=== PATIENT | male | born 1970 | race Caucasian/White ===

== ENCOUNTER 2023-08-03 09:07 | Outpatient (OUT) | payer BC, SELFPAY ==
[2023-08-04 07:07] LABS: Testosterone 180 ng/dL (264-916)
== END 2023-08-03 09:08 | disposition home or self-care (01) ==
LOC: LAB 09:13
PROVIDERS: PCP Internal Medicine; Visit Provider Urology
DX: E29.1 Testicular hypofunction (principal)
CPT/HCPCS: 36415; 84403

== ENCOUNTER 2023-08-31 09:05 | Outpatient (OUT) | payer BC, SELFPAY ==
--- OUTSIDE RECORDS SUMMARY | 2023-08-31 09:11 | XMS_ITS | CCD ---
Author Name Unknown Address [address] [place] [address] Organization [facility] Care Team Providers Care Supervisor [employer] Name Role Phone REJI CENTENO Primary Care Physician [phone] Anthony Knox Unavailable MD Anthony Knox Attending Provider Lucy Sparks Unavailable Unavailable Reji Centeno Unavailable DK, DR THOMASON Admitting Unavailable BALL, DR THOMASON Attending Unavailable BALL, DR THOMASON Primary Care Unavailable BALL, DR THOMASON Consulting Unavailable BALL, DR THOMASON Admitting Unavailable BALL, DR THOMASON Attending Unavailable BALL, DR THOMASON Primary Care Unavailable BALL, DR THOMASON Consulting Unavailable BALL, DR THOMASON Admitting Unavailable BALL, DR THOMASON Attending Unavailable BALL, DR THOMASON Primary Care Unavailable BALL, DR THOMASON Consulting Unavailable VISHNU, VALERIANO Arroyo Admitting Unavailable VISHNU, VALERIANO Arroyo Attending Unavailable DK, DR THOMASON Primary Care Unavailable VISHNU, VALERIANO A Admitting Unavailable VISHNU, VALERIANO Arroyo Attending Unavailable BALL, DR THOMASON Primary Care Unavailable BALL, DR THOMASON Admitting Unavailable BALL, DR THOMASON Attending Unavailable BALL, DR THOMASON Primary Care Unavailable BALL, DR THOMASON Consulting Unavailable WEST, DR DOLORES Otero Consulting Unavailable FALVO, DANG Consulting Unavailable Дмитрий Santo Admitting Unavaila Дмитрий Cano Attending Unavaila Дмитрий Cano Referring Unavaila Valeriano Scott A Admitting Unavailable Valeriano Francis A Attending Unavailable Valeriano Francis A Referring Unavailable Martha Lo Attending Unavailable REJI CENTENO Referring Unavailable DK, REJI Referring Unavailable Helio RYAN Attending Unavailable DK, REJI Referring Unavailable Helio RYAN Attending Unavailable Valeriano Francis A Referring Unavailable Дмитрий Santo Admitting Unavaila Дмитрий Cano Attending Unavaila ble Brown Valeriano A Admitting Unavailable Brown Valeriano A Attending Unavailable Vishnu Valeriano A Referring Unavailable BROWN, VALERIANO A Referring Unavailable VALERIANO FRANCIS Attending Unavailable Allergies Allergy Classification Reported Allergen(s) Allergy Type Date of Onset Reaction(s) Facility (1 source) No Known Medication Allergies; Translations: [No Known Medication Allergies] Propensity to adverse reactions (disorder) [facility] Repository (2 sources) patient allergy list reviewed by nurse or physicia Propensity to adverse reactions 5 Comment:Done [facility] Other Medications Current Medications Medication Drug Class(es) Dates Sig (Normalized) Sig (Original) acetaminophen 325 mg / oxyCODONE hydrochloride 5 mg oral tablet (3 sources) Opioid Agonist Start: 06-20-2022 Percocet 5 mg-325 mg oral tablet See Instructions, 50 tab(s), Refill(s) 0, 1-2 tab(s) Oral q4hr, [facility]/pharmacy #[id number], 179, cm, 06/11/22 14:36:00 EST, Height/Length Dosing, 137, kg, 06/11/22 14:36:00 EST, Weight Dosing Start Date: 06/20/22 Status: Ordered aspirin 81 mg delayed release oral tablet (1 source) Platelet Aggregation Inhibitor, Nonsteroidal Anti-inflammatory Drug Start: 06-20-2022 End: 07-20-2022 take 2 tablets by mouth once daily aspirin 81 mg Oral EC Tab 162 mg = 2 tab(s), Oral, Daily, X 30 day(s), # 60 tab(s), Refills(s) 0, Pharmacy: [facility]/pharmacy #[id number], 179, cm, 06/11/22 14:36:00 EST, Height/Length Dosing, 137, kg, 06/11/22 14:36:00 EST, Weight Dosing Start Date: 06/20/22 Stop Date: 07/20/22 Status: Ordered celecoxib 100 mg oral capsule (3 sources) Nonsteroidal Anti-inflammatory Drug Start: 06-20-2022 take 1 capsule by mouth twice daily as needed for pain CeleBREX 100 mg Cap 100 mg = 1 cap(s), Oral, BID, PRN for pain, # 60 cap(s), Refills(s) 0, Pharmacy: [facility]/pharmacy #[id number], 179, cm, 06/11/22 14:36:00 EST, Height/Length Dosing, 137, kg, 06/11/22 14:36:00 EST, Weight Dosing Start Date: 06/20/22 Status: Ordered Centrum Silver oral tablet (6 sources) Start: 06-01-2022 take 1 tablet by mouth once daily Centrum Silver oral tablet 1 tab(s), Oral, Daily, Prophylaxis Start Date: 06/01/22 Status: Ordered cephalexin 500 mg oral capsule (1 source) Cephalosporin Antibacterial Start: 06-20-2022 End: 06-27-2022 take 1 capsule by mouth every eight hours Keflex 500 mg Cap 500 mg = 1 cap(s), Oral, q8hr, X 7 day(s), # 21 cap(s), Refills(s) 0, Pharmacy: [facility]/pharmacy #[id number], 179, cm, 06/11/22 14:36:00 EST, Height/Length Dosing, 137, kg, 06/11/22 14:36:00 EST, Weight Dosing Start Date: 06/20/22 Stop Date: 06/27/22 Status: Ordered 12 hr cetirizine hydrochloride 5 mg / pseudoephedrine hydrochloride 120 mg extended release oral tablet (6 sources) alpha-Adrenergic Agonist, Histamine-1 Receptor Antagonist Start: 06-01-2022 take 1 tablet by mouth twice daily Zyrtec-D oral tablet, extended release 1 tab(s), Oral, BID, Allergy symptoms Start Date: 06/01/22 Status: Ordered Chondroitin Sulfates / Glucosamine (5 sources) Start: 06-01-2022 take 2 tablets by mouth once daily Glucosamine Chondroitin 2 tab, Oral, Daily, Prophylaxis Start Date: 06/01/22 Status: Ordered docusate sodium 100 mg oral capsule (3 sources) Start: 06-20-2022 take 1 capsule by mouth twice daily as needed for constipation Colace 100 mg Cap 100 mg = 1 cap(s), Oral, BID, PRN for constipation, # 20 cap(s), Refills(s) 0, Pharmacy: [facility]/pharmacy #[id number], 179, cm, 06/11/22 14:36:00 EST, Height/Length Dosing, 137, kg, 06/11/22 14:36:00 EST, Weight Dosing Start Date: 06/20/22 Status: Ordered ibuprofen 200 mg oral tablet (2 sources) Nonsteroidal Anti-inflammatory Drug Start: 06-01-2022 take 2 tablets by mouth every four hours as needed for pain ibuprofen 200 mg Tab 400 mg = 2 tab(s), Oral, q4hr, PRN for pain Start Date: 06/01/22 Status: Ordered lisinopril 20 mg oral tablet (20 sources) Angiotensin Converting Enzyme Inhibitor Start: 07-20-2021 take 1 tablet by mouth once daily lisinopril 20 mg Tab 20 mg = 1 tab(s), Oral, Daily, Refills(s) 0, High blood pressure Start Date: 07/20/21 Status: Ordered take 1 tablet by elizabeth th every twenty-four hours Lisinopril 5 MG 1 tablet Orally Once a day Not-Taking take 1 tablet by elizabeth th every twenty-four hours Lisinopril 10 MG 1 tablet Orally Once a day Not-Taking Osteo Bi-Flex Adv Joint Shield (5 sources) Osteo Bi-Flex Ad v Joint Shield Active sildenafil 100 mg oral tablet (5 sources) Phosphodiesterase 5 Inhibitor Start: 09-05-19 take 1 tablet by mouth once daily as needed Sildenafil Citrate 100 MG 1 tablet Orally Once a day as needed for ED for 30 days Aug, Active 60 actuat testosterone 20.25 mg/actuat topical gel (1 source) Androgen Start: 07-29-19 24 AndroGel Pump 20.25 mg/1.25 g (1.62%) transdermal gel = 2 pump, Topical, qAM, apply to clean, dry, intact skin wash hands thoroughly after application, # 75 gram, Refills(s) 3, Pharmacy: [id number], 178, cm, 07/29/23 14:23:00 EST, Height/Length Dosing, 136, kg, 07/29/23 14:23:00 EST, Weight Dosing Start Date: 07/29/23 Status: Ordered {20 (nirmatrelvir 150 MG Oral Tablet) / 10 (ritonavir 100 MG Oral Tablet) } Pack [Paxlovid 5-Day] (1 source) Start: 05-08-20 23 Paxlovid (300/100) 20 x 150 MG & 10 x 100MG as directed Orally bid for 5 days Apr, Active Completed/Discontinued Medications Medication Drug Class(es) Dates Sig (Normalized) Sig (Original) hydroCHLOROthiazide 12.5 mg oral tablet (5 sources) Thiazide Diuretic take 1 tablet by mouth every twenty-four hours hydroCHLOROthiazide 12.5 MG 1 tablet in the morning Orally Once a day Not-Taking Loratadine (6 sources) Claritin Not-Kai ing Claritin Active lovastatin 20 mg oral tablet (5 sources) HMG-CoA Reductase Inhibitor take 1 tablet by mouth once daily Lovastatin 20 MG 1 tablet with the evening meal Orally Once a day Not-Taking tadalafil 20 mg oral tablet (1 source) Phosphodiesterase 5 Inhibitor Start: 07-29-19 take 1 tablet by mouth every hour as needed Cialis 20 mg Tab 20 mg = 1 tab(s), Oral, As Directed, PRN sexual activity, Take one tab 1 hr prior to sexual activity., # 30 tab(s), Refills(s) 3, Pharmacy: [id number], 178, cm, 07/29/23 14:23:00 EST, Height/Length Dosing, 136, kg, 07/29/23 14:23:00 EST, Weight Dosing Start Date: 07/29/23 Status: Ordered Problems Active Problems Problem Classification Problem Date Documented Date Episodic/Chronic Abdominal hernia (6 sources) Umbilical hernia 06-01-2022 Episodic Acute bronchitis (5 sources) Acute bronchitis; Translations: [Acute bronchitis due to other specified organisms] Episodic Deficiency and other anemia (14 sources) Anemia; Translations: [Anemia, unspecified] 07-20-2021 Episodic Disorders of lipid metabolism (4 sources) Hyperlipidemia; Translations: [Hyperlipidemia, unspecified] Onset: 05-12-2017 Chronic Essential hypertension (15 sources) Hypertensive disorder; Translations: [Essential hypertension] 07-20-2021 Chronic Joint disorders and dislocations; trauma-related (11 sources) Derangement of left knee; Translations: [Unspecified internal derangement of left knee] Onset: 12-21-2021 Chronic Joint disorders and dislocations; trauma-related (5 sources) Late effect of sprain AND/OR strain without tendon injury; Translations: [Other tear of medial meniscus, current injury, unspecified knee, sequela] Episodic Osteoarthritis (14 sources) Osteoarthritis of left knee joint; Translations: [Unilateral primary osteoarthritis, left knee] Onset: 01-25-2022 Resolved: 01-25-2022 Chronic Other aftercare (5 sources) Aftercare following joint replacement surgery; Translations: [AFTERCARE FOLLOW JNT REPLACE SURG] Onset: 07-12-2022 Chronic Other connective tissue disease (5 sources) Presence of left artificial knee joint; Translations: [PRESENCE LEFT ARTIFICIAL KNEE JOINT] Onset: 07-13-2022 Chronic Other endocrine disorders (2 sources) Testicular hypofunction; Translations: [Testicular hypofunction] Onset: 03-28-2023 Chronic Other endocrine disorders (2 sources) Male hypogonadism 03-28-2023 Chronic Other male genital disorders (5 sources) Erectile dysfunction co-occurrent and due to arterial insufficiency; Translations: [Erectile dysfunction due to arterial insufficiency] Chronic Other male genital disorders (6 sources) Erectile dysfunction due to arterial insufficiency; Translations: [ERECTILE DYSF D/T ART INSUFFICIENCY] Onset: 11-23-2022 Chronic Other male genital disorders (2 sources) Male erectile dysfunction, unspecified; Translations: [Erectile dysfunction] Onset: 07-29-2023 Chronic Other nutritional; endocrine; and metabolic disorders (7 sources) Body mass index 40+ - severely obese 11-17-2021 Chronic Other nutritional; endocrine; and metabolic disorders (9 sources) Morbid obesity; Translations: [Morbid (severe) obesity due to excess calories] 11-08-2021 Chronic Other nutritional; endocrine; and metabolic disorders (2 sources) Obesity; Translations: [Obesity, unspecified] Onset: 08-30-2014 Chronic Other nutritional; endocrine; and metabolic disorders (2 sources) Obese class II; Translations: [Body mass index 39.0-39.9, adult] Onset: 08-30-2014 Chronic Other screening for suspected conditions (not mental disorders or infectious disease) (17 sources) Electrocardiogram abnormal; Translations: [Abnormal electrocardiogram [ECG] [EKG]] Onset: 09-10-2022 Episodic Residual codes; unclassified (16 sources) Obstructive sleep apnea syndrome; Translations: [Obstructive sleep apnea (adult) (pediatric)] Onset: 03-09-2016 07-20-2021 Chronic Comment on above: uses CPAP Residual codes; unclassified (1 source) Obstructive sleep apnea (adult) (pediatric) Chronic Residual codes; unclassified (1 source) Decreased libido Episodic Sprains and strains (7 sources) Strain of unspecified muscle(s) and tendon(s) at lower leg level, left leg, initial encounter; Translations: [Sprain of left knee] Episodic Unclassified (1 source) Patient encounter status 07-29-2023 Past or Other Problems Problem Classification Problem Date Documented Da te Episodic/Chronic Other non-traumatic joint disorders (1 source) Pain in left knee Onset: 01-25-2022 Resolved: 01-25-2022 Episodic Viral infection (1 source) COVID-19 Results Test Name Value Interpretation Reference Range Facility [facility] 12-26-2022 Lab Reports [id number] Normal [facility] TESTOSTERONE, TOTALon 2022 Testosterone [Mass/Vol] 208 ng/dL Critically low 264-916 [facility] Comment on above: Result Comment: Adul t male reference interval is based on a population of healthy nonobese males (BMI <30) between 19 and 39 years old. German et.al. JCEM 2017,102;8265-0134. PMID: 13251260. Performed By: #### T ESTTOT #### [facility] [address] [place] [address] Dr. Alla Martinez ECHOCARDIO M/2D COMPLETEon 0 09-17-2022 ECHOCARDIO M/2D COMPLETE Patient: ARNEL PARR Exam Date: 09/17/2022 : 1970 Gender:M Ordering : DR REJI CENTENO D.O. Admission #: [id number] Family : Order #: [id number] CLICK HERE TO VIEW EXAM ECHOCARDIOGRAM REPORT PROCEDURE: CARDIO PULMONARY ECHOCARDIO M/2D COMP INDICATIONS: Abnormal EKG and Stress test COMPARISON: None. DESCRIPTION: COMPLETE ECHOCARDIOGRAM Real-time transthoracic echocardiography with 2D, M-mode, spectral and color flow Doppler performed. QUALITY: Technical quality was good. LEFT VENTRICLE: Normal chamber size. Mild concentric left ventricular hypertrophy. Global left ventricular systolic function is normal. LV EF: Visual estimation of left ventricular ejection fraction is 60% DIASTOLIC: Normal diastolic function. ATRIAL SEPTUM: LEFT ATRIUM: Normal chamber size. RIGHT ATRIUM: Normal chamber size. RIGHT VENTRICLE: Normal chamber size. Normal right ventricular systolic function. TRICUSPID VALVE: Normal mobility and thickness. No stenosis with trivial regurgitation. Unable to assess right-sided pressures due to lack of measurable tricuspid regurgitation. MITRAL VALVE: Normal mobility and thickness. No mitral valve prolapse. No evidence of mitral valve stenosis. There is no mitral annular calcification. No mitral regurgitation. AORTIC VALVE: Normal trileaflet appearance. No visible sclerosis. Normal leaflet mobility. No evidence of aortic valve stenosis. No aortic regurgitation. AORTIC ROOT: Normal diameter and appearance. PULMONIC VALVE: Normal thickness and mobility. No stenosis. No regurgitation. PERICARDIUM: No evidence of pericardial effusion. IVC: Collapses with inspirations. Normal size. PLEURA: CONCLUSION: 1. Mild concentric left ventricular hypertrophy with normal systolic function. LVEF is 60%. 2. Normal right ventricular size and systolic function. 3. No significant valvular dysfunction. 4. No pericardial effusion. Adult Echocardiography Procedure Report Left Ventricle LVEDD (3.7 - 5.6 cm): 4.47 cm LVESD (2.2 - 4.0 cm): 3.06 cm LVIVS thickness (0.6 - 1.2 cm): 1.22 cm LVPW thickness (0.5 - 1.0 cm): 1.20 cm e': 0.11 m/s E - e': 7.26 LVOT Max Gradient: 3.00 mm[Hg] Peak Velocity (LVOT): 0.87 m/s Mean Velocity (LVOT): 0.58 m/s LVOT Diameter 2.39 cm Left Ventricular Ejection Fraction: 60 % Left Atrium LA Volume Index (2D A2C): 68.29 ml, 68.29 ml Left Atrium Systolic Dimension: 3.55 cm Mitral Valve MV E to A Ratio: 1.29 Mitral Valve A-Wave Peak Velocity: 0.63 m/s Mitral Valve E-Wave Peak Velocity: 0.81 m/s Right Ventricle RV Internal Diastolic Dimension: 3.96 cm Aorta AO Root Diam: 3.45 cm Ascending Ao Diam: 2.73 cm Aortic Valve AoV Area (Peak Anthony): 3.11 cm2, 3.11 cm2 AoV Area (VTI): 3.30 cm2, 3.30 cm2 Peak Velocity(Antegrade Flow): 1.24 m/s Peak Gradient(Antegrade Flow): 6.19 mm[Hg] Mean Velocity(Antegrade Flow): 0.90 m/s Mean Gradient(Antegrade Flow): 3.64 mm[Hg] Velocity Time Integral: 26.61 cm Tricuspid Valve Peak Velocity (Regurgitant Flow): 1.07 m/s, 0.99 m/s, 1.58 m/s Peak Velocity: 0.50 m/s Pulmonic Valve Mean Gradient: 3.72 mm[Hg] Mean Velocity: 0.93 m/s Peak Velocity: 1.27 m/s Peak Gradient: 6.49 mm[Hg] Right Atrium Right Atrium Systolic Pressure: 99.56 ml, 99.56 ml Dictated by: Louie Camara M.D. on 09/20/2022 at 09:20 Approved by: Louie Camara M.D. on 09/20/2022 at 09:22 Normal [facility] TESTOSTERONE, TOTALon 2022 Testosterone [Mass/Vol] 276 ng/dL Normal 264-[address] [facility] Comment on above: Result Comment: Adul t male reference interval is based on a population of healthy nonobese males (BMI <30) between 19 and 39 years old. German et.al. JCEM 2017,102;5634-4347. PMID: [id number]. Performed By: #### T ESTTOT #### [facility] [address] [place] [address] Dr. Alla Martinez CBC AUTO DIFFon 09-06-2022 BASO # 0.1 103/ul Normal 0.0-0.1 [facility] Comment on above: Performed By: #### C BC #### [facility] [address] [place] [address] Dr. Alla Martinez Basophils/100 WBC (Bld) 1.6 % Normal 0.2-2.0 [facility] Comment on above: Performed By: #### C BC #### [facility] [address] [place] [address] Dr. Alla Martinez EO # 0.5 103/ul Normal 0.0-0.7 [facility] Comment on above: Performed By: #### C BC #### [facility] [address] [place] [address] Dr. Alla Martinez Eosinophils/100 WBC (Bld) 6.4 % Normal 0.9-7.0 [facility] Comment on above: Performed By: #### C BC #### [facility] [address] [place] [address] Dr. Alla Martinez Erythrocyte distribution width (RBC) [Ratio] 12.8 % Normal 11.0-15.0 [facility] Comment on above: Performed By: #### C BC #### [facility] [address] [place] [address] Dr. Alla Martinez Hematocrit (Bld) [Volume fraction] 40.1 % Critically low 42.0-54.0 [facility] Comment on above: Performed By: #### C BC #### [facility] [address] [place] [address] Dr. Alla Martinez Hemoglobin (Bld) [Mass/Vol] 13.0 g/dL Critically low 14.0-18.0 [facility] Comment on above: Performed By: #### C BC #### [facility] [address] [place] [address] Dr. Alla Martinez IG # 0.06 10e3/ul Critically high 0.00-0.03 [facility] Comment on above: Performed By: #### C BC #### [facility] [address] [place] [address] Dr. Alla Martinez IG % 0.8 % Critically high 0.0-0.5 [facility] Comment on above: Performed By: #### C BC #### [facility] [address] [place] [address] Dr. Alla Martinez LYMPH # 2.5 103/ul Normal 1.2-3.8 [facility] Comment on above: Performed By: #### C BC #### [facility] [address] [place] [address] Dr. Alla Martinez Lymphocytes/100 WBC (Bld) 33.2 % Normal 20.5-60.0 [facility] Comment on above: Performed By: #### C BC #### [facility] [address] [place] [address] Dr. Alla Martinez MANUAL DIFF REQ NO Normal [facility] Comment on above: Performed By: #### C BC #### [facility] [address] [place] [address] Dr. Alla Martinez MCH (RBC) [Entitic mass] 28.3 pg Normal 25.9-34.0 [facility] Comment on above: Performed By: #### C BC #### [facility] [address] [place] [address] Dr. Alla Martinez MCHC (RBC) [Mass/Vol] 32.4 g/dL Normal 29.9-35.2 [facility] Comment on above: Performed By: #### C BC #### [facility] [address] [place] [address] Dr. Alla Martinez MCV (RBC) [Entitic vol] 87.4 fL Normal 80.0-94.0 [facility] Comment on above: Performed By: #### C BC #### [facility] [address] [place] [address] Dr. Alla Martinez MONO # 0.6 103/ul Normal 0.3-0.8 [facility] Comment on above: Performed By: #### C BC #### [facility] [address] [place] [address] Dr. Alla Martinez Monocytes/100 WBC (Bld) 8.3 % Normal 1.7-12.0 [facility] Comment on above: Performed By: #### C BC #### [facility] [address] [place] [address] Dr. Alla Martinez NEUT # 3.8 103/ul Normal 1.4-6.[address] [facility] Comment on above: Performed By: #### C BC #### [facility] [address] [place] [address] Dr. Alla Martinez Neutrophils/100 WBC (Bld) 49.7 % Normal 43.0-75.[address] [facility] Comment on above: Performed By: #### C BC #### [facility] [address] [place] [address] Dr. Alla Martinez Platelet mean volume (Bld) [Entitic vol] 10.8 fL Normal 9.5-13.[address] [facility] Comment on above: Performed By: #### C BC #### [facility] [address] [place] [address] Dr. Alla Martinez PLT 228 103/ul Normal 150-450 [facility] Comment on above: Performed By: #### C BC #### [facility] [address], [place] [address] Dr. Alla Martinez RBC 4.59 106/ul Critically low 4.70-6.10 [facility] Comment on above: Performed By: #### C BC #### [facility] [address] [place], [place] [address] Dr. Alla Martinez WBC 7.6 103/ul Normal 4.0-11.0 [facility] Comment on above: Performed By: #### C BC #### [facility] [address], [place] [address] Dr. Alla Martinez Complete Blood Count and Dif uvaldo 09-06-2022 Anisocytosis Ql (Bld) [facility] Other Basophilic stippling LM Ql (Bld) [facility] Other RBC morphology finding Nom (Bld) [facility] Other Complete Blood Count and Diff [facility] Other Comprehensive Metabolic Pane maria 09-06-2022 Albumin [Mass/Vol] 3.039430 g/dL 3.4-5.0 g/dL [facility] Other Calcium [Mass/Vol] 8.7875297 mg/dL 8.5-10 .1 mg/dL [facility] Other CO2 [Moles/Vol] 27.94420439 mmol/L 21.0-3 2.0 mmol/L [facility] Other Creatinine [Mass/Vol] 0.41477806 mg/dL 0. 70-1.30 mg/dL [facility] Other Potassium [Moles/Vol] 4.43361456 mmol/L 3 .5-5.1 mmol/L [facility] Other Protein [Mass/Vol] 7.102022 g/dL 6.4-8.2 g/dL N [facility] Other Urea nitrogen [Mass/Vol] 18.8052524 mg/dL 7.0-18.0 mg/dL [facility] Other Comprehensive Metabolic Panel see note [facility] Other Comprehensive Metabolic Panel 142 mmol/L 136-145 mmol/L [facility] Other Comprehensive Metabolic Panel 115 mg/dL Critically high 74-106 mg/dL [facility] Other Comprehensive Metabolic Panel >60 mL/min/1.73m2 >=60 mL/min/1.73m 2 [facility] Other Comprehensive Metabolic Panel 0.2 mg/dL 0.2-1.0 mg/dL [facility] Other Comprehensive Metabolic Panel 3.8 g/dL [facility] Other Albumin/Globulin [Mass ratio] 0.9 {ratio} Normal [facility] Other Comment on above: Performed By: #### C MP, LIPID #### [facility] [address] [place] [address] [address] Alla Martinez ALP [Catalytic activity/Vol] 93 U/L Normal 46-116 [facility] Other Comment on above: Performed By: #### C MP, LIPID #### [facility] [address] [address] [address] Alla Martinez ALT [Catalytic activity/Vol] 37 U/L Normal 16-63 [facility] Other Comment on above: Performed By: #### C MP, LIPID #### [facility] [address] [place], [place] [address] Dr. Alla Martinez Anion gap [Moles/Vol] 12.1 mmol/L Normal No rt [employer] [facility] Other Comment on above: Performed By: #### C MP, LIPID #### [facility] [address] [address] [address] Alla Martinez AST [Catalytic activity/Vol] 21 U/L Normal 15-37 [facility] Other Comment on above: Performed By: #### C MP, LIPID #### [facility] [facility] [address] [place] [address] Dr. Alla Martinez Chloride [Moles/Vol] 107 mmol/L Normal 98-107 [facility] STAR FESTIVAL Other Comment on above: Performed By: #### C MP, LIPID #### [facility] [address] [address] [address] Alla Martinez Urea nitrogen/Creatinine [Mass ratio] 20.2 mg/mg Normal [facility] STAR FESTIVAL Other Comment on above: Performed By: #### C MP, LIPID #### [facility] [address] [place] [address] Dr. Alla Martinez LIPID PROFILEon 09-06-2022 CHOL-HDL RATIO NORM SEE BELOW Normal [facility] Comment on above: Result Comment: 3.3 - 4.4 LOW RISK 4.4 - 7.1 AVERAGE RISK 7.1 - 11.0 MODERATE RISK >11.0 HIGH RISK Performed By: #### C MP, LIPID #### [facility] [address] [place] [address] Dr. Alla Martinez Cholesterol in LDL [Mass/Vol] 89.2 mg/dL Normal [facility] Comment on above: Performed By: #### C MP, LIPID #### [facility] [address] [place] [address] Dr. Alla Martinez HDL NORMAL > or = 60 mg/dl - LOW CARDIOVASCULAR RISK <40 mg/dl - HIGH CARDIOVASCULAR RISK Normal [facility] Comment on above: Performed By: #### C MP, LIPID #### [facility] [address] [place] [address] Dr. Alla Maritnez LDL CALC NORMAL SEE BELOW Normal [facility] Comment on above: Result Comment: <100 mg/dl OPTIMAL 100 - 129 mg/dl NEAR OR ABOVE OPTIMAL 130 - 159 mg/dl BORDERLINE HIGH 160 - 189 mg/dl HIGH >190 mg/dl VERY HIGH Performed By: #### C MP, LIPID #### [facility] [address] [address] [address] Alla Martinez VLDL CALC 35.8 mg/dL Normal [facility] Comment on above: Performed By: #### C MP, LIPID #### [facility] [address] [address] [address] Alla Martinez Lipid Panelon 09-06-2022 Lipid Panel > or = 60 mg/dl - LOW CARDIOVASCULAR RISK <40 mg/dl - HIGH CARDIOVASCULAR RISK [facility] STAR FESTIVAL Other Lipid Panel SEE BELOW [facility] Other Lipid Panel 89.2 mg/dL [facility] Other Lipid Panel 35.8 mg/dL [facility] STAR FESTIVAL Other Cholesterol [Mass/Vol] 158 mg/dL Normal <=200 [facility] Other Comment on above: Performed By: #### C MP, LIPID #### [facility] [address] [address] [address] Alla Martinez Cholesterol in HDL [Mass/Vol] 33 mg/dL Critically low 40-60 [facility] Other Comment on above: Performed By: #### C MP, LIPID #### [facility] [address] [address] [address] Alla Martinez Cholesterol.total/Cho lesterol in HDL [Mass ratio] 4.8 {ratio} Normal [facility] STAR FESTIVAL Other Comment on above: Performed By: #### C MP, LIPID #### [facility] [address] [address] [address] Alla Martinez Triglyceride [Mass/Vol] 179 mg/dL Critically high <=150 [facility] Other Comment on above: Performed By: #### C MP, LIPID #### [facility] [address] [address] [address] Alla Martinez PROF 14(COMP METB)on 023 Albumin [Mass/Vol] 3.5 g/dL Normal 3.4-5.[address] [facility] Comment on above: Performed By: #### C MP, LIPID #### [facility] [address] [address] [address] Alla Martinez Bilirubin [Mass/Vol] 0.2 mg/dL Normal 0.2-1.0 [facility] Comment on above: Performed By: #### C MP, LIPID #### [facility] [address] [address] [address] Alla Martinez Calcium [Mass/Vol] 8.9 mg/dL Normal 8.5-10.[address] [facility] Comment on above: Performed By: #### C MP, LIPID #### [facility] [address] [place] [address] Dr. Alla Martinez CO2 [Moles/Vol] 27.1 mmol/L Normal 21.0-32.0 [facility] Comment on above: Performed By: #### C MP, LIPID #### [facility] [address] [place] [address] Dr. Alla Martinez Creatinine [Mass/Vol] 0.89 mg/dL Normal 0.70-1.30 [facility] Comment on above: Performed By: #### C MP, LIPID #### [facility] [address] [place] [address] Dr. Alla Martinez EGFR-AF SOUTH AFRICAN >60 Normal >=60 [facility] Comment on above: Performed By: #### C MP, LIPID #### [facility] [address] [place] [address] Dr. Alla Martinez EGFR-NON AF SOUTH AFRICAN >60 Normal >=60 [facility] Comment on above: Performed By: #### C MP, LIPID #### [facility] [address] [place] [address] Dr. Alla Martinez Globulin (S) [Mass/Vol] 3.8 g/dL Normal [facility] Comment on above: Performed By: #### C MP, LIPID #### [facility] [address] [place] [address] Dr. Alla Martinez Glucose [Mass/Vol] 115 mg/dL Critically high 74-106 [facility] Comment on above: Performed By: #### C MP, LIPID #### [facility] [address] [address] [address] Alla Martinez Potassium [Moles/Vol] 4.2 mmol/L Normal 3.5-5.1 [facility] Comment on above: Performed By: #### C MP, LIPID #### [facility] [address] [address] [address] Alla Martinez Protein [Mass/Vol] 7.3 g/dL Normal 6.4-8.[address] [facility] Comment on above: Performed By: #### C MP, LIPID #### [facility] [address] [address] [address] Alla Martinez Sodium [Moles/Vol] 142 mmol/L Normal 136-[address] [facility] Comment on above: Performed By: #### C MP, LIPID #### [facility] [address] [address] [address] Alla Martinez Urea nitrogen [Mass/Vol] 18.0 mg/dL Normal 7.0-18.0 [facility] Comment on above: Performed By: #### C MP, LIPID #### [facility] [address] [address] [address] Alla Martinez TESTOSTERONE, TOTALon 2022 Testosterone [Mass/Vol] 276 ng/dL 264-916 ng/dL [facility] Other IntraOperative Documentson 1 08-23-2021 IntraOperative Documents [id number]#1.00CD:127 Normal [facility] Blood Bank Slipon 06-21-2022 Blood Bank Slip [id number] 0#1.00CD:127 Normal [facility] Coding Summary.on 06-21-2022 Coding Summary. CD:[id number] Gh0bWw+PGhlYWQ+PE1FV EKdV53crFEiiA7JZ8uUJ Q7GVHDLTDNCIW5LOQ0kv WF0PWreV3JdtrZy UhsocCAkXW91EBu4YLU0 zWvbCIeeaE5vdIBuD2w2 TzQmAU44mF55EBalFQCq MaW9XeCcxccuvJSo O9lmQfMlrNGaFwv+PHRh YmxlIHdpZHRoPScxMDAl LqTtcTifYX4bXe4pWFEq LWNvbGxhcHNlOiBj o0naULRdYBlpZF0emCar N7QfiMU0WNQrx9c5Ym09 dHI+PQFtYHG8lEzcUEif f478JyOvm5vnLKC1 mNGcVWmzEPQ3X47mh3Y5 BQLqKPIrYKC2vVL4kA6o vHdiczvaM1QdaEVsAaO9 HWN1bMUkaC0ymLxe azrssW7fOfh+N38BBJ3E HBVSQQ0TYjz7N0MzYxhs dHI+MG23VLYjRB06vHPi kUSgj6monHf8FrMm UQZdFMB1hFuoCJavm8Th HHGpD88frTQas5R2YIRi aQdjlKAlYnQxgTH5jX7t QJqkuxyui0nitoyw Cijnj4zksp56mC01L63r TTuqJJSkHVD3MWVrMRIt wEvunp5krS2rVe4+IDxj c6uxq6pyiTv3BnGw CHEotlMpmBwgREH1r6Cc Pk15M9VqeOpsm2LnUqm4 pd21xHHlj5P7qGU0XKwt FZKksD2tUCjiSzD6 KDXzAyAxwI72hLEjJUgb Wa4czCffbEdaJB5kXFYa qixuTVDckE9uXNCdhMOr vGtxJX3nTWBpydvm w480DoHzIZC6HKAwgFDc Q5HnjY4hGjOhGGBcNUVm Q9NbaTFwSBroF786LSml SwJ4HOFmfqYgA7Lv KFNasFfiTtE8e9B0Up9K u6WjypbqEYB5GLbdYVBx EdL6BwJsJhH4S7DuPkw2 OQPimLcjEA8yP5Jy CXJpcakrbjmzgJT2LDUj ZENwaB68pYJwRUbfCf5t w8U5f357MPAiHPPkxC95 Zm3laGwaTXBeiJCR oO4uxxnmr4snsceoFmGz XQDbAZv4JOq6EJCbvUws MjCnQVT7LdS7CIJ4mRPq bV7grKydexfdhV4q Oyc+M38zdD5rPPN0SVI2 kzwhMAPowkSyUR87TJ32 N7HeZpdseTTnjML+PGRp rmElzOnnYN5zAiVs m1pim4HsPOtvK1OwFFYz ECvhXea9FWWwTIT2vUW9 gY4cMBJvIAkdz0K6bJK8 W9NoxeBuvr7gh1kr LTXaDQhuK28ftZSds1F7 SPCmeUZ2CDOtwJruQsQy aE40Rre+IRDhoIlcs4Rw Xozzm5bph2lloOw5 IjMwJSIgdmFsaWduPSJ0 j7NlPp79U19hEHcuQPHl GIYtAFGcRNBrdZbuls1g sA9lQt8+PGNvbCB3 dIY7iF3lSFGiCgZ4QTta D924RwFznRNlEeywg8eq h0pmiLn5WjAmWVInmtIe rLjqLVW0b8SgIo86 A65vZVenVDAoMKZzKVJo NWZocVjdyw3dbC6yCz1+ CW0fp0jdju36uW27jLC+ VUJzWGM8iAyxOOrs ORTbnD1jXMstIoS1DIGi IhNxfK71bOXiLEibCz2p xWenvJxfRT5zYUEexqbr o609CbGhj8dzPAHy hDVoYAbiOIP9Z41cd8W8 ESUoRFXgMES0wDA3yI8r bGlnbjogbGVmdDsgdmVy eGelLLfaBPdaA820 IHRvcDsnPlBhdGllbnQg ZkJgPOc3A8KfRvt4YTDj zUzaBA2xjKLxIZafVz2i yGdzwIchLN9yRCNf xxewi401QpGxw0ztKWEf hWQzDHikSND2X27lw9U8 LZGeESKaHWB7kAU7mD4n bGlnbjogbGVmdDsg diEabAuvEAqpAJyrO721 IHRvcDsnPkJpcnRoIERh qUF9OS96UQ32oBTrd5F0 aRC3O0FrOXJgajcb hpuoiKO7RPHaXVJdyW82 Hp2pyZjhWr1yCMAvGGP6 LVXlnNVhP8JtpC3mSyXp JEKoWWSzC9FgyDGs IMcnC936KXwwPtB9BNOy suMkH7FgWRSjgGunWxA7 c4L0Qi8DW6R1NT29MX69 iUTes7M7wNT0U1Gi NZHdfttfmxbbfNW8NGYq SESaaS53Hd5dwHwjIu7i OABiPXH5DIRxdHCmR8Fg pD8rCbViBTAwGHZr B5RnvSOaHJkpU539ORha UrO1RSUzddVrL6WaMZWp cMcuRvS1r7P3Vl4HKCb9 ZR06TT23cUXgs9N1 dGU2L3BeDQXbxadeeqfd pQY5VXUkWFMafW96Dd0m iEpaAy8xXMUrINC7ZMBx lRBqI5QsmS9bJxPm FOMhUGRmF9ZccLFhEDpn O665HGahHjN3MJSrbjJe N8MdFEHvjTsmTzX2a3H8 Ne6YCFXnGR98ZPL7 qIJ2MI25LY65M8XnSxpg dGFibGU+PHRhYmxlIHdp ZHRoPScxMDAlJyBzdHls TU0jMk4lHEGuGXDa tIqruLVhXnEvj2kgJWCl PEwjRY3hxLxkU9RtkKT3 YHYhe5e8Qi83F64bV7Wm dXA+WDMwhOW3vKK8 oA7nSoEcZnJ5HHatP722 DiCmtOWnCjlnm6iqh9uc xFu2SyS3HKSpgaHhaBdy XKA3r7PiYv82W76u IHdpZHRoPSIxNSUiIHZh fMvjzd2zzP2tNm4+PGNv wOM2hGH2zI9mYdMgOgH1 UTlxU353MyZnsLQz Vlpyp1qha9yryXz6EbPw TDAcooLfgClrGPB0m3Us Xd82B0SopJala5XdPxk6 kh99lGTlu4V5dIR0 X0HyQPPyxmhajLLqfYyh LH2dXFFohlesTFXwtF1n GKEnS2h2UeIhSfH0QEtl F2HjckW1YQSskGJn DZjqTMN8A80xd6H2RQEh PGPbXJZ0iNM9iV1jiCgb bjogbGVmdDsgdmVydGlj OGnbNBcfB651NJTe tEtoMJUreD5mOQJsuNHm hEmsDY9dNNHfypqaThiG WX7PXKDSFHQOMOMUPPA9 V5SyDtf3GWLrlHhg TO8mgUTbGQaxMc9jhQur sBxcOJ2uZNDghlnnXHHw mW0kZHPdfUKmsBjeSV2z BOSyshdkh452RhQu NZR6PLKbqMBrU1OsyR1q FcTnSGWqCWEwZ8HxyNMe FOatT275MGteDtQ8RBIx bdIpI0MxROQczKkx WoS0v0L7Wr8wMP9sYl2k OUzdMQ61IS21uOTpx2M7 jPZ7G1YdHWPolufoznkz yFD4NXIoMZNbqD74 gKBkFKalPc2tg6I6u871 UWFtEMRycD17Ge2ycUpn KGQwrZALiK4siyftz6bk cjogIzAwMDAwMDt0 NYr7TKZhnWyvKrCgVKQ9 IpP3IIZ0oIPmgI4ioOum rhmrsX3yHst+NDkgWWVh fpF8T2FuIey7DVAe qMmqST4cbPCpYSqnFz4g qGvmpMgcOR3uGKDdatwg SDExcM8jPBNoyLFgqQrh EI7mEAWgxkhwl969 HkQmXOA3LCHpyPToQ2Va vW7dJyWdSNMiVVQmG3Zd zMEwCIwyP764NDrfOnD0 PWLhnxQhI7OpZYYq vNvpAmJ1u6O0Uk9WHLjf QO91QE52tNOwr7I6dUX1 S0UbIUHhmxtkwpdpuQA3 JVPdPQXcxG71iDDr GVkzXu3ec1N4i010XWMp VGOfmR07Ro4yjBlfQNPs oSXBiD1zehesz2ntkqpl MsCjATOqHRz3EMg6 KMAhvZgpJzPvMGQ8PwY8 SBW9oRZfgR3irYsrxofk eF8tOee+DT2izGcwlN7t yG0APF2xHNVwhAOG iCCmAGL3TR14RM02E2Zj PjwvdGFibGU+PHRhYmxl IHdpZHRoPScxMDAlJyBz jZiwGQ7ySm5yFMGi OWXjmSiffJNgQqAvb4ec GRQxPNztIY8yvIojD8Md yWL8CHCli9f9Qb44A64a P6IbeJF+PGNvbCB3 iAZ5uW6rOdNgOaI3TGjn R194EaCqnKCuMkhkx1xl i6cqxIg2UjXxGMVyduUv uIjfROK3m7MjCc68 H81eNLnuEXDnRKWeQNDo OEXmbXugxk5hfC0lMc5+ MKFsvUS7wGF3rK3wPzXi GvN1UGsmX339SlQs cFPaQyvoV28kW8RotFW+ WHThMwq0KSWwdPerZZ4i lGYpVCuyJy2gKUB5SsZs ZlQsOOxyJ0BbQCMb amtozbikcNH5TXWaYMBd eP71Ru6tpKytUc5lMLNz DYP3DBFzrNMoL3BtbF8l TjKbMFWaTDAjZ6Mb qIAnNPbcV257NFnmHiY4 KGLjioJmI0IsAELxaSua CwV0w0D9Sl4LmOqioHNz TQ2uFmZnXPm4J9At Dce6JXQbaCknDV7vvXEw VUgiAn8oyFufcChgDO7s FHVksyppa063TzBhx9aw IDEwcHQgVGltZXM7 D48bx3S8AXEbOKLvRFZ9 fLQ1sY2cfCjpedhkzOCy dDsgdmVydGljYWwtYWxp L064BKRdnMywBfAO Ibd3U2WvPjc2ZSXkjAyy IB7pwNZjFZdkGr4xsQsu uIyrBZ9xJDTboxwdo428 GfWgj2ulXFKeoAWe EFozMCY4M85ob7L6KWDw QBFjEWE4sKU0aA4fkNmv bjogbGVmdDsgdmVydGlj ZKfiPSkfZ068GXMb qJviTm6ROub8G1YgCsm4 EOCkqMwcSI8jcRBmXBad Oj9ejZgdyNwnVV7hSSKl ijuze641TsMmv3eb IXYpzGEyCGtjIMD7W05i o3T5DAIqYSUlBGM0sEO7 aK2xgLvpvyicfTMcsUvw dmVydGljYWwtYWxp S936WZNwrMovBnHgjKNv OjwvdGQ+HB50bm91V2Vg GdvhTmk2FNJtSEE6zAD3 nL0iVCGtPOuks5Q8 bGU9 (more content not included)... [facility] Consent for Anesthesiaon Consent for Anesthesia [id number] #1.00CD:127 [facility] Consent for Anesthesia [id number] #1.00CD:127 [facility] Discharge Instructionson Discharge Instructions [id number] #1.00CD:127 [facility] IntraOperative Documentson 1 08-22-2021 IntraOperative Documents [id number] #1.00CD:127 [facility] IntraOperative Documents [id number] #1.00CD:127 [facility] Main OR Intraoperative Recor don 06-21-2022 Main OR Intraoperative Record IntraOp Document Type FT Summary Primary Physician: Valeriano Francis DO Finalized Date/Time: 06/21/22 13:27:39 Pt. Name: ARNEL PARR/Sex: 1970 Male Med Rec #: [id number] Physician: Valeriano Francis DO Financial #: [id number] Pt. Type: A Room/Bed: [place] [address] Admit/Disch: 06/20/22 07:16:26 - 06/20/22 18:16:16 Institution: Case Times FT Entry 1 Patient Times In Room 06/20/22 10:30:00 Out Room 06/20/22 12:54:00 Procedure Times Start 06/20/22 11:07:00 Stop 06/20/22 12:44:00 Anesthesia Times Start 06/20/22 10:30:00 Stop 06/20/22 12:54:00 Block Timeout w/ 06/20/22 10:06:00 Anesthesia Last Modified By: Paulina MARTIN, Makayla Toro 06/20/22 12:53:50 General Comments: BLOCK DONE BY DR. ROLLINS AT 1006, ASSISTED BY Britany WHELAN RN AND Mary MENDOZA, VERONICA, ATTEMPTED SPINAL ANESTHESIA BUT FAILED; HR = 60, 02 = 98% - Britany WHELAN RN 06/21/22 Chart opened to review and send charges [facility] Case Attendance FT Entry 1 Entry 2 Entry 3 Case Attendee Vincent GANG BORE OPERATOR, Chris Francis DO, Valeriano Adam SAND ANALYST, Gabriella Bardales Role Performed GANG BORE OPERATOR Surgeon - Primary SAND ANALYST/SA Time In 06/20/22 10:30:00 06/20/22 10:30:00 06/20/22 10:30:00 Time Out 06/20/22 12:54:00 06/20/22 12:46:00 06/20/22 12:54:00 Procedure KNEE TOTAL ROBOT KNEE TOTAL ROBOT KNEE TOTAL ROBOT ARTHROPLASTY(Left) ARTHROPLASTY(Left) ARTHROPLASTY(Left) Comments DR. ROLLINS SUPERVISING Last Modified By: Paulina RN, Makayla Whelan RN, Makayla Whelan RN, Makayla Buckley P 06/20/22 Ina P 06/20/22 Ina P 06/20/22 12:53:52 12:53:52 12:53:52 Entry 4 Entry 5 Entry 6 Case Attendee Srikanth MARTIN, Jeanne Whelan RN, Makayla Barreto CST, Jed Toro Role Performed Drawing Box Tender - Primary Drawing Box Tender - Primary Scrub - Primary Time In 06/20/22 10:30:00 06/20/22 10:30:00 06/20/22 10:30:00 Time Out 06/20/22 12:54:00 06/20/22 12:54:00 06/20/22 12:54:00 Procedure KNEE TOTAL ROBOT KNEE TOTAL ROBOT KNEE TOTAL ROBOT ARTHROPLASTY(Left) ARTHROPLASTY(Left) ARTHROPLASTY(Left) Comments PRECEPTOR ORIENTATION Last Modified By: Paulina RN, Makayla Whelan RN, Makayla Whelan RN, Makayla Buckley P 06/20/22 Ina P 06/20/22 Ina P 06/20/22 12:53:52 12:53:52 12:53:52 Entry 7 Case Attendee John Villegas Role Performed Staff - Other Time In 06/20/22 10:30:00 Time Out 06/20/22 12:54:00 Procedure KNEE TOTAL ROBOT ARTHROPLASTY(Left) Comments 2ND SCRUB Last Modified By: Makayla Whelan RN 06/20/22 12:53:52 General Comments: JOSE ANTONIO ZUNIGA - FOR ELBA PRESENT FOR CASE - VDiane WHELAN RNactuarial clerk Protocols FT Pre-Care Text: Implements protective measures prior to operative or invasive procedure, confirms identity before the operative or invasive procedure, verifies operative procedure, surgical site, and laterality Entry 1 Procedure(s) KNEE TOTAL ROBOT Patient Identity Birthday, ID Band ARTHROPLASTY(Left) Verified (select at Check, Patient least 2): Participation Consents / H and P Anesthesia Consent, Operative Site Present Verified HandP, Surgery/Procedure Marking Verified Consent Surgical Site Yes Laterality Verified Yes Verified Procedure Verified Yes Correct Patient Yes Position Verified Availability Equipment, Implant, Prep Dry n/a Verified (If Medication Applicable) PreOp Antibiotic Yes Time Out Valeriano Francis DO, Given Participants Chris Kaur CRNA, Kia MEMBRENO, Srikanth Stearns RN, Paulina Campoverde RN, Makayla Toro, Mary Lou MEMBRENO, Bakari Cameron Kyle Time Out Complete 06/20/22 11:05:00 Outcomes Met? Yes Last Modified By: Makayla Whelan RN 06/20/22 11:13:03 Post-Care Text: The patient is free from signs and symptoms of injury caused by extraneous objects Allergy Information FT Pre-Care Text: Verifies allergies Entry 1 Allergies Reviewed? Yes Allergies Reviewed Self/Patient With Outcomes Met? Yes Last Modified By: Makayla Whelan RN 06/20/22 11:13:09 Post-Care Text: The patient received appropriate medication(s) safely administered during the perioperative period Surgical Procedures FT Entry 1 Procedure Description Procedure KNEE TOTAL ROBOT Modifiers Left ARTHROPLASTY Surgeon Description ROBOTIC ASSISTED LEFT TOTAL KNEE ARTHROPLASTY Primary Procedure Yes Primary Surgeon Valeriano Francis DO Start 06/20/22 11:07:00 Stop 06/20/22 12:44:00 Anesthesia Type General Surgical Service Orthopedics Wound Class 1 - Clean Last Modified By: Gabriella Adam CST 06/21/22 13:25:16 General Case Data FT Pre-Care Text: Classifies surgical wound, implements aseptic technique, initiates traffic control Entry 1 Case Information OR OR 4 FT Case Level Level 6 Wound Class 1 - Clean Specialty Orthopedics ASA Class 3 Preop Diagnosis LEFT KNEE OSTEOARTHRITIS Postop Same As Preop Yes Postop Diagnosis LEFT KNEE OSTEOARTHRITIS Outcomes Met? Yes Last Modified By: Paulina MARTIN, Makayla Buckley Muna 06/20/22 11:13:41 Post-Care Text: The patient is free (more content not included)... Normal [facility] Preoperative Documentson Preoperative Documents [id number] #1.00CD:127 Normal [facility] Preoperative Documents [id number] #1.00CD:127 Normal [facility] ABO/Rhon 06-20-2022 ABO/Rh Negative Invalid Interpretation Code [facility] Comment on above: Performed By: #### 1 [id number] #### [facility] [address] [place] [address] ABO/Rh History Checkon 06-20 ABO/Rh History Check Verified Hx Blood Type Normal [facility] Comment on above: Performed By: #### 1 [id number] ####[facility] [address] [place] [address] ABSCon 06-20-2022 ABSC Gel Interp Negative Normal [facility] Comment on above: Performed By: #### 1 [id number], [id number], [id number], [id number] ####[facility] [address] [place] [address] BLOOD BANKOrdered By: Harjeet Cartagena on 06-20-2022 ABO/Rh Interp Negative Invalid Interpretation Code [facility] [place] Subsection ABSC Gel Interp Negative (06/20/22 7:53 AM) Normal [facility] BB Subsection Blood Bank ID#on 06-20-2022 BBID# [id number] Invalid Interpretation Code [facility] Comment on above: Performed By: #### 1 [id number], [id number], [id number] ####[facility] [address] [place] [address] Coding Summary.on 06-20-2022 Coding Summary. CD:[id number] Gh0bWw+PGhlYWQ+PE1FV FRnA86brJOnhE9CV4qXH M7JZZSXOAMCHN8PBD4lf YR9DVwaP8UtutBm TrdqvASsLY70YQc5XYE2 yYwqQFhliP7ceMIfA6x2 WiEyOA13pG95NMzjEBTl QpR6NcSklingbGCm G1vtWpCxyXHvMut+PHRh YmxlIHdpZHRoPScxMDAl DoKojUqyDZ0xNa4rOJXc LWNvbGxhcHNlOiBj e2hdREQdCNucOM3mwYii D0UavMI6QCNiq0k1Kj24 dHI+AOSfCWY8dYocBDap e501OeXrj6azNFR6 fVAmFMzdFPO9F34vu9B6 WRBiMUBlPDK7wOO5oD3h mNkrllzhQ4AyyPRcLuA8 RGE2kJDbeI0jmDhm dlqygA6cNzx+W13OXB1Z RSUJYQ2OCpp6B0MfVqzt dHI+QL11QLLaFH39aVKn uNMpy6icgLz8AhWv ELGaSTK5wBkePViap2Xl DSQpC16avJLbb1D5QKAb uCiveABvCsLjeOT9kF7f VEwqywubd1yoszgq Ietwb5ylqr55aX38K87t AGtxSYVjVKH1FQTtYREr dCqdom6laP5uLh1+IDxj g4dpk4skiRp1VxKb HUPoviPqwPpaTHL1l0Sg Jg57L5WfdMdkg0ZhGkg5 hs96jKPrr5S6xEN7FNfq GXFrsL0vNUzkMuE3 BRFhBuSymU67hLTeSGrt Ox0rbNmqjOutGA9gWZXz qoavDCGmvI1nJFNrbNEr sNkmRI1zXSXsuwxm v291ZvWlGCC0PUTbqLLm F2GesZ2dLxBePDWmUGDb A3ZyxVRhWYduH196ZKkz SuR2GAOttaFoK0Xn RXGizLbvDiO8m8B7Cj0M t0GwptuoHGH0IBqaJGUw FzD2KsGrDwT9D6AnTqi1 VWYcvVnmYF4hT2Yc UJCaorquynxgcSL1BHKj KMZeqV74oBXjFQgcIy7z a5N4k394VNJkUFSgtT09 Bh7isXhqXSVhgSLD eF1upmbhu8ojthluEiJo PUPxFSi7SXj6VFXjqOkt LfJtUBS9WxG0LOK9cRZw fS0cjHuzbsyjgC7d Oyc+W69tzS9sQMS0HSL8 wkujWEHtvnDqLG51GE49 L9HwGinmaKQvrTM+PGRp jdHqsDfdHG7oKdBz o3har1IiBDvfT2UyBWPd KVbxTon0NARuSGK1hHZ3 wV7wODMcZHwyt4I0sEV4 C2SbahJywy9tw3pw SCZsVCqoS08drJTiw7X7 SBArgKH2QWYaqNxtDgYu iL16Aem+LGWnfWgdh4Aa Xvhdt5yzy9laaWk7 IjMwJSIgdmFsaWduPSJ0 n6HgHx80G43iQVxeANZh FRRvVVHtAMKihXtutz4g aW1fMn9+PGNvbCB3 yZF1uB9zODKpUjA4EWag N145XiFohIUtHgdxb0zv w9cvsAc2AnQjGLUrywPl sIwpOZF1y3CeEp82 X79qTGxqTILvOMBwWKNd XEWamJavfg0edK1vFc4+ MH4hl2omea95fW44rMR+ OFAtNDP7aBdrHOef UGWevE2fXVddRsW3BNAx XqTmrR30cEKtYHksSx9e sAkfoInkZW9cXLCokikr q028KiUni9twDJOg iZRtVDhtVCC4F54yq3O1 XHBrOZXqVPV4yOU7rJ3n bGlnbjogbGVmdDsgdmVy kNvnQOumCVsmV698 IHRvcDsnPlBhdGllbnQg XyCsDEr3J2BaSwz1YWNb hNbkYV6qyVFaZJihVg3c qZavgGjiRE8oMVRt buhui808JvPcz4vlFLCo rVBxXIarTQW8Z46mk2W7 PKYoDGBaAMN2bGU7nA4s bGlnbjogbGVmdDsg oyFtrOfjVWvwQFwrH092 IHRvcDsnPkJpcnRoIERh lJF7LT17QW36rEBhw0O4 xKV4X7WpQDQiseyf qfpwvFU2WUKzNFXcuK75 Wo3lfKupKb7rHDXySAT3 ESTnrYXcZ1KulN6zYiYt JLGbOSEwZ0CkpYZv KSxrR177CTlwMtN8DFDr zlFnN8JrDAAscQnsFvD0 f9L0Ot1XM8Y6DS35ZR50 nFMbh1M9gTV5V0Up ZXFfdryfljyolYO8CNUt KIDncX15Cn7ugHmeLl8g FEPqANU8FULqcLXaJ4Ek zV9xEjXuIBWnECZc I0EfdEIqVWfoW151MZdo SwM6ZKUdooEcQ4KuHDFi hApyBeN3a0O0Vh5SFNe0 LV05JK00oIAbr2U0 uGR3G6MiXSYopdgrrixp yUS4VWLvZKFdeG85Cv2n nZsuSi4mVSFjFIY1ZVJu lIQnL8YzxY2rOuNo ZBJiRTWrX6VgjKZrWUka J689OJdrKrJ5UKVhkfDs D3DaKCGciKsoGyN8z0J4 Fd2KZKDjRA38QLX7 dBG7UT28XV44I5NeMuyb dGFibGU+PHRhYmxlIHdp ZHRoPScxMDAlJyBzdHls PF2bVr3gRUExSINw eOsocFStGvRda6cpVTGn QJfbAI0jyWxeK1UrjMX7 QFKau9q1Uy79F59eK9Ai dXA+VGAzxLO6vZL0 cI0kLzTbJqB1ZCfmG953 FiOvoPAaUchtu3umv6oz qAw5UfD4GRIkqsCpaMsk LSQ9f9EaBt79Y66z IHdpZHRoPSIxNSUiIHZh gGpbga0dzM2bXl4+PGNv oFM7jEW2mV9nFrJvTaP2 HUnmJ777TpObdSMo Ucrfq7nre2cizXv8NyWq URKlkhVbzVxeVVM0x2Cu Mt61F2MfdNsox4IgJzc1 cn92cAEpu8P5hPI6 X9DkCLOtixzuaOSbtCql AZ2dSTIrthstSBYaaW7u WNZxL9c8IvAiMrF5VWnn Y6PfjfC3MBQmcPSn CBprCBE4W43de0X4JUOt KEFvSSU7kLF0qJ5tjAnj bjogbGVmdDsgdmVydGlj TCmwPIqlC641WJAs oGywFXAplY0jQFSwbEZy vEqeGW4rSBQrlhgtEjlI XX9GMVRWKZDHFEJGYLJ6 X6RhFsh4LLSqmBsc OX9ibOOmGHlzMy0apPrd kKngFM3eEHYrtagvXZNm nL6oANJxrKQlwYycZA5o DTYmangdn301NhFt GCN6ZDKwvSWzC4OalD7m QvZyOUGoOIGiR5QzyXMh GYtsV060TLumCkL3RWWk kkKlN3WnPJPnbDxe SkG9s7T4Fe8hFL8eYa7w XHiuIN76VZ30ePGqr7A2 vBP1S4JbVVHzhjecmaui mQD6TKFrUPSzzW64 vRSkJPgvWh4lj5U1y714 MERfOTSdeW60Hd2uqCqm KEGeiMHNpG3etyhyd4kj cjogIzAwMDAwMDt0 JOw9UFCcwYnaNeEtXJQ1 KyQ5DAJ3yAOzvP1uaTju ltrgmO7nUrs+NDkgWWVh ijH1Q7GjVkd4BDGb nBagIR8spGIyJPxoSu5h oVrfwNycAC6kGTBavrfj JBVgwL4uVIVycYIlrHtk JO1zDFSerkotm710 ZmSaVDF8EHYliBAsY1Df vV5tDvTlWRKxMUWhQ9Sh hEIePMnfP960TFzlKlZ6 QJKxujKaX9DhKHKf tMbbKrK8a7K3Mw8DRUwb DI30QW13aKLog6T7vWU1 L1KdTXGfnuysgkiwoOZ9 SKDzGUDtgX86aKRm CSlfTd6er1X0l439OXGx WIXxoB41Qg6ucKjmZWOa eUGFaU6ywdlgc8eezont QyRbAQEyWTy0COj1 RFTefOujIiSxOCJ4AmO0 WFE6cQFeyO2trOdubpjc oX6cQrg+F4N1mSG9iNPm dDwvdGQ+YO22se15 L7YdJsfwBtq0JAFuDCJ8 cTS0aE4tTBYqEFvoh1Y3 aPM0F5SpctUyzn7lx0jg AYZrBJhiW93eeUJd t8L0OJMigGG3EJVnjAjm RaOzjK40Tak+PGNvbGdy d5IqInpdh1bdt6ogbWe2 IjMwJSIgdmFsaWdu MQB7c5TmNa87S28vQVxm ZHRoPSIzMCUiIHZhbGln ph4esK4oFy8+PGNvbCB3 nTL5jK7dNeBqFmB2 YQruO154XuVcoPVlWbva x9mju0vufKf7GuKhUVLd ayCtrWbdOMF6j9XkQn18 Y4YplIauy3XjNrl2 yt15qGDlk9O0rIP1M2Gl FMGyhjuwxKTonYmxFX1y EYFgbolgFYDpjE0dDEQu A7j1JoBnTaX4NRlj C0SiduX2IHWsiKOwSHCb sHCNgD4rbmjim7katyrn FaZjSRMaQFv0DRo4TQDn pZxvQgWoQSX4MrN1 GJO6eRXxhT8ykHbtzxao lC4gJwv+MEv3y5bqrIIj BB8fpOO5HM63NQ63cGHf y2Z3tCW1V9OxQRPk sbkxlfqudPJ7WOZiHDDw uY49Rt6coGxwRn9zPWQm PJQ7RDUhqYQpS0UhtK0j CsXdASEeGRSxJ8Xa yIGbMXwcK525SUmtBaK6 QHIatsAtJ9ZiEPVeoOhy IeD6l6N3Od5LAI30AC96 CP63uQWtb9G6lUS5 U5LsHRWlelzygbotaAH4 JPVuMJRrfL26Lr4zhDic Si9cDPIlMRF8FTWovZEt L7WzzM9cGcZtRREb FOGiT3WdqFJgNYxwG897 CEvkEoA4CTVodhSnL4Bq WBKezLwjNvT0l8N4Cn2Y Nz47CL17QA31cONh m7W7lLH7N1TaPJUhvyku alvjxCS9TRVuTUAlrM03 Gp5rgLrlNz7oMSQsNJS3 GQTthNEoM2HbqP7n OxTjTGSrAELcL6IxjVIa VTllO182RYrhZoF7QIDv kgIdU1DcFWSrsMgqQgL6 z4S2Kx5CHVuvrgy2 C5RmCmpaqKR+JJ30RNJb NP17oZYjoAOsw8qjnXu7 PgGsPXMaTVC3dJtuOYcb c5XdOPAjM01zmGXv c2U6 (more content not included)... Normal [facility] Consent for Treatmenton Consent for Treatment [id number] #[id number] Normal [facility] H&P Updateon 06-20-2022 H&P Update [id number] 7#1.00CD:127 [facility] Inpatient Patient Summaryon 06-20-2022 Inpatient Patient Summary [address] [address] [facility] Clinical Discharge Instructions PERSON INFORMATION Name: ARNEL PARR PHYSICIANS Admitting Physician: Valeriano Francis DO Attending Physician: Valeriano Francis DO PCP: REJI CENTENO DO Diagnosis: Degenerative arthritis of left knee Comment: PATIENT EDUCATION INFORMATION Instructions: Alejandra Francis - Total Knee Arthroplasty (Custom) Medication Leaflets: Follow up: With: Address: When: Valeriano Francis [address] [id number] Business (1) MEDICATION LIST New Medications [facility]/pharmacy #[id number], [address], [place] [id number], [phone] acetaminophen-oxycod one (Percocet 5 mg-325 mg oral tablet) 1-2 tab(s) Oral q4hr. Refills: 0. aspirin (aspirin 81 mg Oral EC Tab) 2 Tablets By Mouth every day for 30 Days. Refills: 0. celecoxib (CeleBREX 100 mg Cap) 1 Capsules By Mouth 2 times a day as needed for pain. Refills: 0. cephalexin (Keflex 500 mg Cap) 1 Capsules By Mouth every 8 hours for 7 Days. Refills: 0. docusate (Colace 100 mg Cap) 1 Capsules By Mouth 2 times a day as needed for constipation. Refills: 0. Medications to Continue with No Changes Other Medications ascorbic acid/chondroitin/glu cosa/anita (Glucosamine Chondroitin) 2 tab By Mouth every day. cetirizine-pseudoeph edrine (Zyrtec-D oral tablet, extended release) 1 Tablets By Mouth 2 times a day. lisinopril (lisinopril 20 mg Tab) 1 Tablets By Mouth every day. multivitamin with minerals (Centrum Silver oral tablet) 1 Tablets By Mouth every day. No Longer Take the Following Medications ibuprofen (ibuprofen 200 mg Tab) 2 Tablets By Mouth every 4 hours as needed for pain. Comment: [facility] Main OR PACU I [facility] Main OR PACU I Record PACU Phase I Document Type FT Summary Primary Physician: Valeriano Francis DO Finalized Date/Time: 06/20/22 13:48:33 Pt. Name: ARNEL PARR./Sex: 1970 Male Med Rec #: [id number] Physician: Valeriano Francis DO Financial #: [id number] Pt. Type: A Room/Bed: [place] [address] Admit/Disch: 06/20/22 07:16:26 - Institution: Case Times PACU I FT Pre-Care Text: Identifies barriers to communication and implements measures to provide psychological support Develops individualized plan of care, and ensures continuity of care Maintains patient's dignity and privacy, and maintains patient confidentiality Identifies and reports philosophical, cultural, and spiritual beliefs and values Identifies individual values and wishes concerning care Implements aseptic technique, and administers prescribed antibiotic therapy and immunizing agents as ordered Evaluates postoperative tissue perfusion Implements thermoregulation measures, and monitors body temperature Evaluates postoperative respiratory status Evaluates postoperative cardiac status Evaluates postoperative neurological status Assesses pain control, collaborated in initiating patient-controlled analgesia and implements alternative methods of pain control Verifies allergies, administers prescribed medications and solutions, evaluates response to medications Entry 1 In PACU I 06/20/22 12:55:00 Discharge from PACU 06/20/22 13:36:00 I Outcomes Met? Yes Last Modified By: YESSY MARTIN, LEEANN Toro 06/20/22 13:48:20 Post-Care Text: The patient demonstrates knowledge of the expected response to the operative or invasive procedure The patient's care is consistent with the individualized perioperative plan of care The patient's right to privacy is maintained The patient's value system, lifestyle, ethnicity, and culture are considered, respected, and incorporated into the perioperative plan of care The patient participates in decisions affecting his or her perioperative plan of care The patient is free from signs and symptoms of infection The patient has wound/tissue perfusion consistent with or improved from baseline levels established preoperatively The patient is at or returning to normothermia at the conclusion of the immediate postoperative period The patient's respiratory function is consistent with or improved from baseline levels established preoperatively The patient's cardiovascular status is consistent with or improved from baseline levels established preoperatively The patient's cardiovascular status is consistent with or improved from baseline levels established preoperatively The patient demonstrates and/or reports adequate pain control throughout the perioperative period The patient received appropriate medication(s), safely administered during the perioperative period Acuity Level PACU I FT Entry 1 Start Time 06/20/22 12:55:00 Stop Time 06/20/22 13:36:00 Acuity Level Acuity Level I Last Modified By: LEEANN KRISHNAMURTHY RN 06/20/22 13:48:29 Finalized By: LEEANN KRISHNAMURTHY RN Document Signatures Signed By: LEEANN KRISHNAMURTHY RN 06/20/22 13:48 [facility] Main OR PACU II Rec[facility] Main OR PACU II Record PACU Phase II Document Type FT Summary Primary Physician: Valeriano Francis DO Finalized Date/Time: 06/20/22 18:04:28 Pt. Name: ARNEL PARR/Sex: 1970 Male Med Rec #: [id number] Physician: Valeriano Francis DO Financial #: [id number] Pt. Type: A Room/Bed: 12/13 Admit/Disch: 06/20/22 07:16:26 - Institution: Case Times PACU II FT Pre-Care Text: Identifies barriers to communication and implements measures to provide psychological support and determines knowledge level Develops individualized plan of care, and ensures continuity of care Maintains patient's dignity and privacy, and maintains patient confidentiality Identifies and reports philosophical, cultural, and spiritual beliefs and values Identifies individual values and wishes concerning care administers prescribed antibiotic therapy and immunizing agents as ordered, Evaluates postoperative tissue perfusion Implements thermoregulation measures, and monitors body temperature Evaluates postoperative respiratory status Evaluates postoperative cardiac status Evaluates postoperative neurological status Assesses pain control, collaborated in initiating patient-controlled analgesia and implements alternative methods of pain control Verifies allergies, administers prescribed medications and solutions, evaluates response to medications Entry 1 In PACU II 06/20/22 13:40:00 Discharge from PACU 06/20/22 17:00:00 II Outcomes Met? Yes Last Modified By: Anu Dunn LPN 06/20/22 18:04:26 Post-Care Text: The patient demonstrates knowledge of the expected response to the operative or invasive procedure The patient's care is consistent with the individualized perioperative plan of care The patient's right to privacy is maintained The patient's value system, lifestyle, ethnicity, and culture are considered, respected, and incorporated into the perioperative plan of care The patient participates in decisions affecting his or her perioperative plan of care. The patient is free from signs and symptoms of infection The patient has wound/tissue perfusion consistent with or improved from baseline levels established preoperatively The patient is at or returning to normothermia at the conclusion of the immediate postoperative period The patient's respiratory function is consistent with or improved from baseline levels established preoperatively The patient's cardiovascular status is consistent with or improved from baseline levels established preoperatively The patient's neurological status is consistent with or improved from baseline levels established preoperatively The patient demonstrates and/or reports adequate pain control throughout the perioperative period The patient received appropriate medication(s), safely administered during the perioperative period Finalized By: Anu Dunn LPN Document Signatures Signed By: Anu Dunn LPN 06/20/22 18:04 [facility] Main OR Preoperative Recordo n 06-20-2022 Main OR Preoperative Record PreOp Document Type FT Summary Primary Physician: Valeriano Francis DO Finalized Date/Time: 06/20/22 12:24:29 Pt. Name: ARNEL PARR/Sex: 1970 Male Med Rec #: [id number] Physician: Valeriano Francis DO Financial #: [id number] Pt. Type: A Room/Bed: [facility] Admit/Disch: 06/20/22 07:16:26 - Institution: Case Times PreOp FT Pre-Care Text: Verifies consent for planned procedure, identifies individual values and wishes concerning care, includes family members in perioperative teaching Entry 1 Patient Times. In Pre Surgery 06/20/22 07:20:00 Out Pre Surgery 06/20/22 10:28:00 Outcomes Met? Yes Last Modified By: Makayla Whelan RN 06/20/22 12:24:27 Post-Care Text: The patient participates in decisions affecting his or her perioperative plan of care Finalized By: Makayla Whelan RN Document Signatures Signed By: Makayla Whelan RN 06/20/22 12:24 [facility] Monitor Recordon 06-20-2022 Monitor Record [id number] 0#1.00CD:127 [facility] Monitor Record [id number] 6#1.00CD:127 [facility] Operative Reporton 2 Operative Report Patient: ARNEL PARR Age: 51 years Sex: Male : 1970 Associated Diagnoses: None Author: Valeriano Francis DO DATE OF SURGERY: 06/20/2022 SURGEON: Valeriano Francis D.O. BUSINESS SALES CONSULTANT: Gabriella Adam CFA PREOPERATIVE DIAGNOSIS: Advanced degenerative osteoarthrosis, left knee POSTOPERATIVE DIAGNOSIS: Advanced degenerative osteoarthrosis, left knee OPERATION: Left total knee arthroplasty utilizing Grover YANDEL robotic arm assistance compounded by obesity with BMI greater than 40 ANESTHESIA: General + regional block CARPET SEWING MACHINE OPERATOR: Maikel Rollins DO and Chris Kaur CRNA IMPLANTS USED: Grover Triathlon Total Knee System 1. size 6 cruciate retaining cementless femur 2. Size 9 mm X3 CS polyethylene 3. Size 6 primary Tritanium cementless tibial baseplate 4. Size 38 mm asymmetric Tritanium cementless patella OPERATIVE INDICATIONS: Arnel is a 51 year old male who has had persistent left knee pain despite numerous conservative measures. His pain interferes with his activities of daily living, ability to sleep at night, and quality of life. He agreed to proceed with the above procedure after a discussion of the risks, benefits, complications, alternatives, and expectations. Please see office notes for further details. The patient's surgery was preplanned utilizing CT scan and [employer] software. This included the planned implant sizes and positions, bone resection, and ligament balancing. Modifications to the plan were made intraoperatively as appropriate. PROCEDURE: The correct operative site was identified and marked in the preoperative holding area. The patient was administered intravenous antibiotics in accordance with SCIP Protocol. He was also given a gram of tranexamic acid intravenously about 15 minutes prior to incision. He was transported to the Regional Anesthetic Block Room and administered a regional anesthetic nerve block by the anesthesiologist. I requested the regional block to assist with intraoperative and postoperative pain control. Spinal anesthetic was attempted but unsuccessful. He was transported to the Operating Room and placed supine on the operating room table. He was administered general anesthetic. A well padded tourniquet was applied to the operative upper thigh. The left upper extremity was secured across the patient's torso. The operative lower extremity was then prepped and draped in the usual sterile fashion. The foot was placed into a padded olmstead and secured in the Grover knee positioner. Surgical time-out was performed with all required personnel present. The limb was exsanguinated with an Esmarch. Tourniquet was inflated to 300 mm Hg. A longitudinal incision over the anterior knee was made. Medial and lateral skin flaps were developed. Dissection was carried down through the subcutaneous layers. Medial parapatellar arthrotomy was performed and normal appearing joint fluid was encountered and suctioned. Irrisept solution was poured into the joint. The intermeniscal ligament was then cut and soft tissue at the medial tibial plateau was peeled off of the bone with Bovie electrocautery. The fat pad was sharply excised. The tibial pins for the tibial array were placed approximately 5 finger breadths distal to the tibial tubercle along the medial tibial shaft. The tibial pins were placed outside of the incision through 2 small stab incisions. The tibial array was placed onto the pins and secured. The patella was everted and the knee was flexed. Tourniquet was deflated at 9 minutes and adequate perfusion was noted to return to the extremity. Areas of active bleeding were cauterized with the Bovie and Aquamantys. The distal femoral pins for the femoral array were placed in the medial femoral condyle. The femoral array was affixed to the pins. The registration device was then placed into the distal femur just distal to the array pins along the medial femoral condyle. The tibial registration device was placed along the medial tibia within the surgical wound distal to the planned tibial resection. The hip center, medial and lateral malleoli were registered. Registration points along the distal femur and proximal tibia were captured. Osteophytes along the distal femur and proximal tibia were removed with a rongeur. Range of motion of the knee was then assessed with the computer. The patient had 10 degree flexion contracture with 7 degrees of varus. Preliminary ligament balancing was performed with the tensioning spoons in both flexion and extension and these values were captured by the computer. Adjustments to the planned resection were made to balance the ligaments. The self-retaining medial and lateral retractors were then placed and secured to the leg olmstead. Bone resection was then performed with computer guidance using the saw attached to the YANDEL robotic arm. Femoral cuts were made including anterior, posterior, and chamfer cuts. The (more content not included)... [facility] Comment on above: Result Comment: Elec tronically Signed By: Valeriano Francis DO\.br\Date and Time Signed: 06/20/22 14:51 EST Operative Report Patient: ARNEL PARR Age: 51 years Sex: Male : 1970 Associated Diagnoses: None Author: Anthony Rollins DO Postoperative Information Preoperative Diagnosis: Postoperative pain control requested by patient and surgeon.. Postoperative Diagnosis: Postoperative pain control requested by patient and surgeon.. Procedure: Ultrasound guided ACB, Patient interviewed/examined . Anesthesia options discussed including nerve block for postoperative analgesia. Nerve block procedure, expectations, education on block duration/sensations/ post-op protection discussed. Risks of nerve damage, heart/lung complications, seizures, bleeding, infection discussed. The discussion included nerve block for postop analgesia vs pain medicines alone. The patients questions were answered and the patient elected to proceed with single shot nerve block placement. Patient was placed on the monitors including EKG, NIBP, pulse oximetry. IV sedation was administered with the patient communicating throughout. The area was cleansed with chlorprep. Anatomy was identified under ultrasound guidance and concomitant use of nerve stimulator, the nerve was located with a 21 GAUGE 100mm Pajunk. After attempted negative aspiration there was frequent aspiration after every 5mL injection. No signs of intravascular or intraneural injection noted. US confirmed real time needle management and nerve identification ensuring no needle insertion into the neural fascia. No increased resistance to injection was noted. The patient tolerated the procedure well and was conversing meaningfully throughout the block and answering questions appropriately. There was intact motor/sensory function immediately after the nerve block. Patient denied pain or paresthesias upon injection. The patient then proceeded to undergo general anesthesia for the proposed operation. . Anesthesia Method: As documented on anesthesia record. Performed by: Anthony Rollins DO. Medications: 0.5% ROPIVICAINE 18mL. Complications: None. Notes: LEFT ACB.. [facility] Comment on above: Result Comment: Elec tronically Signed By: Anthony Rollins DO\.br\Date and Time Signed: 06/20/22 10:56 EST Outpatient Surgery Discharge Instructionon 06-20-2022 Outpatient Surgery Discharge Instruction [address] [place] [id number] Patient Discharge Instructions PERSON INFORMATION Name: HENRIJOON APARICIOMALICK Arroyo Date of : 1970 Current Date: 06/20/2022 10:21:16 PHYSICIANS Admitting Physician: Valeriano Francis DO Discharge Diagnosis: Degenerative arthritis of left knee ARNEL PARR has been given the following list of follow-up instructions, prescriptions, and patient education materials: IF UNABLE TO CONTACT YOUR PHYSICIAN AND YOU FEEL IT IS AN EMERGENCY, GO TO THE NEAREST EMERGENCY ROOM OR CALL 911 I, ARNEL PARR, have received the attached patient education materials/instructio ns and have verbalized understanding: May we do a follow up call? Yes No I was present when discharge instructions were given Patient Signature Date Clinican/Nurse Signature Date Follow up: With: Address: When: [place] [address] Business (1) Pharmacy Information: You may receive a survey from [facility] asking you to rate your care experience. Your feedback is important and will help us understand what we do well and how we can improve the quality of care we provide to you, your loved ones and our community. It?s an honor to serve you. Thank you for choosing [facility] HERE ARE THE MEDICATION CHANGES THAT OCCURRED DURING YOUR HOSPITAL STAY New Medications [id number], [address], [place] [phone], [phone] acetaminophen-oxycod one (Percocet 5 mg-325 mg oral tablet) 1-2 tab(s) Oral q4hr. Refills: 0. aspirin (aspirin 81 mg Oral EC Tab) 2 Tablets By Mouth every day for 30 Days. Refills: 0. celecoxib (CeleBREX 100 mg Cap) 1 Capsules By Mouth 2 times a day as needed for pain. Refills: 0. cephalexin (Keflex 500 mg Cap) 1 Capsules By Mouth every 8 hours for 7 Days. Refills: 0. docusate (Colace 100 mg Cap) 1 Capsules By Mouth 2 times a day as needed for constipation. Refills: 0. Medications to Continue with No Changes Other Medications ascorbic acid/chondroitin/glu cosa/anita (Glucosamine Chondroitin) 2 tab By Mouth every day. cetirizine-pseudoeph edrine (Zyrtec-D oral tablet, extended release) 1 Tablets By Mouth 2 times a day. lisinopril (lisinopril 20 mg Tab) 1 Tablets By Mouth every day. multivitamin with minerals (Centrum Silver oral tablet) 1 Tablets By Mouth every day. No Longer Take the Following Medications ibuprofen (ibuprofen 200 mg Tab) 2 Tablets By Mouth every 4 hours as needed for pain. PATIENT EDUCATION INFORMATION Instructions: [place], [place] [facility] DISCHARGE INSTRUCTIONS: TOTAL KNEE ARTHROPLASTY INCISION CARE: The bandage may be changed by your home health care nurse at 7-10 days postoperatively. A new Aquacel bandage should then be placed. The bandage is waterproof, so you may shower at home. Steri-strips (paper tape strips) may be applied to the incision if any slight wound separation is noted. These should remain in place for five days and then they may come off in the shower. Please notify the office if any increase in redness, tenderness, drainage, fever, or wound separation is noted beyond this point. Compression stockings may be helpful if any significant or uncomfortable swelling in the legs is noted postoperatively. Use and removal instructions should be given by physical therapy. If the swelling is below the knee, knee high compression stockings may suffice. If this does cause swelling into the thigh region, waist high compression stockings may be beneficial as well. These can be obtained from most pharmacies, or can be obtained through Home Health. The mild grade compression stockings are best used initially. When applying or removing the compression stocking, you may need assistance. MEDICATIONS: You may resume your home medications at the time of discharge. Arixtra and Lovenox are mild blood thinners that prevent the development of blood clots in the legs. One of these has been used during your hospitalization. After discharge home you should continue the use of two stomach coated baby Aspirin tablets daily with your largest meal for 30 days after home discharge. Please notify your doctor if you have a stomach sensitivity to Aspirin or history of previous stomach ulcers. Pain medication has been prescribed as well. You may continue to use the pain medication every four hours as needed. Any narcotic pain medication can cause side effects including stomach upset, constipation, or light-headedness. You should not drive or operate machinery, or drink alcohol while using the narcotic pa (more content not included)... [facility] Patient Education - Texton 1 08-21-2021 Patient Education - Text Custom [place], [place] [facility] DISCHARGE INSTRUCTIONS: TOTAL KNEE ARTHROPLASTY INCISION CARE: The bandage may be changed by your home health care nurse at 7-10 days postoperatively. A new Aquacel bandage should then be placed. The bandage is waterproof, so you may shower at home. Steri-strips (paper tape strips) may be applied to the incision if any slight wound separation is noted. These should remain in place for five days and then they may come off in the shower. Please notify the office if any increase in redness, tenderness, drainage, fever, or wound separation is noted beyond this point. Compression stockings may be helpful if any significant or uncomfortable swelling in the legs is noted postoperatively. Use and removal instructions should be given by physical therapy. If the swelling is below the knee, knee high compression stockings may suffice. If this does cause swelling into the thigh region, waist high compression stockings may be beneficial as well. These can be obtained from most pharmacies, or can be obtained through Home Health. The mild grade compression stockings are best used initially. When applying or removing the compression stocking, you may need assistance. MEDICATIONS: You may resume your home medications at the time of discharge. Arixtra and Lovenox are mild blood thinners that prevent the development of blood clots in the legs. One of these has been used during your hospitalization. After discharge home you should continue the use of two stomach coated baby Aspirin tablets daily with your largest meal for 30 days after home discharge. Please notify your doctor if you have a stomach sensitivity to Aspirin or history of previous stomach ulcers. Pain medication has been prescribed as well. You may continue to use the pain medication every four hours as needed. Any narcotic pain medication can cause side effects including stomach upset, constipation, or light-headedness. You should not drive or operate machinery, or drink alcohol while using the narcotic pain medication. You should not use other pain medications with this prescription pain medication unless further directed by your physician. PHYSICAL THERAPY Continue the range of motion and strengthening exercises initiated by Physical Therapy in the hospital. Continue weight bearing, as ordered, to the operated knee for four to six weeks as directed in Physical Therapy, or until your strength is improved and Physical Therapy will then allow you to progress to full weight. This will be with the use of a walker or crutches initially. After four or six weeks you may then progress to the use of one crutch or a cane. A quad-cane is preferred as this is more stable. Physical therapy as begun in the hospital will continue at home, possibly with the assistant at surgery of Home Health Physical Therapy or in the hospital as an outpatient. When you have become independent with the physical therapy program, this will then be discontinued as a supervised program and you will be instructed to continue the physical therapy exercises at home. Your exercises are fontana to successful rehabilitation. You should gain full extension first, hopefully before hospital discharge, and gain 90 degrees flexion by one month post-op. Do the exercises daily, twice if preferred. DRIVING: Please do not drive for 4-6 weeks pending therapy progress. 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 It is therefore advised not to drive until after your first office visit following surgery. FOLLOW-UP OFFICE VISIT: Valeriano Francis DO [facility] [address] [place] [address] Reviewed: [facility] Progress Note-Physicianon Progress Note-Physician Patient: ARNEL PARR Age: 51 years Sex: Male : 1970 Associated Diagnoses: None Author: Anthony Rollins DO Preoperative Information Patient and/or family denies any personal or family hx of difficulty/ problems with anesthesia. NPO guidelines met. Re-eval prior to induction: Inital eval reviewed: No significant interval change. Anesthesia results Review of Systems Constitutional: Negative except as documented in history of present illness. Cardiovascular: cardiovascular risk assessment performed. clearence obtained from [facility]. preserved EF. Respiratory: breathing feels at baseline. Immunologic: denies current respiratory illness. Neurologic: A&O. Health Status Allergies: Allergic Reactions (Selected) No Known Allergies No Known Medication Allergies, Allergies (2) Active Reaction No Known Allergies None Documented No Known Medication Allergies None Documented Current medications: (Selected) Inpatient Medications Ordered Lactated Ringers IV Alley 1000 mL 1,000 mL: 1,000 mL, IV, 150 mL/hr, Routine, Start date 06/20/22 7:30:00 EST, 6.7 hour(s), Total volume (mL): 1,000, 137 kg, 2.61, m2 cefazolin additive + Premix Sodium Chloride 0.9% 100 mL: 3 gram = 100 mL, Soln-IV, IV Piggyback, PREOP, Routine, Start date 06/20/22 7:30:00 EST, 200 mL/hr, Infuse over 30 minute(s) tranexamic acid additive + premix generic diluent 100 mL: 1,000 mg = 100 mL, Soln-IV, IV Piggyback, PREOP, Routine, Start date 06/20/22 7:30:00 EST, 200 mL/hr, Infuse over 30 minute(s) Documented Medications Documented Centrum Silver oral tablet: 1 tab(s), Oral, Daily, Prophylaxis Glucosamine Chondroitin: 2 tab, Oral, Daily, Prophylaxis Zyrtec-D oral tablet, extended release: 1 tab(s), Oral, BID, Allergy symptoms ibuprofen 200 mg Tab: 400 mg = 2 tab(s), Oral, q4hr, PRN for pain lisinopril 20 mg Tab: 20 mg = 1 tab(s), Oral, Daily, Refills(s) 0, High blood pressure, Medications (3) Active Scheduled: (2) ceFAZolin + Premix Sodium Chloride 0.9% Diluent 100 mL 3 gram 100 mL, IV Piggyback, PREOP tranexamic acid + Generic Diluent 100 mL 1,000 mg 100 mL, IV Piggyback, PREOP Continuous: (1) Lactated Ringers 1,000 mL 1,000 mL, IV, 150 mL/hr PRN: (0) Problem list: All Problems Anemia / SNOMED CT 631256457 / Confirmed BMI 40.0-44.9, adult / SNOMED CT 9167717093 / Confirmed HTN (hypertension) / SNOMED CT 4351428019 / Confirmed Morbid obesity / SNOMED CT 854521818 / Confirmed ANAHY (obstructive sleep apnea) / SNOMED CT 871164347 / Confirmed uses CPAP OA (osteoarthritis) / SNOMED CT 7384662576 / Confirmed Umbilical hernia / SNOMED CT 0601752106 / Confirmed, Active Problems (7) Anemia BMI 40.0-44.9, adult HTN (hypertension) Morbid obesity OA (osteoarthritis) ANAHY (obstructive sleep apnea) Umbilical hernia Histories Past Medical History: No active or resolved past medical history items have been selected or recorded. Family History: Primary malignant neoplasm of bladder Father Asthma Mother Hypertension Mother Renal cell carcinoma Father Procedure history: Colonoscopy (461050401) on 11/27/2021 at 51 Years. Excision of lipoma (068895990). Tonsillectomy and adenoidectomy (607982073). Amputation of finger (102991909). Social History Social & Psychosocial Habits Alcohol 11/17/2021 Use: Current Type: Beer Frequency: 1-2 times per week Substance Abuse 11/17/2021 Risk Assessment: Denies Substance Abuse Tobacco 11/17/2021 Tobacco Use: Former smoker, quit more Smokeless tobacco use: Smokeless tobacco user wi Type: Cigarettes, Oral Started at age: 14.0 Years Stopped at age: 40 Years Smoking Cessation Yes . Physical Examination Vital Signs 06/20/2022 7:36 EST Systolic Blood Pressure 141 mmHg HI Diastolic Blood Pressure 79 mmHg Blood Pressure Location Right arm 06/20/2022 7:35 EST Temperature Oral 36.5 DegC Apical Heart Rate 70 bpm Heart Rate Monitored 74 bpm Respiratory Rate 16 br/min Systolic Blood Pressure 137 mmHg Diastolic Blood Pressure 84 mmHg Blood Pressure Location Left arm SpO2 97 % Vital Signs (last 24 hrs) Last Charted Temp Oral 36.5 DegC (JUN 20 07:35) Heart Rate Apical 70 bpm (JUN 20 07:35) SBP H 141mmHg (JUN 20 07:36) DBP 79 mmHg (JUN 20:36) SpO2 97 % (JUN 20:35) Airway: Mallampati classification: II (soft palate, fauces, uvula visible). Respiratory: Adequate air exchange.. Cardiovascular: Regular rhythm. Neurologic: alert, conversant, interactive. Review / Management Results review: Lab results 06/20/2022 7:53 EST ABO/Rh A NEG ABSC Gel Interp Negative 06/01/2022 16:13 EST WBC 9.4 E9/L RBC 4.4 E12/L HGB 13.0 gm/dL LOW Hct 38.0 % MCV 86.0 fL MCH 29.5 pg MCHC 34.3 gm/dL RDW 12.2 % Platelet 258.0 E9/L MPV 9.4 fL Glucose Random 95 mg/dL BUN 18 mg/dL Creatinine 1.0 mg/dL eGFR >60 mL/min/1.73 m2 eGFR AA >60 mL/min/ (more content not included)... [facility] Comment on above: Result Comment: Elec tronically Signed By: Anthony Rollins DO\.br\Date and Time Signed: 06/20/22 19:35 EST Progress Note-Physician Patient: ARNEL PARR Age: 51 years Sex: Male : 1970 Associated Diagnoses: None Author: Anthony Rollins DO Postoperative Information Post Operative Note: Post Anesthesia Care Unit. Physical Examination Vital Signs (last 24 hrs) Last Charted Temp Oral 36.5 DegC (JUN 20 07:35) Heart Rate Apical 70 bpm (JUN 20 07:35) Resp Rate 11 br/min (JUN 20 13:31) SBP 112 mmHg (JUN 20 14:38) DBP 73 mmHg (JUN 20 14:38) SpO2 97 % (JUN 20 13:40) Pain assessment: Pain Assessment 06/20/2022 14:38 EST Pain Symptoms Self Report Yes, able to self report Primary Pain Location Knee Primary Pain Laterality Left Primary Pain Quality Aching Patient Preferred Pain Tool Numeric rating Numeric Pain Scale 3 Numeric Pain Score 3 06/20/2022 13:40 EST Pain Symptoms Self Report Yes, able to self report Primary Pain Location Knee Primary Pain Laterality Left Primary Pain Quality Aching Patient Preferred Pain Tool Numeric rating Numeric Pain Scale 7 Numeric Pain Score 7 06/20/2022 13:31 EST Primary Pain Location Knee Primary Pain Laterality Left Patient Preferred Pain Tool Numeric rating Numeric Pain Scale 7 Numeric Pain Score 7 06/20/2022 13:06 EST Primary Pain Location Knee Primary Pain Laterality Left Patient Preferred Pain Tool Numeric rating Numeric Pain Scale 7 Numeric Pain Score 7 06/20/2022 12:55 EST Primary Pain Location Knee Primary Pain Laterality Left Numeric Pain Scale 7 Numeric Pain Score 7 . General: No acute distress. HENT: dentition at preop baseline.. Respiratory: Respirations are non-labored. Cardiovascular: stable hemodynamics. Neurologic: interactive. Assessment Anesthetic outcome No anesthetic complications noted. Adequate pain relief. adequate hydration. PONV controlled. Plan Transfer/ Discharge: Patient can be discharged from PACU when criteria met. Condition good. Normal [facility] Comment on above: Result Comment: Elec tronically Signed By: Anthony Rollins DO\Date and Time Signed: 06/20/22 14:48 EST XR Knee 1 or 2 Views Lefton 06-20-2022 XR Knee 1 or 2 Views Left Exam Date/Time: 06/20/2022 13:09 EST Reason for Exam: Post-op evaluation;Other (please specify) Report IMPRESSION: POSTSURGICAL CHANGES OF LEFT TOTAL KNEE ARTHROPLASTY. EXAM: XR Knee 1 or 2 Views Left HISTORY: Postoperative evaluation total knee arthroplasty TECHNIQUE: Frontal and lateral views of the knee COMPARISON: CT 06/01/2022 FINDINGS: Postsurgical changes of total knee arthroplasty including soft tissue emphysema. Alignment is anatomic. No periprosthetic abnormality. FINAL REPORT Dictated: 06/20/2022 2:03 pm Adria Dior DO Signed (Electronic Signature): 06/20/2022 2:03 pm Signed by: Adria Dior DO Transcribed by: EUGENIA Technologist: ANITRA Mane [facility] Coding Summary.on 06-19-2022 Coding Summary. [id number] Gh0bWw+PGhlYWQ+PE1FV AVpC84ajNXmuC7GH6uIE U0XGFIYBINWPM0OBA3jg ZT2UGnuU8FhxhEo WtlogHClCR78LQd3RJP1 bLzaKGereS6jqXRiX3a4 JwXvIV34bJ76TNucCFEp FtO6HiVsjafrrHJj V2vbUoOwgTUwWbg+PHRh YmxlIHdpZHRoPScxMDAl RdUvgSskFZ6eJk1qIAZi LWNvbGxhcHNlOiBj t6lvBPEkGFceUK8mkBxn B0NxiWN1IMRag7j9Bk00 dHI+YPYvAGW5sRazNPzh f790ApMqh6snSVT1 yTPbUAoqEDB6N26gh4M3 OGFfNITuMDE2rVU6eA1e fRdddlebH1YeyAPnUdQ2 ICX2pQRtdI0jjJbe uhubjZ6aVko+M03KUF5R VTDAKM1CEjq9P7PcUcmj dHI+JW75RSFtVS11hGPm uLTlx3mdmDf9BcOy WHSqHRW3gRkeVCoyr2Dd BDZiD32hoRJql9Y0UYAh fXptdGKdSrSweNT6oY8a MGehgtkoq5mrnspf Gnofy7sjis91dP84D21e TOskWMZlFXQ6BWXhWKAg tOjqee8cwG8hXh1+IDxj b2nte1lotJq6EeDi LNTngzJbdZphCTV1r7Ji My22J0AyxBckk1SvTkz5 be80lBFxd5V7jMF3VAod RWJxzB1uHJmfQvH7 KYNzJvWyoV99xDIlEBza Og0wnTfdyCevNN2aENGd ypvaTVQhjR1fXDJhbLWa xLgyQY9hZTNfjkdk o308KkNuREE7XHDygWFy H8QzzG9lWpEkLMJrJXAk F2WqfWTnOCtgU114YMdr MzJ7GLTfnlQiR0Xq YOFeiLdcUaP4e4Y3Qv2N u4FicasfIKV5YZnpOHPl QdN5HsSlWfG6U6RlTxh2 SHXydVvmNV6sC3Qi GQQwtfrgxcwruLO6OKFm DSNpuC65gIStQNcuUr7n q6V8m740KCYxPMHjwZ61 Ob4kwVpqOSVafDQJ xN8dczgxk7uhryorGvVq NOYsEVt3OCg3DCKmuNqj ZiRvJOT1HzO3PFY0xLZn qB0szLtsediwrN0z Oyc+F00fsN3yFPH4UXB8 nvhfOIQpoaVpGW10VT52 A0MgTdnyjMZegLM+PGRp ycDklXljLI3pGdNj w9qbo3EsSErdH3VrOZBh SSrcFdd0JVHoPEL5vBJ3 vC5pTHZtXFawh3Z7oJK8 B9OtzuPlxg6mb0ld GWQdJJjbQ77pfVWtd8H7 AAPbyMA4ICFxbCjoYyKk kS04Dcz+XKZkjLewz5Po Wvslt6kml4xuhWz1 IjMwJSIgdmFsaWduPSJ0 d1LhVz67V85jBPjmHOFd KXDjVBLtHAMkiGccke6p jI8iVt7+PGNvbCB3 nQD7wF5sUOGvQtO6RCjz A034FaIsmIUfTzxcg3lj b6mohMm4OjRhTZVofqUi kHriMYO7o1BdGa03 C94fCSkfSIQbTRCbQNBq BBIlmYmjup8tyU6fFr2+ BW0aq7xtar38zO29eTF+ UPSwSZQ5yBahGRqa NFApnD3fAFrkGjR6PNSf GzJhyD06rHSgOFzzCl9f bMzgxDydLC8gJVVbzjyb d126EhPue7dpKCJl zJOnIRzmMHC2J66we1R8 WGSzWMNsURO7uYT7lS5r bGlnbjogbGVmdDsgdmVy mBsrGNkqJNmfY444 IHRvcDsnPlBhdGllbnQg LqLdSDh7Q3SePwf2NWSk uRbvUD5reUAaJWyaIp0a oLeshIzxKP9hRMNe oeahs008AwPvw2sxNNCh pHCbQMiyUIK6O90ik1N1 YAAjISYtGVG9zYZ3bV8w bGlnbjogbGVmdDsg rfVguVvmILbyYFngL665 IHRvcDsnPkJpcnRoIERh uUR5JQ35SK42xDZnn7D3 dOL1F6OwGZUrfywk eanexFV7DYUrCEFzbY05 Hr6qgMxqPz7tIQHfTAV6 SRNlqGKbR4SpxK7wUrAs ANFfFDMkB3JqxSEj ZTdrR408OBreJgQ8QSLt usWrC6JlDWZxvQnsGqD7 q5C4Yq1ZT0T5SY89ZG80 tAXpr0T2nIP2R5Um PYHaeklztvjbdEX2HYTr WQZptY37Vm9omCafFm3i WKYkSOA4PGCgnERpK9Gu jE3lPbHcZEPmVBUg M3QjtWUdSBcqF902PCrq QlA0WAAtvzJjU0QuPPOi lVacMyV3i4I9Uk5OZRg7 CU86SO89uKFlc6P0 cRT4E2JaZILvujghzhza yUR5RJVtKUDoyR94Jt3o hVshWj1iUPRcDFS8GJMd yPByH4OroX3zMaKu IWWyTICnX8BvzEZnQPqy B539IJczApW4SZBljfJb J9NeTEFwpEjzIxJ2y3X8 Tc6QJVWhUR47RCU7 aFN7ZM86GO23Z9VxJtfz dGFibGU+PHRhYmxlIHdp ZHRoPScxMDAlJyBzdHls WG7zAj5jZHJoYCVl tSholIApKzIsv8inPPSw RVgvWI6xeYtoL4KvwQG1 CNUwp0l8Sa54U85jU9Gw dXA+JNPkzFB7mDY1 xK6yPbNnUzQ7ZEqoN570 WmTpjGUqEtnjp2aqo1el oDm8NmR4LSBtvjUbbXgt TVT0i2InIn11J30a IHdpZHRoPSIxNSUiIHZh qMjfrv5ifE1pFc6+PGNv eMW5nLK9rK9bXyDrTbL7 ZSoqN677GzZelSWb Dceuc8jqy4bteRg5SnGo GFXstvTomVftXRR2o2Qo Pt97X8PjvDfcw7JbBoh6 fh45uNTus3H6mVB6 O7XgHSDvfyynkNShaLkl XM8jBMSlqycdBXYhrZ3q KAGpB9g5VuXdUdQ1OWdv Z0XcogO5VLTpwEAk KHekTWL5E33el2C2CDTm TPEoXKP6wCB9kJ5axZuf bjogbGVmdDsgdmVydGlj PFewAYzwY984MLPp hLzfJLGmiK4zFAUwrIVz sLcyHZ3dTGErothaAkeH ON5CHPBWJTNMFBANECA2 A9YcSir9XRZffKxv EM7lkJYhTTbwDr5cbQna uGhzYV4aKKHirkuuYAFx wF1hJRWhbJDjcYedBJ2w MDWodicol653VwEo HFZ4TGCmwSAcH8VfrV1n JtZzWHSrAWElK0KwpDVm XUdbL211QPjfTtW1PNTs jtThQ8WxBGAbxHka SwB7l9Q1Wz4iBL1yUr7i PRtsVB12OA38rQDws6C6 bUL9I5VgRKRwlqtyaiia fNK6DQHgIABlbG98 rULvQTplSq7dr4K6j712 LPGkWKXmeD87Zr4wvAto CABovOOLzD2jcsrif4sr cjogIzAwMDAwMDt0 RIo6JDXguUezNdZzBRS1 UqW5ILR7xFHwmO2nwGpn sqbasK1rRyl+NDkgWWVh tiB2X2NwIwl2LJCm bPbiRO6fcZLzNIcdOn3x pOnljNegMF1qAMWqeeiq WAVilC8cDPGaeXYddJfz DY6jZCJypxsvt349 ScXzMMN0HEQlsZEiB7Xn yG1sWzZwGSKsRQAuT3Xx xUVbGVqwJ527TQkbEoQ7 SGRalnYtD1ZmYPQr fMbsLaU4k2P6Tz5ZMYgu HZ11FO95eWBzx0L0hCN6 L6ZoCKGaesnowfjxhJV2 MPCdJZTvaK10vGNc UQbiYa3bt8Q2h821KSFk SFEvmI41Tm8vuZqmPWZm bTKKeT7ddrder9fjqdym OmWvPZSgKLz2WTw1 ZJWnkAxdWhOeKDV8TlO4 BRO3qWVvyS2tsWwbpvwo qM1eScw+DgZizQFitI1g HF77MP27H5FgZtcf dGFibGU+PHRhYmxlIHdp ZHRoPScxMDAlJyBzdHls QO8hMg6pIFEvACTjiOus zOPqAoSrk3mjHATh TZceDY7hpTwuX6TajRB0 EEOlg5v2Rs96G94gN4Nq dXA+JLAciCD5rZZ1jI8b WwVnXiW7YTrjI589 SsKgtPGeMqidy7baw3fh qTw5BmHdCJBcawDwlPes MLL6y9BgOr98S82wPPux ZHRoPSIyMCUiIHZh vBkqiu7fuV7lWh8+PGNv iWL8eOE5dB6yUsZtBjW2 LOpdC684DzOjhHGxNtwu X45wH0JamFC+PHRy Swc9LDQlqGpqNI3lmBEp UFgaVu1kDZS2UcXrPlEp LXrcW7KbCWFvidxhgqje tYA4HKQkLLRhiK38 Ze8byTcxTw3sWLBaCOQ4 VESqrYInI7ZypZ3qGpYg FXDnDWLaX1BjhWXmSXwe S141LGdrPnE4BABa kcAtJ2ZvUCHnrXoaWaL7 v0A4On4AhLgsaPTuOI2m JvPqUOb8V5CsHeh8JDKt nAuwSX4jjJBnGFzi Mr0adUjsoJjeDS2hBTWc hslqd050ObFqd4sdQTBb oIBjEDlpDFM7G49mk9A7 ILEkVHGfKOB0hUQ2 lG8vyQrprinfvHCubCrw ajLjkPzyHJotCNvaH765 AGNefFpaNoFSEbc3A8Mg Siv6KORxcCsoMB9d cIIoHDfcUu8mnVcxuSrp JD7dEILzilniv301KtFu k3loNTXusQIrBKqvITF5 R39gk0N0WUGpALQm GQX3aPN6vD0cxEgaotkv bGVmdDsgdmVydGljYWwt PQjwM770FKUtoNnpCw4S Lss8M8TrAuv2CTKz eZeaOU6keEWsGMqqOs4u zPvvgXzyYF6iVHTotvlo v987PwBwp2dfENTeqYFb TKxmZFV2G06fz3O5 GDYvLFGhPFR7mDI1pN5q bGlnbjogbGVmdDsgdmVy uBucMBtuSIrnI492EXCq cDsnPlBheWVyOjwv dGQ+MB74rc96R2KiRvfh Gkw3UMTzRCC5eRK4sU7i NRVcEPzlv2T3uGJ5C2Bx rmLkow0cu8viHKFq ZTog (more content not included)... [facility] Consent for Procedure/Surger yon 06-19-2022 Consent for Procedure/Surgery [id number]#1.00CD:127 Normal [facility] Outside Recordson 06-19-2022 Outside Records [id number]#1.00CD:[address] [facility] NM Myocardial Spect Part 2on 06-18-2022 NM Myocardial Spect Part 2 Exam Date/Time: 06/15/2022 16:12 EST 06/14/2022 13:29 EST Reason for Exam: R94.31;Other (please specify) R94.31;Other (please specify) Report INDICATION: Shortness of breath. STUDY: Given the patient's size, he required a two-day study. On 06/14/22, the patient was in jected with 30.6 mCi of Cardiolite for rest SPECT imaging. The patient then underwent Lexiscan infusion per protocol receiving an additional 27.4 mCi of Cardiolite for stress SPECT imaging on 06/15/22. RESTING EKG: Resting EKG shows normal sinus rhythm, left anterior hemiblock, possible old infe rior wall myocardial infarction. Poor R wave progression across the precordium which may repre sent poor lead placement. LEXISCAN EKG: The patient received Lexiscan infusion per protocol. During infusion, the patient's heart rate remained the same. The patient had no dynamic EKG changes to suggest is chemia. No arrhythmias noted. IMAGING: The patient appears to have normal left ventricular size and function with a left kaleb tricular ejection fraction of 64% with normal left ventricular volumes. TID is normal at 1.09. Rest perfusion images demonstrates what appears to be decreased perfusion along the inferior wall versus diaphragmatic artifact. With stress, there are no overt areas of ischemia. CONCLUSIONS: 1. Probably normal adequate Lexiscan/myocardial perfusion imaging. Negative for ischemia by EKG and myocardial perfusion imaging. 2. Normal left ventricular size and function with an ejection fraction of 64%. 3. Normal TID of 1.09. 4. The patient appears to have a subtle fixed inferior defect along with possible old inferior wall myocardial infarction on EKG. Recommend clinical correlation or alternative mode of test ing if coronary occlusive disease is strongly suspected. 5. The patient tolerated the procedure well. FINAL REPORT Signed (Electronic Signature): 06/18/2022 8:19 pm Signed by: Juan Durbin MD Transcribed by: yuni Technologist: ZAHRAA Technical Comments NM Myocardial Spect Rest/Stress 2 Day: Rest Dose (mCi Tc99m Cardiolite): 30.7 NM Myocardial Spect Part 2: Please See Report for NM Myocardial Spect Rest/Stress 2 Day Stress Dose (mCi Tc99M Cardiolite): 27.4 Normal [facility] June 18, 2022 Re: Arnel Parr : 1970 The patient, ARNEL PARR is predicted to represent low risk of perioperative cardiovascular events involving the planned orthopedic non-cardiac surgery. Recent stress MPI negative for ischemia, patient without anginal symptoms. No acute reversible causes to further reduce his cardiac risk. See attached testing and/or office note. Alis YEPEZ [facility] Stress EKG Tracingson 2021 Stress EKG Tracings [id number] #1.00CD:127 [facility] Consent for Treatmenton Consent for Treatment [id number] #1.00CD:127 [facility] Physician Orderon 06-12-2022 Physician Order [id number]# 1.00CD:127 [facility] Reminderson 06-12-2022 Reminders - From: Kyra Colón To: Maria T Alonso RN, [place]; Sent: 06/12/2022 14:35:15 EST Show up: 07/03/2022 14:35:00 EST Subject: 4 week follow up Due Date/Time: 07/10/2022 14:35:00 EST Reminder/Recall 4 week follow up with Alis (2021) [facility] Consent for Treatmenton 05-16 Consent for Treatment [id number] #1.00CD:127 [facility] Heart and Vascular Office/Cl inic Noteon 06-11-2022 Heart and Vascular Office/Clinic Note Chief Complaint Cardiac Risk Assessment for Knee Surgery History of Present Illness Arnel Parr is a 51-year-old male presents today for preoperative evaluation for knee surgery. His surgery is scheduled for 06/20/2022. He is accompanied by an adult female. The patient denies a history of cardiac issues. He does have a family history of cardiac issues in his mother who is scheduled for a pacemaker placement next week. He denies chest pain or dyspnea. He does have a history of hypertension. He notes he did not have hyperlipidemia when he had a lipid profile last year. He does have a history of anemia. He had a colonoscopy which was normal. He does wear compression stockings for lower extremity edema. He does use a CPAP at night. Review of Systems PHQ Score Initial Depression Screen Score: 0 Constitutional: no fever, no sweats, no weakness Skin: no rash, no lesions, no bruising/petechiae ENMT: no sore throat, no congestion, no hoarseness Respiratory: no shortness of breath, no cough, no orthopnea, no wheezing Cardiovascular: no chest pain, no palpitations, no edema Gastrointestinal: no nausea, no vomiting, no diarrhea, no GI bleeding Genitourinary: no anuria/oliguria no hematuria Musculoskeletal: no back pain, no trauma Neurologic: no headache, no dizziness, no numbness, no weakness Psychiatric: no sleeping problems, no irritability, no anxiety/depression. Heme/Lymph: no bleeding tendency, no bruising tendency Allergy/Immunologic: no recurrent infections, no impaired immunity Additional ROS info: Except as noted in the above Review of Systems and in the History of Present Illness all other systems have been reviewed and are negative or noncontributory Physical Exam Vitals & Measurements HR: 79(Peripheral) RR: 18 BP: 149/84 SpO2: 98% HT: 70 in HT: 179 cm WT: 137 kg WT: 301.4 lb BMI: 42.76 General: alert, no acute distress Skin: warm, dry intact Head: atraumatic, normocephalic Neck: Trachea midline, no JVD, no bruit Eye: normal conjunctiva, sclera clear ENMT: oral mucosa moist Cardiovascular: regular rate and rhythm, no murmur, normal peripheral perfusion Respiratory: Lungs CTA, respirations non labored Chest wall: no deformity. Gastrointestinal: soft, non-distended, no tenderness, no guarding. Back: No tenderness, Normal ROM, Normal alignment. Extremities: no edema, no deformity, no trauma Neurological: oriented x 4, LOC appropriate for age, sensation equal & normal bilaterally, speech normal Psychiatric: cooperative, affect appropriate for age, normal judgement, normal psychiatric thoughts. Assessment/Plan Arnel Parr is a 51-year-old male with hypertension and possibly hyperlipidemia. No significant premature coronary artery disease. He does have knee problems and needs knee surgeries. EKG looks like could be inferior CT with prior posterior extension. We will schedule him for Lexiscan stress test. Follow Up: 4 weeks. ATTESTATION: Documentation services were performed after patient or guardian consented to allow [employer] to record this visit. LAZ security services specialist and provider reviewed before signing. LAZ: Katie Ceballos Follow-up No qualifying data available Problem List/Past Medical History Ongoing Anemia BMI 40.0-44.9, adult HTN (hypertension) Morbid obesity ANAHY (obstructive sleep apnea) Historical No qualifying data Procedure/Surgical History Colonoscopy (11/27/2021), Amputation of finger, Excision of lipoma, Tonsillectomy and adenoidectomy. Medications Centrum Silver oral tablet, 1 tab(s), Oral, Daily Glucosamine Chondroitin, 2 tab, Oral, Daily ibuprofen 200 mg Tab, 400 mg= 2 tab(s), Oral, q4hr, PRN lisinopril 20 mg Tab, 20 mg= 1 tab(s), Oral, Daily Zyrtec-D oral tablet, extended release, 1 tab(s), Oral, BID Allergies No Known Allergies No Known Medication Allergies Social History Alcohol Current, Beer, 1-2 times per week, 11/17/2021 Substance Abuse - Denies Substance Abuse, 11/17/2021 Tobacco Former smoker, quit more than 30 days ago Tobacco Use:. Smokeless tobacco user within last 30 days Smokeless Tobacco Use:. Cigarettes, Oral, Started age 14.0 Years. Stopped age 40 Years. Yes, 11/17/2021 Family History Asthma: Mother. Hypertension: Mother. Primary malignant neoplasm of bladder: Father. Renal cell carcinoma: Father. Immunizations Vaccine Date Status SARS-CoV-2 (COVID-19) Ad26 vaccine 12/10/2020 Recorded SARS-CoV-2 (COVID-19) Ad26 vaccine 11/19/2020 Recorded Normal [facility] Comment on above: Result Comment: Elec tronically Signed By: Gal FALCON, Дмитрий Zaman\.br\Date and Time Signed: 06/11/22 19:55 EST\.br\Electronically Co-Signed By: Katie Ceballos\.br\Date and Time Co-Signed: 06/11/22 16:04 EST Pre-Certification Formon Pre-Certification Form [id number] 9#[email or web address] Normal [facility] Coding Summary.on 06-05-2022 Coding Summary. CD:[id number] Gh0bWw+PGhlYWQ+PE1FV DYcJ95nlKAprB2PG5dCQ N4BXHPXMRCJQC1HFE9ia VG9GOtnQ1JfhiKe VjbiiDKtAM76WYe2ITH2 mHumXPmphB6vkCDxY4c5 VmGgGS80fO18SYkvDCDy ShJ6EtFvuzqcvTVw R8diTzLhlPIcEwd+PHRh YmxlIHdpZHRoPScxMDAl ZwMwkTczNN6nUy0rXPHb LWNvbGxhcHNlOiBj b0mtOYNoPHbcUB7cpYle H0KwuFL3RTYdk7c9Ge46 dHI+HYZsZJX9kEjiCAxv f559DhNns2yhXGB6 cXOlJGecMKD6R85db5N7 RNAdVVBsKDU0pEN1fC3r kItwlhkcT3PxdNMbIzX2 VZU8pBWzrB3jsJkm ztvwxM4kYdq+B53JQR4D JFGUOE0GXht8D4GlImrq dHI+TL43XIOmSY42kPZb cJNje5dyuZs2AjLj RGDcVFQ4wOmbKRjlf9Jn OWDjR94iqOAux1U4ITNj rRnvmRBfIyQtrDZ0mN6f CGlolyvki6hihdgr Hqbep4ghzs02uI24O22i VSmiIOVaEBS8APUxNFOk vBkwjg5teB6iFy7+IDxj e8lsq2oskMp9RiMd YXIwrmUyoRikTKD4f7Eg Iq57C4CwyGcde8HoVjz6 ag93zGLwt2E6zTW2ZJdh YEBxbM1mCPfiFvU3 KJBeRpWtvH96cJHxOVwl Fy9jcSibkTytAD1tWPJk cvsrRYSzkT0iVKYekNEo eYcyVA2rPKQgbgzs h214AdXaNKA2OEPegGKp C7BojF6xItEyDGEgOWYe B9GwyJKiYRrlK285RGmw WjV1YZFhliKhD6Dr UMJqxGjeHkS4x3C1Yd9E b3TqnlqxHLH1WCsoNUAg UyTmRsNhKpI6P1AcLxh1 ECEslTypPE5xS0Na FHJvadwwrprfzZY3QBNd ZAMcfJ41mXBwDReqHu7j x3U2a784LMUyOYHhgH53 Mg7wzPoiLKIlnTGB pP9hyzqim3bvrvivNmIp CPTbHUd7MHo3FNLjnEhr XzQjORY9QqB0JJU0vAFc jI2svQblffzglH6h Oyc+N78rqK6gACW5WBF3 fvjnVCRpugFfBX17KV53 L0YaHvuuwZNlnMG+PGRp qnZawBtuSV1vTjEh q7oko0QaZYuzV0HtSULm VLajFhi0VJXlTFD2hJX8 nC2eLSFkWDwxe7H0pBU0 R0FszaPthe4xn8zl HTPyCOpsB24miAFoy8Y3 NHNbhMT9WHNrrTlmMzXm aB94Sit+PQIjkTxro0Rc Hdios6ebt1pfxMg4 IjMwJSIgdmFsaWduPSJ0 e4KoLk37C59oLLqcDIOg MFSePDVuOBNyeSfioi1s mS5wAn4+PGNvbCB3 jRW7aZ8dELVoDlV4KRjy W174MhCqkSIsYmera5zr v0pxjQr7NoHbUMPfdqZz rFbuQOS8i4ScLv27 H16kMXzhBAVuYPNhWCHi HGBokMehds7xgQ8lYq7+ DM0yy4edbc54gW82vIZ+ NIUyUMX7jGxfKInv HEChdL8uWUioClY6FZZm FpLbvN54hHKjRLnuWs5r vGnwgElxOH7bZIFzyckd b894ScKyd8zeZAKb rJZmPVguIOZ6F04pv7P7 OTWqZOLgXDK2jNQ0eN1j bGlnbjogbGVmdDsgdmVy xUnjZBglBNrhI815 IHRvcDsnPlBhdGllbnQg ByReROc2U2IsRjb3JKVz kTrrLT6gdCGaTJlhMt8q gCzmzEeoXD9hGIEd phehg748AjCdj8zjGEFq dJOiCEuxAYY0V19xs3H1 CYBsYAEhPBU5fCV2gD8k bGlnbjogbGVmdDsg xyCloSpnUSdpYSnqY311 IHRvcDsnPkJpcnRoIERh jRZ7RC10RM21jEEvy2E8 vDX7C7SbFZQsnjbm ptfugVN0ULLiZJHauN98 Dx8itJohXq5aKOQfDGZ1 HFStfIGkA7MvfH5hHbFc ZCTvJXZhG6PfpIBv FBonC297YQfcOhM8HGWo zuLeV8HnZUVpcGqqYbU8 u6T6Ri4GR3X0KM30LF88 gQPid2P8gMH4L9Qy JPCnbtdisjarnES3OCNb SJAsuH78Pz3qmWfkQa9i UXUcWMZ4NUJkoZTcG8Sl vS2kPtQuSXGsBMYp Y2GozHTiLTurZ522EHbc UyM3GLApshEmD6KbCQCi mDptLuG2w0R7Rn2CIJy2 EX87GS70kQEpt1V5 nKD1Z5ZtNEAxoubmpmjj cJF4NFNyPDBacD36To0z tFstUq0zDMPfRAL9GEIh oRBcC6GapF3fJsIb OYFdSIVxV4WzmCIqXLrb T079DCrjDnY4NTWgveWt S0DkYSDnuJfkHiV7i8J3 Fa6ZXVPeYA69XMH9 dMY2ZY21WO70K1YqMllw dGFibGU+PHRhYmxlIHdp ZHRoPScxMDAlJyBzdHls CZ3bDt6rJKBcFHDf oDkrnCAiFjPos3vcFRFy HAxrIL7siYzqV5UzwIA7 HSOzt1o5Hf87R83rO6Ll dXA+SEOhrYP6jKO1 sK2kVjJaLxP0WKxaJ292 SeNpyGVtXywqj8bhe4fw sXg2RcM7WHAvsnEdjTqs PRW8p1RcHg97O93t IHdpZHRoPSIxNSUiIHZh zEwaaa2tuD0jIm6+PGNv bXI8gGB3pP8oSdOxNaC6 UKfqG923EiRsvNQp Sodxe8nbz5pebNw5AvIn EUZrtmZtzHrzTUA5e2Oe Hx01Q9YqgZclv7WvYse9 rh82jKRsq4O1pMH4 S2TaDIYbnraysMDhbPan VT5kCRBsccxrUJCkbX2f YDCxM9e6VbOaMvA1YJhh Q3XxzzG7DPIpeZXp UEtcWAA3T69lm4H1OWAh ZZXuGKA1wEY5xJ8waKyc bjogbGVmdDsgdmVydGlj VIkfUZlgT810IBPf lMhdTACjaA6sDQYkjEUv wMdzDE1dWOOzoeoaAotI XF6EQDMNZBUEPGEGRCR4 P0MoKzr3DMIktWno OW1xfRDrSVuaRj0odDah gRfaNK9jNOYvcykzFORu gF2zGQYkeBAoxFtyHJ7o QJPjzibel180WnLn ECK4NLTcjETpJ5GxhB3s FiUcVZToKBSxS6GpbGZd YLgmY777FEhvOtP3QYRb nwDrT1CaBULamWfa EjC9u9R6Es7oQH8cUp2s NFwfVJ83KC33pOCxs9A2 cUQ2F7ObTKYcmktqpkpl hPR4YMWvPEYisF18 eFKjRYxbGq1dx0L6l916 VOXcPLYepZ91Ck0vqYrw UMLekCLMmL5ufanbi4tb cjogIzAwMDAwMDt0 MJr8TMXtoWtoUeJwENG4 QhY5RDH2lSIyjI9gkGvj znhheX5tUpo+NDkgWWVh brP8V7RqAuc0QJAd dZbbFZ5ttMUfAYvxWv1c kRsxtSqqXV1hAUNhzpvk ZFOshH1oDJVkpURfjQlx RZ3vGKKdjdueu003 CiBuBPZ5XXYbkIFbX9Nz lP2oSfKrYVHmUVThU2Fz jUJlLHvpP131YHzsOjK1 TWKmuyRkB3XbPOZw bQovAcK7m1I2Ur0MXXfr ZO55UQ69uTHpv4O3xYK7 C1BeVBNdsvqusioqcII2 AXRjPCPzmE29xHFu ZPwhJq4wt1D0r270RXGp RGVihB95Pn0toBkkYFPt kNLQfH9qoklet0agmewy FgSjIKChMJv9KIu2 FPRgvDmvEhIzYDO4BrG8 MDB6nRQvqU5ftRdljyjw gE3iSvh+X0T1cSL3yBKb dDwvdGQ+RZ22aa78 U3BpRvqxEme0GEDjGMQ0 bCP6wE6gANYgDSjvw7U5 jZO5P2XpmuTgxu1vh9vv GNLpXXxnT85icRQu s2M9SJCnhJP1KWPttOxi YlAdjE25Vdq+PGNvbGdy n0XgKhksz7sye1jqkNb6 IjMwJSIgdmFsaWdu PDV5b9KqSd85D80sYLip ZHRoPSIzMCUiIHZhbGln qk8mpI2jOs2+PGNvbCB3 dBV3cS4zBlJoVfV0 YUxzZ656QyKbvHUlPnza g6hun2kwaZx3OuDfMXFl yzYdwXyjYEH6m9MrWj92 Z2DqdXhez4UaCkm3 jr44tTWsk3Z9aQJ9M0Qt BVSdiesocQAcbZaqYH4i EKGwolgdCUVvnL0sVXAs F4g0TnBbQrL4AUgu G2YcinE3XEYuuSNdKESk jCEIxE4tjsarl8avnpqt ItMtNBOpJSz7SBh6TCQe qJtsQbSiPAG3WrZ6 HWL9zTAmgQ5wzAlzgxta mE6lJun+YJi4a9vrjOXg ON7gwXF0FN82VT12aXYm s0Z7lKK3I9TmEGUk faziaqrvvYI3QCSiKNAp xU25Oc0gzIepEq3iOLJl SVK5SKNguICtR2AzpE2q QxVnXEDwXHStU9Fi vKOuCObcD876GTwwBaL8 GPAyiqAoY3FxYSAtwXsg CjI5o8Q7Id5UEB00SI17 DP91qCUka6G8xJY1 M0MvCLKiquvqevnewST9 VOWkMKGhqT41Or4zwFqm Us6hKAEgPVI5GLWfiGOg F9KwmU3wAmUpBUFa KPLhE9VyxTXsTSufB884 MButVoX5CSZkajBmV6Dy BTIbaOyeIzK0u8I9Tc2Z Qi27XP47YB50sCLs s6D6rWZ9I7WaSERnlclm qthbzCB4AFAmBPBhoZ82 Ha3luIcsVr6fPVDdJMD7 IGSusXUvQ4HtkH7k XaEpUYChYFCbB4BriMHt JJsyV677CUqoNwB8XUKe gvTxU8MfCPSqiAgnNvM9 x5Q7Cw0ZVAlpsdy9 I9WxMsglvTZ+NW16GMXi EM79yKNjqGEpi8nlcBh1 AcSjKYXlRSZ7cMpfALww m4VmGMEuB96mmNTo c2U6 (more content not included)... Antonietta [facility] CT Lower Extremity w/o Contr ast Lefton 06-04-2022 CT Lower Extremity w/o Contrast Left Exam Date/Time: 06/01/2022 16:37 EST Reason for Exam: OSTEOARTHRITIS LEFT KNEE Report IMPRESSION: LEFT KNEE OSTEOARTHRITIS. EXAMINATION: CT Lower Extremity w/o Contrast Left HISTORY: Left knee osteoarthritis TECHNIQUE: Multiple contiguous axial images were obtained of the left lower extremity utilizing Yandel protocol. Multiplanar reformats were obtained. COMPARISON: Radiographs of the knee 03/08/2022 FINDINGS: Degenerative changes including joint space narrowing and marginal osteophyte formation of the left knee. No acute fracture. Small moderate knee joint effusion with 3 cm body along the posterior margin of the medial femoral condyle. Visualized myotendinous structures appear intact. All CT scans at this facility use dose modulation, iterative reconstruction, and/or weight based dosing when appropriate to reduce radiation dose to as low as reasonably achievable. FINAL REPORT Dictated: 06/04/2022 1:34 pm Adria Dior DO Signed (Electronic Signature): 06/04/2022 1:34 pm Signed by: Adria Dior DO Transcribed by: EUGENIA Technologist: SAMANTHA Mane [facility] XR Chest 2 Viewson XR Chest 2 Views Exam Date/Time: 06/01/2022 16:25 EST Reason for Exam: P.A.T. Report IMPRESSION: NO ACTIVE LUNG DISEASE. EXAM: XR Chest 2 Views CLINICAL HISTORY: Shortness of breath P.A.T. COMPARISONS: None FINDINGS: The heart, mediastinum and pulmonary vasculature are within normal limits. Visualized lung sahu are clear. Bones unremarkable. FINAL REPORT Dictated: 06/02/2022 12:48 pm Teofilo Liu MD Signed (Electronic Signature): 06/02/2022 12:48 pm Signed by: Teofilo Liu MD Transcribed by: EUGENIA Technologist: VICENTE Normal [facility] ABO/Rh Retypeon 06-01-2022 ABO/Rh Retype Interp Negative Invalid Interpretation Code [facility] Comment on above: Performed By: #### 1 [id number] ####[facility] [address] [place] [id number] BLOOD BANKOrdered By: Shanice Maxwell on 06-01-2022 ABO/Rh Retype Interp Negative Invalid Interpretation Code [facility] BB Subsection BUNon 06-01-2022 Urea nitrogen [Mass/Vol] 18 mg/dL Normal 5-21 [facility] Comment on above: Performed By: #### 2 964351, 6119308, 42192142, 3123727, 9428081, 2804055 ####[facility] [address] [place] [address] CBC w/Indiceson 06-01-2022 Erythrocyte distribution width (RBC) [Ratio] 12.2 % Normal 10.9-14.2 [facility] Comment on above: Performed By: #### 2 466253, 4705054, 48179087, 0221351, 2399821, 6646254 ####[facility] [address] [place] [address] Hematocrit (Bld) [Volume fraction] 38.0 % Normal 37.7-49.0 [facility] Comment on above: Performed By: #### 2 550097, 2173784, 42572238, 9627408, 7694067, 7000333 ####[facility] [address] [place] [address] Hemoglobin (Bld) [Mass/Vol] 13.0 g/dL Low 13.5-17.5 [facility] Comment on above: Performed By: #### 2 881668, 9420380, 14134001, 1365021, 5702686, 3142706 ####[address] [address] MCH (RBC) [Entitic mass] 29.5 pg Normal 27.0-34.0 [facility] Comment on above: Performed By: #### 2 729879, 2874230, 89620571, 9322699, 4934528, 1376045 ####[address] [address] MCHC (RBC) [Mass/Vol] 34.3 g/dL Normal 31.4-36.0 [facility] Comment on above: Performed By: #### 2 568718, 8858505, 55241537, 7336855, 1506199, 0864568 ####[address] [address] MCV (RBC) [Entitic vol] 86.0 fL Normal 80.0-100.0 [facility] Comment on above: Performed By: #### 2 986947, 6376665, 83595644, 3547744, 1614922, 4989405 ####[address] [address] Platelet mean volume (Bld) [Entitic vol] 9.4 fL Normal 6.4-10.8 [facility] Comment on above: Performed By: #### 2 649167, 6161605, 84497769, 7436303, 7623782, 6749249 ####[address] [address] Platelets (Bld) [#/Vol] 258.0 E9/L Normal 150.0-500.0 [facility] Comment on above: Performed By: #### 2 887400, 7614140, 24362276, 2292070, 8512195, 3465908 ####[facility] [address] [place] [address] RBC (Bld) [#/Vol] 4.4 E12/L Normal 4.3-5.9 [facility] Comment on above: Performed By: #### 2 866112, 2826104, 36655594, 2784033, 9439025, 1552882 ####[facility] [address] [place] [address] WBC corrected for nucl RBC Auto (Bld) [#/Vol] 9.4 E9/L Normal 4.0-11.0 [facility] Comment on above: Performed By: #### 2 533994, 0214931, 62652765, 8670493, 0285376, 7782515 ####[facility] [address] [place] [address] CHEMISTRYOrdered By: SYSTEM SYSTEM on 06-01-2022 Anion gap [Moles/Vol] 15 mmol/L Normal 6 - 16 mEq/L [facility] Chloride [Moles/Vol] 101 mmol/L Normal 101 - 1 11 mmol/L [facility] CO2 [Moles/Vol] 27 mmol/L Normal 21 - 31 mmol/L [facility] Creatinine [Mass/Vol] 1.0 mg/dL Normal 0.5 - 1.3 mg/dL [facility] GFR/1.73 sq M.predicted among blacks MDRD (S/P/Bld) [Vol rate/Area] mL/min/1.73 m2 Normal >=59mL/min/1 .73 m2 [facility] Chem S GFR/1.73 sq M.predicted among non-blacks MDRD (S/P/Bld) [Vol rate/Area] mL/min/1.73 m2 Normal >=59mL/min/1 .73 m2 [facility] Chem S Glucose [Mass/Vol] 95 mg/dL Normal 55 - 199 mg/dL [facility] Potassium [Moles/Vol] 4.0 mmol/L Normal 3.5 - 5.3 mmol/L [facility] Remisol Sodium [Moles/Vol] 139 mmol/L Normal 135 - 145 mmol/L [facility] Remisol Urea nitrogen [Mass/Vol] 18 mg/dL Normal 5 - 21 mg/dL [facility] Remisol Consent for Treatmenton 05-15 Consent for Treatment [id number] #1.00CD:127 Normal [facility] Creatinineon 06-01-2022 Creatinine [Mass/Vol] 1.0 mg/dL Normal 0.5-1.3 [facility] Comment on above: Performed By: #### 2 677653, 8975223, 66937845, 4289280, 8236682, 8415075 ####[facility] [address] [place] [address] Glucoseon 06-01-2022 Glucose [Mass/Vol] 95 mg/dL Normal 55-199 [facility] Comment on above: Performed By: #### 2 683961, 2628742, 73871511, 0975915, 4245403, 5112249 ####[facility] [address] [place] [address] HEMATOLOGYOrdered By: Shanice Maxwell on 06-01-2022 Erythrocyte distribution width (RBC) [Ratio] 12.2 % Normal 10.9 - 14.2 % [facility] HemeAutoSS Hematocrit (Bld) [Volume fraction] 38.0 % Normal 37.7 - 49.0 % [facility] Hemoglobin (Bld) [Mass/Vol] 13.0 g/dL Low 13.5 - 17.5 gm/dL [facility] MCH (RBC) [Entitic mass] 29.5 pg Normal 27.0 - 34.0 pg [facility] MCHC (RBC) [Mass/Vol] 34.3 g/dL Normal 31.4 - 36.0 gm/dL [facility] MCV (RBC) [Entitic vol] 86.0 fL Normal 80.0 - 100.0 fL [facility] Platelet mean volume (Bld) [Entitic vol] 9.4 fL Normal 6.4 - 10.8 fL [facility] Platelets (Bld) [#/Vol] 258.0 E9/L Normal 150.0 - 500.0 E9/L [facility] RBC (Bld) [#/Vol] 4.4 E12/L Normal 4.3 - 5.9 E12/L [facility] WBC corrected for nucl RBC Auto (Bld) [#/Vol] 9.4 E9/L Normal 4.0 - 11.0 E9/L [facility] HemeAutoSS Lyteson 06-01-2022 Anion gap [Moles/Vol] 15 mmol/L Normal 6-16 [facility] Comment on above: Performed By: #### 2 319521, 0942302, 57220804, 7183395, 1412572, 3517060 ####[facility] [address] [place] [address] Chloride [Moles/Vol] 101 mmol/L Normal 101-111 [facility] Comment on above: Performed By: #### 2 915667, 5571958, 38697562, 5912130, 0880282, 2381862 ####[facility] [address] [place] [address] CO2 [Moles/Vol] 27 mmol/L Normal 21-31 [facility] Comment on above: Performed By: #### 2 186829, 7613382, 17835026, 4099634, 0555542, 1756409 ####[facility] [address] [place] [address] Potassium [Moles/Vol] 4.0 mmol/L Normal 3.5-5.3 [facility] Comment on above: Performed By: #### 2 557470, 4597415, 50522774, 2212925, 9476667, 3452910 ####[facility] [address] [place] [address] Sodium [Moles/Vol] 139 mmol/L Normal 135-145 [facility] Comment on above: Performed By: #### 2 019035, 4643813, 53231114, 1914254, 1388655, 6572272 ####[facility] [address] [place] [address] UA With Cult Reflexon 2021 Epithelial cells.squamous LM.HPF (Urine sed) [#/Area] 0-2 Normal 0-2 [facility] Comment on above: Performed By: #### 1 3987951 #### [facility] [address] [place] [address] Melstone.plasma/Lithiu m.RBC (Bld) [Mass ratio] 0-3 Normal 0-3 [facility] Comment on above: Performed By: #### 1 [id number] #### [facility] [address] [place] [address] WBC LM.HPF (Urine sed) [#/Area] 0-5 Normal 0-5 [facility] Comment on above: Performed By: #### 1 [id number] #### [facility] [address] [place] [address] Bilirubin Ql (U) Negative Normal Negative [facility] Comment on above: Performed By: #### 1 9638756 #### [facility] [address] [place] [address] Clarity (U) CLEAR Normal Clear [facility] Comment on above: Performed By: #### 1 6362653 #### [facility] [address] [place] [address] Color (U) YELLOW Normal Yellow [facility] Comment on above: Performed By: #### 1 9283425 #### [facility] [address] [place] [address] Glucose Test strip (U) [Mass/Vol] Negative Normal Negative [facility] Comment on above: Performed By: #### 1 0394667 #### [facility] [address] [place] [address] Hemoglobin Ql (U) Negative Normal Negative [facility] Comment on above: Performed By: #### 1 1514427 #### [facility] [address] [place] [address] Ketones (U) [Mass/Vol] Negative Normal Negative [facility] Comment on above: Performed By: #### 1 4372820 #### [facility] [address] [place] [address] Nitrite Ql (U) Negative Normal Negative [facility] Comment on above: Performed By: #### 1 0933766 #### [facility] [address] [place] [address] pH (U) 6.0 [pH] Invalid Interpretation Code 5.0-9.0 [facility] Comment on above: Performed By: #### 1 [id number] #### [facility] [address] [place] [address] Protein (U) [Mass/Vol] Negative Normal Negative [facility] Comment on above: Performed By: #### 1 8545243 #### [facility] [address] [place] [address] Specific gravity (U) [Rel density] >=1.030 Invalid Interpretation Code 1.005-1.030 [facility] Comment on above: Performed By: #### 1 3650190 #### [facility] [address] [place] [address] Type of Urine collection method Clean Catch Normal [facility] Comment on above: Performed By: #### 1 2460187 #### [facility] [address] [place] [address] Urobilinogen Qn (U) 0.2 {Anushka'U}/dL Normal 0.0-1.0 [facility] Comment on above: Performed By: #### 1 2493301 #### [facility] [address] [place] [address] WBC Auto Ql (U) Negative Normal Negative [facility] Comment on above: Performed By: #### 1 6558900 #### [facility] [address] [place] [address] URINALYSISOrdered By: Queenie Wylie on 06-01-2022 Bilirubin Ql (U) Negative (06/01/22 4:13 PM) Normal Negative [facility] UA Auto SS Clarity (U) Clear (06/01/22 4:13 PM) Normal Clear [facility] UA Auto SS Color (U) Yellow (06/01/22 4:13 PM) Normal Yellow [facility] UA Auto SS Epithelial cells.squamous LM.HPF (Urine sed) [#/Area] 0-2 /HPF Normal 0-2/HPF [facility] UA Aut o SS Glucose Test strip (U) [Mass/Vol] Negative (06/01/22 4:13 PM) Normal Negative [facility] UA Auto SS Hemoglobin Ql (U) Negative (06/01/22 4:13 PM) Normal Negative [facility] UA Auto SS Ketones (U) [Mass/Vol] Negative (06/01/22 4:13 PM) Normal Negative [facility] UA Auto SS [place].plasma/Lithiu m.RBC (Bld) [Mass ratio] 0-3 /HPF Normal 0-3/HPF [facility] UA Auto SS Nitrite Ql (U) Negative (06/01/22 4:13 PM) Normal Negative [facility] UA Auto SS pH (U) 6.0 *NA* (06/01/22 4:13 PM) Invalid Interpretation Code 5.0 - 9.0 [facility] UA Auto SS Protein (U) [Mass/Vol] Negative (06/01/22 4:13 PM) Normal Negative [facility] UA Auto SS Specific gravity (U) [Rel density] >=1.030 *NA* (06/01/22 4:13 PM) Invalid Interpretation Code 1.005 - 1.030 [facility] UA Auto SS UA Spec Desc Clean Catch (06/01/22 4:13 PM) Normal [facility] UA Auto SS Urobilinogen Qn (U) 0.5780526 {Anushka'U}/dL Normal 0.0 - 1.0 EU/dL [facility] UA Auto SS WBC Auto Ql (U) Negative (06/01/22 4:13 PM) Normal Negative [facility] UA Auto SS WBC LM.HPF (Urine sed) [#/Area] 0-5 /HPF Normal 0-5/HPF [facility] UA Auto SS eGFRon 06-01-2022 GFR/1.73 sq M.predicted among blacks MDRD (S/P/Bld) [Vol rate/Area] mL/min/{1.73_m2} Normal >=59 [facility] Comment on above: Order Comment: Order added by Discern Expert. Result Comment: eGFR is race adjusted. AA=. Performed By: #### 2 352480, 1999030, 68417593, 2540632, 6502346, 6094077 ####[facility] [address] [place] [address] GFR/1.73 sq M.predicted among non-blacks MDRD (S/P/Bld) [Vol rate/Area] mL/min/{1.73_m2} Normal >=59 [facility] Comment on above: Order Comment: Order added by Discern Expert. Result Comment: Hog Pusher johana kidney disease could be indicated at eGFR's of less than 60 mL/min/1.73m2. Kidney failure is indicated at less than 15 mL/min/1.73m2. Performed By: #### 2 109911, 2516676, 01535896, 7106265, 2907877, 2884317 ####[facility] [address] [place] [address] Physician Orderon 05-30-2022 Physician Order [id number] #1.00CD:127 Normal [facility] Physician Orderon 05-28-2022 Physician Order [id number] 1#1.00CD:127 Normal [facility] XR knee LT 2Von 01-25-2022 XR knee LT 2V [facility] [place] [address] XRay Report Signed Patient: Arenl Parr MR#: [id number] : 1970 Acct:[id number] Age/Sex: 51 / M ADM Date: 01/25/22 Loc: [facility] Room: Type: [facility] Attending Dr: Anthony Knox MD Copies to: Anthony Knox MD Ordering Provider: Anthony Knox MD Date of Service: 01/25/22 XR/XR knee LT 2V: PAIN LEFT KNEE - 2 views CLINICAL HISTORY: Anterior left knee pain for weeks COMPARISON: None FINDINGS: Moderate degenerative changes with patellofemoral and medial weightbearing joint space narrowing. No acute bony process. XR/XR knee LT 2V IMPRESSION: MODERATE DEGENERATIVE CHANGES WITHOUT ACUTE BONY PROCESS. Impression dictated by: Wiliam Pérez Jr., Johnson01/25/2022 11:54 AM Dictation Location: [place] [address] Transcribed By: [facility] 01/25/22 1154 Dictated By: Wiliam Pérez Jr, DO 01/25/22 1153 Signed By: 01/25/22 1154 [facility] MRI KNEE LT WO CONon 022 MRI KNEE LT WO CON EXAMINATION: MRI KNEE LT WO CON HISTORY: Derangement of left knee COMPARISON: No relevant comparison available. TECHNIQUE: A complete multi-planar MRI was performed. FINDINGS: MEDIAL COMPARTMENT MEDIAL MENISCUS: Thinned extruded macerated medial meniscus with nzeb-wi-funb articulation CARTILAGE: Severe chondromalacia with subchondral edema BONES: Severe osteoarthritis with marginal osteophyte formation MCL AND MEDIAL CAPSULE: Normal medial collateral ligament and medial capsule. LATERAL COMPARTMENT LATERAL MENISCUS: Truncated body best seen on coronal image 19 suggesting a chronic tear no definite acute tear CARTILAGE: Moderate chondromalacia BONES: Moderate to severe osteoarthropathy with marginal osteophyte formation LCL/POSTEROLAT COMPLEX: Normal lateral collateral ligament, fascicles, lateral capsule and ligaments. ANTERIOR COMPARTMENT PATELLA: Moderate osteoarthritis. CARTILAGE: No visible defect. TENDONS: Normal. EFFUSION: Moderate joint effusion ACL: Diffuse thickening and increased signal likely representing chronic tear PCL: Normal appearing ligament. MENISCOFEMORAL: Normal meniscofemoral ligaments. OTHER: Negative. IMPRESSION: Severe tricompartmental osteoarthritis with hdsh-ir-twpn articulation of the medial compartment and a thinned extruded macerated medial meniscus Chronic anterior cruciate ligament tear Electronically authenticated by: DOLORES FITZGERALD Date: 2021-12-21 10:28 Normal [facility] XR FOREIGN BODY EYEon 2021 XR FOREIGN BODY EYE EXAM: XR FOREIGN BODY EYE HISTORY: Foreign body in eye COMPARISON: None. TECHNIQUE: 2 views of the orbits were obtained. FINDINGS: Imaging obtained for MRI clearance. No radiopaque foreign bodies in the orbits or face. Paranasal sinuses are well-aerated. Orbits are intact. IMPRESSION: No radiopaque foreign bodies in the orbits or face. Electronically authenticated by: DANG TAYLOR Date: 2021-12-21 08:43 Normal [facility] Vital Signs Date Time Vital Sign Value Performing Clinician Amber wells 07-29-2023 14:16-0500 Blood Pressure Location Helio RYAN [facility] 07-29-2023 14:16-0500 Diastolic blood pressure 89 mm[Hg] Helio RYAN [facility] 07-29-2023 14:16-0500 Heart rate 80 /min Helio RY[facility] 07-29-2023 14:16-0500 Respiratory rate 16 /min Helio RYAN [facility] 07-29-2023 14:16-0500 Systolic blood pressure 132 mm[Hg] Helio RYAN [facility] 12-14-2022 14:00-0400 Body height 175.26 cm Reji Ball Other [facility] Other 12-14-2022 14:00-0400 Body mass index (BMI) [Ratio] 41.82 kg/m2 Reji Ball Other [facility] Other 12-14-2022 14:00-0400 Body weight 128.46 kg Reji Ball Other [facility] Other 12-14-2022 14:00-0400 Diastolic blood pressure 69 mm[Hg] Reji Ball Other [facility] Other 12-14-2022 14:00-0400 Respiratory rate 12 /min Reji Ball Other [facility] Other 12-14-2022 14:00-0400 Systolic blood pressure 112 mm[Hg] Reji Ball Other [employer] Other 09-05-2022 13:30-0500 Body height 175.26 cm Reji Ball Other [employer] Other 09-05-2022 13:30-0500 Body mass index (BMI) [Ratio] 45.18 kg/m2 Reji Ball Other [employer] Other 09-05-2022 13:30-0500 Body weight 138.8 kg Reji Ball Other [facility] Other 09-05-2022 13:30-0500 Diastolic blood pressure 72 mm[Hg] Reji Ball Other [facility] Other 09-05-2022 13:30-0500 SaO2% (BldA) [Mass fraction] 96 % Reji Ball Other [employer] Other 09-05-2022 13:30-0500 Systolic blood pressure 140 mm[Hg] [facility] [employer] [place] Other [employer] Other 06-20-2022 16:50-0500 Blood Pressure Location Valeriano [facility] 06-20-2022 16:50-0500 Body temperature 96.8 [degF] Valeriano [facility] 06-20-2022 16:50-0500 Diastolic blood pressure 62 mm[Hg] Valeriano [facility] 06-20-2022 16:50-0500 Heart rate 90 /min Valeriano [facility] 06-20-2022 16:50-0500 Respiratory rate 16 /min Valeriano [facility] 06-20-2022 16:50-0500 SaO2% (BldA) [Mass fraction] 97 % Valeriano Francis [facility] 06-20-2022 16:50-0500 Systolic blood pressure 145 mm[Hg] Valeriano Francis [facility] 06-20-2022 16:00-0500 Body temperature 97.16 [degF] Valeriano Francis [facility] 06-20-2022 16:00-0500 Diastolic blood pressure 80 mm[Hg] Valeriano Francis [facility] 06-20-2022 16:00-0500 Heart rate 82 /min Valeriano Francis [facility] 06-20-2022 16:00-0500 Systolic blood pressure 120 mm[Hg] Valeriano Francis [facility] 06-20-2022 14:38-0500 Blood Pressure Location Valeriano Francis [facility] 06-20-2022 14:38-0500 Body temperature 96.8 [degF] Valeriano Francis [facility] 06-20-2022 14:38-0500 Diastolic blood pressure 73 mm[Hg] Valeriano Francis [facility] 06-20-2022 14:38-0500 Heart rate 80 /min Valeriano Francis [facility] 06-20-2022 14:38-0500 Respiratory rate 14 /min Valeriano Francis [facility] 06-20-2022 14:38-0500 Systolic blood pressure 112 mm[Hg] Valeriano Francis [facility] 06-20-2022 13:40-0500 SaO2% (BldA) [Mass fraction] 97 % Valeriano Francis [facility] 06-20-2022 13:31-0500 Respiratory rate 11 /min Valeriano Francis [facility] 06-20-2022 13:20-0500 Respiratory rate 14 /min Valeriano Francis [facility] 06-20-2022 13:15-0500 Respiratory rate 15 /min Valeriano Francis [facility] 06-20-2022 07:35-0500 Body temperature 97.7 [degF] Valeriano Francis [facility] 06-20-2022 07:35-0500 Heart rate 70 /min Valeriano Francis [facility] 06-11-2022 14:42-0500 Diastolic blood pressure 84 mm[Hg] Дмитрий Gal [facility] 06-11-2022 14:42-0500 Mean blood pressure 106 mm[Hg] Дмитрий Anthonyofferson [facility] 06-11-2022 14:42-0500 Systolic blood pressure 149 mm[Hg] Дмитрий Christofferson [facility] 06-11-2022 14:33-0500 Blood Pressure Location Дмитрий Christofferson [facility] 06-11-2022 14:33-0500 Diastolic blood pressure 87 mm[Hg] Дмитрий Christofferson [facility] 06-11-2022 14:33-0500 Heart rate 79 /min Дмитрий Christofferson [facility] 06-11-2022 14:33-0500 Respiratory rate 18 /min Дмитрий Christofferson [facility] 06-11-2022 14:33-0500 SaO2% (BldA) [Mass fraction] 98 % Дмитрий [facility] [facility] 14:33-0500 Systolic blood pressure 146 mm[Hg] Дмитрий S[facility] 06-01-2022 15:54-0500 Blood Pressure Location Valeriano Francis [facility] 06-01-2022 15:54-0500 Diastolic blood pressure 93 mm[Hg] [facility] 06-01-2022 15:54-0500 Heart rate 67 /min Val[facility] 06-01-2022 15:54-0500 Mean blood pressure 115 mm[Hg] Valeriano [facility] 06-01-2022 15:54-0500 Systolic blood pressure 157 mm[Hg] Valeriano Francis [facility] 06-01-2022 15:53-0500 Blood Pressure Location Valeriano Francis [facility] 06-01-2022 15:53-0500 Body temperature 98.24 [degF] Valeriano Francis [facility] 06-01-2022 15:53-0500 Diastolic blood pressure 92 mm[Hg] Valeriano Francis [facility] 06-01-2022 15:53-0500 Heart rate 71 /min Valeriano Francis [facility] 06-01-2022 15:53-0500 Mean blood pressure 112 mm[Hg] Valeriano Francis [facility] 06-01-2022 15:53-0500 Respiratory rate 16 /min Valeriano Francis [facility] 06-01-2022 15:53-0500 SaO2% (BldA) [Mass fraction] 99 % Val[facility]iano Francis [facility] 06-01-2022 15:53-0500 Systolic blood pressure 153 mm[Hg] Valeriano Vishnu [facility] 11-17-2021 14:26-0400 Blood Pressure Location Jasbir SAWANT [facility] [place] 11-17-2021 14:26-0400 Diastolic blood pressure 86 mm[Hg] Jasbir NILL [facility] [place] 11-17-2021 14:26-0400 Heart rate 72 /min Jasbir NILL [facility] [place] 11-17-2021 14:26-0400 Respiratory rate 16 /min Jasbir NILL [facility] [place] 11-17-2021 14:26-0400 Systolic blood pressure 124 mm[Hg] Jasbir NILL [facility] [place] Encounters Encounter Date Encounter Type Care Provider Facility Start: 07-29-2023 ambulatory REJI DK Facility: [facility] Start: 07-29-2023 End: 07-29-2023 Patient encounter procedure Helio R MARTINA [facility] Start: 06-20-2023 End: 06-20-2023 ambulatory VALERIANO FRANCIS Not Available Start: 05-08-2023 End: 05-08-2023 ambulatory Reji Centeno Other [facility] Other Start: 05-08-2023 Telephone encounter Reji AKINS [facility] Start: 04-16-2023 End: 04-16-2023 ambulatory Reji Centeno Other [facility] Other Start: 04-16-2023 Telephone encounter Reji [facility] Start: 04-01-2023 End: 04-02-2023 ambulatory REJI CENTENO Facility:[facility] [place] Start: 04-01-2023 End: 04-01-2023 Patient encounter procedure Helio Ambriz RYAN [facility] Start: 03-29-2023 ambulatory Martha Lo Facility:[facility] Start: 12-26-2022 ambulatory Дмитрий Chiu ility:[facility] [place] Start: 12-14-2022 End: 12-14-2022 ambulatory Reji Centeno Other [facility] Other Start: 12-14-2022 Office outpatient visit 15 minutes Reji Centeno [facility] Start: 11-23-2022 End: 11-24-[address] REJI CENTENO Facility:[facility] Start: 09-17-2022 End: 09-18-[address] REJI CENTENO Facility:[facility] Start: 09-10-2022 Encounter for genera l adult medical examination without abnormal findings DR REJI CENTENO [facility] Start: 09-06-2022 Telephone encounter Reji Centeno [facility] Start: 09-06-2022 End: 09-07-[address] REJI CENTENO [facility] Other Start: 09-06-2022 End: 09-07-2022 Encounter for general adult medical examination without abnormal findings DR REJI CENTENO Facility:[facility] Start: 09-05-2022 End: 09-05-2022 ambulatory Reji Centeno Other [facility] Other Start: 09-05-2022 Encounter for genera l adult medical examination without abnormal findings Reji Centeno [facility] Start: 09-05-2022 Periodic preventive med est patient 40-64yrs Reji Centeno [facility] Start: 07-15-2022 End: 08-11-2022 ambulatory VALERIANO FRANCIS Facility:[facility] Start: 07-12-2022 End: 07-14-2022 ambulatory VALERIANO FRANCIS Facility:[facility] Start: 06-20-2022 End: 06-20-2022 ambulatory Valeriano Francis [facility] Start: 06-20-2022 End: 06-20-2022 Admission to same day surgery center [facility] Start: 06-14-2022 End: 09-14-2022 ambulatory Дмитрий Santo [facility] Start: 06-14-2022 End: 09-13-2022 Recurring Дмитрий Santo [facility] Start: 06-11-2022 End: 06-12-2022 ambulatory Valeriano Francis [facility] Start: 06-11-2022 End: 06-11-2022 Patient encounter procedure Дмитрий Santo [facility] Start: 06-01-2022 End: 06-02-2022 ambulatory Valeriano Francis Facility:[facility] Start: 06-01-2022 End: 06-01-2022 Patient encounter procedure Valerianosatish Francis [facility] Start: 01-25-2022 End: 01-25-2022 ambulatory Anthony Knox Other [facility] Other Start: 01-25-2022 Office outpatient ne w 30 minutes Anthony Knox [facility] Start: 01-25-2022 End: 01-25-2022 Patient encounter procedure MD Anthony Knox Work Phone: [facility] Start: 12-21-2021 End: 12-22-[address] REJI CENTENO Facility: Start: 11-17-2021 End: 11-17-2021 Patient encounter procedure Jasbir SAWANT [facility] [place] Start: 07-10-2021 Adult health examination Reji Centeno Other [facility] Other Procedures Date Procedure Procedure Detail Performing Clinician Start: 09-06-[address] JESSICA VEGA DK Comment on above: Performed By: #### P [facility] #### [facility] [address] [place] [address] Dr. Alla Martinez Start: 06-20-2022 Arthroplasty of knee Mike Francis Comment on above: Left Total Knee Arth roplsty, Robotic Assisted Start: 01-25-2022 X-ray of left knee MD Esperanza Knox Work Phone: Start: 11-27-2021 Colonoscopy Valeriano brandt Start: 08-30-2014 General examination of patient Reji Centeno Other Amputation of finger , except thumb Jasbir NILL Excision of lipoma Jasbir Brandt ILL Tonsillectomy and adenoidectomy Jasbir LAYOL Immunizations Immunization Date Immunization Notes Care Provider Fa cility 12-10-2020 COVID-19 Vaccine Pfi zer - Documentation Purposes Only Reji Centeno Other [facility] Other 12-10-2020 SARS-CoV-2 (COVID-19 ) Ad26 vaccine, recombinant Jasbir NILL [facility] [place] 11-19-2020 SARS-CoV-2 (COVID-19 ) Ad26 vaccine, recombinant Jasbir NILL [facility] [place] Payers Date Payer Category Payer Unknown [id number] 2. [id number] 1972 Unknown [id number] 2.16. [id number] 1972 Unknown [id number] 2.16.84 [id number] 1972 Unknown [id number] 2.16.84 0.1.560835.3.579.2.593 1972 Unknown [id number] 2.16.84 0.1.723859.3.579.2.593 1972 Unknown [id number] 2.16.84 0.1.470457.3.579.2.593 1972 Unknown [id number] 2.16.84 0.1.762790.3.579.2.593 1972 Unknown [id number] 2.16.84 0.1.027436.3.579.2.593 1972 Unknown [id number] 2.16.8 40.1.345249.3.579.2.727 1972 Unknown [id number] 2.16.8 40.1.975137.3.579.2.727 1972 Unknown [id number] 2.16.8 40.1.195940.3.579.2.727 1972 Unknown [id number] 2.16.8 40.1.279318.3.579.2.727 1972 Unknown [id number] 2.16.8 40.1.143821.3.579.2.727 1972 Unknown [id number] 2.16.8 40.1.345175.3.579.2.727 1972 Unknown [id number] 2.16.8 40.1.619027.3.579.2.727 1972 Unknown [id number] 2.16.840 .1.997838.3.579.2.1259 1972 Unknown [id number] 2.16.840 .1.608099.3.579.2.1259 1959 Blue Cross Blue Shield [id number] Self-pay Self Pay [id number] Social History Date Type Detail Facility Start: 11-17-2021 Tobacco smoking status Ex-smoker (fi nding) [facility] [place] Tobacco smoking status Smokeless tobacco user within last 30 days [facility] [place] Sex Assigned At Male [facility] [place] Start: 1970 Sex Assigned At Male F [facility] Medical Equipment Procedure Code Equipment Code Equipment Origin al Text Equipment Identifier Dates KNEE TOTAL ROBOT ARTHROPLASTY Brown DO, Valeriano A 06/20/22 Unknown Knee L FDA Start: 06-20-2022 KNEE TOTAL ROBOT ARTHROPLASTY Brown DO, Valeriano A 06/20/22 Unknown Knee L FDA Start: 06-20-2022 KNEE TOTAL ROBOT ARTHROPLASTY Brown DO, Valeriano A 06/20/22 Unknown Knee L FDA Start: 06-20-2022 KNEE TOTAL ROBOT ARTHROPLASTY Brown DO, Valeriano A 06/20/22 Unknown Knee L FDA Start: 06-20-2022 KNEE TOTAL ROBOT ARTHROPLASTY Brown DO, Valeriano A 06/20/22 Unknown Knee L FDA Start: 06-20-2022 KNEE TOTAL ROBOT ARTHROPLASTY Brown DO, Valeriano A 06/20/22 Unknown Knee L FDA Start: 06-20-2022 KNEE TOTAL ROBOT ARTHROPLASTY Brown DO, Valeriano A 06/20/22 Unknown Knee L FDA Start: 06-20-2022 KNEE TOTAL ROBOT ARTHROPLASTY Brown DO, Valeriano A 06/20/22 Unknown Knee L FDA Start: 06-20-2022 KNEE TOTAL ROBOT ARTHROPLASTY Brown DO, Valeriano A 06/20/22 Unknown Knee L FDA Start: 06-20-2022 KNEE TOTAL ROBOT ARTHROPLASTY Brown DO, Valeriano A 06/20/22 Unknown Knee L FDA Start: 06-20-2022 KNEE TOTAL ROBOT ARTHROPLASTY Brown DO, Valeriano A 06/20/22 Unknown Knee L FDA Start: 06-20-2022 KNEE TOTAL ROBOT ARTHROPLASTY Brown DO, Valeriano A 06/20/22 Unknown Knee L FDA Start: 06-20-2022 KNEE TOTAL ROBOT ARTHROPLASTY Brown DO, Valeriano A 06/20/22 Unknown Knee L FDA Start: 06-20-2022 KNEE TOTAL ROBOT ARTHROPLASTY Brown DO, Valeriano A 06/20/22 Unknown Knee L FDA Start: 06-20-2022 KNEE TOTAL ROBOT ARTHROPLASTY Valeriano Francis DO 06/20/22 Unknown Knee L FDA Start: 06-20-2022 KNEE TOTAL ROBOT ARTHROPLASTY Valeriano Francis DO 06/20/22 Unknown Knee L FDA Start: 06-20-2022 Functional Status Date Assessment Result Facility 07-29-2023 Functional Status N/A [facility] 06-11-2022 Functional Status N/A [facility] 06-01-2022 Functional Status No [facility] Clinical Notes 01-25-2022 to 07-29-2023 Note Date & Type Note Facility 07-29-2023 Hospital Discharg e instructions Patient Education 07/29/2023 15:16:10 Hypogonadism, Male Hypogonadism, Male Male hypogonadism is a condition of having a level of testosterone that is lower than normal. Testosterone is a chemical, or hormone, that is made mainly in the testicles. In boys, testosterone is responsible for the development of male characteristics during puberty. These include: Making the penis bigger. Growing and building the muscles. Growing facial hair. Deepening the voice. In adult men, testosterone is responsible for maintaining: An interest in sex and the ability to have sex. Muscle mass. Sperm production. Red blood cell production. Bone strength. Testosterone also gives men energy and a sense of well-being. Testosterone normally decreases as men age and the testicles make less testosterone. Testosterone levels can vary from man to man. Not all men will have signs and symptoms of low testosterone. Weight, alcohol use, medicines, and certain medical conditions can affect a man's testosterone level. What are the causes? This condition is caused by: A natural decrease in testosterone that occurs as a man grows older. This is the main cause of this condition. Use of medicines, such as antidepressants, steroids, and opioids. Diseases and conditions that affect the testicles or the making of testosterone. These include: ?Injury or damage to the testicles from trauma, cancer, cancer treatment, or infection. ?Diabetes. ?Sleep apnea. ?Genetic conditions that men are born with. ?Disease of the pituitary gland. This gland is in the brain. It produces hormones. ?Obesity. ?Metabolic syndrome. This is a group of diseases that affect blood pressure, blood sugar, cholesterol, and belly fat. ?HIV or AIDS. ?Alcohol abuse. ?Kidney failure. ?Other long-term or chronic diseases. What are the signs or symptoms? Common symptoms of this condition include: Loss of interest in sex (low sex drive). Inability to have or maintain an erection (erectile dysfunction). Feeling tired (fatigue). Mood changes, like irritability or depression. Loss of muscle and body hair. Infertility. Large breasts. Weight gain (obesity). How is this diagnosed? Your health care provider can diagnose hypogonadism based on: Your signs and symptoms. A physical exam to check your testosterone levels. This includes blood tests. Testosterone levels can change throughout the day. Levels are highest in the morning. You may need to have repeat blood tests before getting a diagnosis of hypogonadism. Depending on your medical history and test results, your health care provider may also do other tests to find the cause of low testosterone. How is this treated? This condition is treated with testosterone replacement therapy. Testosterone can be given by: Injection or through pellets inserted under the skin. Gels or patches placed on the skin or in the mouth. Testosterone therapy is not for everyone. It has risks and side effects. Your health care provider will consider your medical history, your risk for prostate cancer, your age, and your symptoms before putting you on testosterone replacement therapy. Follow these instructions at home: Take conb-vkf-gorglvs and prescription medicines only as told by your health care provider. Eat foods that are high in fiber, such as beans, whole grains, and fresh fruits and vegetables. Limit foods that are high in fat and processed sugars, such as fried or sweet foods. If you drink alcohol: ?Limit how much you have to 0 2 drinks a day. ?Know how much alcohol is in your drink. In the [place] one drink equals one 12 oz bottle of beer (355 mL), one 5 oz glass of wine (148 mL), or one 1 oz glass of hard liquor (44 mL). Return to your normal activities as told by your health care provider. Ask your health care provider what activities are safe for you. Keep all follow-up visits. This is important. Contact a health care provider if: You have any of the signs or symptoms of low testosterone. You have any side effects from testosterone therapy. Summary Male hypogonadism is a condition of having a level of testosterone that is lower than normal. The natural drop in testosterone production that occurs with age is the most common cause of this condition. Low testosterone can also be caused by many diseases and conditions that affect the testicles and the making of testosterone. This condition is treated with testosterone replacement therapy. There are risks and side effects of testosterone therapy. Your health care provider will consider your age, medical history, symptoms, and risks for prostate cancer before putting you on testosterone therapy. This information is not intended to replace advice given to you by your health care provider. Make sure you discuss any questions you have with your health care provider. Document Revised: 03/02/2021 Document Reviewed: 03/02/2021 [employer] Patient Education 2022 [employer]. Follow Up Care 04/16/2023 11:59:27 With:Helio RYAN MD, URL Address: [facility] [address] , [place] [address]- [phone] When: Unknown Comments:3 mos w/ T level [facility] 05-08-2023 Evaluation note Encounter Date Diagnosis Assessment Notes Apr, COVID (ICD-10 - U07.1) [facility] Other 06-26-2023 Hospital Discharge instructions Follow Up Care 01/07/2023 10:27:30 With:Helio RYAN MD, URL Address: [facility] [address] [place] [address]- [phone] When: Unknown [facility] 06-02-2023 Evaluation note* Encounter Date Diagnosis Assessment Notes Treatment Notes Treatment Clinical Notes Dec, Low testosterone in male (ICD-10 - R79.89) Discussed testosterone replacement therapy. Discussed pros and cons to hormone replacement therapy. Given his age, have recommended referral to Urology for further discussion Dec, Decreased libido (ICD-10 - R68.82) May be hormone related, refer to Urology Compliant w/ antihypertensive meds and treatment of ANAHY Dec, Erectile dysfunction due to arterial insufficiency (ICD-10 - N52.01) Discussed medical treatment but suggest awaiting treatment of low testosterone, which may result improved function [facility] Other 02-23-2023 Evaluation note* Encounter Date Diagnosis Assessment Notes Treatment Notes Treatment Clinical Notes Aug, Abnormal EKG (ICD-10 - R94.31) Aug, Abnormal nuclear stress test (ICD-10 - R94.39) [facility] Other 02-22-2023 Evaluation note* Encounter Date Diagnosis Assessment Notes Treatment Notes Treatment Clinical Notes Aug, Wellness examination (ICD-10 - Z00.00) Healthy diet and exercise. Reviewed age-appropriate preventive testing recommended. Aug, Primary hypertension (ICD-10 - I10) Aug, Obstructive sleep apnea (ICD-10 - G47.33) This patient is aware of the benefits associated with ANAHY: With continued use, the patient reduces the risk for CT, CVA, HTN, cardiac dysrhythmias and sudden cardiac deaths.The patient is also aware of the association between ANAHY and morning headaches, daytime somnolence, fatigue and obesity, which also has been improved with continued use.The patient is compliant with treatment, wearing the equipment every night for greater than 4 hours.The patient is instructed to continue use of the CPAP for ANAHY treatment. Aug, Erectile dysfunction due to arterial insufficiency (ICD-10 - N52.01) Aug, Screening PSA (prostate specific antigen) (ICD-10 - Z12.5) Yearly PSA and [facility] [place] [employer] Other 12-07-2022 Hospital Discharge instructions Patient Education 06/20/2022 14:01:04 Knee Cryocuff Patient Instructions - FT (CUSTOM) 06/20/2022 14:00:47 Post Op Patient Instructions - FT (CUSTOM) 06/20/2022 10:21:15 Alejandra Francis - Total Knee Arthroplasty (Custom) [place], [place] [facility] DISCHARGE INSTRUCTIONS: TOTAL KNEE ARTHROPLASTY INCISION CARE: The bandage may be changed by your home health care nurse at 7-10 days postoperatively. A new Aquacel bandage should then be placed. The bandage is waterproof, so you may shower at home. Steri-strips (paper tape strips) may be applied to the incision if any slight wound separation is noted. These should remain in place for five days and then they may come off in the shower. Please notify the office if any increase in redness, tenderness, drainage, fever, or wound separation is noted beyond this point. Compression stockings may be helpful if any significant or uncomfortable swelling in the legs is noted postoperatively. Use and removal instructions should be given by physical therapy. If the swelling is below the knee, knee high compression stockings may suffice. If this does cause swelling into the thigh region, waist high compression stockings may be beneficial as well. These can be obtained from most pharmacies, or can be obtained through Home Health. The mild grade compression stockings are best used initially. When applying or removing the compression stocking, you may need assistance. MEDICATIONS: You may resume your home medications at the time of discharge. Arixtra and Lovenox are mild blood thinners that prevent the development of blood clots in the legs. One of these has been used during your hospitalization. After discharge home you should continue the use of two stomach coated baby Aspirin tablets daily with your largest meal for 30 days after home discharge. Please notify your doctor if you have a stomach sensitivity to Aspirin or history of previous stomach ulcers. Pain medication has been prescribed as well. You may continue to use the pain medication every fourhours as needed. Any narcotic pain medication can cause side effects including stomach upset, constipation, or light-headedness. You should not drive or operate machinery, or drink alcohol while using the narcotic pain medication. You should not use other pain medications with this prescription pain medication unless further directed by your physician. PHYSICAL THERAPY Continue the range of motion and strengthening exercises initiated by Physical Therapy in the hospital. Continue weight bearing, as ordered, to the operated knee for four to six weeks as directed in Physical Therapy, or until your strength is improved and Physical Therapy will then allow you to progress to full weight. This will be with the use of a walker or crutches initially. After four or six weeks you may then progress to the use of one crutch or a cane. A quad-cane is preferred as this is more stable. Physical therapy as begun in the hospital will continue at home, possibly with the assistant at surgery of Home Health Physical Therapy or in the hospital as an outpatient. When you have become independent withthe physical therapy program, this will then be discontinued as a supervised program and you will be instructed to continue the physical therapy exercises at home. Your exercises are fontana to successful rehabilitation. You should gain full extension first, hopefully before hospital discharge, and gain 90 degrees flexion by one month post-op. Do the exercises daily, twice if preferred. DRIVING: Please do not drive for 4-6 weeks pending therapy progress. 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 It is therefore advised not to drive until after yourfirst office visit following surgery. FOLLOW-UP OFFICE VISIT: Valeriano Francis, [facility] [address] [place], [place] [id number] Reviewed: Follow Up Care 05/25/2022 08:46:50 With:Valeriano Francis Address: [address] [place] [address] Business (1) When: Unknown [facility]12-07-2022 Evaluation + Plan noteExtracted from: Title:ASHELY POSTOP Author:Anthony Rollins DO Date: 06/20/22 Plan Transfer/ Discharge: Patient can be discharged from PACU when criteria met. Condition good. Extracted from: Title:ASHELY PREOP Author:Anthony Rollins DO Date:08/21/21 Plan [place] [employer] Anesthesiologists (ASA) physical status classification: Class III. Anesthetic Preoperative Plan Anesthesia: Regional (Spinal, ACB). Anesthetic plan, risks, benefits, and alternatives discussed with the patient and/or family. Patient verbalized understanding. Anesthesia risks, benefits, alternatives discussed with patient and/or family/guardians. Risks discussed including but not limited to risks of nerve damage, injury, bleeding requiring transfusion, postop pulmonary complications, nausea, vomiting, sore throat, dental/oral injury, increase/decrease in HR or blood pressure, hoarseness, muscle or joint pain, heart complications discussed. Pt aware and desires to proceed. [facility]12-06-2022 Note [id number]:127[facility] 01-25-2022 Evaluation note* Encounter Date Diagnosis Assessment Notes Treatment Notes Treatment Clinical Notes 14 Hardik, 2022 Acute pain of left knee (ICD-10 - M25.562) 14 Jan, 2022 Primary osteoarthritis of left knee (ICD-10 - M17.12) Extensive discussion about current condition and treatment options available. The patient is suffering from advance degenerative arthritis involving the knee. We discussed the conservative treatment options which can be beneficial in relieving pain, including gentle non-impact motion exercise and non-steroidal anti-inflammatory medication. We discussed the use of occasional cortisone injections that can provide pain relief as well as hyaluronan lubricant injection. Discussed with patient that due to the severity of arthritis, a knee arthroscopy would not be beneficial. May need to consider total knee arthroplasty in future [facility] Other Evaluation + Plan note Future Appointments Appointment Date:11/27/2021 09:30:00 AM Scheduled Provider: Location:[facility] Appointment Type:Surgery FT [facility] [place] Evaluation + Plan note Future Appointments Appointment Date:06/20/2022 08:30:00 AM Scheduled Provider: Location:[facility] App[facility]ments Appointment Date:06/20/2022 08:30:00 AM Scheduled Provider: Location:[facility] Appointment Type:Surgery FT Future Scheduled Tests Radiology* NM Myocardial Spect Rest/Stress 2 Day [facility]ments Appointment Date:10/28/2023 02:45:00 PM Scheduled Provider:Helio RYAN MD Location:[facility] Appointment Type:URO Office Visit Diagnostic Tests Pending * Testosterone Level Total 07/29/23 [facility] evaluation noteNo assessment information available [facility] Work Phone: Evaluation noteNo InformationNort Wit studio Other History general Narrative - Reported* Type Description Date Medical History high blood pressure [facility] Other History general Narrative - Reported* Type Description Date Medical History high blood pressure Medical History Other tear of medial meniscus, current injury, unspecified knee, sequela Medical History Primary osteoarthritis of left k nee Medical History Derangement of left knee Medical History Obstructive sleep apnea Medical History Knee strain, left, initial encou nter Medical History Anemia Medical History Acute bronchitis due to other sp ecified organisms Surgical History TOTAL KNEE ARTHROPLASTY 022 Surgical History COLONOSCOPY 11/28/2021 [facility] Other History general Narrative - Reported* Type Description Date Medical History high blood pressure Medical History Other tear of medial meniscus, current injury, unspecified knee, sequela Medical History Primary osteoarthritis of left k nee Medical History Derangement of left knee Medical History Obstructive sleep apnea Medical History Knee strain, left, initial encou nter Medical History Anemia Medical History Acute bronchitis due to other sp ecified organisms Surgical History TOTAL KNEE ARTHROPLASTY 022 Surgical History COLONOSCOPY 11/28/2021 Hospitalization History SEE SURGICAL HX [facility] Other Hospital course Narrative No data available for this section General Surgery [facility] Discharge instructions No data available for this section General Surgery [place] [facility] note No data available for this section [facility] Reason Referral for low ludy tosterone Diagnosis 1 Low testosterone in male (R79.89) [facility] Referring Provider First Name Reji Referring Provider Last Name Dk Referring Provider Specialty Internal Me dicine Referred Organization [facility] Referred Provider Helio Ryan Referred Address [address] [place] [id number] Referred Provider Specialty Urology Referral Priority Routine General Notes Arnel presented w/ complaints of fatigue, decreased libido and ED. His initial testosterone level was low normal but his repeat level, after waiting 3 months, was low. He is being referred to be counseled on hormone replacement therapy and if appropriate, to initiate treatment Clinical Notes Include labs from Genna cantrell [facility] Other Summary Purpose Family History No Family History Records FoundNo Family History Records FoundNo Family History Records FoundNo Family History Records FoundNo Family History Records Found No data available for this section Advance Directives No Advanced Directives Records FoundNo Advanced Directives Records FoundNo Advanced Directives Records FoundNo Advanced Directives Records FoundNo Advanced Directives Records Found Additional Source Comments REASON FOR VISIT (unrecogniz ed section and content) Left Knee PainWellnessNo Inf ormationreview lab resultsReferralNo Information Care Teams (unrecognized sec tion and content) Personnel Name: REJI CENTENO DO Address: Address: [address] [facility] [place] [address] Name: Lucy Sparks Team Status: Inactive Member Role Status Dates Anthony Knox MD Attending Provider Active Goals (unrecognized section and content) Goals may be documented in a n alternate section (unrecognized sect ion and content) No Status Records FoundNo Status Records FoundNo Status Records FoundNo Status Records FoundNo Status Records Found INFORMATION SOURCE (unrecogn ized section and content) DATE CREATED AUTHOR 02/04/2022 [facility] DATE CREATED AUTHOR AUTHOR'S ORGANIZ ATION 07/12/2022 [facility] DATE CREATED AUTHOR AUTHOR'S ORGANIZ ATION 11/26/2022 [facility] DATE CREATED AUTHOR AUTHOR'S ORGANIZ ATION 04/20/2023 [facility] DATE CREATED AUTHOR AUTHOR'S ORGANIZ ATION 06/23/2023 [facility] EPIC FOR RECORDS PERTAINING TO PATIENTS WHO ARE OR HAVE BEEN ENROLLED IN A CHEMICAL DEPENDENCY/SUBSTANCEABUSE PROGRAM, SOME INFORMATION MAY BE OMITTED. This clinical summary was aggregated from multiple sources. Caution should be exercised in using it in the provision of clinical care. This summary normalizes information from multiple sources, and as a consequence, information in this document may materially change the coding, format and clinical context of patient data. In addition, data may be omitted in some cases. CLINICAL DECISIONS SHOULD BE BASED ON THE PRIMARY CLINICAL RECORDS. [employer] [facility]. provides no warranty or guarantee of the accuracy or completeness of information in this document.
[2023-09-01 10:08] LABS: Testosterone 191 ng/dL (264-916)
== END 2023-08-31 09:06 | disposition home or self-care (01) ==
LOC: LAB 09:08
PROVIDERS: PCP Internal Medicine; Visit Provider Urology
DX: E29.1 Testicular hypofunction (principal)
CPT/HCPCS: 36415; 84403

== ENCOUNTER 2024-02-08 10:16 | Outpatient (OUT) | payer BC, SELFPAY ==
--- OUTSIDE RECORDS SUMMARY | 2024-02-08 10:22 | XMS_ITS | CCD ---
Author Organization [facility] Care Team Providers Care Plasterer Stucco Name Role Phone REJI CENTENO Primary Care Physician Anthony Knox MD Anthony Knox Attending Provider [phone] Lucy Sparks Unavailable Reji Wong Unavailable JACOBO, DR THOMASON Admitting Unavailable BALL, DR THOMASON Attending Unavailable BALL, DR THOMASON Primary Care Unavailable JACOBO, DR THOMASON Consulting Unavailable BALL, DR THOMASON Admitting Unavailable BALL, DR THOMASON Attending Unavailable BALL, DR THOMASON Primary Care Unavailable BALL, DR THOMASON Consulting Unavailable BALL, DR THOMASON Admitting Unavailable BALL, DR THOMASON Attending Unavailable BALL, DR THOMASON Primary Care Unavailable BALL, DR THOMASON Consulting Unavailable TITO, VALERIANO Arroyo Admitting Unavailable TITO, VALERIANO Arroyo Attending Unavailable BALL, DR THOMASON Primary Care Unavailable TITO, VALERIANO Arroyo Admitting Unavailable BROWN, VALERIANO Arroyo Attending Unavailable BALL, DR THOMASON Primary Care Unavailable BALL, DR THOMASON Admitting Unavailable BALL, DR THOMASON Attending Unavailable BALL, DR THOMASON Primary Care Unavailable BALL, DR THOMASON Consulting Unavailable WEST, DR DOLORES Otero Consulting Unavailable FALVO, DANG Consulting Unavailable BROWN, VALERIANO Arroyo Referring Unavailable BROWN, VALERIANO Arroyo Attending Unavailable Martha Lo Attending Unavailable JACOBO, REJI Referring Unavailable AFUA RAMIREZ Attending Unavailab le REJI CENTENO Referring Unavailable Helio RYAN Attending Unavailable JACOBO, REJI Referring Unavailable Helio RYAN Attending Unavailable Allergies Allergy Classification Reported Allergen(s) Allergy Type Date of Onset Reaction(s) Facility (2 sources) patient allergy list reviewed by nurse or physicia Propensity to adverse reactions 5 Comment:Done [employer] Other (1 source) No Known Medication Allergies; Translations: [No Known Medication Allergies] Propensity to adverse reactions (disorder) [facility] Repository Medications Current Medications Medication Drug Class(es) Dates Sig (Normalized) Sig (Original) acetaminophen 325 mg / oxyCODONE hydrochloride 5 mg oral tablet (3 sources) Opioid Agonist Start: 06-20-2022 Percocet 5 mg-325 mg oral tablet See Instructions, 50 tab(s), Refill(s) 0, 1-2 tab(s) Oral q4hr, [facility]/pharmacy #[id number], 179, cm, 06/11/22 14:36:00 EST, Height/Length [...] day(s), # 60 tab(s), Refills(s) 0, Pharmacy: [facility]/pharmacy #[id number], 179, cm, 06/11/22 14:36:00 EST, Height/Length [...] pain, # 60 cap(s), Refills(s) 0, [id number] 179, cm, 06/11/22 14:36:00 EST, Height/Length [...] day(s), # 21 cap(s), Refills(s) 0, Pharmacy: [facility]/pharmacy #[id number], 179, cm, 06/11/22 14:36:00 EST, Height/Length [...] constipation, # 20 cap(s), Refills(s) 0, Pharmacy: [facility]/pharmacy #[id number], 179, cm, 06/11/22 14:36:00 EST, Height/Length [...] topical gel (1 source) Androgen Start: 07-29-19 AndroGel Pump 20.25 mg/1.25 g (1.62%) transdermal gel = 2 pump, Topical, qAM, apply to clean, dry, intact skin wash hands thoroughly after application, # 75 gram, Refills(s) 3, Pharmacy: [id number], 178, cm, 07/29/23 14:23:00 EST, Height/Length Dosing, 136, kg, 07/29/23 14:23:00 EST, Weight Dosing Start Date: 07/29/23 Status: Ordered {20 (nirmatrelvir 150 MG Oral Tablet) / 10 (ritonavir 100 MG Oral Tablet) } Pack [Paxlovid 5-Day] (1 source) Start: 05-08-20 Paxlovid (300/100) 20 x 150 MG & [...] Test Name Value Interpretation Reference Range Facility Pre-Certification Formon Pre-Certification Form [id number] #1.00TIFF [facility] Pre-Certification Form [id number] #1.00TIFF Normal [facility] Lab Reportson 09-02-2023 Lab Reports [id number] #1.00TIFF Normal [facility] Reportson 08-05-2023 Lab Reports [id number] #1.00TIFF Normal [facility] Pre-Certification Formon Pre-Certification Form [id number]# 1.00TIFF Normal [facility] Physician Referralon 024 Physician Referral [id number] #1.00TIFF Normal [facility] Patient Educationon 07-29-19 Patient Education Urology Hypogonadism, Male Male hypogonadism is a condition of having a level of testosterone that is lower than normal. Testosterone is a chemical, or hormone, that is made mainly in the testicles. In boys, testosterone is responsible for the development of male characteristics during puberty. These include: ? Making the penis bigger. ? Growing and building the muscles. ? Growing facial hair. ? Deepening the voice. In adult men, testosterone is responsible for maintaining: ? An interest in sex and the ability to have sex. ? Muscle mass. ? Sperm production. ? Red blood cell production. ? Bone strength. Testosterone also gives men energy [...] the causes? This condition is caused by: ? A natural decrease in testosterone that occurs as a man grows older. This is the main cause of this condition. ? Use of medicines, such as antidepressants, steroids, and opioids. ? Diseases and conditions that affect the testicles or the making of testosterone. These include: ? Injury or damage to the testicles from trauma, cancer, cancer treatment, or infection. ? Diabetes. ? Sleep apnea. ? Genetic conditions that men are born with. ? Disease of the pituitary gland. This gland is in the brain. It produces hormones. ? Obesity. ? Metabolic syndrome. This is a group of diseases that affect blood pressure, blood sugar, cholesterol, and belly fat. ? HIV or AIDS. ? Alcohol abuse. ? Kidney failure. ? Other long-term or chronic diseases. What are the signs or symptoms? Common symptoms of this condition include: ? Loss of interest in sex (low sex drive). ? Inability to have or maintain an erection (erectile dysfunction). ? Feeling tired (fatigue). ? Mood changes, like irritability or depression. ? Loss of muscle and body hair. ? Infertility. ? Large breasts. ? Weight gain (obesity). How is this diagnosed? Your health care provider can diagnose hypogonadism based on: ? Your signs and symptoms. ? A physical exam to check your testosterone [...] replacement therapy. Testosterone can be given by: ? Injection or through pellets inserted under the skin. ? Gels or patches placed on the skin or in the mouth. Testosterone therapy is not for everyone. It has risks and side effects. Your health care provider will consider your medical history, your risk for prostate cancer, your age, and your symptoms before putting you on testosterone replacement therapy. Follow these instructions at home: ? Take ivhl-pmr-jhsqion and prescription medicines only as told by your health care provider. ? Eat foods that are high in fiber, such as beans, whole grains, and fresh fruits and vegetables. Limit foods that are high in fat and processed sugars, such as fried or sweet foods. ? If you drink alcohol: ? Limit how much you have to 0?2 drinks a day. ? Know how much alcohol is in your drink. In the [place] one drink equals one 12 oz bottle of beer (355 mL), one 5 oz glass of wine (148 mL), or one 1? oz glass of hard liquor (44 mL). ? Return to your normal activities as told by your health care provider. Ask your health care provider what activities are safe for you. ? Keep all follow-up visits. This is important. Contact a health care provider if: ? You have any of the signs or symptoms of low testosterone. ? You have any side effects from testosterone therapy. Summary ? Male hypogonadism is a condition of having a level of testosterone that is lower than normal. ? The natural drop in testosterone production that occurs with age is the most common cause of this condition. ? Low testosterone can also be caused by many diseases and conditions that affect the testicles and the making of testosterone. ? This condition is treated with testosterone replacement therapy. ? There are risks and side effects of [...] health care provider. Document Revised: 03/02/2021 Document (more content not included)... Normal [facility] TESTOSTERONE, TOTALon 2022 Testosterone [Mass/Vol] 208 ng/dL Critically low 264-916 [facility] Comment on above: Result Comment: Adul t male reference interval is based on a population of healthy nonobese males (BMI <30) between 19 and 39 years old. German, et.al. JCEM 2017,102;4807-5168. PMID: 72628413. Performed By: #### T ESTTOT #### [facility] [address] [address] [address] Alla Martinez ECHOCARDIO M/2D COMPLETEon 0 09-17-2022 ECHOCARDIO M/2D COMPLETE Patient: ARNEL PARR Exam Date: 09/17/2022 : 1970 Gender:M Ordering : DR REJI CENTENO D.O. Admission #: [id number] Family : Order #: [id number] CLICK HERE TO VIEW EXAM ECHOCARDIOGRAM REPORT [...] Camara M.D. on 09/20/2022 at 09:22 Normal [facility] TESTOSTERONE, TOTALon 2022 Testosterone [Mass/Vol] 276 ng/dL Normal 264-916 [facility] Comment on above: Result Comment: Adul t male reference interval is based on a population of healthy nonobese males (BMI <30) between 19 and 39 years old. German et.al. JCEM 2017,102;1824-5788. PMID: 85227686. Performed By: #### T ESTTOT #### [facility] [address] [place] [address] Dr. Alla Martinez CBC AUTO DIFFon 09-06-2022 BASO # 0.1 103/ul Normal 0.0-0.1 [facility] Comment on above: Performed By: #### C BC #### [facility] [address] [place] [address] Dr. Alla Martinez Basophils/100 WBC (Bld) 1.6 % Normal 0.2-2.0 [facility] Comment on above: Performed By: #### C BC #### [facility] [address] [place] [address] Dr. Alla Martinez EO # 0.5 103/ul Normal 0.0-0.7 [facility] Comment on above: Performed By: #### C BC #### [facility] [address] [place] [address] Dr. Alla Martinez Eosinophils/100 WBC (Bld) 6.4 % Normal 0.9-7.0 [facility] Comment on above: Performed By: #### C BC #### [facility] [address] [place] [address] Dr. Alla Martinez Erythrocyte distribution width (RBC) [Ratio] 12.8 % Normal 11.0-15.0 [facility] Comment on above: Performed By: #### C BC #### [facility] [address] [place] [address] Dr. Alla Martinez Hematocrit (Bld) [Volume fraction] 40.1 % Critically low 42.0-54.0 [facility] Comment on above: Performed By: #### C BC #### [facility] [address] [place] [address] Dr. Alla Martinez Hemoglobin (Bld) [Mass/Vol] 13.0 g/dL Critically low 14.0-18.0 [facility] Comment on above: Performed By: #### C BC #### [facility] [address] [place] [address] Dr. Alla Martinez IG # 0.06 10e3/ul Critically high 0.00-0.03 [facility] Comment on above: Performed By: #### C BC #### [facility] [address] [place] [address] Dr. Alla Martinez IG % 0.8 % Critically high 0.0-0.5 [facility] Comment on above: Performed By: #### C BC #### [facility] [address] [place] [address] Dr. Alla Martinez LYMPH # 2.5 103/ul Normal 1.2-3.8 [facility] Comment on above: Performed By: #### C BC #### [facility] [address] [place] [address] Dr. Alla Martinez Lymphocytes/100 WBC (Bld) 33.2 % Normal 20.5-60.0 [facility] Comment on above: Performed By: #### C BC #### [facility] [address] [place] [address] Dr. Alla Martinez MANUAL DIFF REQ NO Normal [facility] Comment on above: Performed By: #### C BC #### [facility] [address] [place] [address] Dr. Alla Martinez MCH (RBC) [Entitic mass] 28.3 pg Normal 25.9-34.0 [facility] Comment on above: Performed By: #### C BC #### [facility] [address] [place] [address] Dr. Alla Martinez MCHC (RBC) [Mass/Vol] 32.4 g/dL Normal 29.9-35.2 [facility] Comment on above: Performed By: #### C BC #### [facility] [address] [place] [address] Dr. Alla Martinez MCV (RBC) [Entitic vol] 87.4 fL Normal 80.0-94.0 [facility] Comment on above: Performed By: #### C BC #### [facility] [address] [place] [address] Dr. Alla Martinez MONO # 0.6 103/ul Normal 0.3-0.8 [facility] Comment on above: Performed By: #### C BC #### [facility] [address] [place] [address] Dr. Alla Martinez Monocytes/100 WBC (Bld) 8.3 % Normal 1.7-12.0 [facility] Comment on above: Performed By: #### C BC #### [facility] [address] [place] [address] Dr. Alla Martinez NEUT # 3.8 103/ul Normal 1.4-6.5 [facility] Comment on above: Performed By: #### C BC #### [facility] [address] [place] [address] Dr. Alla Martinez Neutrophils/100 WBC (Bld) 49.7 % Normal 43.0-75.0 [facility] Comment on above: Performed By: #### C BC #### [facility] [address] [address] [address] Alla Martinez Platelet mean volume (Bld) [Entitic vol] 10.8 fL Normal 9.5-13.5 [facility] Comment on above: Performed By: #### C BC #### [facility] [address] [address] [address] Alla Martinez PLT 228 103/ul Normal 150-450 [facility] Comment on above: Performed By: #### C BC #### [facility] [address] [address] [address] Alla Martinez RBC 4.59 106/ul Critically low 4.70-6.10 [facility] Comment on above: Performed By: #### C BC #### [facility] [address] [address] [address] Alla Martinez WBC 7.6 103/ul Normal 4.0-11.0 [facility] Comment on above: Performed By: #### C BC #### [facility] [address] [address] [address] Alla Martinez Complete Blood Count and Dif uvaldo 09-06-2022 Anisocytosis Ql (Bld) [facility] [employer] Other Basophilic stippling LM Ql (Bld) [facility] [employer] Other RBC morphology finding Nom (Bld) [facility] [employer] Other Complete Blood Count and Diff [facility] [employer] Other Comprehensive Metabolic Pane maria 09-06-2022 Albumin [Mass/Vol] 3.120829 g/dL 3.4-5.0 g/dL N [facility] [employer] Other Calcium [Mass/Vol] 8.3906803 mg/dL 8.5-10 .1 mg/dL [employer] Other CO2 [Moles/Vol] 27.20742454 mmol/L 21.0-3 2.0 mmol/L [facility] [employer] Other Creatinine [Mass/Vol] 0.27852342 mg/dL 0. 70-1.30 mg/dL [employer] Other Potassium [Moles/Vol] 4.07622631 mmol/L 3 .5-5.1 mmol/L [employer] Other Protein [Mass/Vol] 7.069285 g/dL 6.4-8.2 g/dL N [facility] [employer] Other Urea nitrogen [Mass/Vol] 18.2441607 mg/dL 7.0-18.0 mg/dL [employer] Other Comprehensive Metabolic Panel see note [employer] Other Comprehensive Metabolic Panel 142 mmol/L 136-145 mmol/L [employer] Other Comprehensive Metabolic Panel 115 mg/dL Critically high 74-106 mg/dL [employer] Other Comprehensive Metabolic Panel >60 mL/min/1.73m2 >=60 mL/min/1.73m 2 [employer] Other Comprehensive Metabolic Panel 0.2 mg/dL 0.2-1.0 mg/dL [employer] Other Comprehensive Metabolic Panel 3.8 g/dL [employer] Other Albumin/Globulin [Mass ratio] 0.9 {ratio} Normal [employer] Other Comment on above: Performed By: #### C MP, LIPID #### [facility] [address] [place], [place] [address] Dr. Alla Martinez ALP [Catalytic activity/Vol] 93 U/L Normal 46-116 [employer] Other Comment on above: Performed By: #### C MP, LIPID #### [facility] [address] [place], [place] [address] Dr. Alla Martinez ALT [Catalytic activity/Vol] 37 U/L Normal 16-63 [employer] Other Comment on above: Performed By: #### C MP, LIPID #### [facility] [address] [address] [address] Alla Martinez Anion gap [Moles/Vol] 12.1 mmol/L Normal [facility] [employer] Other Comment on above: Performed By: #### C MP, LIPID #### [facility] [address] [address] [address] Alla Martinez AST [Catalytic activity/Vol] 21 U/L Normal 15-37 [facility] [employer] Other Comment on above: Performed By: #### C MP, LIPID #### [facility] [address] [address] [address] Alla Martinez Chloride [Moles/Vol] 107 mmol/L Normal 98-107 [facility] [employer] Other Comment on above: Performed By: #### C MP, LIPID #### [facility] [address] [place] [address] Dr. Alla Martinez Urea nitrogen/Creatinine [Mass ratio] 20.2 mg/mg Normal [facility] [employer] Other Comment on above: Performed By: #### C MP, LIPID #### [facility] [address] [place] [address] Dr. Alla Martinez LIPID PROFILEon 09-06-2022 CHOL-HDL RATIO NORM SEE BELOW Normal [facility] Comment on above: Result Comment: 3.3 - 4.4 LOW RISK 4.4 - 7.1 AVERAGE RISK 7.1 - 11.0 MODERATE RISK >11.0 HIGH RISK Performed By: #### C MP, LIPID #### [facility] [address] [place] [address] Dr. Alla Martinez Cholesterol in LDL [Mass/Vol] 89.2 mg/dL Normal [facility] Comment on above: Performed By: #### C MP, LIPID #### [facility] [address] [place] [address] Dr. Alla Martinez HDL NORMAL > or = 60 mg/dl - LOW CARDIOVASCULAR RISK <40 mg/dl - HIGH CARDIOVASCULAR RISK Normal [facility] Comment on above: Performed By: #### C MP, LIPID #### [facility] [address] [address] [address] Alla Martinez LDL CALC NORMAL SEE BELOW Normal [facility] Comment on above: Result Comment: <100 mg/dl OPTIMAL 100 - 129 mg/dl NEAR OR ABOVE OPTIMAL 130 - 159 mg/dl BORDERLINE HIGH 160 - 189 mg/dl HIGH >190 mg/dl VERY HIGH Performed By: #### C MP, LIPID #### [facility] [address] [address] [address] Alla Martinez VLDL CALC 35.8 mg/dL Normal [facility] Comment on above: Performed By: #### C MP, LIPID #### [facility] [address] [address] [address] Alla Martinez Lipid Panelon 09-06-2022 Lipid Panel > or = 60 mg/dl - LOW CARDIOVASCULAR RISK <40 mg/dl - HIGH CARDIOVASCULAR RISK [employer] Other Lipid Panel SEE BELOW [employer] Other Lipid Panel 89.2 mg/dL [employer] Other Lipid Panel 35.8 mg/dL [employer] Other Cholesterol [Mass/Vol] 158 mg/dL Normal <=200 [employer] Other Comment on above: Performed By: #### C MP, LIPID #### [facility] [address] [address] [address] Alla Martinez Cholesterol in HDL [Mass/Vol] 33 mg/dL Critically low 40-60 [employer] Other Comment on above: Performed By: #### C MP, LIPID #### [facility] [address] [place] [address] Dr. lAla Martinez Cholesterol.total/Cho lesterol in HDL [Mass ratio] 4.8 {ratio} Normal [facility] Other Comment on above: Performed By: #### C MP, LIPID #### [facility] [address] [address] [address] Alla Martinez Triglyceride [Mass/Vol] 179 mg/dL Critically high <=150 [employer] Other Comment on above: Performed By: #### C MP, LIPID #### [facility] [address] [address] [address] Alla Martinez PROF 14(COMP METB)on 023 Albumin [Mass/Vol] 3.5 g/dL Normal 3.4-5.0 [facility] Comment on above: Performed By: #### C MP, LIPID #### [facility] [address] [place] [address] Dr. Alla Martinez Bilirubin [Mass/Vol] 0.2 mg/dL Normal 0.2-1.0 [facility] Comment on above: Performed By: #### C MP, LIPID #### [facility] [address] [place] [address] Dr. Alla Martinez Calcium [Mass/Vol] 8.9 mg/dL Normal 8.5-10.1 [facility] Comment on above: Performed By: #### C MP, LIPID #### [facility] [address] [address] [address] Alla Martinez CO2 [Moles/Vol] 27.1 mmol/L Normal 21.0-32.0 [facility] Comment on above: Performed By: #### C MP, LIPID #### [facility] [address] [address] [address] Alla Martinez Creatinine [Mass/Vol] 0.89 mg/dL Normal 0.70-1.30 [facility] Comment on above: Performed By: #### C MP, LIPID #### [facility] [address] [address] [address] Alla Martinez EGFR-AF JAMAICAN >60 Normal >=60 [facility] Comment on above: Performed By: #### C MP, LIPID #### [facility] [address] [address] [address] Alla Martinez EGFR-NON AF J[place]ICAN >60 Normal >=60 [facility] Comment on above: Performed By: #### C MP, LIPID #### [facility] [address] [address] [address] Alla Martinez Globulin (S) [Mass/Vol] 3.8 g/dL Normal [facility] Comment on above: Performed By: #### C MP, LIPID #### [facility] [address] [address] [address] Alla Martinez Glucose [Mass/Vol] 115 mg/dL Critically high 74-106 [facility] Comment on above: Performed By: #### C MP, LIPID #### [facility] [address] [address] [address] Alla Martinez Potassium [Moles/Vol] 4.2 mmol/L Normal 3.5-5.1 [facility] Comment on above: Performed By: #### C MP, LIPID #### [facility] [address] [place] [address] Dr. Alla Martinez Protein [Mass/Vol] 7.3 g/dL Normal 6.4-8.2 [facility] Comment on above: Performed By: #### C MP, LIPID #### [facility] [address] [address] [address] Alla Martinez Sodium [Moles/Vol] 142 mmol/L Normal 136-145 [facility] Comment on above: Performed By: #### C MP, LIPID #### [facility] [address] [address] [address] Alla Martinez Urea nitrogen [Mass/Vol] 18.0 mg/dL Normal 7.0-18.0 [facility] Comment on above: Performed By: #### C MP, LIPID #### [facility] [address] [place] [address] Dr. Alla Martinez TESTOSTERONE, TOTALon 2022 Testosterone [Mass/Vol] 276 ng/dL 264-916 ng/dL [employer] Other BLOOD BANKOrdered By: Harjeet Cartagena on 06-20-2022 ABO/Rh Interp Negative Invalid Interpretation Code [facility] [place] Subsection ABSC Gel Interp Negative (06/20/22 7:53 AM) Normal [facility] [place] Subsection BLOOD BANKOrdered By: Shanice Maxwell on 06-01-2022 ABO/Rh Retype Interp Negative Invalid Interpretation Code [facility] [place] Subsection CHEMISTRYOrdered By: SYSTEM SYSTEM on 06-01-2022 Anion gap [Moles/Vol] 15 mmol/L Normal 6 - 16 mEq/L [facility] Remisol Chloride [Moles/Vol] 101 mmol/L Normal 101 - 1 11 mmol/L [facility] [place] Remisol CO2 [Moles/Vol] 27 mmol/L Normal 21 - 31 mmol/L FT Remisol Creatinine [Mass/Vol] 1.0 mg/dL Normal 0.5 - 1.3 mg/dL [facility] [place] Remisol GFR/1.73 sq M.predicted among blacks MDRD (S/P/Bld) [Vol rate/Area] mL/min/1.73 m2 Normal >=59mL/min/1 .73 m2 [facility] [place] Chem S GFR/1.73 sq M.predicted among non-blacks MDRD (S/P/Bld) [Vol rate/Area] mL/min/1.73 m2 Normal >=59mL/min/1 .73 m2 [facility] [place] Chem S Glucose [Mass/Vol] 95 mg/dL Normal 55 - 199 mg/dL [facility] [place] Remisol Potassium [Moles/Vol] 4.0 mmol/L Normal 3.5 - 5.3 mmol/L FT [facility] Sodium [Moles/Vol] 139 mmol/L Normal 135 - 145 mmol/L FT [facility] Urea nitrogen [Mass/Vol] 18 mg/dL Normal 5 - 21 mg/dL [facility] [place] [facility] [place] HEMATOLOGYOrdered By: Shanice Maxwell on 06-01-2022 Erythrocyte distribution width (RBC) [Ratio] 12.2 % Normal 10.9 - 14.2 % [facility] [place] [facility] [place] [facility] Hematocrit (Bld) [Volume fraction] 38.0 % Normal 37.7 - 49.0 % [facility] [place] [facility] [place] [facility] Hemoglobin (Bld) [Mass/Vol] 13.0 g/dL Low 13.5 - 17.5 gm/dL [facility] [place] [facility] [place] [facility] MCH (RBC) [Entitic mass] 29.5 pg Normal 27.0 - 34.0 pg FT HemeAutoSS MCHC (RBC) [Mass/Vol] 34.3 g/dL Normal 31.4 - 36.0 gm/dL [facility] HemeAutoSS MCV (RBC) [Entitic vol] 86.0 fL Normal 80.0 - 100.0 fL [facility] HemeAutoSS Platelet mean volume (Bld) [Entitic vol] 9.4 fL Normal 6.4 - 10.8 fL [facility] HemeAutoSS Platelets (Bld) [#/Vol] 258.0 E9/L Normal 150.0 - 500.0 E9/L [facility] HemeAutoSS RBC (Bld) [#/Vol] 4.4 E12/L Normal 4.3 - 5.9 E12/L [facility] HemeAutoSS WBC corrected for nucl RBC Auto (Bld) [#/Vol] 9.4 E9/L Normal 4.0 - 11.0 E9/L [facility] HemeAutoSS URINALYSISOrdered By: Queenie Wylie on 06-01-2022 Bilirubin Ql (U) Negative (06/01/22 4:13 PM) Normal Negative [facility] UA Auto SS Clarity (U) Clear (06/01/22 [...] PM) Normal Negative [facility] UA Auto SS Pelzer.plasma/Lithiu m.RBC (Bld) [Mass ratio] 0-3 /HPF Normal [...] PM) Invalid Interpretation Code 1.005 - 1.030 [facility] [place] [facility] [place] UA Auto SS UA Spec Desc Clean Catch (06/01/22 4:13 PM) Normal [facility] [place] [facility] [place] UA Auto SS Urobilinogen Qn (U) [id number] {Anushka'U}/dL Normal 0.0 - 1.0 EU/dL [facility] [place] [facility] [place] UA Auto SS WBC Auto Ql (U) Negative (06/01/22 4:13 PM) Normal Negative [facility] [place] [facility] [place] UA Auto SS WBC LM.HPF (Urine sed) [#/Area] 0-5 /HPF Normal 0-5/HPF [facility] [place] [facility] [place] UA Auto SS XR knee LT 2Von 01-25-2022 XR knee LT 2V [facility] [place] [address] [place] [address] XRay Report Signed Patient: Arnel Parr MR#: [id number] : 1970 Acct:[id number] Age/Sex: 51 / M ADM Date: 01/25/22 Loc[place] [facility] [place] Room: Type: [facility] Attending Dr: Anthony Knox MD Copies [...] PROCESS. Impression dictated by: Wiliam Pérez Jr., D.O.01/25/2022 11:54 AM Dictation Location: [place] [address] Transcribed By: [facility] 01/25/22 1154 Dictated By: Wiliam Pérez Jr, DO 01/25/22 1153 Signed By: 01/25/22 1154 [facility] MRI KNEE LT WO CONon 022 MRI KNEE LT WO CON EXAMINATION: MRI KNEE LT WO CON HISTORY: Derangement of left knee COMPARISON: No relevant comparison available. TECHNIQUE: A complete multi-planar MRI was performed. FINDINGS: MEDIAL COMPARTMENT MEDIAL MENISCUS: Thinned extruded macerated medial meniscus with [id number] articulation CARTILAGE: Severe chondromalacia with subchondral edema [...] OTHER: Negative. IMPRESSION: Severe tricompartmental osteoarthritis with [id number] articulation of the medial compartment and a thinned extruded macerated medial meniscus Chronic anterior cruciate ligament tear Electronically authenticated by: DOLORES FITZGERALD Date: 2021-12-21 10:28 Normal [facility] XR FOREIGN BODY EYEon 2021 XR FOREIGN [...] by: DANG TAYLOR Date: 2021-12-21 08:43 Normal [facility] Vital Signs Date Time Vital Sign Value Performing Clinician Amber wells 07-29-2023 14:16-0500 Blood Pressure Location Helio RYAN [facility] 07-29-2023 14:16-0500 Diastolic blood pressure 89 mm[Hg] Helio RYAN [facility] 07-29-2023 14:16-0500 Heart rate 80 /min Helio RYAN [facility] 07-29-2023 14:16-0500 Respiratory rate 16 /min Helio RYAN [facility] 07-29-2023 14:16-0500 Systolic blood pressure 132 mm[Hg] Helio RYAN [facility] 12-14-2022 14:00-0400 Body height 175.26 cm Reji Ball Other [facility] [employer] Other 12-14-2022 14:00-0400 Body mass index (BMI) [Ratio] 41.82 kg/m2 Reji Ball Other [employer] Other 12-14-2022 14:00-0400 Body weight 128.46 kg Reji Ball Other [employer] Other 12-14-2022 14:00-0400 Diastolic blood pressure 69 mm[Hg] Reji Ball Other [employer] Other 12-14-2022 14:00-0400 Respiratory rate 12 /min Reji Ball Other [employer] Other 12-14-2022 14:00-0400 Systolic blood pressure 112 mm[Hg] Reji Ball Other [employer] Other 09-05-2022 13:30-0500 Body height 175.26 cm Reji Ball Other [employer] Other 09-05-2022 13:30-0500 Body mass index (BMI) [Ratio] 45.18 kg/m2 Reji Ball Other [employer] Other 09-05-2022 13:30-0500 Body weight 138.8 kg Reji Ball Other [employer] Other 09-05-2022 13:30-0500 Diastolic blood pressure 72 mm[Hg] Reji Centeno Other [facility] [employer] Other 09-05-2022 13:30-0500 SaO2% (BldA) [Mass fraction] 96 % Reji Ball Other [facility] [employer] Other 09-05-2022 13:30-0500 Systolic blood pressure 140 mm[Hg] Reji Ball Other [facility] [employer] Other 06-20-2022 16:50-0500 Blood Pressure Location Valeriano [facility] 06-20-2022 16:50-0500 Body temperature 96.8 [degF] Valeriano [facility] 06-20-2022 16:50-0500 Diastolic blood pressure 62 mm[Hg] Valeriano [facility] 06-20-2022 16:50-0500 Heart rate 90 /min Valeriano [facility] 06-20-2022 16:50-0500 Respiratory rate 16 /min Valeriano [facility] 06-20-2022 16:50-0500 SaO2% (BldA) [Mass fraction] 97 % Valeriano [facility] 06-20-2022 16:50-0500 Systolic blood pressure 145 mm[Hg] Valeriano [facility] 06-20-2022 16:00-0500 Body temperature 97.16 [degF] Valeriano [facility] 06-20-2022 16:00-0500 Diastolic blood pressure 80 mm[Hg] Valeriano [facility] 06-20-2022 16:00-0500 Heart rate 82 /min Valeriano [facility] 06-20-2022 16:00-0500 Systolic blood pressure 120 mm[Hg] Valeriano [facility] 06-20-2022 14:38-0500 Blood Pressure Location Valeriano [facility] 06-20-2022 14:38-0500 Body temperature 96.8 [degF] Valeriano [facility] 06-20-2022 14:38-0500 Diastolic blood pressure 73 mm[Hg] Valeriano [facility] 06-20-2022 14:38-0500 Heart rate 80 /min Valeriano [facility] 06-20-2022 14:38-0500 Respiratory rate 14 /min Valeriano [facility] 06-20-2022 14:38-0500 Systolic blood pressure 112 mm[Hg] Valeriano [facility] 06-20-2022 13:40-0500 SaO2% (BldA) [Mass fraction] 97 % Valeriano [facility] 06-20-2022 13:31-0500 Respiratory rate 11 /min Valeriano [facility] 06-20-2022 13:20-0500 Respiratory rate 14 /min Valeriano [facility] 06-20-2022 13:15-0500 Respiratory rate 15 /min Valeriano [facility] 06-20-2022 07:35-0500 Body temperature 97.7 [degF] Valeriano [facility] 06-20-2022 07:35-0500 Heart rate 70 /min Valeriano [facility] 06-11-2022 14:42-0500 Diastolic blood pressure 84 mm[Hg] [facility]митрий [facility] 06-11-2022 14:42-0500 Mean blood pressure 106 mm[Hg] Дмитрий [facility] 06-11-2022 14:42-0500 Systolic blood pressure 149 mm[Hg] Дмитрий [facility] 06-11-2022 14:33-0500 Blood Pressure Location Дмитрий [facility] 06-11-2022 14:33-0500 Diastolic blood pressure 87 mm[Hg] Дмитрий [facility] 06-11-2022 14:33-0500 Heart rate 79 /min Дмитрий [facility] 06-11-2022 14:33-0500 Respiratory rate 18 /min Дмитрий [facility] 06-11-2022 14:33-0500 SaO2% (BldA) [Mass fraction] 98 % Дмитрий [facility] 06-11-2022 14:33-0500 Systolic blood pressure 146 mm[Hg] Д[facility]итрий [facility] 06-01-2022 15:54-0500 Blood Pressure Location Valeriano [facility] 06-01-2022 15:54-0500 Diastolic blood pressure 93 mm[Hg] Valeriano [facility] 06-01-2022 15:54-0500 Heart rate 67 /min Valeriano [facility] 06-01-2022 15:54-0500 Mean blood pressure 115 mm[Hg] Valeriano [facility] 06-01-2022 15:54-0500 Systolic blood pressure 157 mm[Hg] Valeriano [facility] 06-01-2022 15:53-0500 Blood Pressure Location Valeriano [facility] 06-01-2022 15:53-0500 Body temperature 98.24 [degF] Valeriano [facility] 06-01-2022 15:53-0500 Diastolic blood pressure 92 mm[Hg] Valeriano [facility] 06-01-2022 15:53-0500 Heart rate 71 /min Valeriano [facility] 06-01-2022 15:53-0500 Mean blood pressure 112 mm[Hg] Valeriano [facility] 06-01-2022 15:53-0500 Respiratory rate 16 /min Valeriano [facility] 06-01-2022 15:53-0500 SaO2% (BldA) [Mass fraction] 99 % Valeriano [facility] 06-01-2022 15:53-0500 Systolic blood pressure 153 mm[Hg] Valeriano [facility] 11-17-2021 14:26-0400 Blood Pressure Location Jasbir SAWANT [facility] [place] 11-17-2021 14:26-0400 Diastolic blood pressure 86 mm[Hg] Jasbir NILL [facility] [place] 11-17-2021 14:26-0400 Heart rate 72 /min Jasbir NILL [facility] [place] 11-17-2021 14:26-0400 Respiratory rate 16 /min Jasbir SAWANT [facility] [place] 11-17-2021 14:26-0400 Systolic blood pressure 124 mm[Hg] Jasbir SAWANT [facility] [employer] Encounters Encounter Date Encounter Type Care Provider Facility Start: 02-13-2024 ambulatory LISA-C LEROY Hilton acility:[facility] Start: 07-29-2023 End: 07-29-2023 ambulatory REJI CENTENO Facility:[facility] Start: 07-29-2023 End: 07-29-2023 Patient encounter procedure Helio RYAN [facility] [employer] Start: 06-20-2023 End: 06-20-2023 ambulatory VALERIANO FRANCIS Not Available Start: 05-08-2023 End: 05-08-2023 ambulatory Reji Centeno Other [employer] Other Start: 05-08-2023 Telephone encounter Reji Centeno [facility] Start: 04-16-2023 End: 04-16-2023 ambulatory Reji Centeno Other [employer] Other Start: 04-16-2023 Telephone encounter Reji Centeno [facility] Start: 04-01-2023 End: 04-01-2023 ambulatory REJI CENTENO Facility:[facility] Start: 04-01-2023 End: 04-01-2023 Patient encounter procedure Helio RYAN [facility] [employer] Start: 03-29-2023 ambulatory Martha Lo Facility:[facility] Start: 12-14-2022 End: 12-14-2022 ambulatory Reji Centeno Other [employer] Other Start: 12-14-2022 Office outpatient visit 15 minutes Reji Centeno [facility] Start: 11-23-2022 End: 11-24-[address] REJI CENTENO Facility:[facility] Start: 09-17-2022 End: 09-18-[address] REJI CENTENO Facility:[facility] Start: 09-10-2022 Encounter for genera l adult medical examination without abnormal findings DR REJI CENTENO [facility] Start: 09-06-2022 Telephone encounter Reji Centeno [facility] Start: 09-06-2022 End: 09-07-[address] REJI CENTENO [employer] Other Start: 09-06-2022 End: 09-07-2022 Encounter for general adult medical examination without abnormal findings DR REJI CENTENO Facility:[facility] Start: 09-05-2022 End: 09-05-2022 ambulatory Reji Centeno Other [employer] Other Start: 09-05-2022 Encounter for genera l adult medical examination without abnormal findings Reji Centeno [facility] Start: 09-05-2022 Periodic preventive med est patient 40-64yrs Reji Centeno [facility] Start: 07-15-2022 End: 08-11-2022 ambulatory VALERIANO FRANCIS Facility:[facility] Start: 07-12-2022 End: 07-14-2022 ambulatory VALERIANO FRANCIS Facility:[facility] Start: 06-20-2022 End: 06-20-2022 Admission to same day surgery center [facility]eriano [facility] Start: 06-14-2022 End: 09-13-2022 Recurring Дмитрий [facility] Start: 06-11-2022 End: 06-11-2022 Patient encounter procedure Дмитрий [facility] Start: 06-01-2022 ambulatory Facility:1 [id number] Start: 06-01-2022 End: 06-01-2022 Patient encounter procedure Valeriano [facility] Start: 01-25-2022 End: 01-25-2022 ambulatory Anthony Knox Other [employer] Other Start: 01-25-2022 Office outpatient ne w 30 minutes Anthony Knox [facility] Start: 01-25-2022 End: 01-25-2022 Patient encounter procedure MD Anthony Knox Work Phone: [facility] Start: 12-21-2021 End: 12-22-[address] REJI CENTENO Facility:[facility] Start: 11-17-2021 End: 11-17-2021 Patient encounter procedure Jasbir SAWANT [facility] [place] Start: 07-10-2021 Adult health examination Reji Centeno Other [employer] Other Procedures Date Procedure Procedure Detail Performing Clinician Start: 09-06-[address] LOPEZ IN [place] Comment on above: Performed By: #### P [facility] #### [facility] [address] [place] [address] Dr. Alla Martinez Start: 06-20-2022 Arthroplasty of knee Mike satish Francis Comment on above: Left Total Knee Arth roplsty, Robotic Assisted Start: 01-25-2022 X-ray of left knee MD Esperanza Knox Work Phone: Start: 11-27-2021 Colonoscopy Valeriano brandt Start: 08-30-2014 General examination of patient Reji Centeno Other Amputation of finger , except thumb Jasbir SAWANT Excision of lipoma Jasbir MARISCAL Tonsillectomy and adenoidectomy Jasbir NILL Immunizations Immunization Date Immunization Notes Care Provider Fa cility 12-10-2020 COVID-19 Vaccine Pfi zer - Documentation Purposes Only Reji Centeno Other [employer] Other 12-10-2020 SARS-CoV-2 (COVID-19 ) Ad26 vaccine, recombinant Jasbir NILL [facility] [place] 11-19-2020 SARS-CoV-2 (COVID-19 ) Ad26 vaccine, recombinant Jasbir NILL [facility] [place] Payers Date Payer Category Payer Unknown [id number]. [id number] 1970 Unknown [id number] 2.16. [id number] 1970 Unknown [id number] 2.16.84 [id number] 1970 Unknown [id number] 2.16.84 [id number] 1970 Unknown [id number] 2.16.84 [id number] 1970 Unknown [id number] 2.16.84 [id number] 1970 Unknown [id number] 2.16.84 [id number] 1970 Unknown [id number] 2.16.84 [id number] 1970 Unknown [id number] 2.16.840 .[id number] 1970 Unknown [id number] 2.16.840 .[id number] 1970 Unknown [id number] 2.16.8 [id number] 1970 Unknown [id number] 2.16.8 [id number] 1970 Unknown [id number] 2.16.8 [id number] 1957 [facility] [id number] Self-pay Self Pay [id number] Social History Date Type Detail Facility Start: 11-17-2021 Tobacco smoking status Ex-smoker (fi nding) [facility] [place] Tobacco smoking status Smokeless tobacco user within last 30 days [facility] [place] Sex Assigned At Male [facility] [place] Start: 1970 Sex Assigned At Male F [facility] Medical Equipment Procedure Code Equipment Code Equipment Origin al Text Equipment Identifier Dates KNEE TOTAL ROBOT ARTHROPLASTY Tito DO, Valeriano A 06/20/22 Unknown Knee L FDA Start: 06-20-2022 KNEE TOTAL ROBOT ARTHROPLASTY Tito DO, Valeriano A 06/20/22 Unknown Knee L FDA Start: 06-20-2022 KNEE TOTAL ROBOT ARTHROPLASTY Tito DO, Valeriano A 06/20/22 Unknown Knee L FDA Start: 06-20-2022 KNEE TOTAL ROBOT ARTHROPLASTY Tito DO, Valeriano A 06/20/22 Unknown Knee L FDA Start: 06-20-2022 KNEE TOTAL ROBOT ARTHROPLASTY Brown DO, Valeriano A 06/20/22 Unknown Knee L FDA Start: 06-20-2022 KNEE TOTAL ROBOT ARTHROPLASTY Tito DO, Valeriano A 06/20/22 Unknown Knee L FDA Start: 06-20-2022 KNEE TOTAL ROBOT ARTHROPLASTY Tito DO, Valeriano A 06/20/22 Unknown Knee L FDA Start: 06-20-2022 KNEE TOTAL ROBOT ARTHROPLASTY Tito DO, Valeriano A 06/20/22 Unknown Knee L FDA Start: 06-20-2022 KNEE TOTAL ROBOT ARTHROPLASTY Tito DO, Valeriano A 06/20/22 Unknown Knee L [...] 07-29-2023 Functional Status N/A [facility] 06-11-2022 Functional Status N/A [facility] 06-01-2022 Functional Status No [facility] Clinical Notes 01-25-2022 to 07-29-2023 Note Date [...] therapy. Follow these instructions at home: Take [id number] and prescription medicines only as told by [...] provider. Document Revised: 03/02/2021 Document Reviewed: 03/02/2021 Notice [employer] Patient Education 2022 [employer]. Follow Up Care 04/16/2023 11:59:27 With:MARTINA FALCON, Helio Ambriz, URL Address: [facility] [address] [place] [address] [phone] When: Unknown Comments:3 mos w/ T level [facility] 07-29-2023 Note Chief Complaint referral for low testosterone HPI Staff Referral for low testosterone level by Dr. Centeno. Most current testosterone level done 11/23/22 was 208 and most current PSA done 09/06/22 was 0.42. Difficulty achieving and keeping an erection for 3-4 years now. Pt also notes lower energy levels. Pt was taking Sildenafil through his PCP and had success with it but his script ran out. Dysuria: no Incomplete bladder emptying: no Hematuria: no Frequency: going more frequent due to water intake Urgency: no Nocturia: 0-1 Stream: good steady Leaking: no Post void dripping: no Wearing pads/ Depends: no Urge incontinence: no Stress incontinence: no Incontinence without Sensory Awareness: no Abdominal pain: no Flank pain: no Sexual complaints: difficulty achieving and keeping an erection to satisfaction for 3-4 years now History of Present Illness Tests reviewed: reviewed referral records, T levels, PSA I have reviewed the previous health record information and history for this patient from external providers. I have reviewed and verified the staff HPI to be accurate for this encounter. Review of Systems PHQ Score Initial Depression Screen Score: 0 SCORE ROS - Provider Constitutional: denies weight loss, denies hot flashes. Eyes: denies eye problems. Gastrointestinal: denies nausea, denies vomiting. Cardiovascular: denies chest pain or angina. Integumentary: no dryness Musculoskeletal: denies musculoskeletal symptoms. ENMT: denies otolaryngeal symptoms. Respiratory: no shortness of breath. Heme/Lymph: denies easy bleeding tendency, denies easy bruising tendency. Psychiatric: no confusion, no anxiety. Genitourinary: See HPI. Physical Exam Vitals & Measurements HR: 80(Peripheral) RR: 16 BP: 132/89 HT: 70 in HT: 178 cm WT: 136 kg WT: 299.2 lb BMI: 42.92 General Appearance: alert, no distress, well nourished, well developed male. Head: normocephalic . Eyes: normal orbit and globe. ENMT: normal examination of external ears. Chest: Lungs CTA, respirations non labored. Cardiovascular: regular rate and rhythm. Abdomen: soft, non distended, no tenderness, no mass or organomegaly, no hernia. Genitourinary: normal scrotum, normal testes, normal urethra, normal epididymis, normal vas deferens/spermatic cord. Flank Pain: none. Bladder: nonpalpable. Penis: normal shaft, normal glans. Lymph Nodes: unremarkable palpation of the cervical area. Skin: warm, dry, no bruising. Psychiatric: cooperative, affect appropriate for age, normal judgement, euthymic mood. Assessment/Plan Arnel is a 53 yo male new pt referred by Dr. Centeno for low testosterone. 1. Hypogonadism male (E29.1: Testicular hypofunction) Testosterone Levels (ref range 264 - 916): 09/06/22 - 276 11/24/22 - 208 No hx of TRT. Has decreased libido and low energy levels. The finding of low serum testosterone is discussed with the patient today. We discussed that testosterone replacement has become a bit controversial due to a study which claimed that patients receiving this therapy may be at increased risk for heart disease, stroke, and blood clots. This is in opposition to many studies previously that showed a protective effect against the same problems. The options for treatment including monthly IM injection therapy as well as topical androgen replacement were discussed. Also discussed oral medication option. The need for monitoring of the testosterone level, liver function tests, lipid profile, and blood counts was discussed. He understands that replacing testosterone in the system is not a guarantee that erections and sexual function will improve and we will be monitoring his response to therapy in regard to increased energy and sense of well being. All his questions were answered. He wishes to proceed with topical androgen replacement therapy. -Begin Androgel 2 pumps daily. -T level in 3 mos 2. ED (erectile dysfunction) (N52.9: Male erectile dysfunction, unspecified) Took Sildenafil per PCP. [place] this worked well but ran out of rx. Does not wake up with erections but feels he has more success in the mornings vs evenings. Able to achieve 75-80% erection but unable to maintain erection, ongoing for 3-4yrs. Educated pt on pathophysiology of ED. Discussed options for ED, including oral medications, erection pumps, MUSE intraurethral pellet, intracorporal injection therapy, and surgical options. Advised pt for oral medications to be effective, he needs to be aroused and interested. Pt acknowledges understanding and would like to proceed with medication. -Begin Cialis 20mg prn (try 10mg first). Discussed the medication side effects, and the patient will monitor closely for these, as well as for symptom improvement. If severe side effects occur, the medication should be stopped and the office notified. 3. Screening PSA (prostate specific antigen) (Z12.5: Encounter for screening for malignant neoplasm of prostate) PSA 09/06/22 (more content not included)... [facility] Comment on above: Result Comment: Elec tronically Signed By: Helio RYAN MD.br\Date and Time Signed: 07/29/23 15:24 EST\.br\Electronically Co-Signed By: Elana Arredondo.br\Date and Time Co-Signed: 07/29/23 15:17 EST 05-08-2023 Evaluation note Encounter Date Diagnosis Assessment Notes Apr, COVID (ICD-10 - U07.1) [employer] Other 06-26-2023 Hospital Discharge instructions Follow Up Care 01/07/2023 10:27:30 With:MARTINA FALCON, Helio Ambriz, URL Address: [facility] [address] , [place] [address]- [phone] When: Unknown [facility] [place] 06-02-2023 Evaluation note* Encounter Date Diagnosis Assessment [...] low testosterone, which may result improved function [employer] Other 02-23-2023 Evaluation note* Encounter Date Diagnosis Assessment Notes Treatment Notes Treatment Clinical Notes Aug, Abnormal EKG (ICD-10 - R94.31) Aug, Abnormal nuclear stress test (ICD-10 - R94.39) [employer] Other 02-22-2023 Evaluation note* Encounter Date Diagnosis Assessment Notes Treatment Notes Treatment Clinical Notes Aug, Wellness examination (ICD-10 - Z00.00) Healthy diet and exercise. Reviewed age-appropriate preventive testing recommended. Aug, Primary hypertension (ICD-10 - I10) Aug, Obstructive sleep apnea (ICD-10 - G47.33) This patient is aware of the benefits associated with ANAHY: With continued use, the patient reduces the risk for MD, CVA, HTN, cardiac dysrhythmias and sudden cardiac [...] (ICD-10 - Z12.5) Yearly PSA and GUERDA [facility] Other 12-07-2022 Hospital Discharge instructions Patient Education 06/20/2022 14:01:04 Knee Cryocuff Patient Instructions - FT (CUSTOM) 06/20/2022 14:00:47 Post Op Patient Instructions - FT (CUSTOM) 06/20/2022 10:21:15 Alejandra Francis - Total Knee Arthroplasty (Custom) [place], [place] [facility] DISCHARGE INSTRUCTIONS: TOTAL KNEE [...] will continue at home, possibly with the child center assistant of Home Health Physical Therapy or in [...] Driving too soon, 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 It is therefore advised not to drive until after yourfirst office visit following surgery. FOLLOW-UP OFFICE VISIT: Valeriano Francis, DO [facility] [address] [place] [id number] Reviewed: Follow Up Care 05/25/2022 08:46:50 With:Valeriano Francis Address: [address] [place] [phone] Business (1) When: Unknown [facility]12-07-2022 Evaluation + Plan noteExtracted from: Title:ASHELY POSTOP Author:Anthony Marin DO Date: 06/20/22 Plan Transfer/ Discharge: Patient can be discharged from PACU when criteria met. Condition good. Extracted from: Title:ASHELY PREOP Author:Anthony Marin DO Date:08/21/21 Plan [employer] [employer] (ASA) physical status classification: [...] discussed. Pt aware and desires to proceed. [facility]07-14-2022 Evaluation note* Encounter Date Diagnosis Assessment Notes Treatment Notes Treatment Clinical Notes Jan, Acute pain of left knee (ICD-10 - M25.562) Jan, Primary osteoarthritis of left knee (ICD-10 - [...] to consider total knee arthroplasty in future [facility] Other Evaluation + Plan note Future Appointments Appointment Date:11/27/2021 09:30:00 AM Scheduled Provider: Location:[facility] Appointment Type:Surgery FT General Surgery [employer] Evaluation + Plan note Future Appointments Appointment Date:06/20/2022 08:30:00 AM Scheduled Provider: Location:[facility] Future Appointments Appointment Date:06/20/2022 08:30:00 AM Scheduled Provider: Location:[facility] Appointment Type:Surgery FT Future Scheduled Tests Radiology* NM Myocardial Spect Rest/Stress 2 Day [facility] App[facility]ments Appointment Date:10/28/2023 02:45:00 PM Scheduled Provider:Helio RYAN MD Location:[facility] Appointment Type:URO Office Visit Diagnostic Tests Pending * Testosterone Level Total 07/29/23 [facility] evaluation noteNo assessment information available [facility] Work Phone: evaluation noteNo InformationNort Kingspan [employer] Other [employer] general Narrative - Reported* Type Description Date Medical History high blood pressure [employer] Other [employer] general Narrative - Reported* Type Description Date [...] KNEE ARTHROPLASTY 022 Surgical History COLONOSCOPY 11/28/2021 [employer] Other [employer] general Narrative - Reported* Type Description Date [...] COLONOSCOPY 11/28/2021 Hospitalization History SEE SURGICAL HX [facility] Other Hospital course Narrative No data available for this section General [facility] Discharge instructions No data available for this section [facility] note No data available for this section [facility] Reason Referral for low ludy tosterone Diagnosis 1 Low testosterone in male (R79.89) Referral Organization [facility] Referring Provider First Name Reji Referring Provider Last Name Jacobo Referring Provider Specialty Internal Me dicine Referred Organization [facility] Referred Provider Helio Ryan Referred Address [address], [place],[address] Referred Provider Specialty Urology Referral Priority Routine General Notes Arnel presented w/ complaints of fatigue, decreased libido and ED. His initial testosterone level was low normal but his repeat level, after waiting 3 months, was low. He is being referred to be counseled on hormone replacement therapy and if appropriate, to initiate treatment Clinical Notes Include labs from [facility] Other Summary Purpose Family History No Family History Records FoundNo Family History Records FoundNo Family History Records FoundNo Family History Records Found No data available for this section No Family History Records Found Advance Directives No Advanced Directives Records FoundNo Advanced Directives Records FoundNo Advanced Directives Records FoundNo Advanced Directives Records FoundNo Advanced Directives Records Found Additional Source Comments REASON FOR VISIT (unrecogniz ed section and content) Left Knee PainWellnessNo Inf ormationreview lab resultsReferralNo Information Care Teams (unrecognized sec tion and content) Team Status: Inactive Member Role Status Dates Anthony Knox MD Attending Provider Active Goals (unrecognized section and content) Goals may be documented in a n alternate section (unrecognized sect ion and content) No Status Records FoundNo Status Records FoundNo Status Records FoundNo Status Records FoundNo Status Records Found INFORMATION SOURCE (unrecogn ized section and content) DATE CREATED AUTHOR 02/04/2022 [facility] DATE CREATED AUTHOR AUTHOR'S ORGANIZ ATION 07/12/2022 [facility] DATE CREATED AUTHOR AUTHOR'S ORGANIZ ATION 11/26/2022 [facility] DATE CREATED AUTHOR AUTHOR'S ORGANIZ ATION 06/23/2023 [facility] EPIC DATE CREATED AUTHOR AUTHOR'S ORGANIZ ATION 02/02/2024 [facility] FOR RECORDS PERTAINING TO PATIENTS WHO ARE [...] BE BASED ON THE PRIMARY CLINICAL RECORDS. [facility]. provides no warranty or guarantee of the accuracy or completeness of information in this document.
[2024-02-09 07:13] LABS: Testosterone 142 ng/dL (264-916)
== END 2024-02-08 10:17 | disposition home or self-care (01) ==
LOC: LAB 10:17
PROVIDERS: PCP Internal Medicine; Visit Provider Urology
DX: E29.1 Testicular hypofunction (principal)
CPT/HCPCS: 36415; 84403

== ENCOUNTER 2024-05-16 10:34 | Outpatient (OUT) | payer BC, SELFPAY ==
--- OUTSIDE RECORDS SUMMARY | 2024-05-16 10:37 | XMS_ITS | CCD ---
Author Organization [facility] CliniSyut Care Team Providers Care Seat Pack Inspector Name Role Phone REJI CENTENO Primary Care Physician Anthony Knox MD Anthony Knox Attending Provider Lucy Sparks Unavailable Reji Wong Unavailable JACOBO, [...] Care Unavailable TITO, VALERIANO Arroyo Admitting Unavailable TITO, VALERIANO Arroyo Attending Unavailable BALL, DR THOMASON Primary Care Unavailable BALL, DR THOMASON Admitting Unavailable BALL, DR THOMASON Attending Unavailable BALL, DR THOMASON Primary Care Unavailable BALL, DR THOMASON Consulting Unavailable WEST, DR DOLORES Otero Consulting Unavailable FALVO, DANG Consulting Unavailable TITO, VALERIANO Arroyo Referring Unavailable TITO, VALERIANO Arroyo Attending Unavailable Helio RYAN Attending Unavailable Orzech, Paula Lopez Attending Unavailable LEROY RAMIREZ Attending Unavailable Helio RYAN Attending Unavailable JACOBO, REJI Referring Unavailable Allergies Allergy Classification Reported Allergen(s) Allergy Type Date of Onset Reaction(s) Facility (2 sources) patient allergy list reviewed by nurse or physicia Propensity to adverse reactions Comment:Done Freever Other (1 source) No Known Medication Allergies; Translations: [No Known Medication Allergies] Propensity to adverse reactions (disorder) [facility] Repository Medications Current Medications Medication Drug Class(es) Dates Sig (Normalized) Sig (Original) acetaminophen 325 mg / oxyCODONE hydrochloride 5 mg oral tablet (3 sources) Opioid Agonist Start: 06-20-2022 Percocet 5 mg-325 mg oral tablet See Instructions, 50 tab(s), Refill(s) 0, 1-2 tab(s) Oral q4hr, [facility]/pharmacy #[id number], 179, cm, 06/11/22 14:36:00 EST, Height/Length [...] 60 tab(s), Refills(s) 0, Pharmacy: [facility]/pharmacy #[id number], 179, cm, 06/11/22 14:36:00 EST, Height/Length [...] pain, # 60 cap(s), Refills(s) 0, [id number], 179, cm, 06/11/22 14:36:00 EST, Height/Length Dosing, 137, kg, 06/11/22 14:36:00 EST, Weight Dosing Start Date: 06/20/22 Status: Ordered Centrum Silver oral tablet (8 sources) Start: 06-01-2022 take 1 tablet by [...] 21 cap(s), Refills(s) 0, Pharmacy: [facility]/pharmacy #[id number], 179, cm, 06/11/22 14:36:00 EST, Height/Length Dosing, 137, kg, 06/11/22 14:36:00 EST, Weight Dosing Start Date: 06/20/22 Stop Date: 06/27/22 Status: Ordered 12 hr cetirizine hydrochloride 5 mg / pseudoephedrine hydrochloride 120 mg extended release oral tablet (8 sources) alpha-Adrenergic Agonist, Histamine-1 Receptor Antagonist Start: [...] 20 cap(s), Refills(s) 0, Pharmacy: [facility]/pharmacy #[id number], 179, cm, 06/11/22 14:36:00 EST, Height/Length [...] Status: Ordered take 1 tablet by elizabeth every twenty-four hours Lisinopril 5 MG 1 [...] 60 actuat testosterone 20.25 mg/actuat topical gel (3 sources) Androgen Start: 01-28-20 AndroGel Pump 20.25 mg/1.25 g (1.62%) transdermal gel = 2 pump, Topical, qAM, apply to clean, dry, intact skin wash hands thoroughly after application, # 75 gram, Refills(s) 3, Pharmacy: [id number], 178, cm, 07/29/23 14:23:00 EST, Height/Length Dosing, 136, kg, 07/29/23 14:23:00 EST, Weight Dosing Start Date: 01/28/24 Status: Ordered Start: 07-29-2023 AndroGel Pump 20.25 mg/1.25 g (1.62%) transdermal gel = 2 pump, Topical, qAM, apply to clean, dry, intact skin wash hands thoroughly after application, # 75 gram, Refills(s) 3, Pharmacy: [id number], 178, cm, 07/29/23 14:23:00 EST, Height/Length Dosing, 136, kg, 07/29/23 14:23:00 EST, Weight Dosing Start Date: 07/29/23 Status: Ordered {20 (nirmatrelvir 150 MG Ora l Tablet) / 10 (ritonavir 100 MG Oral Tablet) } Pack [Paxlovid 5-Day] (1 source) Start: 05-08-2023 Paxlovid (300/ 100) 20 x 150 MG & 10 x [...] day Not-Taking tadalafil 20 mg oral tablet (3 sources) Phosphodiesterase 5 Inhibitor Start: 07-29-19 take 1 [...] Problem Date Documented Date Episodic/Chronic Abdominal hernia (8 sources) Umbilical hernia 06-01-2022 Episodic Acute bronchitis (5 sources) Acute bronchitis; Translations: [Acute bronchitis due to other specified organisms] Episodic Deficiency and other anemia (16 sources) Anemia; Translations: [Anemia, unspecified] 07-20-2021 Episodic Disorders of lipid metabolism (4 sources) Hyperlipidemia; Translations: [Hyperlipidemia, unspecified] Onset: 05-12-2017 Chronic Essential hypertension (17 sources) Hypertensive disorder; Translations: [Essential hypertension] 07-20-2021 Chronic Joint disorders and dislocations; trauma-related (11 sources) Derangement of left knee; Translations: [Unspecified internal derangement of left knee] Onset: 12-21-2021 Chronic Joint disorders and dislocations; trauma-related (5 sources) Late effect of sprain AND/OR strain without tendon injury; Translations: [Other tear of medial meniscus, current injury, unspecified knee, sequela] Episodic Osteoarthritis (16 sources) Osteoarthritis of left knee joint; Translations: [Unilateral primary osteoarthritis, left knee] Onset: 01-25-2022 Resolved: 01-25-2022 Chronic Other aftercare (5 sources) Aftercare following joint replacement surgery; Translations: [AFTERCARE FOLLOW JNT REPLACE SURG] Onset: 07-12-2022 Chronic Other connective tissue disease (5 sources) Presence of left artificial knee joint; Translations: [PRESENCE LEFT ARTIFICIAL KNEE JOINT] Onset: 07-13-2022 Chronic Other endocrine disorders (3 sources) Testicular hypofunction; Translations: [Testicular hypofunction] Onset: 03-28-2023 Chronic Other endocrine disorders (4 sources) Male hypogonadism 03-28-2023 Chronic Other male genital disorders (5 sources) Erectile dysfunction co-occurrent and due to arterial insufficiency; Translations: [Erectile dysfunction due to arterial insufficiency] Chronic Other male genital disorders (6 sources) Erectile dysfunction due to arterial insufficiency; Translations: [ERECTILE DYSF D/T ART INSUFFICIENCY] Onset: 11-23-2022 Chronic Other male genital disorders (5 sources) Male erectile dysfunction, unspecified; Translations: [Erectile dysfunction] Onset: 07-29-2023 Chronic Other nutritional; endocrine; and metabolic disorders (9 sources) Body mass index 40+ - severely obese 11-17-2021 Chronic Other nutritional; endocrine; and metabolic disorders (11 sources) Morbid obesity; Translations: [Morbid (severe) obesity due to excess calories] 11-08-2021 Chronic Other nutritional; endocrine; and metabolic disorders (2 sources) Obesity; Translations: [Obesity, unspecified] Onset: 08-30-2014 Chronic Other nutritional; endocrine; and metabolic disorders (2 sources) Obese class II; Translations: [Body mass index 39.0-39.9, adult] Onset: 08-30-2014 Chronic Other screening for suspected conditions (not mental disorders or infectious disease) (18 sources) Electrocardiogram abnormal; Translations: [Abnormal electrocardiogram [ECG] [EKG]] Onset: 09-10-2022 Episodic Residual codes; unclassified (18 sources) Obstructive sleep apnea syndrome; Translations: [Obstructive [...] Translations: [Sprain of left knee] Episodic Unclassified (3 sources) Patient encounter status 01-15-2024 Past or Other Problems Problem Classification Problem Date Documented Da te Episodic/Chronic Other non-traumatic joint disorders (1 source) Pain in left knee Onset: 01-25-2022 Resolved: 01-25-2022 Episodic Viral infection (1 source) COVID-19 Results Test Name Value Interpretation Reference Range Facility Ambulatory Visit Summaryon 0 02-17-2024 Ambulatory Visit Summary Ambulatory Visit Summary ARNEL PARR :1970 Visit Date:02/17/2024 Ambulatory Visit Instructions Your Diagnosis Hypogonadism male ED (erectile dysfunction) Screening PSA (prostate specific antigen) Your Care Team Attending Physician - JASSON Lockhart APRN, Paula Lopez Primary Care Physician - REJI CENTENO DO This Is Your Medications List Contact prescribing physician if questions or concerns cetirizine-pseudoeph edrine (Zyrtec-D oral tablet, extended release) lisinopril (lisinopril 20 mg Tab) multivitamin with minerals (Centrum Silver oral tablet) tadalafil (Cialis 20 mg Tab) testosterone (AndroGel Pump 20.25 mg/1.25 g (1.62%) transdermal gel) Procedures Performed Arthroplasty of knee (06/20/2022), Colonoscopy (11/27/2021), Amputation of finger, Excision of lipoma, Tonsillectomy and adenoidectomy. Discharge Vitals Temperature (Temporal Artery) 36 ?C Heart Rate (Peripheral) 66 Respiratory Rate 18 Blood Pressure 128/68 Height 178 cm Height 70 in Weight 136 kg Weight 299.2 lb BMI 42.92 What to do next Scheduled Follow-Up Appointments Saturday 3:15 PM EST With: Helio RYAN MD Where: [facility] [address] [place] [address]- You Need to Schedule the Following Appointments Follow Up with JASSON Lockhart APRN, Aurora X, JAYJAY, RAISSAL When: Comments: pt to f/up with Dr. Ryan Where: Follow Up with Helio RYAN MD, JUAN ANTONIO When: Comments: 3mos w/testosterone level Where: [address] [place] [address] [place] [address]- Medications What How Much When Instructions Unchanged cetirizine-pseudoeph edrine (Zyrtec-D oral tablet, extended release) 1 Tablets By Mouth 2 times a day Contact prescribing physician if questions or concerns Unchanged lisinopril (lisinopril 20 mg Tab) 1 Tablets By Mouth Every day Contact prescribing physician if questions or concerns Unchanged multivitamin with minerals (Centrum Silver oral tablet) 1 Tablets By Mouth Every day Contact prescribing physician if questions or concerns Unchanged tadalafil (Cialis 20 mg Tab) 1 Tablets By Mouth As Directed as needed for sexual activity Take one tab 1 hr prior to sexual activity. Contact prescribing physician if questions or concerns Unchanged testosterone (AndroGel Pump 20.25 mg/ 1.25 g (1.62%) transdermal gel) 2 Pump Topical Once a day (in the morning) apply to clean, dry, intact skin wash hands thoroughly after application Contact prescribing physician if questions or concerns Allergies No Known Medication Allergies Problems Ongoing - Any problem that you are currently receiving treatment for. Anemia BMI 40.0-44.9, adult ED (erectile dysfunction) HTN (hypertension) Hypogonadism male Morbid obesity OA (osteoarthritis) ANAHY (obstructive sleep apnea) Screening PSA (prostate specific antigen) Patient Survey You may receive a survey via text or e-mail asking about your office visit. Please share your experience with us by completing your survey. We appreciate your feedback and thank you for choosing us for your care. Education Materials Erectile Dysfunction Erectile dysfunction (ED) is the inability to get or keep an erection in order to have sexual intercourse. ED is considered a symptom of an underlying disorder and is not considered a disease. ED may include: ? Inability to get an erection. ? Lack of enough hardness of the erection to allow penetration. ? Loss of erection before sex is finished. What are the causes? This condition may be caused by: ? Physical causes, such as: ? Artery problems. This may include heart disease, high blood pressure, atherosclerosis, and diabetes. ? Hormonal problems, such as low testosterone. ? Obesity. ? Nerve problems. This may include back or pelvic injuries, multiple sclerosis, Parkinson's disease, spinal cord injury, and stroke. ? Certain medicines, such as: ? Pain relievers. ? Antidepressants. ? Blood pressure medicines and water pills (diuretics). ? Cancer medicines. ? Antihistamines. ? Muscle relaxants. ? Lifestyle factors, such as: ? Use of drugs such as marijuana, cocaine, or opioids. ? Excessive use of alcohol. ? Smoking. ? Lack of physical activity or exercise. ? Psychological causes, such as: ? Anxiety or stress. ? Sadness or depression. ? Exhaustion. ? Fear about sexual performance. ? Guilt. What are the signs or symptoms? Symptoms of this condition include: ? Inability to get an erection. ? Lack of enough hardness of the erection to allow penetration. ? Loss of the erection before sex is finished. ? Sometimes having normal erections, but with frequent unsatisfactory episodes. ? Low sexual satisfaction in either partner due to erection problems. ? A curved penis occurring with erection. The (more content not included)... Normal [facility] Urology Office/Clinic Noteon 02-17-2024 Urology Office/Clinic Note Urology Office/Clinic Note Chief Complaint 6 month follow up w/ Testosterone levels HPI Staff Pt here today for 6 month follow up w/ Testosterone levels. Current T-level 142 done 02/08/24. Previous DX: ED, hypogonadism male, screening PSA. Pt unable to give urine sample today. Dysuria: denies pain and burning Incomplete bladder emptying: denies Hematuria: denies visible blood Frequency: denies Urgency: denies Nocturia: denies Stream: denies hesitancy Leaking: denies Post void dripping: denies Wearing pads/ Depends: denies Urge incontinence: denies Stress incontinence: denies Incontinence without Sensory Awareness: denies Abdominal pain: denies Flank pain: denies Sexual complaints: ED History of Present Illness Tests reviewed: reviewed UA, Testosterone I have reviewed the previous health record information and history for this patient from Dr. Ryan. I have reviewed and verified the staff [...] See HPI. Physical Exam Vitals & Measurements T: 36 ?C(Temporal Artery) HR: 66(Peripheral) RR: 18 BP: 128/68 HT: 70 in HT: 178 cm WT: 136 kg WT: 299.2 lb BMI: 42.92 General Appearance: alert, no distress, well nourished, well developed male. Assessment/Plan IPSS 1. Pt unable to provide urine sample today. 1. Hypogonadism male (E29.1: Testicular hypofunction) Testosterone Levels (ref range 264 - 916): 09/06/22 - 276 11/23/22 - 208 08/03/23 - 180 08/31/23 - 191 02/08/24 - 142 No hx of TRT. Pt was started on Androgel 2 pumps daily. States he thinks his libido and energy has improved slightly but could be better. Discussed increasing pumps of androgel but made pt aware of the SEs. Pt agrees with this. Reiterated to ensure he applies to clean, dry skin. Fully absorb prior to getting dressed. -Increase Andrgel from 2 to 3 pumps total daily. (2 on one should, 1 on the other) 2. ED (erectile dysfunction) (N52.9: Male erectile dysfunction, unspecified) Took Sildenafil per PCP. [place] this worked well but ran out of rx. Does not wake up with erections but feels he has more success in the mornings vs evenings. Able to achieve 75-80% erection but unable to maintain erection, ongoing for ~3-4yrs. [1] RHONDA 18. Pt was started on Cialis 20mg PRN at last visit, pt did not try 10mg first and went straight for the full dose. Pt states getting an erection is not the problem, it is keeping the erection. Recommended pt to try a penile ring. Pt voices understanding. -Cont Cialis 20mg PRN -Try penile ring 3. Screening PSA (prostate specific antigen) (Z12.5: Encounter for screening for malignant neoplasm of prostate) PSA 09/06/22 - 0.42 No other PSAs on record or Clinisync. No known fam hx of prostate ca. Follow-up With When Contact Information Orzech COMMUNITY INTEGRATION SPECIALIST, CORE PASTER-C, Paula X, FAM, URL Additional Instructions: pt to f/up with Dr. Shelby RYAN MD, Helio Ambriz, URL [address] [place] [address]- Additional Instructions: 3mos w/testosterone level Patient Education Erectile Dysfunction Hypogonadism, Male Hood Ladd, personally scribed for JASSON Delgado on 02/17/2024 13:37:51. . Documentation recorded by the agusto Cunningham accurately reflects the services(s) I performed and decisions made by me. Authenticated by Paula Lockhart APRN, FNP-C on 02/17/2024 13:45:57. Problem List/Past Medical History Ongoing Anemia BMI 40.0-44.9, adult ED (erectile dysfunction) HTN (hypertension) Hypogonadism male Morbid obesity OA (osteoarthritis) ANAHY (obstructive sleep apnea) Screening PSA (prostate specific antigen) Historical No qualifying data Procedure/Surgical History Arthroplasty of knee (06/20/2022), Colonoscopy (11/27/2021), Amputation of finger, Excision of lipoma, Tonsillectomy and adenoidectomy. Medications AndroGel Pump 20.25 mg/1.25 g (1.62%) transdermal gel, 2 pump, Topical, qAM, 3 refills Centrum Silver oral tablet, 1 tab(s), Oral, Daily Cialis 20 mg Tab, 20 mg= 1 tab(s), Oral, As Directed, PRN, 3 refills lisinopril 20 mg Tab, 20 mg= 1 tab(s), Oral, Daily Zyrtec-D oral tablet, extended release, 1 tab(s), Oral, BID Allergies No Known Medication Allergies Social History Alcohol Current, Beer, 1-2 times per week, 11/17/2021 Substance Abuse - Denies Substance Abuse, 11/17/2021 Tobacco Former smoker (more content not included)... Normal [facility] Comment on above: Result Comment: Elec tronically Signed By: JASSON Lockhart APRN, Paula Lopez\.br\Date and Time Signed: 02/17/24 13:46 EDT\.br\Electronically Co-Signed By: Hood Cunningham\.br\Date and Time Co-Signed: 02/17/24 13:38 EDT\.br\Electronically Co-Signed By: Hood Cunningham\Date and Time Co-Signed: 02/17/24 13:38 EDT Pre-Certification Formon Pre-Certification Form [id number] #1.00TIFF Normal [facility] Pre-Certification Form [id number] #1.00TIFF Normal [facility] Lab Reportson 09-02-2023 Lab Reports [id number] #1.00TIFF Normal [facility] Reportson 08-05-2023 Lab Reports [id number] #1.00TIFF [facility] Pre-Certification Formon Pre-Certification Form [id number]# 1.00TIFF [facility] Physician Referralon 024 Physician Referral [id number] #1.00TIFF [facility] Patient Educationon 07-29-19 Patient Education Urology [...] Follow these instructions at home: ? Take [id number]-[id number] and prescription medicines only as told by [...] 03/02/2021 Document (more content not included)... Normal [facility] TESTOSTERONE, TOTALon 2022 Testosterone [Mass/Vol] 208 ng/dL Critically low 264-916 [facility] Comment on above: Result Comment: Adul t male reference interval is based on a population of healthy nonobese males (BMI <30) between 19 and 39 years old. German et.al. JCEM 2017,102;9695-4275. PMID: [id number]. Performed By: #### T ESTTOT #### [facility] [address] [address] [address] Alla Martinez ECHOCARDIO M/2D COMPLETEon 0 09-17-2022 ECHOCARDIO M/2D COMPLETE Patient: ARNEL PARR Exam Date: 09/17/2022 : 1970 Gender:M Ordering : DR REJI CENTENO D.O. Admission #: [id number] Family : Order #: [id number] CLICK HERE TO VIEW EXAM ECHOCARDIOGRAM REPORT [...] M.D. on 09/20/2022 at 09:22 Normal [facility] TESTOSTERONE, TOTALon 2022 Testosterone [Mass/Vol] 276 ng/dL Normal 264-916 [facility] Comment on above: Result Comment: Adul t male reference interval is based on a population of healthy nonobese males (BMI <30) between 19 and 39 years old. German et.al. JCEM 2017,102;7242-4691. PMID: [id number]. Performed By: #### T ESTTOT #### [facility] [address] [place] [address] Dr. Alla Martinez CBC AUTO DIFFon 09-06-2022 BASO # 0.1 103/ul Normal 0.0-0.1 [facility] Comment on above: Performed By: #### C BC #### [facility] [address] [place] [address] Dr. Alla Martinez Basophils/100 WBC (Bld) 1.6 % Normal 0.2-2.0 [facility] Comment on above: Performed By: #### C BC #### [facility] [address] [place] [address] Dr. Alla Martinez EO # 0.5 103/ul Normal 0.0-0.7 [facility] Comment on above: Performed By: #### C BC #### [facility] [address] [place] [address] Dr. Alla Martinez Eosinophils/100 WBC (Bld) 6.4 % Normal 0.9-7.0 [facility] Comment on above: Performed By: #### C BC #### [facility] [address] [place] [address] Dr. Alla Martinez Erythrocyte distribution width (RBC) [Ratio] 12.8 % Normal 11.0-15.0 [facility] Comment on above: Performed By: #### C BC #### [facility] [address] [place] [address] Dr. Alla Martinez Hematocrit (Bld) [Volume fraction] 40.1 % Critically low 42.0-54.0 [facility] Comment on above: Performed By: #### C BC #### [facility] [address] [place] [address] Dr. Alla Martinez Hemoglobin (Bld) [Mass/Vol] 13.0 g/dL Critically low 14.0-18.0 [facility] Comment on above: Performed By: #### C BC #### [facility] [address] [place] [address] Dr. Alla Martinez IG # 0.06 10e3/ul Critically high 0.00-0.03 [facility] Comment on above: Performed By: #### C BC #### [facility] [address] [place] [address] Dr. Alla Martinez IG % 0.8 % Critically high 0.0-0.5 [facility] Comment on above: Performed By: #### C BC #### [facility] [address] [place] [address] Dr. Alla Martinez LYMPH # 2.5 103/ul Normal 1.2-3.8 [facility] Comment on above: Performed By: #### C BC #### [facility] [address] [place] [address] Dr. Alla Martinez Lymphocytes/100 WBC (Bld) 33.2 % Normal 20.5-60.0 [facility] Comment on above: Performed By: #### C BC #### [facility] [address] [place] [address] Dr. Alla Martinez MANUAL DIFF REQ NO Normal [facility] Comment on above: Performed By: #### C BC #### [facility] [address] [place] [address] Dr. Alla Martinez MCH (RBC) [Entitic mass] 28.3 pg Normal 25.9-34.0 [facility] Comment on above: Performed By: #### C BC #### [facility] [address] [place] [address] Dr. Alla Martinez MCHC (RBC) [Mass/Vol] 32.4 g/dL Normal 29.9-35.2 [facility] Comment on above: Performed By: #### C BC #### [facility] [address] [place] [address] Dr. Alla Martinez MCV (RBC) [Entitic vol] 87.4 fL Normal 80.0-94.0 [facility] Comment on above: Performed By: #### C BC #### [facility] [address] [place] [address] Dr. Alla Martinez MONO # 0.6 103/ul Normal 0.3-0.8 [facility] Comment on above: Performed By: #### C BC #### [facility] [address] [place] [address] Dr. Alla Martinez Monocytes/100 WBC (Bld) 8.3 % Normal 1.7-12.0 [facility] Comment on above: Performed By: #### C BC #### [facility] [address] [place] [address] Dr. Alla Martinez NEUT # 3.8 103/ul Normal 1.4-6.5 [facility] Comment on above: Performed By: #### C BC #### [facility] [address] [address] [address] Alla Martinez Neutrophils/100 WBC (Bld) 49.7 % Normal 43.0-75.0 [facility] Comment on above: Performed By: #### C BC #### [facility] [address] [address] [address] Alla Martinez Platelet mean volume (Bld) [Entitic vol] 10.8 fL Normal 9.5-13.5 [facility] Comment on above: Performed By: #### C BC #### [facility] [address] [place] [address] Dr. Alla Martinez PLT 228 103/ul Normal 150-450 [facility] Comment on above: Performed By: #### C BC #### [facility] [address] [address] [address] Alla Martinez RBC 4.59 106/ul Critically low 4.70-6.10 [facility] Comment on above: Performed By: #### C BC #### [facility] [address] [address] [address] Alla Martinez WBC 7.6 103/ul Normal 4.0-11.0 [facility] Comment on above: Performed By: #### C BC #### [facility] [address] [place] [address] Dr. Alla Martinez Complete Blood Count and Dif uvaldo 09-06-2022 Anisocytosis Ql (Bld) [facility] YR.MRKT Other Basophilic stippling LM Ql (Bld) [facility] YR.MRKT Other RBC morphology finding Nom (Bld) [employer] Other Complete Blood Count and Diff [facility] YR.MRKT Other Comprehensive Metabolic Pane maria 09-06-2022 Albumin [Mass/Vol] 3.676606 g/dL 3.4-5.0 g/dL [facility] YR.MRKT Other Calcium [Mass/Vol] 8.2977553 mg/dL 8.5-10 .1 mg/dL [facility] Other CO2 [Moles/Vol] 27.65618418 mmol/L 21.0-3 2.0 mmol/L [facility] Other Creatinine [Mass/Vol] 0.96425749 mg/dL 0. 70-1.30 mg/dL [facility] Other Potassium [Moles/Vol] 4.28691914 mmol/L 3 .5-5.1 mmol/L [facility] Other Protein [Mass/Vol] 7.794062 g/dL 6.4-8.2 g/dL [facility] [employer] Other Urea nitrogen [Mass/Vol] 18.5242009 mg/dL 7.0-18.0 mg/dL [facility] Other Comprehensive Metabolic Panel see note [facility] Other Comprehensive Metabolic Panel 142 mmol/L 136-145 mmol/L [facility] Other Comprehensive Metabolic Panel 115 mg/dL Critically high 74-106 mg/dL [facility] Other Comprehensive Metabolic Panel >60 mL/min/1.73m2 >=60 mL/min/1.73m 2 [facility] Other Comprehensive Metabolic Panel 0.2 mg/dL 0.2-1.0 mg/dL [facility] Other Comprehensive Metabolic Panel 3.8 g/dL [facility] Other Albumin/Globulin [Mass ratio] 0.9 {ratio} Normal [facility] Other Comment on above: Performed By: #### C MP, LIPID #### [facility] [address] [place] [address] Dr. Alla Martinez ALP [Catalytic activity/Vol] 93 U/L Normal 46-116 [facility] Other Comment on above: Performed By: #### C MP, LIPID #### [facility] [address] [place] [address] Dr. Alla Martinez ALT [Catalytic activity/Vol] 37 U/L Normal 16-63 [facility] Other Comment on above: Performed By: #### C MP, LIPID #### [facility] [address] [place] [address] Dr. Alla Martinez Anion gap [Moles/Vol] 12.1 mmol/L Normal [facility] Other Comment on above: Performed By: #### C MP, LIPID #### [facility] [address] [place] [address] Dr. Alla Martinez AST [Catalytic activity/Vol] 21 U/L Normal 15-37 [facility] Other Comment on above: Performed By: #### C MP, LIPID #### [facility] [address] [place] [address] Dr. Alla Martinez Chloride [Moles/Vol] 107 mmol/L Normal 98-[facility] Other Comment on above: Performed By: #### C MP, LIPID #### [facility] [address] [place] [address] Dr. Alla Martinez Urea nitrogen/Creatinine [Mass ratio] 20.2 mg/mg Normal [facility] Other Comment on above: Performed By: #### C MP, LIPID #### [facility] [address] [place] [address] Dr. Alla Martinez LIPID PROFILEon 09-06-2022 CHOL-HDL RATIO NORM SEE BELOW Normal [facility] Comment on above: Result Comment: 3.3 - 4.4 LOW RISK 4.4 - 7.1 AVERAGE RISK 7.1 - 11.0 MODERATE RISK >11.0 HIGH RISK Performed By: #### C MP, LIPID #### [facility] [address] [place] [address] Dr. Alla Martinez Cholesterol in LDL [Mass/Vol] 89.2 mg/dL Normal [facility] Comment on above: Performed By: #### C MP, LIPID #### [facility] [address] [address] [address] Alla Martinez HDL NORMAL > or = 60 mg/dl - LOW CARDIOVASCULAR RISK <40 mg/dl - HIGH CARDIOVASCULAR RISK Normal [facility] Comment on above: Performed By: #### C MP, LIPID #### [facility] [address] [address] [address] Alla Martinez LDL CALC NORMAL SEE BELOW Normal [facility] Comment on above: Result Comment: <100 mg/dl OPTIMAL 100 - 129 mg/dl NEAR OR ABOVE OPTIMAL 130 - 159 mg/dl BORDERLINE HIGH 160 - 189 mg/dl HIGH >190 mg/dl VERY HIGH Performed By: #### C MP, LIPID #### [facility] [address] [address] [address] Alla Martinez VLDL CALC 35.8 mg/dL Normal [facility] Comment on above: Performed By: #### C MP, LIPID #### [facility] [address] [place] [address] Dr. Alla Martinez Lipid Panelon 09-06-2022 Lipid Panel > or = 60 mg/dl - LOW CARDIOVASCULAR RISK <40 mg/dl - HIGH CARDIOVASCULAR RISK [facility] Other Lipid Panel SEE BELOW [facility] Other Lipid Panel 89.2 mg/dL [facility] Other Lipid Panel 35.8 mg/dL [facility] Other Cholesterol [Mass/Vol] 158 mg/dL Normal <=200 [facility] Other Comment on above: Performed By: #### C MP, LIPID #### [facility] [address] [address] [address] Alla Martinez Cholesterol in HDL [Mass/Vol] 33 mg/dL Critically low 40-60 [facility] Other Comment on above: Performed By: #### C MP, LIPID #### [facility] [address] [address] [address] Alla Martinez Cholesterol.total/Cho lesterol in HDL [Mass ratio] 4.8 {ratio} Normal [employer] [facility] YR.MRKT Other Comment on above: Performed By: #### C MP, LIPID #### [facility] [address] [address] [address] Alla Martinez Triglyceride [Mass/Vol] 179 mg/dL Critically high <=150 [facility] Other Comment on above: Performed By: #### C MP, LIPID #### [facility] [address] [address] [address] Alla Martinez PROF 14(COMP METB)on 023 Albumin [Mass/Vol] 3.5 g/dL Normal 3.4-5.0 [facility] Comment on above: Performed By: #### C MP, LIPID #### [facility] [address] [place] [address] Dr. Alla Martinez Bilirubin [Mass/Vol] 0.2 mg/dL Normal 0.2-1.0 [facility] Comment on above: Performed By: #### C MP, LIPID #### [facility] [address] [address] [address] Alla Martinez Calcium [Mass/Vol] 8.9 mg/dL Normal 8.5-10.1 [facility] Comment on above: Performed By: #### C MP, LIPID #### [facility] [address] [address] [address] Alla Martinez CO2 [Moles/Vol] 27.1 mmol/L Normal 21.0-32.0 [facility] Comment on above: Performed By: #### C MP, LIPID #### [facility] [address] [address] [address] Alla Martinez Creatinine [Mass/Vol] 0.89 mg/dL Normal 0.70-1.30 [facility] Comment on above: Performed By: #### C MP, LIPID #### [facility] [address] [place] [address] Dr. Alla Martinez EGFR-AF COOK ISLANDER >60 Normal >=60 [facility] Comment on above: Performed By: #### C MP, LIPID #### [facility] [address] [address] [address] Alla Martinez EGFR-NON AF [place] ISLANDER >60 Normal >=60 [facility] Comment on above: Performed By: #### C MP, LIPID #### [facility] [address] [address] [address] Alla Martinez Globulin (S) [Mass/Vol] 3.8 g/dL Normal [facility] Comment on above: Performed By: #### C MP, LIPID #### [facility] [address] [address] [address] Alla Martinez Glucose [Mass/Vol] 115 mg/dL Critically high 74-106 [facility] Comment on above: Performed By: #### C MP, LIPID #### [facility] [address] [address] [address] Alla Martinez Potassium [Moles/Vol] 4.2 mmol/L Normal 3.5-5.1 [facility] Comment on above: Performed By: #### C MP, LIPID #### [facility] [address] [address] [address] Alla Martinez Protein [Mass/Vol] 7.3 g/dL Normal 6.4-8.2 [facility] Comment on above: Performed By: #### C MP, LIPID #### [facility] [address] [address] [address] Alla Martinez Sodium [Moles/Vol] 142 mmol/L Normal 136-145 [facility] Comment on above: Performed By: #### C MP, LIPID #### [facility] [address] [address] [address] Alla Martinez Urea nitrogen [Mass/Vol] 18.0 mg/dL Normal 7.0-18.0 [facility] Comment on above: Performed By: #### C MP, LIPID #### [facility] [address] [address] [address] Alla Martinez TESTOSTERONE, TOTALon 2022 Testosterone [Mass/Vol] 276 ng/dL 264-916 ng/dL [facility] Other BLOOD BANKOrdered By: Harjeet Cartagena on 06-20-2022 ABO/Rh Interp Negative Invalid Interpretation Code [facility] BB Subsection ABSC Gel Interp Negative (06/20/22 7:53 AM) Normal [facility] BB Subsection BLOOD BANKOrdered By: Shanice Maxwell on 06-01-2022 ABO/Rh Retype Interp Negative Invalid Interpretation Code [facility] BB Subsection CHEMISTRYOrdered By: SYSTEM SYSTEM on [...] rate/Area] mL/min/1.73 m2 Normal >=59mL/min/1 .73 m2 [facility] Chem S GFR/1.73 sq M.predicted among non-blacks MDRD (S/P/Bld) [Vol rate/Area] mL/min/1.73 m2 Normal >=59mL/min/1 .73 m2 [facility] Chem S Glucose [Mass/Vol] 95 mg/dL Normal 55 - 199 mg/dL [facility] Potassium [Moles/Vol] 4.0 mmol/L Normal 3.5 - 5.3 mmol/L [facility] Sodium [Moles/Vol] 139 mmol/L Normal 135 - 145 mmol/L [facility] Urea nitrogen [Mass/Vol] 18 mg/dL Normal 5 - 21 mg/dL [facility] HEMATOLOGYOrdered By: Shanice Maxwell on 06-01-2022 Erythrocyte distribution width (RBC) [Ratio] 12.2 % Normal 10.9 - 14.2 % [facility] Hematocrit (Bld) [Volume fraction] 38.0 % Normal 37.7 - 49.0 % [facility] Hemoglobin (Bld) [Mass/Vol] 13.0 g/dL Low 13.5 - 17.5 gm/dL [facility] HemeAutoSS MCH (RBC) [Entitic mass] 29.5 pg Normal 27.0 - 34.0 pg [facility] HemeAutoSS MCHC (RBC) [Mass/Vol] 34.3 g/dL Normal [...] PM) Normal Negative [facility] UA Auto SS Stallings.plasma/Lithiu m.RBC (Bld) [Mass ratio] 0-3 /HPF Normal 0-3/HPF [facility] UA Auto SS Nitrite Ql (U) Negative (06/01/22 4:13 PM) Normal Negative [facility] UA Auto SS pH (U) 6.0 *NA* (06/01/22 4:13 PM) Invalid Interpretation Code 5.0 - 9.0 [facility] Auto SS Protein (U) [Mass/Vol] Negative (06/01/22 4:13 PM) Normal Negative [facility] Auto SS Specific gravity (U) [Rel density] >=1.030 *NA* (06/01/22 4:13 PM) Invalid Interpretation Code 1.005 - 1.030 [facility] UA Auto SS UA Spec Desc Clean Catch (06/01/22 4:13 PM) Normal [facility] UA Auto SS Urobilinogen Qn (U) 0.0010769 {Anushka'U}/dL Normal 0.0 - 1.0 EU/dL [facility] Auto SS WBC Auto Ql (U) Negative (06/01/22 4:13 PM) Normal Negative [facility] UA Auto SS WBC LM.HPF (Urine sed) [#/Area] 0-5 /HPF Normal 0-5/HPF [facility] UA Auto SS XR knee LT 2Von 01-25-2022 XR knee LT 2V [facility] [place] [address] XRay Report Signed Patient: Arnel Parr MR#: [id number] : 1970 Acct:[id number] Age/Sex: 51 / M ADM Date: 01/25/22 Loc: [facility] Room: Type: [facility] Attending Dr: Anthony Knox MD Copies [...] Pérez Jr., D.O.01/25/2022 11:54 AM Dictation Location: [place] [address] Transcribed By: [facility] 01/25/22 1154 Dictated By: Wiliam Pérez Jr, DO 01/25/22 1153 Signed By: 01/25/22 1154 Normal [facility] MRI KNEE LT WO CONon 022 MRI KNEE LT WO CON EXAMINATION: MRI KNEE LT WO CON HISTORY: Derangement of left knee COMPARISON: No relevant comparison available. TECHNIQUE: A complete multi-planar MRI was performed. FINDINGS: MEDIAL COMPARTMENT MEDIAL MENISCUS: Thinned extruded macerated medial meniscus with [id number] articulation CARTILAGE: Severe chondromalacia with subchondral edema [...] OTHER: Negative. IMPRESSION: Severe tricompartmental osteoarthritis with [id number] articulation of the medial compartment and a thinned extruded macerated medial meniscus Chronic anterior cruciate ligament tear Electronically authenticated by: DOLORES FITZGERALD Date: 2021-12-21 10:[address] [facility] XR FOREIGN BODY EYEon 2021 XR [...] by: DANG TAYLOR Date: 2021-12-21 08:[address] [facility] Vital Signs Date Time Vital Sign Value Performing Clinician Amber wells 02-17-2024 12:59-0400 Blood Pressure Location Paula Lockhart [facility] 02-17-2024 12:59-0400 Body temperature 96.8 [degF] Paula Gallegosch [facility] 02-17-2024 12:59-0400 Diastolic blood pressure 68 mm[Hg] Paula Orzech [facility] 02-17-2024 12:59-0400 Heart rate 66 /min Paula Orzech [facility] 02-17-2024 12:59-0400 Respiratory rate 18 /min Paula Orzech [facility] 02-17-2024 12:59-0400 Systolic blood pressure 128 mm[Hg] Paula Orzech [facility] 07-29-2023 14:16-0500 Blood Pressure Location Helio RYAN [facility] 07-29-2023 14:16-0500 Diastolic blood pressure 89 mm[Hg] Helio RYAN [facility] 07-29-2023 14:16-0500 Heart rate 80 /min Helio RYAN [facility] 07-29-2023 14:16-0500 Respiratory rate 16 /min Helio RYAN [facility] 07-29-2023 14:16-0500 Systolic blood pressure 132 mm[Hg] Helio RYAN [facility] 12-14-2022 14:00-0400 Body height 175.26 cm Reji Ball Other [facility] Other 12-14-2022 14:00-0400 Body mass index (BMI) [Ratio] 41.82 kg/m2 Reji Ball Other [facility] Other 12-14-2022 14:00-0400 Body weight 128.46 kg Reji Ball Other [facility] Other 12-14-2022 14:00-0400 Diastolic blood pressure 69 mm[Hg] Reji Ball Other [facility] Other 12-14-2022 14:00-0400 Respiratory rate 12 /min Reji Ball Other [facility] Other 12-14-2022 14:00-0400 Systolic blood pressure 112 mm[Hg] Reji Ball Other [facility] Other 09-05-2022 13:30-0500 Body height 175.26 cm Reji Ball Other [facility] Other 09-05-2022 13:30-0500 Body mass index (BMI) [Ratio] 45.18 kg/m2 Reji Ball Other [facility] Other 09-05-2022 13:30-0500 Body weight 138.8 kg Reji Ball Other [facility] Other 09-05-2022 13:30-0500 Diastolic blood pressure 72 mm[Hg] Erji Ball Other [facility] Other 09-05-2022 13:30-0500 SaO2% (BldA) [Mass fraction] 96 % Reji Ball Other [facility] Other 09-05-2022 13:30-0500 Systolic blood pressure 140 mm[Hg] Reji Ball Other [facility] Other 06-20-2022 16:50-0500 Blood Pressure Location Valeriano Francis [facility] 06-20-2022 16:50-0500 Body temperature 96.8 [degF] Valeriano Francis [facility] 06-20-2022 16:50-0500 Diastolic blood pressure 62 mm[Hg] Valeriano Francis [facility] 06-20-2022 16:50-0500 Heart rate 90 /min Valeriano Francis [facility] 06-20-2022 16:50-0500 Respiratory rate 16 /min Valeriano Francis [facility] 06-20-2022 16:50-0500 SaO2% (BldA) [Mass fraction] 97 % Valeriano Francis [facility] 06-20-2022 16:50-0500 Systolic blood pressure 145 mm[Hg] Valeriano Francis [facility] 06-20-2022 16:00-0500 Body temperature 97.16 [degF] Valeriano Francis [facility] 06-20-2022 16:00-0500 Diastolic blood pressure 80 mm[Hg] Valeriano Francis [facility] 06-20-2022 16:00-0500 Heart rate 82 /min Valeriano Francis [facility] 06-20-2022 16:00-0500 Systolic blood pressure 120 mm[Hg] Valeriano Francis [facility] 06-20-2022 14:38-0500 Blood Pressure Location Valeriano Francis [facility] 06-20-2022 14:38-0500 Body temperature 96.8 [degF] Valeriano Francis [facility] 06-20-2022 14:38-0500 Diastolic blood pressure 73 mm[Hg] Valeriano Francis [facility] 06-20-2022 14:38-0500 Heart rate 80 /min Valeriano Francis [facility] 06-20-2022 14:38-0500 Respiratory rate 14 /min Valeriano Francis [facility] 06-20-2022 14:38-0500 Systolic blood pressure 112 mm[Hg] Valeriano Francis [facility] 06-20-2022 13:40-0500 SaO2% (BldA) [Mass fraction] 97 % Valeriano Francis [facility] 06-20-2022 13:31-0500 Respiratory rate 11 /min Valeriano Francis [facility] 06-20-2022 13:20-0500 Respiratory rate 14 /min Valeriano Francis [facility] 06-20-2022 13:15-0500 Respiratory rate 15 /min Valeriano Francis [facility] 06-20-2022 07:35-0500 Body temperature 97.7 [degF] Valeriano Francis [facility] 06-20-2022 07:35-0500 Heart rate 70 /min Valeriano Francis [facility] 06-11-2022 14:42-0500 Diastolic blood pressure 84 mm[Hg] Дмитрий Santo [facility] 06-11-2022 14:42-0500 Mean blood pressure 106 mm[Hg] Дмитрий Santo [facility] 06-11-2022 14:42-0500 Systolic blood pressure 149 mm[Hg] Дмитрий Santo [facility] 06-11-2022 14:33-0500 Blood Pressure Location Дмитрий Santo [facility] 06-11-2022 14:33-0500 Diastolic blood pressure 87 mm[Hg] Дмитрий Santo [facility] 06-11-2022 14:33-0500 Heart rate 79 /min Дмитрий Santo [facility] 06-11-2022 14:33-0500 Respiratory rate 18 /min Дмитрий Santo [facility] 06-11-2022 14:33-0500 SaO2% (BldA) [Mass fraction] 98 % Дмитрий Santo [facility] 06-11-2022 14:33-0500 Systolic blood pressure 146 mm[Hg] Дмитрий Santo [facility] 06-01-2022 15:54-0500 Blood Pressure Location Valeriano Francis [facility] 06-01-2022 15:54-0500 Diastolic blood pressure 93 mm[Hg] Valeriano Francis [facility] 06-01-2022 15:54-0500 Heart rate 67 /min Valeriano Francis [facility] 06-01-2022 15:54-0500 Mean blood pressure 115 mm[Hg] Valeriano Francis [facility] 06-01-2022 15:54-0500 Systolic blood pressure 157 mm[Hg] Valeriano Francis [facility] 06-01-2022 15:53-0500 Blood Pressure Location Valeriano Francis [facility] 06-01-2022 15:53-0500 Body temperature 98.24 [degF] Valeriano Francis [facility] 06-01-2022 15:53-0500 Diastolic blood pressure 92 mm[Hg] Valeriano Francis [facility] 06-01-2022 15:53-0500 Heart rate 71 /min Valeriano Francis [facility] 06-01-2022 15:53-0500 Mean blood pressure 112 mm[Hg] Valeriano Francis [facility] 06-01-2022 15:53-0500 Respiratory rate 16 /min Valeriano Francis [facility] 06-01-2022 15:53-0500 SaO2% (BldA) [Mass fraction] 99 % Valeriano [employer] [facility] 06-01-2022 15:53-0500 Systolic blood pressure 153 mm[Hg] Valeriano Francis [facility] 11-17-2021 14:26-0400 Blood Pressure Location Jasbir NILL [facility] 11-17-2021 14:26-0400 Diastolic blood pressure 86 mm[Hg] Jasbir NILL [facility] [place] 11-17-2021 14:26-0400 Heart rate 72 /min Jasbir NILL [facility] 11-17-2021 14:26-0400 Respiratory rate 16 /min Jasbir NILL [facility] 11-17-2021 14:26-0400 Systolic blood pressure 124 mm[Hg] Jasbir NILL [facility] Encounters Encounter Date Encounter Type Care Provider Facility Start: 05-20-2024 ambulatory Helio Felipe ty:[facility] Start: 02-17-2024 End: 02-17-2024 ambulatory Paula X [place]ch [place] [place] Start: 02-17-2024 End: 02-17-2024 Patient encounter procedure Paula X Richy [facility] Start: 02-13-2024 End: 02-13-2024 ambulatory LEROY RAMIREZ [facility] Start: 02-13-2024 End: 02-13-2024 Patient encounter procedure LEROY RAMIREZ [facility] Start: 07-29-2023 End: 07-29-2023 ambulatory Helio RYAN Facility:[facility] Start: 07-29-2023 End: 07-29-2023 Patient encounter procedure Helio RYAN [facility] Start: 06-20-2023 End: 06-20-2023 ambulatory VALERIANO FRANCIS Not Available Start: 05-08-2023 End: 05-08-2023 ambulatory Reji Centeno Other [facility] Other Start: 05-08-2023 Telephone encounter Reji AKINS G [facility] Start: 04-16-2023 End: 04-16-2023 ambulatory Reji Centeno Other [facility] Other Start: 04-16-2023 Telephone encounter Reji AKINS G [facility] Start: 04-01-2023 End: 04-01-2023 Patient encounter procedure Helio RYAN [facility] Start: 12-14-2022 End: 12-14-2022 ambulatory Reji Centeno Other [facility] Other Start: 12-14-2022 Office outpatient visit 15 minutes Reji Centeno [facility] Start: 11-23-2022 End: 11-24-[address] REJI CENTENO Facility:[facility] Start: 09-17-2022 End: 09-18-[address] REJI CENTENO Facility:[facility] Start: 09-10-2022 Encounter for genera l adult medical examination without abnormal findings DR REJI CENTENO [facility] Start: 09-06-2022 Telephone encounter Reji Centeno [facility] Start: 09-06-2022 End: 09-07-[address] [facility]JI CENTENO [facility] [employer] Other Start: 09-06-2022 End: 09-07-2022 Encounter for general adult medical examination without abnormal findings DR REJI CENTENO Facility:[facility] Start: 09-05-2022 End: 09-05-2022 ambulatory Reji Centeno Other [email or web address] Other Start: 09-05-2022 Encounter for genera l adult medical examination without abnormal findings Reji Centeno [facility] Start: 09-05-2022 Periodic preventive med est patient 40-64yrs Reji Centeno [facility] Start: 07-15-2022 End: 08-11-2022 ambulatory VALERIANO FRANCIS Facility:[facility] Start: 07-12-2022 End: 07-14-2022 ambulatory VALERIANO FRANCIS Facility:[facility] Start: 06-20-2022 End: 06-20-2022 Admission to same day surgery center Valeriano Francis [facility] Start: 06-14-2022 End: 09-13-2022 Recurring Дмитрий Santo [facility] Start: 06-11-2022 End: 06-11-2022 Patient encounter procedure Дмитрий Santo [facility] Start: 06-01-2022 ambulatory Facility:1 [id number] Start: 06-01-2022 End: 06-01-2022 Patient encounter procedure Valeriano Francis [facility] Start: 01-25-2022 End: 01-25-2022 ambulatory Anthony Knox Other [facility] Other Start: 01-25-2022 Office outpatient ne w 30 minutes Anthony Knox [facility] Start: 01-25-2022 End: 01-25-2022 Patient encounter procedure MD Anthony Knox Work Phone: [facility] Start: 12-21-2021 End: 12-22-[address] REJI CENTENO Facility:[facility] Start: 11-17-2021 End: 11-17-2021 Patient encounter procedure Jasbir SAWANT [facility] [place] Start: 07-10-2021 Adult health examination Reji Centeno Other [email or web address] Other Procedures Date Procedure Procedure Detail Performing Clinician Start: 09-06-[address] LOPEZ IN [place] Comment on above: Performed By: #### [facility] #### [facility] [address] [place] [address] Dr. Alla Martinez Start: 06-20-2022 Arthroplasty of knee Mike Francis Comment on above: Left Total Knee Arth roplsty, Robotic Assisted Start: 01-25-2022 X-ray of left knee MD Esperanza Knox Work Phone: Start: 11-27-2021 Colonoscopy Valeriano brandt Start: 08-30-2014 General examination of patient Reji Centeno Other Amputation of finger , except thumb Jasbir SAWANT Excision of lipoma Jasbir MARISCAL Tonsillectomy and adenoidectomy Jasbir SAWANT Immunizations Immunization Date Immunization Notes Care Provider Elbert morataya 12-10-2020 COVID-19 Vaccine Pfi zer - Documentation Purposes Only Reji Centeno Other [facility] Other 12-10-2020 SARS-CoV-2 (COVID-19 ) Ad26 vaccine, recombinant Jasbir NILL [facility] [place] 11-19-2020 SARS-CoV-2 (COVID-19 ) Ad26 vaccine, recombinant Jasbir NILL [facility] [place] Payers Date Payer Category Payer Unknown [id number] 2. [id number] 1970 Unknown [id number] 2.16. [id number] 1970 Unknown [id number] 2.16.84 [id number] 1972 Unknown [id number] 2.16.84 [id number] 1972 Unknown [id number] 2.16.84 [id number] 1972 Unknown [id number] 2.16.84 [id number] 1972 Unknown [id number] 2.16.84 [id number] 1972 Unknown [id number] 2.16.84 [id number] 1972 Unknown [id number] 2.16.840 .[id number] 1972 Unknown [id number] 2.16.840 .[id number] 1972 Unknown [id number] 2.16.8 [id number] 1972 Unknown [id number] 2.16.8 [id number] 1972 Unknown [id number] 2.16.8 40.1.328580.3.579.2.727 1972 Unknown [id number] 2.16.8 [id number] 1957 [facility] [id number] Self-pay Self Pay [id number] Social History Date Type Detail Facility Start: 11-17-2021 End: 02-17-2024 Tobacco smoking status Ex-smoker (finding) [facility] Tobacco smoking status Smokeless tobacco user within last 30 days [facility] Sex Assigned At Male Genera l Surgery [place] Start: 1970 Sex Assigned At Male F [facility] Medical Equipment Procedure Code Equipment Code [...] Start: 06-20-2022 KNEE TOTAL ROBOT ARTHROPLASTY Tito PALACIOS, Valeriano A 06/20/22 Unknown Knee L FDA [...] 06-20-2022 Functional Status Date Assessment Result Facility 02-17-2024 Functional Status N/A [facility] 07-29-2023 Functional Status N/A [facility] 06-11-2022 Functional Status N/A [facility] 06-01-2022 Functional Status No [facility] Clinical Notes 01-25-2022 to 02-17-2024 Note Date & Type Note Facility 02-17-2024 Hospital Discharg e instructions Patient Education 02/17/2024 13:19:10 Erectile Dysfunction Erectile Dysfunction Erectile dysfunction (ED) is the inability to get or keep an erection in order to have sexual intercourse. ED is considered a symptom of an underlying disorder and is not considered a disease. ED may include: Inability to get an erection. Lack of enough hardness of the erection to allow penetration. Loss of erection before sex is finished. What are the causes? This condition may be caused by: Physical causes, such as: ?Artery problems. This may include heart disease, high blood pressure, atherosclerosis, and diabetes. ?Hormonal problems, such as low testosterone. ?Obesity. ?Nerve problems. This may include back or pelvic injuries, multiple sclerosis, Parkinson's disease, spinal cord injury, and stroke. Certain medicines, such as: ?Pain relievers. ?Antidepressants. ?Blood pressure medicines and water pills (diuretics). ?Cancer medicines. ?Antihistamines. ?Muscle relaxants. Lifestyle factors, such as: ?Use of drugs such as marijuana, cocaine, or opioids. ?Excessive use of alcohol. ?Smoking. ?Lack of physical activity or exercise. Psychological causes, such as: ?Anxiety or stress. ?Sadness or depression. ?Exhaustion. ?Fear about sexual performance. ?Guilt. What are the signs or symptoms? Symptoms of this condition include: Inability to get an erection. Lack of enough hardness of the erection to allow penetration. Loss of the erection before sex is finished. Sometimes having normal erections, but with frequent unsatisfactory episodes. Low sexual satisfaction in either partner due to erection problems. A curved penis occurring with erection. The curve may cause pain, or the penis may be too curved to allow for intercourse. Never having nighttime or morning erections. How is this diagnosed? This condition is often diagnosed by: Performing a physical exam to find other diseases or specific problems with the penis. Asking you detailed questions about the problem. Doing tests, such as: ?Blood tests to check for diabetes mellitus or high cholesterol, or to measure hormone levels. ?Other tests to check for underlying health conditions. ?An ultrasound exam to check for scarring. ?A test to check blood flow to the penis. Doing a sleep study at home to measure nighttime erections. How is this treated? This condition may be treated by: Medicines, such as: ?Medicine taken by mouth to help you achieve an erection (oral medicine). ?Hormone replacement therapy to replace low testosterone levels. ?Medicine that is injected into the penis. Your health care provider may instruct you how to give yourself these injections at home. ?Medicine that is delivered with a short applicator tube. The tube is inserted into the opening at the tip of the penis, which is the opening of the urethra. A tiny pellet of medicine is put in the urethra. The pellet dissolves and enhances erectile function. This is also called MUSE (medicated urethral system for erections) therapy. Vacuum pump. This is a pump with a ring on it. The pump and ring are placed on the penis and used to create pressure that helps the penis become erect. Penile implant surgery. In this procedure, you may receive: ?An inflatable implant. This consists of cylinders, a pump, and a reservoir. The cylinders can be inflated with a fluid that helps to create an erection, and they can be deflated after intercourse. ?A semi-rigid implant. This consists of two silicone rubber rods. The rods provide some rigidity. They are also flexible, so the penis can both curve downward in its normal position and become straight for sexual intercourse. Blood vessel surgery to improve blood flow to the penis. During this procedure, a blood vessel from a different part of the body is placed into the penis to allow blood to flow around (bypass) damaged or blocked blood vessels. Lifestyle changes, such as exercising more, losing weight, and quitting smoking. Follow these instructions at home: Medicines Take valv-lms-jfmulvg and prescription medicines only as told by your health care provider. Do not increase the dosage without first discussing it with your health care provider. If you are using self-injections, do injections as directed by your health care provider. Make sure you avoid any veins that are on the surface of the penis. After giving an injection, apply pressure to the injection site for 5 minutes. Talk to your health care provider about how to prevent headaches while taking ED medicines. These medicines may cause a sudden headache due to the increase in blood flow in your body. General instructions Exercise regularly, as directed by your health care provider. Work with your health care provider to lose weight, if needed. Do not use any products that contain nicotine or tobacco. These products include cigarettes, chewing tobacco, and vaping devices, such as e-cigarettes. If you need help quitting, ask your health care provider. Before using a vacuum pump, read the instructions that come with the pump and discuss any questions with your health care provider. Keep all follow-up visits. This is important. Contact a health care provider if: You feel nauseous. You are vomiting. You get sudden headaches while taking ED medicines. You have any concerns about your sexual health. Get help right away if: You are taking oral or injectable medicines and you have an erection that lasts longer than 4 hours. If your health care provider is unavailable, go to the nearest emergency room for evaluation. An erection that lasts much longer than 4 hours can result in permanent damage to your penis. You have severe pain in your groin or abdomen. You develop redness or severe swelling of your penis. You have redness spreading at your groin or lower abdomen. You are unable to urinate. You experience chest pain or a rapid heartbeat (palpitations) after taking oral medicines. These symptoms may represent a serious problem that is an emergency. Do not wait to see if the symptoms will go away. Get medical help right away. Call your local emergency services (911 in the [place] Do not drive yourself to the hospital. Summary Erectile dysfunction (ED) is the inability to get or keep an erection during sexual intercourse. This condition is diagnosed based on a physical exam, your symptoms, and tests to determine the cause. Treatment varies depending on the cause and may include medicines, hormone therapy, surgery, or a vacuum pump. You may need follow-up visits to make sure that you are using your medicines or devices correctly. Get help right away if you are taking or injecting medicines and you have an erection that lasts longer than 4 hours. This information is not intended to replace advice given to you by your health care provider. Make sure you discuss any questions you have with your health care provider. Document Revised: 09/27/2021 Document Reviewed: 09/27/2021 [employer] Patient Education 2022 [employer] 02/17/2024 13:19:08 Hypogonadism, Male Hypogonadism, Male Male hypogonadism is [...] therapy. Follow these instructions at home: Take poso-dvz-ovlwnwo and prescription medicines only as told by [...] provider. Document Revised: 03/02/2021 Document Reviewed: 03/02/2021 [employer] Patient Education 2022 [employer]. Follow Up Care 02/12/2024 15:29:23 With:JASSON Lockhart APRN, Paula Lopez, JAYJAY, URL Address: When: Unknown Comments:pt to f/up with Dr. Ryan With:SHELBY FALCON, Helio Ambriz, URL Address: [address] [place] [address] [place] [address]- When: Unknown Comments:3mos w/testosterone level [facility] Segun 02-17-2024 Note Patient Education Urology Erectile Dysfunction Erectile dysfunction (ED) is the inability to get or keep an erection in order to have sexual intercourse. ED is considered a symptom of an underlying disorder and is not considered a disease. ED may include: ? Inability to get an erection. ? Lack of enough hardness of the erection to allow penetration. ? Loss of erection before sex is finished. What are the causes? This condition may be caused by: ? Physical causes, such as: ? Artery problems. This may include heart disease, high blood pressure, atherosclerosis, and diabetes. ? Hormonal problems, such as low testosterone. ? Obesity. ? Nerve problems. This may include back or pelvic injuries, multiple sclerosis, Parkinson's disease, spinal cord injury, and stroke. ? Certain medicines, such as: ? Pain relievers. ? Antidepressants. ? Blood pressure medicines and water pills (diuretics). ? Cancer medicines. ? Antihistamines. ? Muscle relaxants. ? Lifestyle factors, such as: ? Use of drugs such as marijuana, cocaine, or opioids. ? Excessive use of alcohol. ? Smoking. ? Lack of physical activity or exercise. ? Psychological causes, such as: ? Anxiety or stress. ? Sadness or depression. ? Exhaustion. ? Fear about sexual performance. ? Guilt. What are the signs or symptoms? Symptoms of this condition include: ? Inability to get an erection. ? Lack of enough hardness of the erection to allow penetration. ? Loss of the erection before sex is finished. ? Sometimes having normal erections, but with frequent unsatisfactory episodes. ? Low sexual satisfaction in either partner due to erection problems. ? A curved penis occurring with erection. The curve may cause pain, or the penis may be too curved to allow for intercourse. ? Never having nighttime or morning erections. How is this diagnosed? This condition is often diagnosed by: ? Performing a physical exam to find other diseases or specific problems with the penis. ? Asking you detailed questions about the problem. ? Doing tests, such as: ? Blood tests to check for diabetes mellitus or high cholesterol, or to measure hormone levels. ? Other tests to check for underlying health conditions. ? An ultrasound exam to check for scarring. ? A test to check blood flow to the penis. ? Doing a sleep study at home to measure nighttime erections. How is this treated? This condition may be treated by: ? Medicines, such as: ? Medicine taken by mouth to help you achieve an erection (oral medicine). ? Hormone replacement therapy to replace low testosterone levels. ? Medicine that is injected into the penis. Your health care provider may instruct you how to give yourself these injections at home. ? Medicine that is delivered with a short applicator tube. The tube is inserted into the opening at the tip of the penis, which is the opening of the urethra. A tiny pellet of medicine is put in the urethra. The pellet dissolves and enhances erectile function. This is also called MUSE (medicated urethral system for erections) therapy. ? Vacuum pump. This is a pump with a ring on it. The pump and ring are placed on the penis and used to create pressure that helps the penis become erect. ? Penile implant surgery. In this procedure, you may receive: ? An inflatable implant. This consists of cylinders, a pump, and a reservoir. The cylinders can be inflated with a fluid that helps to create an erection, and they can be deflated after intercourse. ? A semi-rigid implant. This consists of two silicone rubber rods. The rods provide some rigidity. They are also flexible, so the penis can both curve downward in its normal position and become straight for sexual intercourse. ? Blood vessel surgery to improve blood flow to the penis. During this procedure, a blood vessel from a different part of the body is placed into the penis to allow blood to flow around (bypass) damaged or blocked blood vessels. ? Lifestyle changes, such as exercising more, losing weight, and quitting smoking. Follow these instructions at home: Medicines ? Take adhb-cbn-krtftwj and prescription medicines only as told by your health care provider. Do not increase the dosage without first discussing it with your health care provider. ? If you are using self-injections, do injections as directed by your health care provider. Make sure you avoid any veins that are on the surface of the penis. After giving an injection, apply pressure to the injection site for 5 minutes. ? Talk to your health care provider about how to prevent headaches while taking ED medicines. These medicines may cause a sudden headache due to the increase in blood flow in your body. General instructions ? Exercise regularly, as directed by your health care provider. Work with your health care provider to lose weight, if needed. ? Do not use any products that contain nicotine or tobacco. These (more content not included)... [facility] 07-29-2023 [facility] Discharg e instructions Follow Up Care 07/29/2023 15:19:19 With:SHELBY FALCON, Helio Ambriz, URL Address: [facility] [address] [place] [address]- [phone] When: Unknown [facility] 07-29-2023 Hospital Discharg e instructions Patient Education [...] therapy. Follow these instructions at home: Take kcjq-qdc-vfvxkuj and prescription medicines only as told by [...] provider. Document Revised: 03/02/2021 Document Reviewed: 03/02/2021 [employer] Patient Education 2022 [employer]. Follow Up Care 04/16/2023 11:59:27 With:SHELBY FALCON, Helio Ambriz, URL Address: [facility] [address], [place] [address]- [phone] When: Unknown Comments:3 mos w/ T level [facility] Soheila 07-29-2023 Note Chief Complaint referral for low [...] erectile dysfunction, unspecified) Took Sildenafil per PCP. [place] this worked well but ran out of [...] prostate) PSA 09/06/22 (more content not included)... [facility] Comment on above: Result Comment: Elec tronically Signed By: Helio RYAN MD\.br\Date and Time Signed: 07/29/23 15:24 EST\.br\Electronically Co-Signed By: Elana Arredondo\.br\Date and Time Co-Signed: 07/29/23 15:17 EST 05-08-2023 Evaluation note Encounter Date Diagnosis Assessment Notes Apr, COVID (ICD-10 - U07.1) [facility] Other 06-26-2023 Hospital Discharge instructions Follow Up Care 01/07/2023 10:27:30 With:Helio RYAN MD, URL Address: [facility] [address] , [place] [address]- [phone] When: Unknown [facility] So[place]ila 06-02-2023 Evaluation note* Encounter Date [...] low testosterone, which may result improved function [facility] Other 02-23-2023 Evaluation note* Encounter Date Diagnosis Assessment Notes Treatment Notes Treatment Clinical Notes Aug, Abnormal EKG (ICD-10 - R94.31) Aug, Abnormal nuclear stress test (ICD-10 - R94.39) [facility] Other 02-22-2023 Evaluation note* Encounter Date Diagnosis [...] (ICD-10 - Z12.5) Yearly PSA and GUERDA [facility] Other 12-07-2022 Hospital Discharge instructions Patient Education 06/20/2022 14:01:04 Knee Cryocuff Patient Instructions - FT (CUSTOM) 06/20/2022 14:00:47 Post Op Patient Instructions - FT (CUSTOM) 06/20/2022 10:21:15 Alejandra Francis - Total Knee Arthroplasty (Custom) [facility] DISCHARGE INSTRUCTIONS: TOTAL KNEE ARTHROPLASTY INCISION [...] continue at home, possibly with the assistant professor of dietetics of Home Health [facility] or in [...] Driving too soon, 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 It is therefore advised not to drive until after yourfirst office visit following surgery. FOLLOW-UP OFFICE VISIT: Valeriano Francis, DO [facility] [address] [place] [address] Reviewed: Follow Up Care 05/25/2022 08:46:50 With:Valeriano Francis Address: [address] [place] [address] Business (1) When: Unknown [facility]12-07-2022 Evaluation + Plan noteExtracted from: Title:ASHELY POSTOP Author:Anthony Marin DO Date: 06/20/22 Plan Transfer/ Discharge: Patient can be discharged from PACU when criteria met. Condition good. Extracted from: Title:ASHELY PREOP Author:Anthony Marin DO Date:08/21/21 Plan [place] [employer] (ASA) physical status classification: [...] discussed. Pt aware and desires to proceed. [facility]07-14-2022 Evaluation note* Encounter Date Diagnosis Assessment Notes [...] to consider total knee arthroplasty in future [facility] [email or web address] Other Evaluation + Plan note Future Appointments Appointment Date:11/27/2021 09:30:00 AM Scheduled Provider: Location:[facility] Appointment Type:Surgery FT General Surgery [facility] Evaluation + Plan note Future Appointments Appointment Date:06/20/2022 08:30:00 AM Scheduled Provider: Location:[facility] App[facility]ments Appointment Date:06/20/2022 08:30:00 AM Scheduled Provider: Location:[facility] Appointment Type:Surgery FT Future Scheduled Tests Radiology* NM Myocardial Spect Rest/Stress 2 Day [facility] App[facility]ments Appointment Date:10/28/2023 02:45:00 PM Scheduled Provider:Helio RYAN MD Location:[facility] Appointment Type:URO Office Visit Diagnostic Tests Pending * Testosterone Level Total 07/29/23 [facility] evaluation + Plan note Future Appointments Appointment Date:02/17/2024 01:00:00 PM Scheduled Provider:JASSON Lockhart APRN, [place] X Location:[facility] Appointment Type:URO Office Visit [facility] evaluation + Plan note Future Appointments Appointment Date:05/20/2024 03:15:00 PM Scheduled Provider:Helio RYAN MD Location:[facility] Appointment Type:URO Office Visit Diagnostic Tests Pending * Testosterone Level Total 02/17/24 [facility] Evaluation noteNo assessment information available [facility] 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[employer] Other [facility] general Narrative - Reported* Type Description Date Medical History high blood pressure [facility] Other [facility] general Narrative - Reported* Type Description Date [...] KNEE ARTHROPLASTY 022 Surgical History COLONOSCOPY 11/28/2021 [facility] Other [facility] general Narrative - Reported* Type Description Date [...] COLONOSCOPY 11/28/2021 Hospitalization History SEE SURGICAL HX [facility] Other Hospital course Narrative No data available for this section [facility] Discharge instructions No data available for this section [facility] Surgery [facility] [place] note No data available for this section [facility] Reason Referral for low ludy tosterone Diagnosis 1 Low testosterone in male (R79.89) Referral Organization [facility] Referring Provider First Name Reji Referring Provider Last Name Jacobo Referring Provider Specialty Internal Me dicine Referred Organization [facility] Referred Provider Helio Ryan Referred Address [address], [place],[address] Referred Provider Specialty Urology Referral Priority Routine General Notes Arnel presented w/ complaints of fatigue, decreased libido and ED. His initial testosterone level was low normal but his repeat level, after waiting 3 months, was low. He is being referred to be counseled on hormone replacement therapy and if appropriate, to initiate treatment Clinical Notes Include labs from [employer] Other Summary Purpose Family History No Family History Records FoundNo Family History Records FoundNo Family History Records FoundNo Family History Records Found No data available for this section No data available for this section No data available for this section No [...] section and content) DATE CREATED AUTHOR 02/04/2022 [facility] DATE CREATED AUTHOR AUTHOR'S ORGANIZ ATION 07/12/2022 [facility] [place] DATE CREATED AUTHOR AUTHOR'S ORGANIZ ATION 11/26/2022 [facility] DATE CREATED AUTHOR AUTHOR'S ORGANIZ ATION 06/23/2023 [facility] EPIC DATE CREATED AUTHOR AUTHOR'S ORGANIZ ATION 05/12/2024 [facility] FOR RECORDS PERTAINING TO PATIENTS WHO ARE [...] BE BASED ON THE PRIMARY CLINICAL RECORDS. [facility]. provides no warranty or guarantee of the accuracy or completeness of information in this document.
[2024-05-17 10:08] LABS: Testosterone 104 ng/dL (264-916)
== END 2024-05-16 10:35 | disposition home or self-care (01) ==
LOC: LAB 10:35
PROVIDERS: PCP Internal Medicine; Visit Provider Nurse Practitioner Family
DX: E29.1 Testicular hypofunction (principal); N52.9 Male erectile dysfunction, unspecified
CPT/HCPCS: 36415; 84403

== ENCOUNTER 2024-05-30 08:09 | Outpatient (OUT) | payer BC, SELFPAY ==
--- OUTSIDE RECORDS SUMMARY | 2024-05-30 08:15 | XMS_ITS | CCD ---
Author Organization [facility]ini[facility] Care Team Providers Care Bull Fiddle Player Name Role Phone REJI CENTENO Primary Care Physician Anthony Knox MD Anthony Knox Attending Provider [phone] Lucy Sparks Unavailable Unavailable Jacobo, Reji Unavailable JACOBO, DR THOMASON Admitting Unavailable BALL, [...] Consulting Unavailable TITO, VALERIANO Arroyo Admitting Unavailable BROWN, [...] Referring Unavailable BROWN, VALERIANO Arroyo Attending Unavailable JAMES, LEROY Bardales Attending Unavailable RYAN, Helio Ambriz Attending Unavailable RYAN, Helio Ambriz Attending Unavailable BALL, REJI Referring Unavailable Orzech, Paula Lopez Attending Unavailable RYAN, Hleio Ambriz Attending Unavailable RYAN, Helio Ambriz Attending Unavailable Allergies Allergy Classification Reported Allergen(s) Allergy Type Date of Onset Reaction(s) Facility (2 sources) patient allergy list reviewed by nurse or physicia Propensity to adverse reactions 5 Comment:Done [place] Other (1 source) No Known Medication Allergies; Translations: [No Known Medication Allergies] Propensity to adverse reactions (disorder) [facility] Repository Medications Current Medications Medication Drug Class(es) Dates Sig (Normalized) Sig (Original) acetaminophen 325 mg / oxyCODONE hydrochloride 5 mg oral tablet (3 sources) Opioid Agonist Start: 06-20-2022 Percocet 5 mg-325 mg oral tablet See Instructions, 50 tab(s), Refill(s) 0, 1-2 tab(s) Oral q4hr, [facility]/pharmacy #[id number], 179, cm, 06/11/22 14:36:00 EST, [...] day(s), # 60 tab(s), Refills(s) 0, Pharmacy: [facility]/pharmacy #[id number], 179, cm, 06/11/22 14:36:00 EST, [...] pain, # 60 cap(s), Refills(s) 0, Pharmacy: [facility]/pharmacy #[id number], 179, cm, 06/11/22 14:36:00 EST, Height/Length Dosing, 137, kg, 06/11/22 14:36:00 EST, Weight Dosing Start Date: 06/20/22 Status: Ordered Centrum Silver oral tablet (10 sources) Start: 06-01-2022 take 1 tablet by [...] day(s), # 21 cap(s), Refills(s) 0, Pharmacy: [facility]/pharmacy #[id number], 179, cm, 06/11/22 14:36:00 EST, Height/Length Dosing, 137, kg, 06/11/22 14:36:00 EST, Weight Dosing Start Date: 06/20/22 Stop Date: 06/27/22 Status: Ordered 12 hr cetirizine hydrochloride 5 mg / pseudoephedrine hydrochloride 120 mg extended release oral tablet (10 sources) alpha-Adrenergic Agonist, Histamine-1 Receptor Antagonist Start: [...] constipation, # 20 cap(s), Refills(s) 0, Pharmacy: [facility]/pharmacy #[id number], 179, cm, 06/11/22 14:36:00 EST, [...] # 75 gram, Refills(s) 3, Pharmacy: [facility], 178, cm, 07/29/23 14:23:00 EST, Height/Length Dosing, 136, kg, 07/29/23 14:23:00 EST, Weight Dosing Start Date: 01/28/24 Status: Ordered Start: 07-29-2023 AndroGel Pump 20.25 mg/1.25 g (1.62%) transdermal gel = 2 pump, Topical, qAM, apply to clean, dry, intact skin wash hands thoroughly after application, # 75 gram, Refills(s) 3, Pharmacy: [facility], 178, cm, 07/29/23 14:23:00 EST, Height/Length Dosing, 136, kg, 07/29/23 14:23:00 EST, Weight Dosing Start Date: 07/29/23 Status: Ordered testosterone cypionate 200 mg/mL IM Alley (2 sources) Start: 05-20-2024 testosterone c ypionate 200 mg/mL IM Alley 400 mg, IntraMuscular, q4wk, # 10 mL, Refills(s) 3, Pharmacy: [facility], 178, cm, 05/20/24 15:25:00 EST, Height/Length Dosing, 147.2, kg, 05/20/24 15:25:00 EST, Weight Dosing Start Date: 05/20/24 Status: Ordered {20 (nirmatrelvir 150 MG Ora [...] day Not-Taking tadalafil 20 mg oral tablet (5 sources) Phosphodiesterase 5 Inhibitor Start: 07-29-19 take [...] Problem Date Documented Date Episodic/Chronic Abdominal hernia (10 sources) Umbilical hernia 06-01-2022 Episodic Acute bronchitis (5 sources) Acute bronchitis; Translations: [Acute bronchitis due to other specified organisms] Episodic Deficiency and other anemia (18 sources) Anemia; Translations: [Anemia, unspecified] 07-20-2021 Episodic Disorders of lipid metabolism (4 sources) Hyperlipidemia; Translations: [Hyperlipidemia, unspecified] Onset: 05-12-2017 Chronic Essential hypertension (19 sources) Hypertensive disorder; Translations: [Essential hypertension] 07-20-2021 Chronic Joint disorders and dislocations; trauma-related (11 sources) Derangement of left knee; Translations: [Unspecified internal derangement of left knee] Onset: 12-21-2021 Chronic Joint disorders and dislocations; trauma-related (5 sources) Late effect of sprain AND/OR strain without tendon injury; Translations: [Other tear of medial meniscus, current injury, unspecified knee, sequela] Episodic Osteoarthritis (18 sources) Osteoarthritis of left knee joint; Translations: [Unilateral primary osteoarthritis, left knee] Onset: 01-25-2022 Resolved: 01-25-2022 Chronic Other aftercare (5 sources) Aftercare following joint replacement surgery; Translations: [AFTERCARE FOLLOW JNT REPLACE SURG] Onset: 07-12-2022 Chronic Other connective tissue disease (5 sources) Presence of left artificial knee joint; Translations: [PRESENCE LEFT ARTIFICIAL KNEE JOINT] Onset: 07-13-2022 Chronic Other endocrine disorders (5 sources) Testicular hypofunction; Translations: [Testicular hypofunction] Onset: 03-28-2023 Chronic Other endocrine disorders (6 sources) Male hypogonadism 03-28-2023 Chronic Other male genital disorders (5 sources) Erectile dysfunction co-occurrent and due to arterial insufficiency; Translations: [Erectile dysfunction due to arterial insufficiency] Chronic Other male genital disorders (6 sources) Erectile dysfunction due to arterial insufficiency; Translations: [ERECTILE DYSF D/T ART INSUFFICIENCY] Onset: 11-23-2022 Chronic Other male genital disorders (8 sources) Male erectile dysfunction, unspecified; Translations: [Erectile dysfunction] Onset: 07-29-2023 Chronic Other nutritional; endocrine; and metabolic disorders (11 sources) Body mass index 40+ - severely obese 11-17-2021 Chronic Other nutritional; endocrine; and metabolic disorders (13 sources) Morbid obesity; Translations: [Morbid (severe) obesity due to excess calories] 11-08-2021 Chronic Other nutritional; endocrine; and metabolic disorders (2 sources) Obesity; Translations: [Obesity, unspecified] Onset: 08-30-2014 Chronic Other nutritional; endocrine; and metabolic disorders (2 sources) Obese class II; Translations: [Body mass index 39.0-39.9, adult] Onset: 08-30-2014 Chronic Other screening for suspected conditions (not mental disorders or infectious disease) (19 sources) Electrocardiogram abnormal; Translations: [Abnormal electrocardiogram [ECG] [EKG]] Onset: 09-10-2022 Episodic Residual codes; unclassified (20 sources) Obstructive sleep apnea syndrome; Translations: [Obstructive [...] Translations: [Sprain of left knee] Episodic Unclassified (5 sources) Patient encounter status 07-29-2023 Past or Other Problems Problem Classification Problem Date Documented Da te Episodic/Chronic Other non-traumatic joint disorders (1 source) Pain in left knee Onset: 01-25-2022 Resolved: 01-25-2022 Episodic Viral infection (1 source) COVID-19 Results Test Name Value Interpretation Reference Range Facility Urology Office/Clinic Noteon 05-20-2024 Urology Office/Clinic Note Urology Office/Clinic Note Chief Complaint 3 mth f/u w/ testosterone levels HPI Staff 3 month follow up w/T level Previous DX: ED, hypogonadism male, screening PSA Previous T level 142 done 02/08/24 *Androgel 3 pumps daily, Cialis 20mg PRN pt denies any urinary issues today and unable to urinate at this time T level 05/16/24 - 104 History of Present Illness Tests reviewed: UA, T level I have reviewed the previous health record information and history for this patient from JASSON Delgado APRN. I have reviewed and verified the staff [...] HPI. Physical Exam Vitals & Measurements HR: 84(Peripheral) BP: 165/98 HT: 70 in HT: 178 cm WT: 147.2 kg WT: 323.84 lb BMI: 46.46 General Appearance: alert, no distress, well nourished, well developed male. Assessment/Plan Last seen by AO. 1. Hypogonadism male (E29.1: Testicular hypofunction) Testosterone Levels (ref range 264 - 916): 09/06/22 - 276 11/23/22 - 208 08/03/23 - 180 08/31/23 - 191 02/08/24 - 142 05/16/24 - 104 *same lab as prior Increased Androgel to 3 pumps qd at prior OV. Thinks increase dose has helped a little bit but sxs still not where he would like to be. It is possible that his skin isn't allowing for proper absorption of the medication, I do not think he would benefit increasing to 4 pumps daily. Offered to switch to IM injections. Pt is amenable. Will start with high dose due to his poor response to transdermal TRT. Follow up 5 mos with T level or sooner if needed. Pt understands and agrees with plan. -D/c androgel and start Testosterone IM 400 mg q4wks. SEs discussed. Sent to TMS. -Pt understands T level has to be drawn exactly alf in between injections before 10 am. 2. ED (erectile dysfunction) (N52.9: Male erectile dysfunction, unspecified) Prior OV: Took Sildenafil per PCP. [place] this worked well but ran out of rx. [1] Able to achieve 75-80% erection but unable to maintain erection, ongoing for ~3-4yrs. [2] Recommended trying penile ring. Cialis 20 mg PRN. 3. Screening PSA (prostate specific antigen) (Z12.5: Encounter for screening for malignant neoplasm of prostate) PSA: 09/06/22 - 0.42. No known fam hx of prostate ca. [1] Pt unable to provide urine sample today. Follow-up With When Contact Information SHELBY FALCON, Helio Ambriz, URL [facility] [address], [place] [address]- Additional Instructions: 4 mos with T level Patient Education Hypogonadism, Male I, Miranda Colorado, personally scribed for Dr. Ryan on 05/20/2024 16:09:19. . Documentation recorded by the scribe, Miranda Colorado, accurately reflects the services(s) I performed and decisions made by me. Authenticated by Dr. Ryan on 05/20/2024 16:13:24. Problem List/Past Medical History Ongoing Anemia BMI [...] No Known Medication Allergies Social History Alcohol Current. Beer. 1-2 times per week., 05/20/2024 Substance Abuse - Denies Substance Abuse, 11/17/2021 Never., 05/20/2024 Tobacco Former smoker, quit more than 30 days ago Tobacco Use:., 05/20/2024 Family History Asthma: Mother. Hypertension: Mother. Primary malignant neoplasm of bladder: Father. Renal cell carcinoma: Father. Immunizations Vaccine Date Status SARS-CoV-2 (COVID-19) Ad26 vaccine 12/10/2020 Recorded SARS-CoV-2 (COVID-19) Ad26 vaccine 11/19/2020 Recorded Normal [facility] Comment on above: Result Comment: Elec tronically Signed By: Helio RYAN MD\.br\Date and Time Signed: 05/20/24 16:13 EST\.br\Electronically Co-Signed By: Miranda Colorado.br\Date and Time Co-Signed: 05/20/24 16:09 EST Ambulatory Visit Summaryon 0 02-17-2024 Ambulatory Visit [...] Helio RYAN MD Where: [facility] of [address] [place] [address]- You Need to Schedule the Following Appointments Follow Up with JASSON Lockhart APRN, [place], JAYJAY, RAISSAL When: Comments: pt to f/up with Dr. Ryan Where: Follow Up with Helio RYAN MD, URL When: Comments: 3mos w/testosterone level Where: [address] [place] [address] [place] [address]- Medications What How Much When Instructions Unchanged [...] erection. The (more content not included)... Normal [facility] Urology Office/Clinic Noteon 02-17-2024 Urology Office/Clinic Note [...] erectile dysfunction, unspecified) Took Sildenafil per PCP. [place] this worked well but ran out of [...] prostate ca. Follow-up With When Contact Information JASSON Lockhart APRN, Paula Lopez, FAM, URL Additional Instructions: pt to f/up with Dr. Shelby RYAN MD, Helio Ambriz, URL [address] [place] [address]- Additional Instructions: 3mos w/testosterone level Patient Education Erectile Dysfunction Hypogonadism, Male I, Hood Cunningham, personally scribed for JASSON Delgado on 02/17/2024 13:37:51. . Documentation recorded by the scribe Hood Cunningham accurately reflects the services(s) I performed [...] Tobacco Former smoker (more content not included)... [facility] Comment on above: Result Comment: Elec tronically Signed By: JASSON Lockhart APRN, Paula Lopez\.br\Date and Time Signed: 02/17/24 13:46 EDT\.br\Electronically Co-Signed By: Hood Cunningham\.br\Date and Time Co-Signed: 02/17/24 13:38 EDT\.br\Electronically Co-Signed By: Hood Cunningham\.br\Date and Time Co-Signed: 02/17/24 13:38 EDT Pre-Certification Formon Pre-Certification Form [id number] #1.00TIFF [facility] Pre-Certification Form [id number] #1.00TIFF Normal [facility] Lab Reportson 09-02-2023 Lab Reports [id number] #1.00TIFF Normal [facility] Lab Reportson 08-05-2023 Lab Reports [id number] #1.00TIFF Normal [facility] Pre-Certification Formon Pre-Certification Form [id number]# 1.00TIFF Normal [facility] Physician Referralon 024 Physician Referral [id number] #1.00TIFF Normal [facility] Patient Educationon 07-29-19 Patient Education Urology Hypogonadism, [...] Follow these instructions at home: ? Take [id number] and prescription medicines only as told by [...] 03/02/2021 Document (more content not included)... Normal [facility] TESTOSTERONE, TOTALon 2022 Testosterone [Mass/Vol] 208 ng/dL Critically low 264-916 [facility] Comment on above: Result Comment: Adul t male reference interval is based on a population of healthy nonobese males (BMI <30) between 19 and 39 years old. German, et.al. JCEM 2017,102;0580-0065. PMID: [id number]. Performed By: #### T ESTTOT #### [facility] [address] [address] [address] Alla Martinez ECHOCARDIO M/2D COMPLETEon 0 09-17-2022 ECHOCARDIO M/2D COMPLETE Patient: ARNEL PARR Exam Date: 09/17/2022 : 1970 Gender:M Ordering : DR REJI CENTENO D.O. Admission #: [id number] Family : Order #: [id number] CLICK HERE TO VIEW EXAM ECHOCARDIOGRAM REPORT [...] Camara M.D. on 09/20/2022 at 09:22 Normal [facility] TESTOSTERONE, TOTALon 2022 Testosterone [Mass/Vol] 276 ng/dL Normal 264-916 [facility] Comment on above: Result Comment: Adul t male reference interval is based on a population of healthy nonobese males (BMI <30) between 19 and 39 years old. German et.al. JCEM 2017,102;1013-4680. PMID: [id number]. Performed By: #### T ESTTOT #### [facility] [address] [place] [address] Dr. Alla Martinez CBC AUTO DIFFon 09-06-2022 BASO # 0.1 103/ul Normal 0.0-0.1 [facility] Comment on above: Performed By: #### C BC #### [facility] [address] [place] [address] Dr. Alla Martinez Basophils/100 WBC (Bld) 1.6 % Normal 0.2-2.0 [facility] Comment on above: Performed By: #### C BC #### [facility] [address] [place] [address] Dr. Alla Martinez EO # 0.5 103/ul Normal 0.0-0.7 [facility] Comment on above: Performed By: #### C BC #### [facility] [address] [place] [address] Dr. Alla Martinez Eosinophils/100 WBC (Bld) 6.4 % Normal 0.9-7.0 [facility] Comment on above: Performed By: #### C BC #### [facility] [address] [place] [address] Dr. Alla Martinez Erythrocyte distribution width (RBC) [Ratio] 12.8 % Normal 11.0-15.0 [facility] Comment on above: Performed By: #### C BC #### [facility] [address] [place] [address] Dr. Alla Martinez Hematocrit (Bld) [Volume fraction] 40.1 % Critically low 42.0-54.0 [facility] Comment on above: Performed By: #### C BC #### [facility] [address] [place] [address] Dr. Alla Martinez Hemoglobin (Bld) [Mass/Vol] 13.0 g/dL Critically low 14.0-18.0 [facility] Comment on above: Performed By: #### C BC #### [facility] [address] [place] [address] Dr. Alla Martinez IG # 0.06 10e3/ul Critically high 0.00-0.03 [facility] Comment on above: Performed By: #### C BC #### [facility] [address] [place] [address] Dr. Alla Martinez IG % 0.8 % Critically high 0.0-0.5 [facility] Comment on above: Performed By: #### C BC #### [facility] [address] [place] [address] Dr. Alla Martinez LYMPH # 2.5 103/ul Normal 1.2-3.8 [facility] Comment on above: Performed By: #### C BC #### [facility] [address] [place] [address] Dr. Alla Martinez Lymphocytes/100 WBC (Bld) 33.2 % Normal 20.5-60.0 [facility] Comment on above: Performed By: #### C BC #### [facility] [address] [place] [address] Dr. Alla Martinez MANUAL DIFF REQ NO Normal [facility] Comment on above: Performed By: #### C BC #### [facility] [address] [place] [address] Dr. Alla Martinez MCH (RBC) [Entitic mass] 28.3 pg Normal 25.9-34.0 [facility] Comment on above: Performed By: #### C BC #### [facility] [address] [place] [address] Dr. Alla Martinez MCHC (RBC) [Mass/Vol] 32.4 g/dL Normal 29.9-35.2 [facility] Comment on above: Performed By: #### C BC #### [facility] [address] [place] [address] Dr. Alla Martinez MCV (RBC) [Entitic vol] 87.4 fL Normal 80.0-94.0 [facility] Comment on above: Performed By: #### C BC #### [facility] [address] [place] [address] Dr. Alla Martinez MONO # 0.6 103/ul Normal 0.3-0.8 [facility] Comment on above: Performed By: #### C BC #### [facility] [address] [place] [address] Dr. Alla Martinez Monocytes/100 WBC (Bld) 8.3 % Normal 1.7-12.0 [facility] Comment on above: Performed By: #### C BC #### [facility] [address] [place] [address] Dr. Alla Martinez NEUT # 3.8 103/ul Normal 1.4-6.5 [facility] Comment on above: Performed By: #### C BC #### [facility] [address] [place] [address] Dr. Alla Martienz Neutrophils/100 WBC (Bld) 49.7 % Normal 43.0-75.0 [facility] Comment on above: Performed By: #### C BC #### [facility] [address], [place] [address] Dr. Alla Martinez Platelet mean volume (Bld) [Entitic vol] 10.8 fL Normal 9.5-13.5 [facility] Comment on above: Performed By: #### C BC #### [facility] [address] [address] [address] Alla Martinez PLT 228 103/ul Normal 150-450 [facility] Comment on above: Performed By: #### C BC #### [facility] [address] [address] [address] Alla Martinez RBC 4.59 106/ul Critically low 4.70-6.10 [facility] Comment on above: Performed By: #### C BC #### [facility] [address] [address] [address] Alla Martinez WBC 7.6 103/ul Normal 4.0-11.0 [facility] Comment on above: Performed By: #### C BC #### [facility] [address], [place] [address] Dr. Alla Martinez Complete Blood Count and Dif uvaldo 09-06-2022 Anisocytosis Ql (Bld) [facility] [employer] Other Basophilic stippling LM Ql (Bld) [facility] Other RBC morphology finding Nom (Bld) [facility] [employer] Other Complete Blood Count and Diff [facility] [employer] Other Comprehensive Metabolic Pane maria 09-06-2022 Albumin [Mass/Vol] 3.794187 g/dL 3.4-5.0 g/dL [facility] [employer] Other Calcium [Mass/Vol] 8.1311473 mg/dL 8.5-10 .1 mg/dL [place] [employer] Other CO2 [Moles/Vol] 27.75516309 mmol/L 21.0-3 2.0 mmol/L [place] [employer] Other Creatinine [Mass/Vol] 0.48332884 mg/dL 0. 70-1.30 mg/dL [facility] Other Potassium [Moles/Vol] 4.84425518 mmol/L 3 .5-5.1 mmol/L [facility] Other Protein [Mass/Vol] 7.014156 g/dL 6.4-8.2 g/dL N [facility] [employer] Other Urea nitrogen [Mass/Vol] 18.5989116 mg/dL 7.0-18.0 mg/dL [facility] Other Comprehensive Metabolic Panel see note [facility] Other Comprehensive Metabolic Panel 142 mmol/L 136-145 mmol/L [facility] Other Comprehensive Metabolic Panel 115 mg/dL Critically high 74-106 mg/dL [facility] Other Comprehensive Metabolic Panel >60 mL/min/1.73m2 >=60 mL/min/1.73m 2 [facility] Other Comprehensive Metabolic Panel 0.2 mg/dL 0.2-1.0 mg/dL [facility] Other Comprehensive Metabolic Panel 3.8 g/dL [facility] Other Albumin/Globulin [Mass ratio] 0.9 {ratio} Normal [facility] Other Comment on above: Performed By: #### C MP, LIPID #### [facility] [address] [address] [address] Alla Martinez ALP [Catalytic activity/Vol] 93 U/L Normal 46-116 [facility] Other Comment on above: Performed By: #### C MP, LIPID #### [facility] [address], [place] [address] Dr. Alla Martinez ALT [Catalytic activity/Vol] 37 U/L Normal 16-63 [facility] Other Comment on above: Performed By: #### C MP, LIPID #### [facility] [address] [address] [address] Alla Martinez Anion gap [Moles/Vol] 12.1 mmol/L [facility] Other Comment on above: Performed By: #### C MP, LIPID #### [facility] [address] [address] [address] Alla Martinez AST [Catalytic activity/Vol] 21 U/L Normal 15-37 [facility] [employer] Other Comment on above: Performed By: #### C MP, LIPID #### [facility] [address] [address] [address] Alla Martinez Chloride [Moles/Vol] 107 mmol/L Normal 98-107 [facility] [employer] Other Comment on above: Performed By: #### C MP, LIPID #### [facility] [address] [place] [address] Dr. Alla Martinez Urea nitrogen/Creatinine [Mass ratio] 20.2 mg/mg Normal [facility] [employer] Other Comment on above: Performed By: #### C MP, LIPID #### [facility] [address] [place] [address] Dr. Alla Martinez LIPID PROFILEon 09-06-2022 CHOL-HDL RATIO NORM SEE BELOW Normal [facility] Comment on above: Result Comment: 3.3 - 4.4 LOW RISK 4.4 - 7.1 AVERAGE RISK 7.1 - 11.0 MODERATE RISK >11.0 HIGH RISK Performed By: #### C MP, LIPID #### [facility] [address] [place] [address] Dr. Alla Martinez Cholesterol in LDL [Mass/Vol] 89.2 mg/dL Normal [facility] Comment on above: Performed By: #### C MP, LIPID #### [facility] [address] [place] [address] Dr. Alla Martinez HDL NORMAL > or = 60 mg/dl - LOW CARDIOVASCULAR RISK <40 mg/dl - HIGH CARDIOVASCULAR RISK Normal [facility] Comment on above: Performed By: #### C MP, LIPID #### [facility] [address] [address] [address] Alla Martinez LDL CALC NORMAL SEE BELOW Normal [facility] Comment on above: Result Comment: <100 mg/dl OPTIMAL 100 - 129 mg/dl NEAR OR ABOVE OPTIMAL 130 - 159 mg/dl BORDERLINE HIGH 160 - 189 mg/dl HIGH >190 mg/dl VERY HIGH Performed By: #### C MP, LIPID #### [facility] [address] [address] [address] Alla Martinez VLDL CALC 35.8 mg/dL Normal [facility] Comment on above: Performed By: #### C MP, LIPID #### [facility] [address] [address] [address] Alla Martinez Lipid Panelon 09-06-2022 Lipid Panel > or = 60 mg/dl - LOW CARDIOVASCULAR RISK <40 mg/dl - HIGH CARDIOVASCULAR RISK [facility] Other Lipid Panel SEE BELOW [facility] Other Lipid Panel 89.2 mg/dL [facility] Other Lipid Panel 35.8 mg/dL [facility] Other Cholesterol [Mass/Vol] 158 mg/dL Normal <=200 [facility] Other Comment on above: Performed By: #### C MP, LIPID #### [facility] [address] [address] [address] Alla Martinez Cholesterol in HDL [Mass/Vol] 33 mg/dL Critically low 40-60 [facility] Other Comment on above: Performed By: #### C MP, LIPID #### [facility] [address] [place] [address] Dr. Alla Martinez Cholesterol.total/Cho lesterol in HDL [Mass ratio] 4.8 {ratio} Normal [facility] Other Comment on above: Performed By: #### C MP, LIPID #### [facility] [address] [place] [address] Dr. Alla Martinez Triglyceride [Mass/Vol] 179 mg/dL Critically high <=150 [facility] Other Comment on above: Performed By: #### C MP, LIPID #### [facility] [address] [address] [address] Alla Martinez PROF 14(COMP METB)on 023 Albumin [Mass/Vol] 3.5 g/dL Normal 3.4-5.0 [facility] Comment on above: Performed By: #### C MP, LIPID #### [facility] [address] [address] [address] Alla Martinez Bilirubin [Mass/Vol] 0.2 mg/dL Normal 0.2-1.0 [facility] Comment on above: Performed By: #### C MP, LIPID #### [facility] [address] [place] [address] Dr. Alla Martinez Calcium [Mass/Vol] 8.9 mg/dL Normal 8.5-10.1 [facility] Comment on above: Performed By: #### C MP, LIPID #### [facility] [address] [address] [address] Alla Martinez CO2 [Moles/Vol] 27.1 mmol/L Normal 21.0-32.0 [facility] Comment on above: Performed By: #### C MP, LIPID #### [facility] [address] [address] [address] Alla Martinez Creatinine [Mass/Vol] 0.89 mg/dL Normal 0.70-1.30 [facility] Comment on above: Performed By: #### C MP, LIPID #### [facility] [address] [address] [address] Alla Martinez EGFR-AF NIUEAN >60 Normal >=60 [facility] Comment on above: Performed By: #### C MP, LIPID #### [facility] [address] [address] [address] Alla Martinez EGFR-NON AF NIUEAN >60 Normal >=60 [facility] Comment on above: Performed By: #### C MP, LIPID #### [facility] [address] [address] [address] Alla Martinez Globulin (S) [Mass/Vol] 3.8 g/dL Normal [facility] Comment on above: Performed By: #### C MP, LIPID #### [facility] [address] [address] [address] Alla Martinez Glucose [Mass/Vol] 115 mg/dL Critically high 74-106 [facility] Comment on above: Performed By: #### C MP, LIPID #### [facility] [address] [address] [address] Alla Martinez Potassium [Moles/Vol] 4.2 mmol/L Normal 3.5-5.1 [facility] Comment on above: Performed By: #### C MP, LIPID #### [facility] [address] [place] [address] Dr. Alla Martinez Protein [Mass/Vol] 7.3 g/dL Normal 6.4-8.2 [facility] Comment on above: Performed By: #### C MP, LIPID #### [facility] [address] [address] [address] Alla Martinez Sodium [Moles/Vol] 142 mmol/L Normal 136-145 [facility] Comment on above: Performed By: #### C MP, LIPID #### [facility] [address] [place] [address] Dr. Alla Martinez Urea nitrogen [Mass/Vol] 18.0 mg/dL Normal 7.0-18.0 [facility] Comment on above: Performed By: #### C MP, LIPID #### [facility] [address] [place] [address] Dr. Alla Martinez TESTOSTERONE, TOTALon 2022 Testosterone [Mass/Vol] 276 ng/dL 264-916 ng/dL [facility] Other BLOOD BANKOrdered By: Harjeet Cartagena on 06-20-2022 ABO/Rh Interp Negative Invalid Interpretation Code [facility] BB Subsection ABSC Gel Interp Negative (06/20/22 7:53 AM) Normal [facility] BB Subsection BLOOD BANKOrdered By: Shanice Maxwell on 06-01-2022 ABO/Rh Retype Interp Negative Invalid Interpretation Code [facility] BB Subsection CHEMISTRYOrdered By: SYSTEM SYSTEM on 06-01-2022 Anion gap [Moles/Vol] 15 mmol/L Normal 6 - 16 mEq/L [facility] Remisol Chloride [Moles/Vol] 101 mmol/L Normal 101 - 1 11 mmol/L [facility] Remisol CO2 [Moles/Vol] 27 mmol/L Normal 21 - 31 mmol/L FT Remisol Creatinine [Mass/Vol] 1.0 mg/dL Normal 0.5 - 1.3 mg/dL [facility] [place] [facility] Remisol GFR/1.73 sq M.predicted among blacks MDRD (S/P/Bld) [Vol rate/Area] mL/min/1.73 m2 Normal >=59mL/min/1 .73 m2 [facility] Chem S GFR/1.73 sq M.predicted among non-blacks MDRD (S/P/Bld) [Vol rate/Area] mL/min/1.73 m2 Normal >=59mL/min/1 .73 m2 [facility] Chem S Glucose [Mass/Vol] 95 mg/dL Normal 55 - 199 mg/dL [facility] Remisol Potassium [Moles/Vol] 4.0 mmol/L Normal 3.5 - 5.3 mmol/L [facility] Sodium [Moles/Vol] 139 mmol/L Normal 135 - 145 mmol/L [facility] Urea nitrogen [Mass/Vol] 18 mg/dL Normal 5 - 21 mg/dL [facility] [place] Remisol HEMATOLOGYOrdered By: Shanice Maxwell on 06-01-2022 Erythrocyte distribution width (RBC) [Ratio] 12.2 % Normal 10.9 - 14.2 % [facility] HemeAutoSS Hematocrit (Bld) [Volume fraction] 38.0 % Normal 37.7 - 49.0 % [facility] HemeAutoSS Hemoglobin (Bld) [Mass/Vol] 13.0 g/dL Low 13.5 - 17.5 gm/dL [facility] HemeAutoSS MCH (RBC) [Entitic [...] PM) Normal Negative [facility] UA Auto SS [place].plasma/Lithiu m.RBC (Bld) [Mass ratio] 0-3 /HPF Normal [...] PM) Invalid Interpretation Code 1.005 - 1.030 [facility] UA Auto SS UA Spec Desc Clean Catch (06/01/22 4:13 PM) Normal [facility] UA Auto SS Urobilinogen Qn (U) [id number] {Anushka'U}/dL Normal 0.0 - 1.0 EU/dL [facility] UA Auto SS WBC Auto Ql (U) Negative (06/01/22 4:13 PM) Normal Negative [facility] UA Auto SS WBC LM.HPF (Urine sed) [#/Area] 0-5 /HPF Normal 0-5/HPF [facility] UA Auto SS XR knee LT 2Von 01-25-2022 XR knee LT 2V [facility] [place] [address] XRay Report Signed Patient: Arnel Parr MR#: [id number] : 1970 Acct:[id number] Age/Sex: 51 / M ADM Date: 01/25/22 Loc: [facility] Room: Type: [facility] Attending Dr: Anthony Knox MD Copies to: [...] Pérez Jr., D.O.01/25/2022 11:54 AM Dictation Location: [address] [address] Transcribed By: [facility] 01/25/22 1154 Dictated By: Wiliam Pérez Jr, DO 01/25/22 1153 Signed By: 01/25/22 1154 [facility] MRI KNEE LT WO CONon 022 MRI KNEE LT WO CON EXAMINATION: MRI KNEE LT WO CON HISTORY: Derangement of left knee COMPARISON: No relevant comparison available. TECHNIQUE: A complete multi-planar MRI was performed. FINDINGS: MEDIAL COMPARTMENT MEDIAL MENISCUS: Thinned extruded macerated medial meniscus with obuo-bi-lotu articulation CARTILAGE: Severe chondromalacia with subchondral edema [...] OTHER: Negative. IMPRESSION: Severe tricompartmental osteoarthritis with [id number] articulation of the medial compartment and a thinned extruded macerated medial meniscus Chronic anterior cruciate ligament tear Electronically authenticated by: DOLORES FITZGERALD Date: 2021-12-21 10:28 Normal [facility] XR FOREIGN BODY EYEon 2021 XR FOREIGN [...] by: DANG TAYLOR Date: 2021-12-21 08:43 Normal [facility] Vital Signs Date Time Vital Sign Value Performing Clinician Ambre wells 05-20-2024 15:19-0500 Diastolic blood pressure 98 mm[Hg] Helio RYAN [facility] 05-20-2024 15:19-0500 Heart rate 84 /min Helio RYAN [facility] 05-20-2024 15:19-0500 Systolic blood pressure 165 mm[Hg] Helio RYAN [facility] 02-17-2024 12:59-0400 Blood Pressure Location Paula Orzech [facility] 02-17-2024 12:59-0400 Body temperature 96.8 [degF] Paula Orzech [facility] 02-17-2024 12:59-0400 Diastolic blood pressure 68 mm[Hg] Paula Orzech [facility] 02-17-2024 12:59-0400 Heart rate 66 /min Paula Orzech [facility] 02-17-2024 12:59-0400 Respiratory rate 18 /min Paula Orzech [facility] 02-17-2024 12:59-0400 Systolic blood pressure 128 mm[Hg] Paula Orzech [facility] 07-29-2023 14:16-0500 Blood Pressure Location Helio RYAN [facility] 07-29-2023 14:16-0500 Diastolic blood pressure 89 mm[Hg] Helio RYAN [facility] 07-29-2023 14:16-0500 Heart rate 80 /min Helio RYAN [facility] 07-29-2023 14:16-0500 Respiratory rate 16 /min Helio RYAN [facility] 07-29-2023 14:16-0500 Systolic blood pressure 132 mm[Hg] Helio RYAN [facility] 12-14-2022 14:00-0400 Body height 175.26 cm Reji Ball Other [facility] Other 12-14-2022 14:00-0400 Body mass index (BMI) [Ratio] 41.82 kg/m2 Reji Ball Other [facility] Other 12-14-2022 14:00-0400 Body weight 128.46 kg Reji Ball Other [facility] Other 12-14-2022 14:00-0400 Diastolic blood pressure 69 mm[Hg] Reji Ball Other [facility] Other 12-14-2022 14:00-0400 Respiratory rate 12 /min Reji Ball Other [facility] Other 12-14-2022 14:00-0400 Systolic blood pressure 112 mm[Hg] Reji Ball Other [facility] Other 09-05-2022 13:30-0500 Body height 175.26 cm Reji Ball Other [facility] Other 09-05-2022 13:30-0500 Body mass index (BMI) [Ratio] 45.18 kg/m2 Reji Ball Other [facility] Other 09-05-2022 13:30-0500 Body weight 138.8 kg Reji Ball Other [facility] Other 09-05-2022 13:30-0500 Diastolic blood pressure 72 mm[Hg] Reji Ball Other [facility] Other 09-05-2022 13:30-0500 SaO2% (BldA) [Mass fraction] 96 % Reji Ball Other [facility] [employer] Other 09-05-2022 13:30-0500 Systolic blood pressure 140 mm[Hg] Reji Centeno Other [facility] Other 06-20-2022 16:50-0500 Blood Pressure Location Valeriano [employer] [facility] 06-20-2022 16:50-0500 Body temperature 96.8 [degF] Valeriano [employer] [facility] 06-20-2022 16:50-0500 Diastolic blood pressure 62 mm[Hg] Valeriano [employer] [facility] 06-20-2022 16:50-0500 Heart rate 90 /min Valeriano [employer] [facility] 06-20-2022 16:50-0500 Respiratory rate 16 /min Valeriano [employer] [facility] 06-20-2022 16:50-0500 SaO2% (BldA) [Mass fraction] 97 % Valeriano [employer] [facility] 06-20-2022 16:50-0500 Systolic blood pressure 145 mm[Hg] Valeriano [employer] [facility] 06-20-2022 16:00-0500 Body temperature 97.16 [degF] Valeriano [employer] [facility] 06-20-2022 16:00-0500 Diastolic blood pressure 80 mm[Hg] Valeriano [employer] [facility] 06-20-2022 16:00-0500 Heart rate 82 /min Valeriano [employer] [facility] 06-20-2022 16:00-0500 Systolic blood pressure 120 mm[Hg] Valeriano [employer] [facility] 06-20-2022 14:38-0500 Blood Pressure Location Valeriano Francis [facility] 06-20-2022 14:38-0500 Body temperature 96.8 [degF] Valeriano Francis [facility] 06-20-2022 14:38-0500 Diastolic blood pressure 73 mm[Hg] Valeriano Francis [facility] 06-20-2022 14:38-0500 Heart rate 80 /min Valeriano Francis [facility] 06-20-2022 14:38-0500 Respiratory rate 14 /min Valeriano Francis [facility] 06-20-2022 14:38-0500 Systolic blood pressure 112 mm[Hg] Valeriano Francis [facility] 06-20-2022 13:40-0500 SaO2% (BldA) [Mass fraction] 97 % Valeriano Francis [facility] 06-20-2022 13:31-0500 Respiratory rate 11 /min Valeriano Francis [facility] 06-20-2022 13:20-0500 Respiratory rate 14 /min Valeriano Francis [facility] 06-20-2022 13:15-0500 Respiratory rate 15 /min Valeriano Francis [facility] 06-20-2022 07:35-0500 Body temperature 97.7 [degF] Valeriano Francis [facility] 06-20-2022 07:35-0500 Heart rate 70 /min Valeriano Francis [facility] 06-11-2022 14:42-0500 Diastolic blood pressure 84 mm[Hg] Дмитрий Santo [facility] 06-11-2022 14:42-0500 Mean blood pressure 106 mm[Hg] Дмитрий Santo [facility] 06-11-2022 14:42-0500 Systolic blood pressure 149 mm[Hg] Дмитрий Anthonyofferson [facility] 06-11-2022 14:33-0500 Blood Pressure Location Дмитрий Santo [facility] 06-11-2022 14:33-0500 Diastolic blood pressure 87 mm[Hg] Дмитрий Anthonyofferson [facility] 06-11-2022 14:33-0500 Heart rate 79 /min Дмитрий Anthonyofferson [facility] 06-11-2022 14:33-0500 Respiratory rate 18 /min Дмитрий Santo [facility] 06-11-2022 14:33-0500 SaO2% (BldA) [Mass fraction] 98 % Дмитрий Santo [facility] 06-11-2022 14:33-0500 Systolic blood pressure 146 mm[Hg] Дмитрий Santo [facility] 06-01-2022 15:54-0500 Blood Pressure Location Valeriano rFancis [facility] 06-01-2022 15:54-0500 Diastolic blood pressure 93 mm[Hg] Valeriano Francis [facility] 06-01-2022 15:54-0500 Heart rate 67 /min Valeriano Francis [facility] 06-01-2022 15:54-0500 Mean blood pressure 115 mm[Hg] Valeriano Brown [facility] 06-01-2022 15:54-0500 Systolic blood pressure 157 mm[Hg] Valeriano Brown [facility] 06-01-2022 15:53-0500 Blood Pressure Location Valeriano Francis [facility] 06-01-2022 15:53-0500 Body temperature 98.24 [degF] Valeriano Francis [facility] 06-01-2022 15:53-0500 Diastolic blood pressure 92 mm[Hg] Valeriano Francis [facility] 06-01-2022 15:53-0500 Heart rate 71 /min Valeriano Francis [facility] 06-01-2022 15:53-0500 Mean blood pressure 112 mm[Hg] Valeriano Francis [facility] 06-01-2022 15:53-0500 Respiratory rate 16 /min Valeriano Francis [facility] 06-01-2022 15:53-0500 SaO2% (BldA) [Mass fraction] 99 % Valeriano Francis [facility] 06-01-2022 15:53-0500 Systolic blood pressure 153 mm[Hg] Valeriano Francis [facility] 11-17-2021 14:26-0400 Blood Pressure Location Jasbir SAWANT [facility] 11-17-2021 14:26-0400 Diastolic blood pressure 86 mm[Hg] Jasbir VASQUESL [facility] [place] 11-17-2021 14:26-0400 Heart rate 72 /min Jasbir NILL [facility] 11-17-2021 14:26-0400 Respiratory rate 16 /min Jasbir NILL [facility] 11-17-2021 14:26-0400 Systolic blood pressure 124 mm[Hg] Jasbir NILL [facility] [place] Encounters Encounter Date Encounter Type Care Provider Facility Start: 06-19-2024 ambulatory Helio R SHELBY Voi [facility]: [facility] Start: 05-22-2024 End: 05-22-2024 ambulatory Heliotiffany RYAN Facility: [place] Start: 05-22-2024 End: 05-22-2024 Patient encounter procedure Helio RYAN [facility] [place] Start: 05-20-2024 End: 05-20-2024 ambulatory Heliotiffany RYAN Facility:[facility] Start: 05-20-2024 End: 05-20-2024 Patient encounter procedure Helio RYAN [facility] [employer] Start: 02-17-2024 End: 02-17-2024 ambulatory Paula X Orzech Facility:[facility] Start: 02-17-2024 End: 02-17-2024 Patient encounter procedure Paula X Orzech [facility] [employer] Start: 02-13-2024 End: 02-13-2024 ambulatory LEROY RAMIREZ Facility: [place] Start: 02-13-2024 End: 02-13-2024 Patient encounter procedure LEROY RAMIREZ [facility] [place] [employer] Start: 07-29-2023 End: 07-29-2023 ambulatory Heliotiffany RYAN Facility:[facility] Start: 07-29-2023 End: 07-29-2023 Patient encounter procedure Helio RYAN [facility] [place] Start: 06-20-2023 End: 06-20-2023 ambulatory VALERIANO FRANCIS Not Available Start: 05-08-2023 End: 05-08-2023 ambulatory Reji Centeno Other [facility] Other Start: 05-08-2023 Telephone encounter Reji AKINS [facility] Start: 04-16-2023 End: 04-16-2023 ambulatory Reji Centeno Other [facility] Other Start: 04-16-2023 Telephone encounter Reji AKINS [facility] Start: 04-01-2023 End: 04-01-2023 Patient encounter procedure Helio RYAN [facility] Start: 12-14-2022 End: 12-14-2022 ambulatory Reji Centeno Other [facility] Other Start: 12-14-2022 Office outpatient visit 15 minutes Reji Centeno [facility] Start: 11-23-2022 End: 11-24-[address] REJI CENTENO Facility:[facility] Start: 09-17-2022 End: 09-18-[address] REJI CENTENO Facility:[facility] Start: 09-10-2022 Encounter for genera l adult medical examination without abnormal findings DR REJI CENTENO [facility] Start: 09-06-2022 Telephone encounter Reji Centeno [facility] Start: 09-06-2022 End: 09-07-[address] REJI CENTENO [employer] Other Start: 09-06-2022 End: 09-07-2022 Encounter for general adult medical examination without abnormal findings DR REJI CENTENO Facility:[facility] Start: 09-05-2022 End: 09-05-2022 ambulatory Reji Centeno Other [facility] Other Start: 09-05-2022 Encounter for genera l adult medical examination without abnormal findings Reji Centeno [facility] Start: 09-05-2022 Periodic preventive med est patient 40-64yrs Reji Centeno [facility] Start: 07-15-2022 End: 08-11-2022 ambulatory VALERIANO FRANCIS Facility:[facility] Start: 07-12-2022 End: 07-14-2022 ambulatory VALERIANOSATISH FRANCIS Facility:[facility] Start: 06-20-2022 End: 06-20-2022 Admission to same day surgery center Valerianosatish Francis [facility] Start: 06-14-2022 End: 09-13-2022 Recurring Дмитрий Santo [facility] Start: 06-11-2022 End: 06-11-2022 Patient encounter procedure Дмитрий Santo [facility] Start: 06-01-2022 ambulatory Facility:1 [id number] Start: 06-01-2022 End: 06-01-2022 Patient encounter procedure Valeriano A Tito [facility] Start: 01-25-2022 End: 01-25-2022 ambulatory Anthony Knox Other [facility] Other Start: 01-25-2022 Office outpatient ne w 30 minutes Anthony Knox [facility] Start: 01-25-2022 End: 01-25-2022 Patient encounter procedure MD Anthony Knox Work Phone: [facility] Start: 12-21-2021 End: 12-22-[address] REJI CENTENO Facility:[facility] Start: 11-17-2021 End: 11-17-2021 Patient encounter procedure Jasbir SAWANT [facility] Start: 07-10-2021 Adult health examination Reji Centeno Other [facility] Other Procedures Date Procedure Procedure Detail Performing Clinician Start: 09-06-[address] JESSICA VEGA JACOBO Comment on above: Performed By: #### P [facility] #### [facility] [address] [place] [address] Dr. Alla Martinez Start: 06-20-2022 Arthroplasty of knee Ja satish Francis Comment on above: Left Total Knee Arth roplsty, Robotic Assisted Start: 01-25-2022 X-ray of left knee MD Esperanza Knox Work Phone: Start: 11-27-2021 Colonoscopy Valeriano Rickie brandt Start: 08-30-2014 General examination of patient Reji Centeno Other Amputation of finger , except thumb Jasbir NILL Excision of lipoma Jasbir Brandt ILL Tonsillectomy and adenoidectomy Jasbir NILL Immunizations Immunization Date Immunization Notes Care Provider Fa cility 12-10-2020 COVID-19 Vaccine Pfi zer - Documentation Purposes Only Reji Centeno Other [facility] Other 12-10-2020 SARS-CoV-2 (COVID-19 ) Ad26 vaccine, recombinant Jasbir NILL [facility] 11-19-2020 SARS-CoV-2 (COVID-19 ) Ad26 vaccine, recombinant Jasbir NILL [facility] Payers Date Payer Category Payer Unknown [id number]. [id number] 1970 Unknown [id number] 2.16. [id number] 1970 Unknown [id number] 2.16.84 [id number] 1970 Unknown [id number] 2.16.84 [id number] 1972 Unknown [id number] 2.16.84 [id number] 1972 Unknown [id number] 2.16.84 [id number] 1972 Unknown [id number] 2.16.84 0.1.921022.3.579.2.593 1972 Unknown [id number] 2.16.84 0.1.135199.3.579.2.593 1972 Unknown [id number] 2.16.840 .1.653053.3.579.2.1259 1972 Unknown [id number] 2.16.840 .1.358375.3.579.2.1259 1972 Unknown [id number] 2.16.8 40.1.220337.3.579.2.727 1972 Unknown [id number] 2.16.8 40.1.085440.3.579.2.727 1972 Unknown [id number] 2.16.8 40.1.647080.3.579.2.727 1972 Unknown [id number] 2.16.8 40.1.270112.3.579.2.727 1972 Unknown [id number] 2.16.8 40.1.650311.3.579.2.727 1972 Unknown [id number] 2.16.8 40.1.478080.3.579.2.727 1957 [facility] [id number] Self-pay Self Pay [id number] Social History Date Type Detail Facility Start: 11-17-2021 End: 05-20-2024 Tobacco smoking status Ex-smoker (finding) [facility] Tobacco smoking status Smokeless tobacco user within last 30 days [facility] Sex Assigned At Male Genera [facility] [place] Start: 1970 Sex Assigned At Male [facility] Medical Equipment Procedure Code Equipment Code [...] 06-20-2022 Functional Status Date Assessment Result Facility 05-20-2024 Functional Status N/A [facility] 02-17-2024 Functional Status N/A [facility] 07-29-2023 Functional Status N/A [facility] [place] 06-11-2022 Functional Status N/A [facility] 06-01-2022 Functional Status No [facility] Clinical Notes 01-25-2022 to 05-20-2024 Note Date & Type Note Facility 05-20-2024 Hospital Discharg e instructions Patient Education 05/20/2024 16:04:56 Hypogonadism, Male Hypogonadism, Male Male hypogonadism is [...] therapy. Follow these instructions at home: Take [id number] and prescription medicines only as told by [...] provider. Document Revised: 03/02/2021 Document Reviewed: 03/02/2021 [email or web address] Patient Education 2023 [employer]. Follow Up Care 02/17/2024 13:37:01 With:SHELBY FALCON, Helio Ambriz, URL Address: [facility] [address] , [place] [address]- When: Unknown [facility] [place] 05-20-2024 Note Patient Education Urology Hypogonadism, Male Male hypogonadism is a condition of having a level of testosterone that is lower than normal. Testosterone is a chemical, or hormone, that is made mainly in the testicles. In boys, testosterone is responsible for the development of male characteristics during puberty. These include: ??? Making the penis bigger. ??? Growing and building the muscles. ??? Growing facial hair. ??? Deepening the voice. In adult men, testosterone is responsible for maintaining: ??? An interest in sex and the ability to have sex. ??? Muscle mass. ??? Sperm production. ??? Red blood cell production. ??? Bone strength. Testosterone also gives men energy [...] the causes? This condition is caused by: ??? A natural decrease in testosterone that occurs as a man grows older. This is the main cause of this condition. ??? Use of medicines, such as antidepressants, steroids, and opioids. ??? Diseases and conditions that affect the testicles [...] symptoms? Common symptoms of this condition include: ??? Loss of interest in sex (low sex drive). ??? Inability to have or maintain an erection (erectile dysfunction). ??? Feeling tired (fatigue). ??? Mood changes, like irritability or depression. ??? Loss of muscle and body hair. ??? Infertility. ??? Large breasts. ??? Weight gain (obesity). How is this diagnosed? Your health care provider can diagnose hypogonadism based on: ??? Your signs and symptoms. ??? A physical exam to check your testosterone [...] replacement therapy. Testosterone can be given by: ??? Injection or through pellets inserted under the skin. ??? Gels or patches placed on the skin or in the mouth. Testosterone therapy is not for everyone. It has risks and side effects. Your health care provider will consider your medical history, your risk for prostate cancer, your age, and your symptoms before putting you on testosterone replacement therapy. Follow these instructions at home: ??? Take qdnq-ziw-xptfvuu and prescription medicines only as told by your health care provider. ??? Eat foods that are high in fiber, such as beans, whole grains, and fresh fruits and vegetables. Limit foods that are high in fat and processed sugars, such as fried or sweet foods. ??? If you drink alcohol: ? Limit how much you have to 0?2 drinks a day. ? Know how much alcohol is in your drink. In the [place] one drink equals one 12 oz bottle of beer (355 mL), one 5 oz glass of wine (148 mL), or one 1? oz glass of hard liquor (44 mL). ??? Return to your normal activities as told by your health care provider. Ask your health care provider what activities are safe for you. ??? Keep all follow-up visits. This is important. Contact a health care provider if: ??? You have any of the signs or symptoms of low testosterone. ??? You have any side effects from testosterone therapy. Summary ??? Male hypogonadism is a condition of having a level of testosterone that is lower than normal. ??? The natural drop in testosterone production that occurs with age is the most common cause of this condition. ??? Low testosterone can also be caused by many diseases and conditions that affect the testicles and the making of testosterone. ??? This condition is treated with testosterone replacement therapy. ??? There are risks and side effects of testosterone therapy. Your health care provider will consider your age, medical history, symptoms, and risks for prostate cancer before putting you on testosterone therapy. This information is not intended to replace advice given to you by your health care provider. Make sure you discuss any (more content not included)... [facility] 02-17-2024 Hospital Discharg e instructions Patient Education [...] Follow these instructions at home: Medicines Take oxih-zpo-cdgefft and prescription medicines only as told by [...] provider. Document Revised: 09/27/2021 Document Reviewed: 09/27/2021 [email or web address] Patient Education 2022 [employer]. 02/17/2024 13:19:08 Hypogonadism, Male Hypogonadism, Male Male [...] therapy. Follow these instructions at home: Take fgpx-slm-axichdn and prescription medicines only as told by [...] provider. Document Revised: 03/02/2021 Document Reviewed: 03/02/2021 [email or web address] Patient Education 2022 [employer]. Follow Up Care 02/12/2024 15:29:23 With:JASSON Lockhart APRN, Paula Lopez, JAYJAY, URL Address: When: Unknown Comments:pt to f/up with Dr. Ryan With:SHELBY FALCON, Helio Ambriz, URL Address: [address] [place] [address]- When: Unknown Comments:3mos w/testosterone level [facility] 02-17-2024 Note Patient Education Urology Erectile Dysfunction [...] these instructions at home: Medicines ? Take phbf-myv-gynkkpp and prescription medicines only as told by [...] or tobacco. These (more content not included)... [facility] 07-29-2023 [facility] Discharg e instructions Follow Up Care 07/29/2023 15:19:19 With:SHELBY FALCON, Helio Ambriz, URL Address: [facility] [address] , [place] [address]- [phone] When: Unknown [facility] 07-29-2023 [facility] Discharg e instructions Patient Education 07/29/2023 [...] therapy. Follow these instructions at home: Take nirl-wmn-pksfupg and prescription medicines only as told by [...] provider. Document Revised: 03/02/2021 Document Reviewed: 03/02/2021 [email or web address] Patient Education 2022 [employer]. Follow Up Care 04/16/2023 11:59:27 With:SHELBY FALCON, Helio Ambriz, URL Address: [facility] [address] [place] [address]- [phone] When: Unknown Comments:3 mos w/ T level [facility] [place] 07-29-2023 Note Chief Complaint referral for [...] erectile dysfunction, unspecified) Took Sildenafil per PCP. [place] this worked well but ran out of [...] prostate) PSA 09/06/22 (more content not included)... [facility] Comment on above: Result Comment: Elec tronically Signed By: Helio RYAN MD\.br\Date and Time Signed: 07/29/23 15:24 EST\.br\Electronically Co-Signed By: Elana Arredondo.eli\Date and Time Co-Signed: 07/29/23 15:17 EST 05-08-2023 Evaluation note Encounter Date Diagnosis Assessment Notes Apr, COVID (ICD-10 - U07.1) [facility] 06-26-2023 Hospital Discharge instructions Follow Up Care 01/07/2023 10:27:30 With:SHELBY FALCON, Helio Ambriz, URL Address: [facility] [address], [place] [address]- [phone] When: Unknown [facility] 06-02-2023 Evaluation note* Encounter Date Diagnosis Assessment [...] low testosterone, which may result improved function [facility] 02-23-2023 Evaluation note* Encounter Date Diagnosis Assessment Notes Treatment Notes Treatment Clinical Notes Aug, Abnormal EKG (ICD-10 - R94.31) Aug, Abnormal nuclear stress test (ICD-10 - R94.39) [facility] 02-22-2023 Evaluation note* Encounter Date Diagnosis Assessment Notes Treatment Notes Treatment Clinical Notes Aug, Wellness examination (ICD-10 - Z00.00) Healthy diet and exercise. Reviewed age-appropriate preventive testing recommended. Aug, Primary hypertension (ICD-10 - I10) Aug, Obstructive sleep apnea (ICD-10 - G47.33) This patient is aware of the benefits associated with ANAHY: With continued use, the patient reduces the risk for MS, CVA, HTN, cardiac dysrhythmias and sudden cardiac [...] (ICD-10 - Z12.5) Yearly PSA and GUERDA [facility] 12-07-2022 Hospital Discharge instructions Patient Education 06/20/2022 14:01:04 Knee Cryocuff Patient Instructions - FT (CUSTOM) 06/20/2022 14:00:47 Post Op Patient Instructions - FT (CUSTOM) 06/20/2022 10:21:15 Alejandra Francis - Total Knee Arthroplasty (Custom) [place], [place] [facility] DISCHARGE INSTRUCTIONS: TOTAL KNEE [...] will continue at home, possibly with the web assistant of Home Health Physical Therapy or [...] Driving too soon, 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 It is therefore advised not to drive until after yourfirst office visit following surgery. FOLLOW-UP OFFICE VISIT: Valeriano Francis, DO [facility] [address] [place] [id number] Reviewed: Follow Up Care 05/25/2022 08:46:50 With:Valeriano Francis Address: [address] [place] [phone]- Business (1) When: Unknown [facility]12-07-2022 Evaluation + Plan noteExtracted from: Title:ASHELY POSTOP Author:Anthony Marin DO Date: 06/20/22 Plan Transfer/ Discharge: Patient can be discharged from PACU when criteria met. Condition good. Extracted from: Title:ASHELY PREOP Author:Anthony Marin DO Date:08/21/21 Plan [place] [employer] (ASA) physical status classification: [...] discussed. Pt aware and desires to proceed. [facility]07-14-2022 Evaluation note* Encounter Date Diagnosis Assessment [...] to consider total knee arthroplasty in future [facility] Evaluation + Plan note Future Appointments Appointment Date:11/27/2021 09:30:00 AM Scheduled Provider: Location:[facility] Appointment Type:Surgery FT General Surgery [employer] Evaluation + Plan note Future Appointments Appointment Date:06/20/2022 08:30:00 AM Scheduled Provider: Location:[facility] Future Appointments Appointment Date:06/20/2022 08:30:00 AM Scheduled Provider: Location:[facility] Appointment Type:Surgery FT Future Scheduled Tests Radiology* NM Myocardial Spect Rest/Stress 2 Day [facility]12[facility] Future Appointments Appointment Date:10/28/2023 02:45:00 PM Scheduled Provider:Helio RYAN MD Location:[facility] Appointment Type:URO Office Visit Diagnostic Tests Pending * Testosterone Level Total 07/29/23 [facility] evaluation + Plan note Future Appointments Appointment Date:02/17/2024 01:00:00 PM Scheduled Provider:JASSON Lockhart APRN, [place] Location:[facility] Appointment Type:URO Office Visit [facility] evalvazswo + Plan note Future Appointments Appointment Date:05/20/2024 03:15:00 PM Scheduled Provider:Helio RYAN MD Location:[facility] Appointment Type:URO Office Visit Diagnostic Tests Pending * Testosterone Level Total 02/17/24 [facility] evaluation + Plan note Future Appointments Appointment Date:05/22/2024 08:30:00 AM Scheduled Provider: Location:[facility] Appointment Type:URO Nurse Visit Diagnostic Tests Pending * Testosterone Level Total 05/20/24 [facility] Evaluation + Plan note Future Appointments Appointment Date:06/19/2024 08:00:00 AM Scheduled Provider: Location:[facility] Appointment Type:URO Nurse Visit [facility] evaluation noteNo assessment information available [facility] Work Phone: evaluation noteNo InformationNomissouri [facility] App47 Other History general Narrative - Reported* Type Description Date Medical History high blood pressure [facility] general Narrative - Reported* Type Description Date [...] KNEE ARTHROPLASTY 022 Surgical History COLONOSCOPY 11/28/2021 [facility] His[facility] general Narrative - Reported* Type Description Date [...] COLONOSCOPY 11/28/2021 Hospitalization History SEE SURGICAL HX [facility] Other Hospital course Narrative No data available for this section General Surgery [facility] Discharge instructions No data available for this section [facility] Surgery [facility] note No data available for this section [facility] Reason Referral for low ludy tosterone Diagnosis 1 Low testosterone in male (R79.89) Referral Organization [facility] wendy Referring Provider First Name Reji Referring Provider Last Name Jacobo Referring Provider Specialty Internal Me dicine Referred Organization [facility] Referred Provider Helio Ryan Referred Address [address] [place], [place],[address] Referred Provider Specialty Urology Referral Priority Routine General Notes Arnel presented w/ complaints of fatigue, decreased libido and ED. His initial testosterone level was low normal but his repeat level, after waiting 3 months, was low. He is being referred to be counseled on hormone replacement therapy and if appropriate, to initiate treatment Clinical Notes Include labs from [facility] Other Summary Purpose Family History No Family [...] section and content) DATE CREATED AUTHOR 02/04/[address] [facility] DATE CREATED AUTHOR AUTHOR'S ORGANIZ ATION 07/12/2022 [facility] DATE CREATED AUTHOR AUTHOR'S ORGANIZ ATION 11/26/2022 [facility] DATE CREATED AUTHOR AUTHOR'S ORGANIZ ATION 06/23/2023 [facility] DATE CREATED AUTHOR AUTHOR'S ORGANIZ ATION 05/24/2024 [facility] FOR RECORDS PERTAINING TO PATIENTS WHO ARE [...] BE BASED ON THE PRIMARY CLINICAL RECORDS. [employer] [facility]. provides no warranty or guarantee of the accuracy or completeness of information in this document.
[2024-05-30 08:26] LABS: Basophils Absolute Auto 0.1 10^3/uL (0.0-0.1); Basophils Percent Auto 1.1 % (0.2-2.0); Eosinophils Absolute Auto 0.2 10^3/uL (0.0-0.7); Eosinophils Percent Auto 2.3 % (0.9-7.0); Hematocrit 41.9 % (42.0-54.0); Hemoglobin 13.7 g/dL (14.0-18.0); Immature Granulocytes Abs Auto 0.07 10^3/uL (0.00-0.03); Immature Granulocytes Pct Auto 0.7 % (0.0-0.5); Lymphocytes Absolute Auto 2.6 10^3/uL (1.2-3.8); Mean Corpuscular HGB Conc 32.7 g/dL (29.9-35.2); Mean Corpuscular Hemoglobin 29.5 pg (25.9-34.0); Mean Corpuscular Volume 90.3 fL (80.0-94.0); Mean Platelet Volume 11.1 fL (9.5-13.5); Monocytes Absolute Auto 0.7 10^3/uL (0.3-0.8); Monocytes Percent Auto 7.4 % (1.7-12.0); Neutrophils Absolute Auto 5.7 10^3/uL (1.4-6.5); Neutrophils Percent Auto 60.5 % (43.0-75.0); Platelet Count 245 10^3/uL (150-450); Red Blood Count 4.64 10^6/uL (4.70-6.10); White Blood Count 9.4 10^3/uL (4.0-11.0)
[2024-05-30 09:02] LABS: Alanine Aminotransferase 50 U/L (16-63); Albumin Globulin Ratio 0.9; Albumin Level 3.3 g/dL (3.4-5.0); Alkaline Phosphatase 71 U/L (46-116); Anion Gap 14.3; Aspartate Amino Transferase 21 U/L (15-37); BUN Creatinine Ratio 12.7; Bilirubin Total 0.2 mg/dL (0.2-1.0); Calcium 8.4 mg/dL (8.5-10.1); Carbon Dioxide 25.6 mmol/L (21.0-32.0); Chloride 110 mmol/L (98-107); Chol HDL Ratio 3.4; Cholesterol 131 mg/dL (<=200); Estimated GFR (African America >60 (>=60 mL/min/1.73m^2); Estimated GFR (Non-African Ame >60 (>=60 mL/min/1.73m^2); Globulin 3.7 g/dL; Glucose 121 mg/dL (74-106); HDL Cholesterol 38 mg/dL (40-60); Potassium 3.9 mmol/L (3.5-5.1); Sodium 146 mmol/L (136-145); Triglycerides 124 mg/dL (<=150); VLDL CHOLESTEROL 24.8 mg/dL
== END 2024-05-30 08:10 | disposition home or self-care (01) ==
LOC: LAB 08:10
PROVIDERS: PCP Internal Medicine; Visit Provider Internal Medicine
DX: Z00.00 Encounter for general adult medical examination without abnormal findings (principal); Z12.5 Encounter for screening for malignant neoplasm of prostate
CPT/HCPCS: 36415; 80053; 80061; 85025; G0103

== ENCOUNTER 2024-08-29 09:42 | Outpatient (OUT) | payer BC, SELFPAY ==
--- OUTSIDE RECORDS SUMMARY | 2024-08-29 09:46 | XMS_ITS | CCD ---
Author Organization [facility] CliniSyfl Care Team Providers Care Director Of Retail Merchandising Name Role Phone REJI CENTENO Primary Care Physician Anthony Knox MD Anthony Knox Attending Provider Lucy Sparks Unavailable Unavailable Reji Centeno Unavailable DK, DR MENDOZA Admitting Unavailable BALL, DR MENDOZA Attending Unavailable BALL, DR MENDOZA Primary Care Unavailable DK, DR MENDOZA Consulting Unavailable BALL, DR MENDOZA Admitting Unavailable BALL, DR MENDOZA Attending Unavailable BALL, DR MENDOZA Primary Care Unavailable BALL, DR MENDOZA Consulting Unavailable BALL, DR MENDOZA Admitting Unavailable BALL, DR MENDOZA Attending Unavailable BALL, DR MENDOZA Primary Care Unavailable BALL, DR MENDOZA Consulting Unavailable VISHNU, VALERIANO Arroyo Admitting Unavailable BROWN, VALERIANO Arroyo Attending Unavailable BALL, DR MENDOZA Primary Care Unavailable VISHNU, VALERIANO Arroyo Admitting Unavailable BROWN, VALERIANO A Attending Unavailable BALL, DR MENDOZA Primary Care Unavailable BALL, DR MENDOZA Admitting Unavailable BALL, DR MENDOZA Attending Unavailable BALL, DR MENDOZA Primary Care Unavailable BALL, DR MENDOZA Consulting Unavailable WEST, DR DOLORES Otero Consulting Unavailable FALVO, DANG Consulting Unavailable Reji Centeno MD Primary Care Provider JOE BENSON Referring Unavailable JOE BENSON Attending Unavailable JOE BENSON Referring Unavailable Helio RYAN Attending Unavailable RYAN, Helio Ambriz Attending Unavailable RYANALMA Attending Unavailable RYAN, Helio Ambriz Attending Unavailable RYAN, Helio Ambriz Attending Unavailable OrzechPaula Attending Unavailable RYAN, Helio Ambriz Attending Unavailable RYAN, Helio Ambriz Attending Unavailable LEROY RAMIREZ Attending Unavailable Allergies Allergy Classification Reported Allergen(s) Allergy Type Date of Onset Reaction(s) Facility (2 sources) patient allergy list reviewed by nurse or physicia Propensity to adverse reactions 5 Comment:Done [facility] Other (1 source) No Known Medication Allergies; Translations: [No Known Medication Allergies] Propensity to adverse reactions (disorder) [facility] Repository Medications Current Medications Medication Drug Class(es) Dates Sig (Normalized) Sig (Original) acetaminophen 325 mg / oxyCODONE hydrochloride 5 mg oral tablet (3 sources) Opioid Agonist Start: 06-20-2022 Percocet 5 mg-325 mg oral tablet See Instructions, 50 tab(s), Refill(s) 0, 1-2 tab(s) Oral q4hr, [id number], 179, cm, 06/11/22 14:36:00 EST, Height/Length [...] day(s), # 60 tab(s), Refills(s) 0, Pharmacy: [id number], 179, cm, 06/11/22 14:36:00 EST, Height/Length [...] pain, # 60 cap(s), Refills(s) 0, Pharmacy: [id number], 179, cm, 06/11/22 14:36:00 EST, Height/Length Dosing, 137, kg, 06/11/22 14:36:00 EST, Weight Dosing Start Date: 06/20/22 Status: Ordered Centrum Silver oral tablet (13 sources) Start: 06-01-2022 take 1 tablet by [...] day(s), # 21 cap(s), Refills(s) 0, Pharmacy: [id number], 179, cm, 06/11/22 14:36:00 EST, Height/Length Dosing, 137, kg, 06/11/22 14:36:00 EST, Weight Dosing Start Date: 06/20/22 Stop Date: 06/27/22 Status: Ordered 12 hr cetirizine hydrochloride 5 mg / pseudoephedrine hydrochloride 120 mg extended release oral tablet (13 sources) alpha-Adrenergic Agonist, Histamine-1 Receptor Antagonist Start: [...] constipation, # 20 cap(s), Refills(s) 0, Pharmacy: [id number], 179, cm, 06/11/22 14:36:00 EST, Height/Length [...] sources) Angiotensin Converting Enzyme Inhibitor Start: 07-20-2021 End: 11-08-2024 take 1 tablet by mouth once daily [...] 1 tablet Orally Once a day Not-Taking loratadine 10 mg oral tablet (9 sources) Start: 05-29-2024 take 1 tablet by mouth once daily Loratadine (Claritin) 10 mg tablet Active 10 MG PO Daily May 29, 2024 12:00am take 1 tablet by mouth in the mo rning loratadine (Claritin Reditabs) 10 MG disintegrating tablet Take 10 mg by mouth in the morning. Active Claritin Not-Kai ing Claritin Active Multiple Vitamin (multivitamin) tablet (2 sources) take 1 tablet by mouth in the morning Multiple Vitamin (multivitamin) tablet Take 1 tablet by mouth in the morning. Active Multivitamin tablet (1 source) Start: take 1 tablet by mouth once daily Multivitamin tablet Active 1 TAB PO Daily May 29, 2024 12:00am Osteo Bi-Flex Adv Joint Shield (5 sources) Osteo Bi-Flex Ad v Joint Shield Active sildenafil 100 mg oral tablet (8 sources) Phosphodiesterase 5 Inhibitor Start: take 1 tablet by mouth once daily as needed Sildenafil 100 mg tablet Active MG PO May 29, 2024 12:00am FreeTextSi tablet Orally Once a day as needed for ED; Note: Source Status: Taking; Refills: 5; Provider: Dk Bardales 1 ml testosterone cypionate 200 mg/ml injection (5 sources) Androgen Start: testosterone cypionate (Depo-Testosterone) 200 MG/ML injection 06/18/2024 Active Start: 01-28-2024 AndroGel Pump 20.25 mg/1.25 g (1.62%) transdermal [...] application, # 75 gram, Refills(s) 3, Pharmacy: [facility], 178, cm, 07/29/23 14:23:00 EST, Height/Length Dosing, 136, kg, 07/29/23 14:23:00 EST, Weight Dosing Start Date: 07/29/23 Status: Ordered Testosterone 100 mg/mL suspension (1 source) Start: 05-29-2024 Testosterone 1 00 mg/mL suspension Active MG IM May 29, 2024 12:00am testosterone cypionate 200 m g/mL IM Alley (5 sources) Start: 06-18-2024 testosterone c ypionate 200 mg/mL IM Alley 400 mg, IntraMuscular, q4wk, # 2 mL, Refills(s) 0, Pharmacy: [id number], 178, cm, 05/20/24 15:25:00 EST, Height/Length Dosing, 147.2, kg, 05/20/24 15:25:00 EST, Weight Dosing Start Date: 06/18/24 Status: Ordered Start: 05-20-2024 testosterone c ypionate 200 mg/mL IM Alley 400 mg, IntraMuscular, q4wk, # 10 mL, Refills(s) 3, Pharmacy: [facility], 178, cm, 05/20/24 15:25:00 EST, Height/Length [...] Sig (Original) hydroCHLOROthiazide 12.5 mg oral tablet (6 sources) Thiazide Diuretic Start: End: take 1 tablet by mouth once daily in the morning Hydrochlorothiazide 12.5 mg tablet Discontinued 1 TAB PO Daily May 29, 2024 12:00am May 29, 2024 9:19am FreeTextSi tablet in the morning Orally Once a day; Note: Source Status: Not-TakingundefinedPRN; Provider: Dk Mendoza ( ) take 1 tablet by elizabeth th every twenty-four hours hydroCHLOROthiazide 12.5 MG 1 tablet in the morning Orally Once a day Not-Taking lovastatin 20 mg oral tablet (6 sources) HMG-CoA Reductase Inhibitor Start: 05-29-2024 End: 05-29-2024 take 1 tablet by mouth once daily Lovastatin 20 mg tablet Discontinued 1 TAB PO Daily May 29, 2024 12:00am May 29, 2024 9:19am FreeTextSi tablet with the evening meal Orally Once a day; Note: Source Status: Not-TakingundefinedPR N; Provider: Dk Mendoza ( ) take 1 tablet by mouth once yuval y Lovastatin 20 MG 1 tablet with the evening meal Orally Once a day Not-Taking tadalafil 20 mg oral tablet (10 sources) Phosphodiesterase 5 Inhibitor Start: 07-29-2023 take 1 tablet by mouth every hour [...] Problem Date Documented Date Episodic/Chronic Abdominal hernia (13 sources) Umbilical hernia 06-01-2022 Episodic Acute bronchitis (5 sources) Acute bronchitis; Translations: [Acute bronchitis due to other specified organisms] Episodic Deficiency and other anemia (20 sources) Anemia; Translations: [Anemia, unspecified] 07-20-2021 Episodic Disorders of lipid metabolism (4 sources) Hyperlipidemia; Translations: [Hyperlipidemia, unspecified] Onset: 05-12-2017 Chronic Essential hypertension (20 sources) Hypertensive disorder; Translations: [Essential hypertension] 07-20-2021 Chronic Joint disorders and dislocations; trauma-related (11 sources) Derangement of left knee; Translations: [Unspecified internal derangement of left knee] Onset: 12-21-2021 Chronic Joint disorders and dislocations; trauma-related (5 sources) Late effect of sprain AND/OR strain without tendon injury; Translations: [Other tear of medial meniscus, current injury, unspecified knee, sequela] Episodic Osteoarthritis (20 sources) Osteoarthritis of left knee joint; Translations: [Unilateral primary osteoarthritis, left knee] Onset: 01-25-2022 Resolved: 01-25-2022 Chronic Other aftercare (5 sources) Aftercare following joint replacement surgery; Translations: [AFTERCARE FOLLOW JNT REPLACE SURG] Onset: 07-12-2022 Chronic Other connective tissue disease (5 sources) Presence of left artificial knee joint; Translations: [PRESENCE LEFT ARTIFICIAL KNEE JOINT] Onset: 07-13-2022 Chronic Other endocrine disorders (7 sources) Testicular hypofunction; Translations: [Testicular hypofunction] Onset: 03-28-2023 Chronic Other endocrine disorders (9 sources) Male hypogonadism 03-28-2023 Chronic Other male genital disorders (5 sources) Erectile dysfunction co-occurrent and due to arterial insufficiency; Translations: [Erectile dysfunction due to arterial insufficiency] Chronic Other male genital disorders (6 sources) Erectile dysfunction due to arterial insufficiency; Translations: [ERECTILE DYSF D/T ART INSUFFICIENCY] Onset: 11-23-2022 Chronic Other male genital disorders (11 sources) Male erectile dysfunction, unspecified; Translations: [Erectile dysfunction] Onset: 07-29-2023 Chronic Other nutritional; endocrine; and metabolic disorders (14 sources) Body mass index 40+ - severely obese 11-17-2021 Chronic Other nutritional; endocrine; and metabolic disorders (16 sources) Morbid obesity; Translations: [Morbid (severe) obesity due to excess calories] 11-08-2021 Chronic Other nutritional; endocrine; and metabolic disorders (2 sources) Obesity; Translations: [Obesity, unspecified] Onset: 08-30-2014 Chronic Other nutritional; endocrine; and metabolic disorders (2 sources) Obese class II; Translations: [Body mass index 39.0-39.9, adult] Onset: 08-30-2014 Chronic Other screening for suspected conditions (not mental disorders or infectious disease) (20 sources) Electrocardiogram abnormal; Translations: [Abnormal electrocardiogram [ECG] [EKG]] Onset: 09-10-2022 Episodic Comment on above: PSA: 0.42 - 08/2022 Residual codes; unclassified (20 sources) Obstructive sleep apnea syndrome; Translations: [Obstructive sleep apnea (adult) (pediatric)] Onset: 03-09-2016 07-20-2021 Chronic Comment on above: uses CPAP Residual codes; unclassified (1 source) Obstructive sleep apnea (adult) (pediatric) Chronic Residual codes; unclassified (1 source) Decreased libido Episodic Sprains and strains (9 sources) Strain of unspecified muscle(s) and tendon(s) at lower leg level, left leg, initial encounter; Translations: [Sprain of left knee] 07-03-2024 Episodic Unclassified (8 sources) Patient encounter status 07-29-2023 Past or Other Problems Problem Classification Problem Date Documented Da te Episodic/Chronic Other non-traumatic joint disorders (1 source) Pain in left knee Onset: 01-25-2022 Resolved: 01-25-2022 Episodic Viral infection (1 source) COVID-19 Results Test Name Value Interpretation Reference Range Facility Ambulatory Visit Summaryon 0 08-14-2024 Ambulatory Visit Summary Ambulatory Visit Summary ARNEL PARR :1970 Visit Date:08/14/2024 Ambulatory Visit Instructions Your Diagnosis Hypogonadism male Your Care Team Attending Physician - ALMA RYAN MD Primary Care Physician - REJI CENTENO DO This Is Your Medications List cetirizine-pseudoeph edrine (Zyrtec-D oral tablet, extended release) lisinopril (lisinopril 20 mg Tab) multivitamin with minerals (Centrum Silver oral tablet) tadalafil (Cialis 20 mg Tab) testosterone (testosterone cypionate 200 mg/mL IM Alley) Procedures Performed Arthroplasty of knee (06/20/2022), Colonoscopy (11/27/2021), Amputation of finger, Excision of lipoma, Tonsillectomy and adenoidectomy. What to do next Scheduled Follow-Up Appointments Saturday 8:30 AM EST With: Where: [facility] of [address] [address]- Saturday 8:30 AM EDT With: Helio RYAN MD Where: [facility] [address] [place] [address]- Medications What How Much When Instructions Unchanged cetirizine-pseudoeph edrine (Zyrtec-D oral tablet, extended release) 1 Tablets By Mouth 2 times a day Unchanged lisinopril (lisinopril 20 mg Tab) 1 Tablets By Mouth Every day Unchanged multivitamin with minerals (Centrum Silver oral tablet) 1 Tablets By Mouth Every day Unchanged tadalafil (Cialis 20 mg Tab) 1 Tablets By Mouth As Directed as needed for sexual activity Take one tab 1 hr prior to sexual activity. Unchanged testosterone (testosterone cypionate 200 mg/ mL IM Alley) 400 Milligram Intramuscular Every 4 weeks Medications and Immunizations Administered Given Depo-Testosterone 200 mg/mL intramuscular solution, 400 mg, IntraMuscular. For: Hypogonadism male Allergies No Known Medication Allergies Problems Ongoing [...] you for choosing us for your care. Normal [facility] Ambulatory Visit Summaryon 0 07-17-2024 Ambulatory Visit Summary Ambulatory Visit Summary HENRIJOON APARICIOMALICK Arroyo :1970 Visit Date:07/17/2024 Ambulatory Visit Instructions Your Care Team Attending Physician - Helio RYAN MD Primary Care Physician - REJI CENTENO DO This Is Your Medications List cetirizine-pseudoeph edrine (Zyrtec-D oral tablet, extended release) lisinopril (lisinopril 20 mg Tab) multivitamin with minerals (Centrum Silver oral tablet) tadalafil (Cialis 20 mg Tab) testosterone (testosterone cypionate 200 mg/mL IM Alley) Procedures Performed Arthroplasty of knee (06/20/2022), Colonoscopy (11/27/2021), Amputation of finger, Excision of lipoma, Tonsillectomy and adenoidectomy. Medications What How Much When Instructions Unchanged cetirizine-pseudoeph edrine (Zyrtec-D oral tablet, extended release) 1 Tablets By Mouth 2 times a day Unchanged lisinopril (lisinopril 20 mg Tab) 1 Tablets By Mouth Every day Unchanged multivitamin with minerals (Centrum Silver oral tablet) 1 Tablets By Mouth Every day Unchanged tadalafil (Cialis 20 mg Tab) 1 Tablets By Mouth As Directed as needed for sexual activity Take one tab 1 hr prior to sexual activity. Unchanged testosterone (testosterone cypionate 200 mg/ mL IM Alley) 400 Milligram Intramuscular Every 4 weeks Allergies No Known Medication Allergies Problems Ongoing [...] you for choosing us for your care. Normal [facility] XR Knee - left 3 [facility] Result: Bilateral standing PA, bilateral sunrise, and lateral of the affected knee were imaged today in the office. 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 [facility] LivingSocialcar e Radiology Study observation (narrative) [facility] Urology Office/Clinic Noteon 05-20-2024 Urology Office/Clinic Note [...] 400 mg q4wks. SEs discussed. Sent to [facility]. -Pt understands T level has to be drawn exactly fpc in between injections before 10 am. 2. ED (erectile dysfunction) (N52.9: Male erectile dysfunction, unspecified) Prior OV: Took Sildenafil per PCP. [place] this worked well but ran out of [...] sample today. Follow-up With When Contact Information MARTINA FALCON, Helio Ambriz, URL [facility] [address], [place] [address]- Additional Instructions: 4 mos with T level [...] SARS-CoV-2 (COVID-19) Ad26 vaccine 11/19/2020 Recorded Normal [facility] Comment on above: Result Comment: Elec tronically Signed By: Helio RYAN MD\.br\Date and Time Signed: 05/20/24 16:13 EST\.br\Electronically Co-Signed By: Miranda Colorado\.br\Date and Time Co-Signed: 05/20/24 16:09 EST No Panel Informationon 05-16 Testosterone Level 104 ng/dL Abnormal [id number] [facility] Comment on above: Adult male reference interval is based on a population ofhealthy nonobese males (BMI <30) between 19 and 39 yearsold. German, et.al. JCEM 2017,102;6386-8233. PMID:11189227.Performed at: [place] [id number] Director: Abner Geiger PhD, Phone: [phone] Ambulatory Visit Summaryon 0 02-17-2024 Ambulatory Visit [...] Helio RYAN MD Where: [facility] [address] [address]- You Need to Schedule the Following Appointments Follow Up with Richy WOODS, JOHANA-Jerson, Paula Lopez, JAYJAY, URL When: Comments: pt to f/up with Dr. Ryan Where: Follow Up with Helio RYAN MD, JUAN ANTONIO When: Comments: 3mos w/testosterone level Where: [address] [place] [address]- Medications What How Much When Instructions Unchanged [...] erection. The (more content not included)... Normal [facility] Urology Office/Clinic Noteon 02-17-2024 Urology Office/Clinic [...] erectile dysfunction, unspecified) Took Sildenafil per PCP. [place] this worked well but ran out of [...] Additional Instructions: pt to f/up with Dr. Martina RYAN MD, Helio R, URL [address] [place] [address]- Additional Instructions: 3mos w/testosterone level Patient Education [...] Tobacco Former smoker (more content not included)... [facility] Comment on above: Result Comment: Elec tronically Signed By: JASSON Lockhart APRN, Paula X\.br\Date and Time Signed: 02/17/24 13:46 EDT\.br\Electronically Co-Signed By: Hood Cunningham\.br\Date and Time Co-Signed: 02/17/24 13:38 EDT\.br\Electronically Co-Signed By: Hood Cunningham\.br\Date and Time Co-Signed: 02/17/24 13:38 EDT Pre-Certification Formon Pre-Certification Form [id number] #1.00TIFF [facility] Lab Reportson 09-02-2023 Lab Reports [id number] #1.00TIFF [facility] TESTOSTERONE, TOTALon 2022 Testosterone [Mass/Vol] 208 ng/dL Critically low 264-916 [facility] Comment on above: Result Comment: Adul t male reference interval is based on a population of healthy nonobese males (BMI <30) between 19 and 39 years old. gabrielle Porter.al. JCEM 2017,102;9721-2562. PMID: [id number]. Performed By: #### T ESTTOT #### [facility] [address] [address] [address] Alla Martinez ECHOCARDIO M/2D COMPLETEon 0 09-17-2022 ECHOCARDIO M/2D COMPLETE Patient: ARNEL PARR Exam Date: 09/17/2022 : 1970 Gender:M Ordering : DR REJI CENTENO D.O. Admission #: [id number] Family : Order #: [id number] CLICK HERE TO VIEW EXAM ECHOCARDIOGRAM REPORT [...] M.D. on 09/20/2022 at 09:22 Normal [facility] TESTOSTERONE, TOTALon 2022 Testosterone [Mass/Vol] 276 ng/dL Normal 264-916 [facility] Comment on above: Result Comment: Adul t male reference interval is based on a population of healthy nonobese males (BMI <30) between 19 and 39 years old. German et.al. JCEM 2017,102;8166-8334. PMID: [id number]. Performed By: #### T ESTTOT #### [facility] [address] [address] [address] Alla Martinez CBC AUTO DIFFon 09-06-2022 BASO # 0.1 103/ul Normal 0.0-0.1 [facility] Comment on above: Performed By: #### C BC #### [facility] [address] [address] [address] Alla Martinez Basophils/100 WBC (Bld) 1.6 % Normal 0.2-2.0 [facility] Comment on above: Performed By: #### C BC #### [facility] [address] [address] [address] Alla Martinez EO # 0.5 103/ul Normal 0.0-0.7 [facility] Comment on above: Performed By: #### C BC #### [facility] [address] [place] [address] Dr. Alla Martinez Eosinophils/100 WBC (Bld) 6.4 % Normal 0.9-7.0 [facility] Comment on above: Performed By: #### C BC #### [facility] [address] [address] [address] Alla Martinez Erythrocyte distribution width (RBC) [Ratio] 12.8 % Normal 11.0-15.0 [facility] Comment on above: Performed By: #### C BC #### [facility] [address] [address] [address] Alla Martinez Hematocrit (Bld) [Volume fraction] 40.1 % Critically low 42.0-54.0 [facility] Comment on above: Performed By: #### C BC #### [facility] [address] [address] [address] Alla Martinez Hemoglobin (Bld) [Mass/Vol] 13.0 g/dL Critically low 14.0-18.0 [facility] Comment on above: Performed By: #### C BC #### [facility] [address] [address] [address] Alla Martinez IG # 0.06 10e3/ul Critically high 0.00-0.03 [facility] Comment on above: Performed By: #### C BC #### [facility] [address] [place] [address] Dr. Alla Martinez IG % 0.8 % Critically high 0.0-0.5 [facility] Comment on above: Performed By: #### C BC #### [facility] [address] [place] [address] Dr. Alla Martinez LYMPH # 2.5 103/ul Normal 1.2-3.8 [facility] Comment on above: Performed By: #### C BC #### [facility] [address] [place] [address] Dr. Alla Martinez Lymphocytes/100 WBC (Bld) 33.2 % Normal 20.5-60.0 [facility] Comment on above: Performed By: #### C BC #### [facility] [address] [place] [address] Dr. Alla Martinez MANUAL DIFF REQ NO Normal [facility] Comment on above: Performed By: #### C BC #### [facility] [address] [place] [address] Dr. Alla Martinez MCH (RBC) [Entitic mass] 28.3 pg Normal 25.9-34.0 [facility] Comment on above: Performed By: #### C BC #### [facility] [address] [place] [address] Dr. Alla Martinez MCHC (RBC) [Mass/Vol] 32.4 g/dL Normal 29.9-35.2 [facility] Comment on above: Performed By: #### C BC #### [facility] [address] [place] [address] Dr. Alla Martinez MCV (RBC) [Entitic vol] 87.4 fL Normal 80.0-94.0 [facility] Comment on above: Performed By: #### C BC #### [facility] [address] [place] [address] Dr. Alla Martinez MONO # 0.6 103/ul Normal 0.3-0.8 [facility] Comment on above: Performed By: #### C BC #### [facility] [address] [address] [address] Alla Martinez Monocytes/100 WBC (Bld) 8.3 % Normal 1.7-12.0 [facility] Comment on above: Performed By: #### C BC #### [facility] [address] [address] [address] Alla Martinez NEUT # 3.8 103/ul Normal 1.4-6.5 [facility] Comment on above: Performed By: #### C BC #### [facility] [address] [address] [address] Alla Martinez Neutrophils/100 WBC (Bld) 49.7 % Normal 43.0-75.0 [facility] Comment on above: Performed By: #### C BC #### [facility] [address] [place] [address] Dr. Alla Martinez Platelet mean volume (Bld) [Entitic vol] 10.8 fL Normal 9.5-13.5 [facility] Comment on above: Performed By: #### C BC #### [facility] [address] [place] [address] Dr. Alla Martinez PLT 228 103/ul Normal 150-450 [facility] Comment on above: Performed By: #### C BC #### [facility] [address] [place] [address] Dr. Alla Martinez RBC 4.59 106/ul Critically low 4.70-6.[address] [facility] Comment on above: Performed By: #### C BC #### [facility] [address] [place] [address] Dr. Alla Martinez WBC 7.6 103/ul Normal 4.0-11.0 [facility] Comment on above: Performed By: #### C BC #### [facility] [address] [place] [address] Dr. Alla Martinez Complete Blood Count and Dif uvaldo 09-06-2022 Anisocytosis Ql (Bld) [facility] [employer] Other Basophilic stippling LM Ql (Bld) [facility] Other RBC morphology finding Nom (Bld) [facility] Other Complete Blood Count and Diff [facility] Other Comprehensive Metabolic Pane maria 09-06-2022 Albumin [Mass/Vol] 3.443432 g/dL 3.4-5.0 g/dL [facility] Other Calcium [Mass/Vol] 8.0469326 mg/dL 8.5-10 .1 mg/dL [facility] Other CO2 [Moles/Vol] 27.61665231 mmol/L 21.0-3 2.0 mmol/L [facility] Other Creatinine [Mass/Vol] 0.88245684 mg/dL 0. 70-1.30 mg/dL [facility] Other Potassium [Moles/Vol] 4.61328818 mmol/L 3 .5-5.1 mmol/L [facility] Other Protein [Mass/Vol] 7.946920 g/dL 6.4-8.2 g/dL [facility] Other Urea nitrogen [Mass/Vol] [id number] mg/dL 7.0-18.0 mg/dL [facility] Other Comprehensive Metabolic Panel see note [facility] Other Comprehensive Metabolic Panel 142 mmol/L 136-145 mmol/L [facility] Other Comprehensive Metabolic Panel 115 mg/dL Critically high 74-106 mg/dL [facility] Other Comprehensive Metabolic Panel >60 mL/min/1.73m2 >=60 mL/min/1.73m 2 [facility] Other Comprehensive Metabolic Panel 0.2 mg/dL 0.2-1.0 mg/dL [facility] Other Comprehensive Metabolic Panel 3.8 g/dL [facility] Other Albumin/Globulin [Mass ratio] 0.9 {ratio} Normal [facility] [place] Other Comment on above: Performed By: #### C MP, LIPID #### [facility] [address] [address] [address] Alla Martinez ALP [Catalytic activity/Vol] 93 U/L Normal 46-116 [facility] [place] Other Comment on above: Performed By: #### C MP, LIPID #### [facility] [address] [place] [address] Dr. Alla Martinez ALT [Catalytic activity/Vol] 37 U/L Normal 16-63 [facility] [place] Other Comment on above: Performed By: #### C MP, LIPID #### [facility] [address] [place] [address] Dr. Alla Martinez Anion gap [Moles/Vol] 12.1 mmol/L Normal [facility] [place] Other Comment on above: Performed By: #### C MP, LIPID #### [facility] [address] [place] [address] Dr. Alla Martinez AST [Catalytic activity/Vol] 21 U/L Normal 15-37 [facility] [place] Other Comment on above: Performed By: #### C MP, LIPID #### [facility] [address] [place] [address] Dr. Alla Martinez Chloride [Moles/Vol] 107 mmol/L Normal 98-107 [facility] [place] Other Comment on above: Performed By: #### C MP, LIPID #### [facility] [address] [place] [address] Dr. Alla Martinez Urea nitrogen/Creatinine [Mass ratio] 20.2 mg/mg Normal [facility] [place] Other Comment on above: Performed By: #### C MP, LIPID #### [facility] [address] [place] [address] Dr. Alla Martinez LIPID PROFILEon 09-06-2022 CHOL-HDL RATIO NORM SEE BELOW Normal [facility] Comment on above: Result Comment: 3.3 - 4.4 LOW RISK 4.4 - 7.1 AVERAGE RISK 7.1 - 11.0 MODERATE RISK >11.0 HIGH RISK Performed By: #### C MP, LIPID #### [facility] [address] [place] [address] Dr. Alla Martinez Cholesterol in LDL [Mass/Vol] 89.2 mg/dL Normal [facility] Comment on above: Performed By: #### C MP, LIPID #### [facility] [address] [address] [address] Alla Martinez HDL NORMAL > or = 60 mg/dl - LOW CARDIOVASCULAR RISK <40 mg/dl - HIGH CARDIOVASCULAR RISK Normal [facility] Comment on above: Performed By: #### C MP, LIPID #### [facility] [address] [place] [address] Dr. Alla Martinez LDL CALC NORMAL SEE BELOW Normal [facility] Comment on above: Result Comment: <100 mg/dl OPTIMAL 100 - 129 mg/dl NEAR OR ABOVE OPTIMAL 130 - 159 mg/dl BORDERLINE HIGH 160 - 189 mg/dl HIGH >190 mg/dl VERY HIGH Performed By: #### C MP, LIPID #### [facility] [address] [place] [address] Dr. Alla Martinez VLDL CALC 35.8 mg/dL Normal [facility] Comment on above: Performed By: #### C MP, LIPID #### [facility] [address] [place] [address] Dr. Alla Martinez Lipid Panelon 09-06-2022 Lipid Panel > or = 60 mg/dl - LOW CARDIOVASCULAR RISK <40 mg/dl - HIGH CARDIOVASCULAR RISK [facility] Other Lipid Panel SEE BELOW [facility] Other Lipid Panel 89.2 mg/dL [facility] Other Lipid Panel 35.8 mg/dL [facility] Other Cholesterol [Mass/Vol] 158 mg/dL Normal <=200 [facility] Other Comment on above: Performed By: #### C MP, LIPID #### [facility] [address] [address] [address] Alla Martinez Cholesterol in HDL [Mass/Vol] 33 mg/dL Critically low 40-60 [facility] Other Comment on above: Performed By: #### C MP, LIPID #### [facility] [address] [address] [address] Alla Martinez Cholesterol.total/Cho lesterol in HDL [Mass ratio] 4.8 {ratio} Normal [facility] Other Comment on above: Performed By: #### C MP, LIPID #### [facility] [address] [place] [address] Dr. Alla Martinez Triglyceride [Mass/Vol] 179 mg/dL Critically high <=150 [facility] Other Comment on above: Performed By: #### C MP, LIPID #### [facility] [address] [place] [address] Dr. Alla Martinez PROF 14(COMP METB)on 023 Albumin [Mass/Vol] 3.5 g/dL Normal 3.4-5.0 [facility] Comment on above: Performed By: #### C MP, LIPID #### [facility] [address] [place] [address] Dr. Alla Martinez Bilirubin [Mass/Vol] 0.2 mg/dL Normal 0.2-1.0 [facility] Comment on above: Performed By: #### C MP, LIPID #### [facility] [address] [place] [address] Dr. Alla Martinez Calcium [Mass/Vol] 8.9 mg/dL Normal 8.5-10.1 [facility] Comment on above: Performed By: #### C MP, LIPID #### [facility] [address] [place] [address] Dr. Alla Martinez CO2 [Moles/Vol] 27.1 mmol/L Normal 21.0-32.0 [facility] Comment on above: Performed By: #### C MP, LIPID #### [facility] [address] [address] [address] Alla Martinez Creatinine [Mass/Vol] 0.89 mg/dL Normal 0.70-1.30 [facility] Comment on above: Performed By: #### C MP, LIPID #### [facility] [address] [address] [address] Alla Martinez EGFR-AF VENEZUELAN >60 Normal >=60 [facility] Comment on above: Performed By: #### C MP, LIPID #### [facility] [address] [address] [address] Alla Martinez EGFR-NON AF VENEZUELAN >60 Normal >=60 [facility] Comment on above: Performed By: #### C MP, LIPID #### [facility] [address] [place] [address] Dr. Alla Martinez Globulin (S) [Mass/Vol] 3.8 g/dL Normal [facility] Comment on above: Performed By: #### C MP, LIPID #### [facility] [address] [place] [address] Dr. Alla Martinez Glucose [Mass/Vol] 115 mg/dL Critically high 74-106 [facility] Comment on above: Performed By: #### C MP, LIPID #### [facility] [address] [place] [address] Dr. Alla Martinez Potassium [Moles/Vol] 4.2 mmol/L Normal 3.5-5.1 [facility] Comment on above: Performed By: #### C MP, LIPID #### [facility] [address] [place] [address] Dr. Alla Martinez Protein [Mass/Vol] 7.3 g/dL Normal 6.4-8.2 [facility] Comment on above: Performed By: #### C MP, LIPID #### [facility] [address] [place] [address] Dr. Alla Martinez Sodium [Moles/Vol] 142 mmol/L Normal 136-145 [facility] Comment on above: Performed By: #### C MP, LIPID #### [facility] [address] [place], [place] [address] Dr. Alla Martinez Urea nitrogen [Mass/Vol] 18.0 mg/dL Normal 7.0-18.0 [facility] Comment on above: Performed By: #### C MP, LIPID #### [facility] [address] [place], [place] [address] Dr. Alla Martinez TESTOSTERONE, TOTALon 2022 Testosterone [Mass/Vol] 276 ng/dL 264-916 ng/dL [facility] Other BLOOD BANKOrdered By: Harjeet Cartagena on 06-20-2022 ABO/Rh Interp Negative Invalid Interpretation Code FT BB Subsection ABSC Gel Interp Negative (06/20/22 7:53 AM) Normal [facility] BB Subsection BLOOD BANKOrdered By: Shanice Maxwell on 06-01-2022 ABO/Rh Retype Interp Negative Invalid Interpretation Code [facility] BB Subsection CHEMISTRYOrdered By: SYSTEM SYSTEM on 06-01-2022 Anion gap [Moles/Vol] 15 mmol/L Normal 6 - 16 mEq/L [facility] Remisol Chloride [Moles/Vol] 101 mmol/L Normal 101 - 1 11 mmol/L [facility] CO2 [Moles/Vol] 27 mmol/L Normal 21 - 31 mmol/L [facility] Creatinine [Mass/Vol] 1.0 mg/dL Normal 0.5 - 1.3 mg/dL [facility] GFR/1.73 sq M.predicted among blacks MDRD (S/P/Bld) [Vol rate/Area] mL/min/1.73 m2 Normal >=59mL/min/1 .73 m2 [facility] Chem S GFR/1.73 sq M.predicted among non-blacks MDRD (S/P/Bld) [Vol rate/Area] mL/min/1.73 m2 Normal >=59mL/min/1 .73 m2 [facility] Chem S Glucose [Mass/Vol] 95 mg/dL Normal 55 - 199 mg/dL [facility] Potassium [Moles/Vol] 4.0 mmol/L Normal 3.5 - 5.3 mmol/L [facility] Sodium [Moles/Vol] 139 mmol/L Normal 135 - 145 mmol/L [facility] Remisol Urea nitrogen [Mass/Vol] 18 mg/dL Normal 5 - 21 mg/dL [facility] Remisol HEMATOLOGYOrdered By: Shanice Maxwell on 06-01-2022 Erythrocyte distribution width (RBC) [Ratio] 12.2 % Normal 10.9 - 14.2 % [facility] HemeAutoSS Hematocrit (Bld) [Volume fraction] 38.0 % Normal 37.7 - 49.0 % [facility] HemeAutoSS Hemoglobin (Bld) [Mass/Vol] 13.0 g/dL Low [...] PM) Normal Negative [facility] UA Auto SS [place].plasma/Lithiu m.RBC (Bld) [Mass ratio] 0-3 /HPF Normal 0-3/HPF [facility] Auto SS Nitrite Ql (U) Negative (06/01/22 4:13 PM) Normal Negative [facility] UA Auto SS pH (U) 6.0 *NA* (06/01/22 4:13 PM) Invalid Interpretation Code 5.0 - 9.0 [facility] UA Auto SS Protein (U) [Mass/Vol] Negative (06/01/22 4:13 PM) Normal Negative [facility] UA Auto SS Specific gravity (U) [Rel density] >=1.030 *NA* (06/01/22 4:13 PM) Invalid Interpretation Code 1.005 - 1.030 [facility] Auto SS UA Spec Desc Clean Catch (06/01/22 4:13 PM) Normal [facility] UA Auto SS Urobilinogen Qn (U) [id number] {Anushka'U}/dL Normal 0.0 - 1.0 EU/dL [facility] UA Auto SS WBC Auto Ql (U) Negative (06/01/22 4:13 PM) Normal Negative [facility] UA Auto SS WBC LM.HPF (Urine sed) [#/Area] 0-5 /HPF Normal 0-5/HPF [facility] UA Auto SS XR knee LT 2Von 01-25-2022 XR knee LT 2V [facility] [address] XRay Report Signed Patient: Arnel Parr MR#: [id number] : 1970 Acct:[id number] Age/Sex: 51 / M ADM Date: 01/25/22 Loc: [facility] Room: Type: [facility] Attending Dr: Anthony Knox MD Copies to: [...] Pérez Jr., Johnson01/25/2022 11:54 AM Dictation Location: [address] [address] Transcribed By: [facility] 01/25/22 1154 Dictated By: Wiliam Pérez Jr DO 01/25/22 1153 Signed By: 01/25/22 1154 [facility] MRI KNEE LT WO CONon 022 MRI KNEE LT WO CON EXAMINATION: MRI KNEE LT WO CON HISTORY: Derangement of left knee COMPARISON: No relevant comparison available. TECHNIQUE: A complete multi-planar MRI was performed. FINDINGS: MEDIAL COMPARTMENT MEDIAL MENISCUS: Thinned extruded macerated medial meniscus with [id number] articulation CARTILAGE: Severe chondromalacia with subchondral edema [...] OTHER: Negative. IMPRESSION: Severe tricompartmental osteoarthritis with [id number] articulation of the medial compartment and a thinned extruded macerated medial meniscus Chronic anterior cruciate ligament tear Electronically authenticated by: DOLORES FITZGERALD Date: 2021-12-21 10:28 Normal [facility] XR FOREIGN BODY EYEon 2021 XR [...] by: DANG TAYLOR Date: 2021-12-21 08:43 Normal [facility] Vital Signs Date Time Vital Sign Value Performing Clinician Amber ewlls 07-03-2024 08:36-0500 Body height 175.3 cm [facility] Work Phone: [facility] 07-03-2024 08:36-0500 Body mass index (BMI) [Ratio] 48.91 kg/m2 [facility] Work Phone: [facility] 07-03-2024 08:36-0500 Body weight 150.23 kg [facility] registracija vozila Work Phone: [facility] 05-29-2024 09:12-0500 Body height 177.8 cm [facility] 05-29-2024 09:12-0500 Body mass index (BMI) [Ratio] 46.9 kg/m2 [facility] 05-29-2024 09:12-0500 Body weight 148.38 kg [facility] 05-29-2024 09:12-0500 Diastolic blood pressure 73 mm[Hg] [facility] 05-29-2024 09:12-0500 Heart rate 92 /min [facility] 05-29-2024 09:12-0500 Respiratory rate 12 /min [facility] 05-29-2024 09:12-0500 Systolic blood pressure 132 mm[Hg] [facility] 05-20-2024 15:19-0500 Diastolic blood pressure 98 mm[Hg] Helio RYAN [facility] 05-20-2024 15:19-0500 Heart rate 84 /min Helio RYAN [facility] 05-20-2024 15:19-0500 Systolic blood pressure 165 mm[Hg] Helio RYAN [facility] 02-17-2024 12:59-0400 Blood Pressure Location Paula Lockhart [facility] 02-17-2024 12:59-0400 Body temperature 96.8 [degF] Paula Orzech [facility] 02-17-2024 12:59-0400 Diastolic blood pressure 68 mm[Hg] Paula Orzech [facility] 02-17-2024 12:59-0400 Heart rate 66 /min Paula Orzech [facility] 02-17-2024 12:59-0400 Respiratory rate 18 /min Paula Orzech [facility] 02-17-2024 12:59-0400 Systolic blood pressure 128 mm[Hg] Paula Orzech [facility] 07-29-2023 14:16-0500 Blood Pressure Location Helio RYAN [facility] 07-29-2023 14:16-0500 Diastolic blood pressure 89 mm[Hg] Helio RYAN [facility] 07-29-2023 14:16-0500 Heart rate 80 /min Helio RYAN [facility] 07-29-2023 14:16-0500 Respiratory rate 16 /min Helio RYAN [facility] 07-29-2023 14:16-0500 Systolic blood pressure 132 mm[Hg] Helio RYAN [facility] 12-14-2022 14:00-0400 Body height 175.26 cm Reji Ball Other [facility] Other 12-14-2022 14:00-0400 Body mass index (BMI) [Ratio] 41.82 kg/m2 Reji Ball Other [facility] Other 12-14-2022 14:00-0400 Body weight 128.46 kg Reji Ball Other [facility] Other 12-14-2022 14:00-0400 Diastolic blood pressure 69 mm[Hg] Reji Ball Other [facility] Other 12-14-2022 14:00-0400 Respiratory rate 12 /min Reji Ball Other [facility] Other 12-14-2022 14:00-0400 Systolic blood pressure 112 mm[Hg] Reji Ball Other [facility] Other 09-05-2022 13:30-0500 Body height 175.26 cm Reji Ball Other [facility] Other 09-05-2022 13:30-0500 Body mass index (BMI) [Ratio] 45.18 kg/m2 Reji Ball Other [facility] Other 09-05-2022 13:30-0500 Body weight 138.8 kg Reji Ball Other [facility] Other 09-05-2022 13:30-0500 Diastolic blood pressure 72 mm[Hg] Reji Ball Other [facility] Other 09-05-2022 13:30-0500 SaO2% (BldA) [Mass fraction] 96 % Reji Ball Other [facility] Other 09-05-2022 13:30-0500 Systolic blood pressure 140 mm[Hg] Reji Ball Other [facility] [place] Other 06-20-2022 16:50-0500 Blood Pressure Location Valeriano Francis [facility] 06-20-2022 16:50-0500 Body temperature 96.8 [degF] aVleriano Francis [facility] 06-20-2022 16:50-0500 Diastolic blood pressure 62 mm[Hg] Valeriano Francis [facility] 06-20-2022 16:50-0500 Heart rate 90 /min Valeriano Francis [facility] 06-20-2022 16:50-0500 Respiratory rate 16 /min Valeriano Francis [facility] 06-20-2022 16:50-0500 SaO2% (BldA) [Mass fraction] 97 % Valeriano Francis [facility] 06-20-2022 16:50-0500 Systolic blood pressure 145 mm[Hg] Valeriano Francis [facility] 06-20-2022 16:00-0500 Body temperature 97.16 [degF] Valeriano Francis [facility] 06-20-2022 16:00-0500 Diastolic blood pressure 80 mm[Hg] Valeriano Francis [facility] 06-20-2022 16:00-0500 Heart rate 82 /min Valeriano Francis [facility] 06-20-2022 16:00-0500 Systolic blood pressure 120 mm[Hg] Valeriano Francis [facility] 06-20-2022 14:38-0500 Blood Pressure Location Valeriano Francis [facility] 06-20-2022 14:38-0500 Body temperature 96.8 [degF] Valeriano Francis [facility] 06-20-2022 14:38-0500 Diastolic blood pressure 73 mm[Hg] Valeriano Francis [facility] 06-20-2022 14:38-0500 Heart rate 80 /min Valeriano Francis [facility] 06-20-2022 14:38-0500 Respiratory rate 14 /min Valeriano Francis [facility] 06-20-2022 14:38-0500 Systolic blood pressure 112 mm[Hg] Valeriano Francis [facility] 06-20-2022 13:40-0500 SaO2% (BldA) [Mass fraction] 97 % Valeriano Francis [facility] 06-20-2022 13:31-0500 Respiratory rate 11 /min Valeriano Francis [facility] 06-20-2022 13:20-0500 Respiratory rate 14 /min Valeriano Francis [facility] 06-20-2022 13:15-0500 Respiratory rate 15 /min Valeriano Francis [facility] 06-20-2022 07:35-0500 Body temperature 97.7 [degF] Valeriano Francis [facility] 06-20-2022 07:35-0500 Heart rate 70 /min Valeriano Francis [facility] 06-11-2022 14:42-0500 Diastolic blood pressure 84 mm[Hg] Дмитрий Santo [facility] 06-11-2022 14:42-0500 Mean blood pressure 106 mm[Hg] Дмитрий Santo [facility] 06-11-2022 14:42-0500 Systolic blood pressure 149 mm[Hg] Дмитрий Santo [facility] 06-11-2022 14:33-0500 Blood Pressure Location Дмитрий Santo [facility] 06-11-2022 14:33-0500 Diastolic blood pressure 87 mm[Hg] Дмитрий Santo [facility] 06-11-2022 14:33-0500 Heart rate 79 /min Дмитрий Santo [facility] 06-11-2022 14:33-0500 Respiratory rate 18 /min Дмитрий Santo [facility] 06-11-2022 14:33-0500 SaO2% (BldA) [Mass fraction] 98 % Дмитрий Santo [facility] 06-11-2022 14:33-0500 Systolic blood pressure 146 mm[Hg] Дмитрий Santo [facility] 06-01-2022 15:54-0500 Blood Pressure Location Valeriano Francis [facility] 06-01-2022 15:54-0500 Diastolic blood pressure 93 mm[Hg] Valeriano Francis [facility] 06-01-2022 15:54-0500 Heart rate 67 /min Valerianogelacio Francis [facility] 06-01-2022 15:54-0500 Mean blood pressure 115 mm[Hg] Valeriano Brown [facility] 06-01-2022 15:54-0500 Systolic blood pressure 157 mm[Hg] Valeriano Brown [facility] 06-01-2022 15:53-0500 Blood Pressure Location Valeriano Francis [facility] 06-01-2022 15:53-0500 Body temperature 98.24 [degF] Valeriano Francis [facility] 06-01-2022 15:53-0500 Diastolic blood pressure 92 mm[Hg] Valeriano Francis [facility] 06-01-2022 15:53-0500 Heart rate 71 /min Valeriano Francis [facility] 06-01-2022 15:53-0500 Mean blood pressure 112 mm[Hg] Valeriano Francis [facility] 06-01-2022 15:53-0500 Respiratory rate 16 /min Valeriano Francis [facility] 06-01-2022 15:53-0500 SaO2% (BldA) [Mass fraction] 99 % Valeriano Francis [facility] 06-01-2022 15:53-0500 Systolic blood pressure 153 mm[Hg] Valeriano Francis [facility] 11-17-2021 14:26-0400 Blood Pressure Location Jasbir VASQUESL [facility] [place] 11-17-2021 14:26-0400 Diastolic blood pressure 86 mm[Hg] Jasbir VASQUESL [facility] [place] 11-17-2021 14:26-0400 Heart rate 72 /min Jasbir NILL [facility] [place] 11-17-2021 14:26-0400 Respiratory rate 16 /min Jasbir NILL [facility] [place] 11-17-2021 14:26-0400 Systolic blood pressure 124 mm[Hg] Jasbir NILL [facility] [place] Encounters Encounter Date Encounter Type Care Provider Facility Start: 10-09-2024 ambulatory Helio RYAN Facili ty:[facility] [place] Start: 09-11-2024 ambulatory Helio RYAN Facili ty:[facility] Start: 08-14-2024 End: 08-14-2024 ambulatory ALMA RYAN Facility:[facility] Start: 08-14-2024 End: 08-14-2024 Patient encounter procedure ALMA YRAN [facility] [place] Start: 07-17-2024 End: 07-17-2024 ambulatory Helio RYAN Facility:[facility] Start: 07-17-2024 End: 07-17-2024 Patient encounter procedure Helio RYAN [facility] [place] Start: 07-03-2024 End: 07-03-2024 Patient encounter procedure Joe GONZALEZ Work Phone: [facility] Comment on above: History of left knee replacement (Primary Dx); Sprain of left knee, unspecified ligament, initial encounter Start: 07-03-2024 End: 07-03-2024 ambulatory JOE BENSON Not Available Start: 06-19-2024 End: 06-19-2024 ambulatory Helio RYAN Facility:[facility] Start: 06-19-2024 End: 06-19-2024 Patient encounter procedure Helio RYAN [facility] [place] Start: 05-29-2024 End: 05-29-2024 ambulatory [facility] Work Phone: Start: 05-29-2024 End: 05-29-2024 Encounter for general adult medical examination without abnormal findings [facility] Start: 05-29-2024 End: 05-29-2024 Patient encounter procedure [facility] Work Phone: Start: 05-27-2024 Patient encounter status [facility] Start: 05-22-2024 Non-patient / Non-visit [facility] Work Phone: Start: 05-22-2024 End: 05-22-2024 ambulatory Helio RYAN Facility:[facility] [place] Start: 05-22-2024 End: 05-22-2024 Patient encounter procedure Helio RYAN [facility] [place] Start: 05-20-2024 End: 05-20-2024 ambulatory Helio RYAN Facility:[facility] [place] Start: 05-20-2024 End: 05-20-2024 Patient encounter procedure [facility] Start: 05-16-2024 Non-patient / Non-visit [facility] Work Phone: Start: 02-17-2024 End: 02-17-2024 ambulatory Paula X Orzech Facility: [place] Start: 02-17-2024 End: 02-17-2024 Patient encounter procedure Paula X Orzech [facility] Start: 02-13-2024 End: 02-13-2024 [facility] Start: 02-13-2024 End: 02-13-2024 Patient encounter procedure LEROY E JAMES [facility] [place] Start: 07-29-2023 End: 07-29-2023 Patient encounter procedure [facility] Start: 05-08-2023 End: 05-08-2023 ambulatory [facility] Other [facility] Other Start: 05-08-2023 Telephone encounter [facility] Start: 04-16-2023 End: 04-16-2023 ambulatory Reji Centeno Other [facility] Other Start: 04-16-2023 Telephone encounter Reji AK[facility] Start: 04-01-2023 End: 04-01-2023 Patient encounter procedure Helio R MARTINA [facility] Start: 12-14-2022 End: 12-14-2022 ambulatory Reji Centeno Other [facility] Other Start: 12-14-2022 Office outpatient visit 15 minutes Reji Centeno [facility] Start: 11-23-2022 End: 11-24-[address] REJI CENTENO Facility:[facility] Start: 09-17-2022 End: 09-18-[address] REJI CENTENO Facility:[facility] Start: 09-10-2022 Encounter for genera l adult medical examination without abnormal findings DR REJI CENTENO [facility] Start: 09-06-2022 Telephone encounter [facility] Start: 09-06-2022 End: 09-07-[address] REJI CENTENO [facility] Other Start: 09-06-2022 End: 09-07-2022 Encounter for general adult medical examination without abnormal findings DR REJI CENTENO Facility:[facility] Start: 09-05-2022 End: 09-05-2022 ambulatory Reji Centeno Other [facility] Other Start: 09-05-2022 Encounter for genera l adult medical examination without abnormal findings Reji Centeno [facility] Start: 09-05-2022 Periodic preventive med est patient 40-64yrs [facility] Start: 07-15-2022 End: 08-11-2022 ambulatory VALERIANO FRANCIS Facility:[facility] Start: 07-12-2022 End: 07-14-2022 ambulatory VALERIANO FRANCIS Facility:[facility] Start: 06-20-2022 End: 06-20-2022 Admission to same day surgery center Valeriano Francis [facility] Start: 06-14-2022 End: 09-13-2022 Recurring Дмитрий Cormierbobby [facility] Start: 06-11-2022 End: 06-11-2022 Patient encounter procedure Дмитрий Santo [facility] Start: 06-01-2022 ambulatory Facility:1 [id number] Start: 06-01-2022 End: 06-01-2022 Patient encounter procedure Valeriano Francis [facility] Start: 01-25-2022 End: 01-25-2022 ambulatory Anthony Knox Other [facility] Other Start: 01-25-2022 Office outpatient ne w 30 minutes Anthony Knox [facility] Start: 01-25-2022 End: 01-25-2022 Patient encounter procedure MD Anthony Knox Work Phone: [facility] [place] [facility] Start: 12-21-2021 End: 12-22-2021 ambulatory DR REJI CENTENO Facility:[facility] Start: 11-17-2021 End: 11-17-2021 Patient encounter procedure Jasbir SAWANT General Surgery Nill/Said [place] Start: 07-10-2021 Adult health examination Reji Centeno Other [facility] Other Procedures Date Procedure Procedure Detail Performing Clinician Start: 07-03-2024 Radiologic examinati on knee 3 views Joe GONZALEZ Work Phone: Start: 09-06-[address] JESSICA CENTENO Comment on above: Performed By: #### P [facility] #### [facility] [address] [address] [address] Alla Martinez Start: 06-20-2022 Arthroplasty of knee Ja gelacio Francis Comment on above: Left Total Knee Arth roplsty, Robotic Assisted Start: 01-25-2022 X-ray of left knee MD Esperanza Knox Work Phone: Start: 11-27-2021 Colonoscopy Joe GONZALEZ Work Phone: Start: 11-27-2021 Colonoscopy Valeriano Rickie brandt Start: 08-30-2014 General examination of patient Reji Centeno Other Amputation of finger , except thumb Jasbir SAWANT Excision of lipoma Jasbir MARISCAL History of operative procedure on knee History of left knee replacement Jeo GONZALEZ Work Phone: Tonsillectomy and adenoidectomy Jasbir SAWANT Plan of Treatment Date Care Activity Detail Author Start: 11-28-2031 Screening for malign ant neoplasm of colon [facility] Start: 03-15-2024 Influenza vaccination Influenz a Vaccine (#1) [facility] Start: 1970 Screening for malign ant neoplasm of colon [facility] metabo lic 2000 panel - Serum or Plasma [facility] Immunizations Immunization Date Immunization Notes Care Provider Fa cility 12-10-2020 COVID-19 Vaccine Pfi zer - Documentation Purposes Only Reji Centeno Other [facility] 12-10-2020 SARS-CoV-2 (COVID-19 ) Ad26 vaccine, recombinant Jasbir NILL [facility] 11-19-2020 SARS-CoV-2 (COVID-19 ) Ad26 vaccine, recombinant Jasbir NILMago [facility] Payers Date Payer Category Payer [facility] [id number] 2019 Unknown [id number] 1972 Unknown [id number] 2.16.840.1.862078.3.579.2. 356 1972 Unknown [id number] 2.16.840.1.480518.3.579.2. 593 1972 Unknown [id number] 2.16.840.1.305024.3.579.2. 593 1972 Unknown [id number] 2.16.840.1.487257.3.579.2. 593 1972 Unknown [id number] 2.16.840.1.074068.3.579.2. 593 1972 Unknown [id number] 2.16.840.1.106639.3.579.2. 593 1972 Unknown [id number] 2.16.840.1.733020.3.579.2. 593 1972 Unknown [id number] 2.16.840.1.099930.3.579.2. 1259 1972 Unknown [id number] 2.16.840.1.648627.3.579.2. 1259 1972 Unknown [id number] 2.16.840.1.978824.3.579.2. 727 1972 Unknown [id number] 2.16.840.1.972569.3.579.2. 727 1972 Unknown [id number] 2.16.840.1.965486.3.579.2. 727 1972 Unknown [id number] 2.16.840.1.029201.3.579.2. 727 1972 Unknown [id number] 2.16.840.1.585367.3.579.2. 727 1972 Unknown [id number] 2.16.840.1.948299.3.579.2. 727 1972 Unknown [id number] 2.16.840.1.227074.3.579.2. 727 1972 Unknown [id number] 2.16.840.1.265582.3.579.2. 727 1972 Unknown [id number] 2.16.840.1.618436.3.579.2. 727 1957 [facility] [id number] 2.16.840.1.621224.19 Self-pay Self Pay [id number] Social History Date Type Detail Facility Start: 11-17-2021 End: 05-20-2024 Tobacco smoking status Ex-smoker (finding) [facility] [place] Tobacco smoking status Smokeless tobacco user within last 30 days [facility] [place] Start: 06-19-2023 End: 07-03-2024 Sex Assigned At Male [facility] [place] Start: 1970 Sex Assigned At Male [facility] Tobacco smoking stat [facility] Unknown if ever smoked [facility] Work Phone: Start: 05-29-2024 Sex Male (finding) [facility] History of tobacco use Current smoker [facility] History of tobacco use Cigarette Smoker [facility] Start: 06-19-2023 Tobacco use and exposure Smokeless tobacco non-user [facility] Start: 07-03-2024 Alcoholic beverage intake Current drinker of alcohol (finding) [facility] Start: 06-19-2023 End: 07-03-2024 History of Social function [facility] How often to you hav e a drink containing alcohol? 2-3 time sa week [facility] How many standard drinks containing alcohol do you have on a typical day? 1 or 2 [facility] How often do you hav e 6 or more drinks on 1 occasion? Never [facility] Start: 06-19-2023 Alcohol Comment caffeine intake: 1-2 cups per day [facility] Start: 06-13-2023 Gender identity Identifies as male gender (finding) [facility] Start: 06-13-2023 Sexual orientation Heterosexual (finding) [facility] Medical Equipment Procedure Code Equipment Code Equipment Origin al Text Equipment Identifier Dates KNEE TOTAL ROBOT ARTHROPLASTY Vishnu DO, Valeriano A 06/20/22 Unknown Knee L FDA Start: 06-20-2022 KNEE TOTAL ROBOT ARTHROPLASTY Vishnu DO, Valeriano A 06/20/22 Unknown Knee L FDA Start: 06-20-2022 KNEE TOTAL ROBOT ARTHROPLASTY Vishnu DO, Valeriano A 06/20/22 Unknown Knee L FDA Start: 06-20-2022 KNEE TOTAL ROBOT ARTHROPLASTY Vishnu DO, Valeriano A 06/20/22 Unknown Knee L FDA Start: 06-20-2022 KNEE TOTAL ROBOT ARTHROPLASTY Vishnu DO, Valeriano A 06/20/22 Unknown Knee L FDA Start: 06-20-2022 KNEE TOTAL ROBOT ARTHROPLASTY Vishnu DO, Valeriano A 06/20/22 Unknown Knee L FDA Start: 06-20-2022 KNEE TOTAL ROBOT ARTHROPLASTY Brown DO, Valeriano A 06/20/22 Unknown Knee L FDA Start: 06-20-2022 KNEE TOTAL ROBOT ARTHROPLASTY Vishnu DO, Valeriano A 06/20/22 Unknown Knee L FDA Start: 06-20-2022 KNEE TOTAL ROBOT ARTHROPLASTY Vishnu DO, Valeriano A 06/20/22 Unknown Knee L FDA Start: 06-20-2022 KNEE TOTAL ROBOT ARTHROPLASTY Vishnu DO, Valeriano A 06/20/22 Unknown Knee L FDA Start: 06-20-2022 KNEE TOTAL ROBOT ARTHROPLASTY Vishnu DO, Valeriano A 06/20/22 Unknown Knee L FDA Start: 06-20-2022 KNEE TOTAL ROBOT ARTHROPLASTY Vishnu DO, Valeriano A 06/20/22 Unknown Knee L FDA Start: 06-20-2022 KNEE TOTAL ROBOT ARTHROPLASTY Vishnu DO, Valeriano A 06/20/22 Unknown Knee L FDA Start: 06-20-2022 KNEE TOTAL ROBOT ARTHROPLASTY Vishnu DO, Valeriano A 06/20/22 Unknown Knee L FDA Start: 06-20-2022 KNEE TOTAL ROBOT ARTHROPLASTY Vishnu DO, Valeriano A 06/20/22 Unknown Knee L FDA Start: 06-20-2022 KNEE TOTAL ROBOT ARTHROPLASTY Vishnu DO, Valeriano A 06/20/22 Unknown Knee L FDA Start: 06-20-2022 KNEE TOTAL ROBOT ARTHROPLASTY Vishnu PALACIOS, Valeriano A 06/20/22 Unknown Knee L FDA Start: 06-20-2022 KNEE TOTAL ROBOT ARTHROPLASTY Vishnu PALACIOS, Valeriano A 06/20/22 Unknown Knee L FDA Start: 06-20-2022 KNEE TOTAL ROBOT ARTHROPLASTY Vishnu PALACIOS, Valeriano A 06/20/22 Unknown Knee L FDA Start: 06-20-2022 KNEE TOTAL ROBOT ARTHROPLASTY Vishnu PALACIOS, Valeriano A 06/20/22 Unknown Knee L FDA Start: 06-20-2022 KNEE TOTAL ROBOT ARTHROPLASTY Vishnu DO, Valeriano A 06/20/22 Unknown Knee L FDA Start: 06-20-2022 KNEE TOTAL ROBOT ARTHROPLASTY Vishnu PALACIOS, Valeriano A 06/20/22 Unknown Knee L FDA Start: 06-20-2022 KNEE TOTAL ROBOT ARTHROPLASTY Vishnu DO, Valeriano A 06/20/22 Unknown Knee L FDA Start: 06-20-2022 KNEE TOTAL ROBOT ARTHROPLASTY Vishnu DO, Valeriano A 06/20/22 Unknown Knee L FDA Start: 06-20-2022 KNEE TOTAL ROBOT ARTHROPLASTY Vishnu DO, Valeriano A 06/20/22 Unknown Knee L FDA Start: 06-20-2022 KNEE TOTAL ROBOT ARTHROPLASTY Vishnu DO, Valeriano A 06/20/22 Unknown Knee L FDA Start: 06-20-2022 KNEE TOTAL ROBOT ARTHROPLASTY Vishnu DO, Valeriano A 06/20/22 Unknown Knee L FDA Start: 06-20-2022 KNEE TOTAL ROBOT ARTHROPLASTY Vishnu DO, Valeriano A 06/20/22 Unknown Knee L FDA Start: 06-20-2022 KNEE TOTAL ROBOT ARTHROPLASTY Vishnu DO, Valeriano A 06/20/22 Unknown Knee L FDA Start: 06-20-2022 KNEE TOTAL ROBOT ARTHROPLASTY Vishnu DO, Valeriano A 06/20/22 Unknown Knee L FDA Start: 06-20-2022 KNEE TOTAL ROBOT ARTHROPLASTY Vishnu DO, Valeriano A 06/20/22 Unknown Knee L FDA Start: 06-20-2022 KNEE TOTAL ROBOT ARTHROPLASTY Vishnu DO, Valeriano A 06/20/22 Unknown Knee L FDA Start: 06-20-2022 KNEE TOTAL ROBOT ARTHROPLASTY Vishnu DO, Valeriano A 06/20/22 Unknown Knee L FDA Start: 06-20-2022 KNEE TOTAL ROBOT ARTHROPLASTY Vishnu DO, Valeriano A 06/20/22 Unknown Knee L FDA Start: 06-20-2022 KNEE TOTAL ROBOT ARTHROPLASTY Brown DO, Valeriano A 06/20/22 Unknown Knee L FDA Start: 06-20-2022 KNEE TOTAL ROBOT ARTHROPLASTY Vishnu DO, Valeriano A 06/20/22 Unknown Knee L FDA Start: 06-20-2022 KNEE TOTAL ROBOT ARTHROPLASTY Vishnu DO, Valeriano A 06/20/22 Unknown Knee L FDA Start: 06-20-2022 KNEE TOTAL ROBOT ARTHROPLASTY Vishnu DO, Valeriano A 06/20/22 Unknown Knee L FDA Start: 06-20-2022 KNEE TOTAL ROBOT ARTHROPLASTY Vishnu DO, Valeriano A 06/20/22 Unknown Knee L FDA Start: 06-20-2022 KNEE TOTAL ROBOT ARTHROPLASTY Vishnu DO, Valeriano A 06/20/22 Unknown Knee L FDA Start: 06-20-2022 KNEE TOTAL ROBOT ARTHROPLASTY Vishnu DO, Valeriano A 06/20/22 Unknown Knee L FDA Start: 06-20-2022 KNEE TOTAL ROBOT ARTHROPLASTY Vishnu DO, Valeriano A 06/20/22 Unknown Knee L FDA Start: 06-20-2022 KNEE TOTAL ROBOT ARTHROPLASTY Vishnu DO, Valeriano A 06/20/22 Unknown Knee L FDA Start: 06-20-2022 KNEE TOTAL ROBOT ARTHROPLASTY Vishnu DO, Valeriano A 06/20/22 Unknown Knee L FDA Start: 06-20-2022 Functional Status Date Assessment Result Facility 05-20-2024 Functional Status N/A [facility] 02-17-2024 Functional Status N/A [facility] 07-29-2023 Functional Status N/A [facility] 06-11-2022 Functional Status N/A [facility] 06-01-2022 Functional Status No [facility] Clinical Notes 07--2022 to 07-03-2024 LISA Vasquez - 07/03/2024 8:30 AM ESTPatient Instructions Note Date & Type Note Facility 07-03-2024 History of Present illness Narrative GENERAL HISTORY AND PHYSICAL: NAME: Arnel Parr : 1970 HISTORY OF PRESENT ILLNESS: Arnel Parr is an 53 y.o. male is here for orthopedic evaluation Left total knee pain that developed a couple weeks ago and have been waxing and waning with no specific injury. He did have difficulty climbing stairs during his [employer] libertarian as the fist time having discomfort. PAST MEDICAL HISTORY: Past Medical History: Diagnosis Date Arthritis HTN (hypertension) ([facility] PAST SURGICAL HISTORY: Past Surgical History: Procedure Laterality Date TOTAL KNEE ARTHROPLASTY Left 06/20/2022 TERE SOCIAL HISTORY: Social History Occupational History Not on file Tobacco Use Smoking status: Former Types: Cigarettes Smokeless tobacco: Never Vaping Use Vaping status: Never Used Substance and Sexual Activity Alcohol use: Yes Comment: caffeine intake: 1-2 cups per day Drug use: Never Sexual activity: Not on file ALLERGIES: No Known Allergies MEDICATIONS: Current Outpatient Medications Medication Instructions lisinopril 20 mg, Daily loratadine (CLARITIN REDITABS) 10 mg, Daily Multiple Vitamin (multivitamin) tablet 1 tablet, Daily sildenafil (Viagra) 100 MG tablet TAKE ONE TABLET BY MOUTH ONCE DAILY FOR ED FOR 30 DAYS tadalafil (Cialis) 20 MG tablet TAKE ONE TABLET BY MOUTH NEEDED ONE HOUR PRIOR TO SEXUAL ACTIVITY testosterone cypionate (Depo-Testosterone) 200 MG/ML injection REVIEW OF SYSTEMS: Review of Systems General: Denies appetite or significant weight change. Denies fever, chills or night sweats. Denies lightheadedness. ENT: Denies dry mouth, sore throat or swollen glands. Denies difficulty swallowing. Denies ear pain. Respiratory: Denies chest pain, SOB, cough or wheezing. Denies asthma or pneumonia symptoms. Cardiovascular: Denies CP or palpitations. No syncope or dyspnea on exertion. Gastrointestinal: Denies nausea or vomiting. Denies heartburn or abdominal pain. Denies diarrhea. Genitourinary: Denies frequent or painful urination. Musculoskeletal: See HPI for comments. Integumentary: Denies rash, lesion or skin infection. Neurologic: Denies dizziness, headache or seizure history. Vitals: Body mass index is 48.91 kg/m . PHYSICAL EXAM: Physical Exam Patient's left knee has well-healed scar there is no evidence of erythema or redness or suggestion of infection. He has mild warmth of the knee with somewhat bogginess but overall has maintained good extension and flexion of about 105 degrees mediolateral collateral ligaments are stable knee appears stable with anterior posterior drawer with the knee flexed at 90 degrees. He has good distal pulse. XR knee 3 views left Imaging Result: Bilateral standing PA, bilateral sunrise, and lateral of the affected knee were imaged today in the office. 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 Orders Placed This Encounter Procedures XR knee 3 views left Order Specific Question: Reason for exam: Answer: TKA XR knee 3 views left Imaging Result: Bilateral standing PA, bilateral sunrise, and lateral of the affected knee were imaged today in the office. 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 ASSESSMENT: History of left knee replacement Sprain of left knee, unspecified ligament, initial encounter Patient informed and reminded to call for antibiotics before dental procedures now that he has a artificial joint. PLAN: Follow up with Dr Alejandra Francis as scheduled next year, If soreness returns try more routine Ice pack and Knee support as well as more routine use of Anti Inflammatory with Food for avoid GI upset. Tylenol for day time breakthrough discomfort. I you develop increased pain with fever or chills and knee redness call the office and request to see Dr Alejandra Francis SUREKHA. Work on lower your BMI as this will help minimize the stress on an artificial joint. LISA Vasquez documented in this encounter [facility] 07-03-2024 Instructions LISA Vasquez - 07/03/2024 8:30 AM EST Follow up with Dr Alejandra Francis as scheduled next year, If soreness returns try more routine Ice pack and Knee support as well as more routine use of Anti Inflammatory with Food for avoid GI upset. Tylenol for day time breakthrough discomfort. I you develop increased pain with fever or chills and knee redness call the office and request to see Dr Alejandra IRBY. Work on lower your BMI as this will help minimize the stress on an artificial joint. documented in this encounter [facility] 05-20-2024 Hospital Discharge instructions Patient Education 05/20/2024 16:04:56 Hypogonadism, Male [...] therapy. Follow these instructions at home: Take kmti-mhm-eobmzkw and prescription medicines only as told by [...] provider. Document Revised: 03/02/2021 Document Reviewed: 03/02/2021 Epos Patient Education 2023 [employer]. Follow Up Care 02/17/2024 13:37:01 With:MARTINA FALCON, Helio Ambriz, URL Address: [facility] [address] , [place] [address]- When: Unknown [facility] 05-20-2024 Note Patient Education Urology Hypogonadism, Male [...] Follow these instructions at home: ??? Take fxfr-cuy-ktxviym and prescription medicines only as told by [...] you discuss any (more content not included)... [facility] 02-17-2024 Hospital Discharge instructions Patient Education 02/17/2024 13:19:10 Erectile Dysfunction [...] Follow these instructions at home: Medicines Take ojby-bno-wewbqmf and prescription medicines only as told by [...] provider. Document Revised: 09/27/2021 Document Reviewed: 09/27/2021 Epos Patient Education 2022 [employer]. 02/17/2024 13:19:08 Hypogonadism, Male Hypogonadism, Male Male [...] therapy. Follow these instructions at home: Take wzlc-vte-eexrykv and prescription medicines only as told by [...] provider. Document Revised: 03/02/2021 Document Reviewed: 03/02/2021 Epos Patient Education 2022 [employer]. Follow Up Care 02/12/2024 15:29:23 With:JASSON Lockhart APRN, Paula Lopez, JAYJAY, URL Address: When: Unknown Comments:pt to f/up with Dr. Ryan With:MARTINA FALCON, Helio Ambriz, URL Address: [address] [place] [address]- When: Unknown Comments:3mos w/testosterone level [facility] 02-17-2024 Note Patient Education Urology Erectile Dysfunction [...] these instructions at home: Medicines ? Take frgq-lfi-zjrkxxb and prescription medicines only as told by [...] or tobacco. These (more content not included)... [facility] 07-29-2023 Hospital Discharge instructions Follow Up Care 07/29/2023 15:19:19 With:MARTINA FALCON, Helio Ambriz, URL Address: [facility] [address] [place] [address] [phone] When: Unknown [facility] 07-29-2023 Hospital Discharge instructions Patient Education 07/29/2023 15:16:10 Hypogonadism, Male [...] therapy. Follow these instructions at home: Take uacy-adh-bazghqr and prescription medicines only as told by [...] provider. Document Revised: 03/02/2021 Document Reviewed: 03/02/2021 Epos Patient Education 2022 [employer]. Follow Up Care 04/16/2023 11:59:27 With:MARTINA FALCON, Helio Ambriz, URL Address: [facility] [address] , [place] [address]- [phone] When: Unknown Comments:3 mos w/ T level [facility]ila 05-08-2023 Evaluation note Encounter Date Diagnosis Assessment Notes Apr, COVID (ICD-10 - U07.1) [facility] Other 06-26-2023 Hospital Discharge instructions Follow Up Care 01/07/2023 10:27:30 With:MARTINA FALCON, Helio Ambriz, URL Address: [facility] [address], [place] [address]- [phone] When: Unknown [facility] [place] 06-02-2023 Evaluation note* Encounter Date [...] low testosterone, which may result improved function [facility] Other 02-23-2023 Evaluation note* Encounter Date Diagnosis Assessment Notes Treatment Notes Treatment Clinical Notes Aug, Abnormal EKG (ICD-10 - R94.31) Aug, Abnormal nuclear stress test (ICD-10 - R94.39) [facility] Other 02-22-2023 Evaluation note* Encounter Date Diagnosis Assessment Notes Treatment Notes Treatment Clinical Notes Aug, Wellness examination (ICD-10 - Z00.00) Healthy diet and exercise. Reviewed age-appropriate preventive testing recommended. Aug, Primary hypertension (ICD-10 - I10) Aug, Obstructive sleep apnea (ICD-10 - G47.33) This patient is aware of the benefits associated with ANAHY: With continued use, the patient reduces the risk for NE, CVA, HTN, cardiac dysrhythmias and sudden cardiac [...] (ICD-10 - Z12.5) Yearly PSA and GUERDA [facility] Other [id number] Hospital Discharge instructions Patient Education 06/20/2022 14:01:04 Knee Cryocuff Patient Instructions - FT (CUSTOM) 06/20/2022 14:00:47 Post Op Patient Instructions - FT (CUSTOM) 06/20/2022 10:21:15 Alejandra Francis - Total Knee Arthroplasty (Custom) [place], [place] [facility] DISCHARGE INSTRUCTIONS: TOTAL KNEE [...] will continue at home, possibly with the nurse assistant of Home Health Physical Therapy or [...] Driving too soon, 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 It is therefore advised not to drive until after yourfirst office visit following surgery. FOLLOW-UP OFFICE VISIT: Valeriano Francis DO [facility] [address] [place] [address] Reviewed: Follow Up Care 05/25/2022 08:46:50 With:Valeriano Francis Address: [address] [place] [address] Business (1) When: Unknown [facility]12-07-2022 Evaluation + Plan noteExtracted from: Title:ASHELY POSTOP Author:Anthony Marin DO Date: 06/20/22 Plan Transfer/ Discharge: Patient can be discharged from PACU when criteria met. Condition good. Extracted from: Title:ASHELY PREOP Author:Anthony Marin DO Date:1 08/21/21 Plan [place] [employer]hesi[employer] (ASA) physical status classification: [...] discussed. Pt aware and desires to proceed. [facility]07-14-2022 Evaluation note* Encounter Date Diagnosis Assessment Notes [...] to consider total knee arthroplasty in future [facility] Other Evaluation + Plan note Future Appointments Appointment Date:11/27/2021 09:30:00 AM Scheduled Provider: Location:[facility] Appointment Type:Surgery FT General Surgery [employer] Evaluation + Plan note Future Appointments Appointment Date:06/20/2022 08:30:00 AM Scheduled Provider: Location:[facility] Future Appointments Appointment Date:06/20/2022 08:30:00 AM Scheduled Provider: Location:[facility] Appointment Type:Surgery FT Future Scheduled Tests Radiology* NM Myocardial Spect Rest/Stress 2 Day [facility] App[facility]ments Appointment Date:10/28/2023 02:45:00 PM Scheduled Provider:Helio RYAN MD Location:[facility] Appointment Type:URO Office Visit Diagnostic Tests Pending * Testosterone Level Total 07/29/23 [facility] evaluation + Plan note Future Appointments Appointment Date:02/17/2024 01:00:00 PM Scheduled Provider:JASSON Lockhart APRN, [place] X Location:[facility] Appointment Type:URO Office Visit [facility] evaluation + Plan note Future Appointments Appointment Date:05/20/2024 03:15:00 PM Scheduled Provider:Helio RYAN MD Location:[facility] Appointment Type:URO Office Visit Diagnostic Tests Pending * Testosterone Level Total 02/17/24 [facility] evaluation + Plan note Future Appointments Appointment Date:05/22/2024 08:30:00 AM Scheduled Provider: Location:[facility] Appointment Type:URO Nurse Visit Diagnostic Tests Pending * Testosterone Level Total 05/20/24 [facility] evaluation + Plan note Future Appointments Appointment Date:06/19/2024 08:00:00 AM Scheduled Provider: Location:[facility] Appointment Type:URO Nurse Visit [facility] evaluation + Plan note Future Appointments Appointment Date:07/17/2024 08:30:00 AM Scheduled Provider: Location:[facility] Appointment Type:URO Nurse Visit [facility] evaluation + Plan note Future Appointments Appointment Date:08/14/2024 08:30:00 AM Scheduled Provider: [facility] App[facility] Type:URO Nurse Visit Appointment Date:09/11/2024 08:30:00 AM Scheduled Provider: Location:[facility] Appointment Type:URO Nurse Visit Appointment Date:10/09/2024 08:30:00 AM Scheduled Provider:Helio RYAN MD Location:[facility] Appointment Type:URO Office Visit [facility] Evaluation + Plan note Future Appointments Appointment Date:09/11/2024 08:30:00 AM Scheduled Provider: Location:[facility] Appointment Type:URO Nurse Visit Appointment Date:10/09/2024 08:30:00 AM Scheduled Provider:Helio RYAN MD Location:[facility] Appointment Type:URO Office Visit [facility] evaluation noteNo assessment information available [facility] Work Phone: evaluation noteNo InformationNort [employer] Other evaluation note* Diagnosis Onset Date Resolution Status Admit Date Hypertension acute May 9:08am Primary osteoarthritis of knee acute May 29, 2024 9:08am Screening PSA (prostate specific antigen) acute May 29, 2024 9:08am Wellness examination acute Nov2023 9:08am [facility] Work Phone: Evaluation note* Diagnosis History of left knee replacement- Primary Sprain of left knee, unspecified ligament, initial encounter [facility] - [facility]* Type Description Date Medical History high blood pressure [facility] Other History general Narrative - Reported* Type [...] KNEE ARTHROPLASTY 022 Surgical History COLONOSCOPY 11/28/2021 [facility] Other [facility] general Narrative - Reported* Type Description Date [...] COLONOSCOPY 11/28/2021 Hospitalization History SEE SURGICAL HX [facility] Other Hospital course Narrative No data available for this section General [facility] Discharge instructions No data available for this section [facility] Surgery [facility] note No data available for this section [facility] Reason Referral for low ludy tosterone Diagnosis 1 Low testosterone in male (R79.89) Referral Organization [facility]y Referring Provider First Name Reji Referring Provider Last Name Dk Referring Provider Specialty Internal Me dicine Referred Organization [facility] Referred Provider Helio Ryan Referred Address [address] [place] [phone] Referred Provider Specialty Urology Referral Priority Routine General Notes Arnel presented w/ complaints of fatigue, decreased libido and ED. His initial testosterone level was low normal but his repeat level, after waiting 3 months, was low. He is being referred to be counseled on hormone replacement therapy and if appropriate, to initiate treatment Clinical Notes Include labs from [facility] Other Summary Purpose Family History No Family History Records Found Relationship Condition Age at Onset Recorded Date/T eva father Unknown Advance Directives No Advanced Directives Records Found Advance Directive Response Recorded Date/ Time Advance Directives No January 30 6:24am Chief Complaint and Reason for Visit Chief Complaint Admit Date Amb Documentation May 22, 2024 1 0:52am Wellness May 29, 2024 9:08am Reason for Visit Admit Date Hypertension May 29, 2024 9:08am Primary osteoarthritis of knee May 29, 2024 9:08am Screening PSA (prostate specific antigen ) May 29, 2024 9:08am Wellness examination May 29, 2024 9:08am Additional Source Comments REASON FOR VISIT (unrecogniz ed section and content) Reason Comments Pain Care Teams (unrecognized sec tion and content) Team Status: Inactive Member Role Status Dates Anthony Knox MD Attending Provider Active Team Status: Active Member Role Status Dates PHYSICIAN NO FAMILY Primary Care Provider Active Team Status: Active Member Role Status Dates PHYSICIAN NO FAMILY Primary Care Provider Active Start: May 16, 2024 SENG Delgado Attending Provider Active Start: May 16, 2024 Team Status: Active Member Role Status Dates PHYSICIAN NO FAMILY Primary Care Provider Active Start: May 22, 2024 EDWINA Murrieta Attending Provider Active St art: May 22, 2024 Team Status: Inactive Member Role Status Dates PHYSICIAN NO FAMILY Primary Care Provider Active Start: May 29, 2024 End: May 29, 2024 Reji Centeno DO Attending Provider Active Sta rt: May 29, 2024 End: May 29, 2024 Director Of Retail Merchandising Relationship Specialty Start Date End Date Reji Centeno MD [address] [place] [id number] PCP - General Internal Medicine 06/20/23 Goals (unrecognized section and content) Goals may be documented in a n alternate section (unrecognized sect ion and content) No Status Records FoundNo Status Records FoundNo Status Records FoundNo Status Records FoundNo Status Records Found INFORMATION SOURCE (unrecogn ized section and content) DATE CREATED AUTHOR 02/04/2022 [facility] DATE CREATED AUTHOR AUTHOR'S ORGANIZ ATION 07/12/2022 [facility] DATE CREATED AUTHOR AUTHOR'S ORGANIZ ATION 11/26/2022 [facility] DATE CREATED AUTHOR AUTHOR'S ORGANIZ ATION 07/06/2024 [facility] DATE CREATED AUTHOR AUTHOR'S ORGANIZ ATION 08/16/2024 [facility] FOR RECORDS PERTAINING TO PATIENTS WHO [...] BE BASED ON THE PRIMARY CLINICAL RECORDS. [facility] provides no warranty or guarantee of the accuracy or completeness of information in this document.
[2024-08-29 10:03] LABS: Basophils Absolute Auto 0.1 10^3/uL (0.0-0.1); Basophils Percent Auto 0.9 % (0.2-2.0); Eosinophils Absolute Auto 0.2 10^3/uL (0.0-0.7); Eosinophils Percent Auto 2.5 % (0.9-7.0); Hematocrit 44.4 % (42.0-54.0); Hemoglobin 14.3 g/dL (14.0-18.0); Immature Granulocytes Abs Auto 0.08 10^3/uL (0.00-0.03); Immature Granulocytes Pct Auto 0.8 % (0.0-0.5); Lymphocytes Absolute Auto 2.4 10^3/uL (1.2-3.8); Lymphocytes Percent Auto 25.5 % (20.5-60.0); Mean Corpuscular HGB Conc 32.2 g/dL (29.9-35.2); Mean Corpuscular Hemoglobin 29.2 pg (25.9-34.0); Mean Corpuscular Volume 90.8 fL (80.0-94.0); Monocytes Absolute Auto 0.8 10^3/uL (0.3-0.8); Monocytes Percent Auto 8.3 % (1.7-12.0); Neutrophils Absolute Auto 5.9 10^3/uL (1.4-6.5); Platelet Count 211 10^3/uL (150-450); Red Blood Count 4.89 10^6/uL (4.70-6.10); Red Cell Distribution Width 12.7 % (11.0-15.0); White Blood Count 9.5 10^3/uL (4.0-11.0)
[2024-08-29 10:11] LABS: Estimated Average Glucose 123 mg/dL; Glycohemoglobin A1C 5.9 % (4.5-6.2)
== END 2024-08-29 09:43 | disposition home or self-care (01) ==
PROVIDERS: PCP Internal Medicine; Visit Provider Internal Medicine
DX: D64.9 Anemia, unspecified (principal); R73.01 Impaired fasting glucose
CPT/HCPCS: 36415; 83036; 85025

== ENCOUNTER 2024-09-25 08:25 | Outpatient (OUT) | payer BC, SELFPAY ==
--- OUTSIDE RECORDS SUMMARY | 2024-09-25 08:35 | XMS_ITS | CCD ---
Author Organization [facility] Care Team Providers Care [employer] Name Role Phone REJI CENTENO Primary Care Physician [phone] Anthony Knox MD Anthony Knox Attending Provider Lucy Sparks Unavailable Unavailable Reji Centeno Unavailable JACOBO, DR MENDOZA Admitting Unavailable BALL, DR MENDOZA Attending Unavailable BALL, DR MENDOZA Primary Care Unavailable JACOBO, DR MENDOZA Consulting Unavailable BALL, DR MENDOZA Admitting Unavailable BALL, DR MENDOZA Attending Unavailable BALL, DR MENDOZA Primary Care Unavailable BALL, DR MENDOZA Consulting Unavailable BALL, DR MENDOZA Admitting Unavailable BALL, DR MENDOZA Attending Unavailable BALL, DR MENDOZA Primary Care Unavailable BALL, DR MENDOZA Consulting Unavailable TITO, VALERIANO Arroyo Admitting Unavailable BROWN, VALERIANO Arroyo Attending Unavailable BALL, DR MENDOZA Primary Care Unavailable TITO, VALERIANO Arroyo Admitting [...] BENSON Attending Unavailable JOE BENSON Referring Unavailable SHELBY, Helio Ambriz Attending Unavailable OrzechPaula Attending Unavailable RYANALMA Attending Unavailable RYAN, Helio Ambriz Attending Unavailable RYAN, Helio Ambriz Attending Unavailable RYAN, Helio Ambriz Attending Unavailable RYAN, Helio R Attending Unavailable RYAN, Helio R Attending Unavailable LEROY RAMIREZ Attending Unavailable RYAN, Helio Ambriz Attending Unavailable RYAN, Helio Ambriz Attending Unavailable Allergies Allergy Classification Reported Allergen(s) Allergy Type Date of Onset Reaction(s) Facility (2 sources) patient allergy list reviewed by nurse or physicia Propensity to adverse reactions 5 Comment:Done [employer] Other (1 source) No Known Medication Allergies; Translations: [No Known Medication Allergies] Propensity to adverse reactions (disorder) [facility] Repository Medications Current Medications Medication Drug [...] day(s), # 60 tab(s), Refills(s) 0, Pharmacy: [facility]/pharmacy #[id number], 179, cm, 06/11/22 14:36:00 EST, [...] pain, # 60 cap(s), Refills(s) 0, Pharmacy: [facility]/pharmacy #[id number], 179, cm, 06/11/22 14:36:00 EST, Height/Length Dosing, 137, kg, 06/11/22 14:36:00 EST, Weight Dosing Start Date: 06/20/22 Status: Ordered Centrum Silver oral tablet (14 sources) Start: 06-01-2022 take 1 tablet by [...] day(s), # 21 cap(s), Refills(s) 0, Pharmacy: [facility]/pharmacy #[id number], 179, cm, 06/11/22 14:36:00 EST, Height/Length Dosing, 137, kg, 06/11/22 14:36:00 EST, Weight Dosing Start Date: 06/20/22 Stop Date: 06/27/22 Status: Ordered 12 hr cetirizine hydrochloride 5 mg / pseudoephedrine hydrochloride 120 mg extended release oral tablet (14 sources) alpha-Adrenergic Agonist, Histamine-1 Receptor Antagonist Start: [...] constipation, # 20 cap(s), Refills(s) 0, Pharmacy: [facility]/pharmacy #[id number], 179, cm, 06/11/22 14:36:00 EST, [...] Angiotensin Converting Enzyme Inhibitor Start: 07-20-2021 End: 05-22-2024 take 1 tablet by mouth once daily [...] Note: Source Status: Taking; Refills: 5; Provider: Jacobo Bardales 1 ml testosterone cypionate 200 mg/ml [...] application, # 75 gram, Refills(s) 3, Pharmacy: [facility], 178, cm, 07/29/23 14:23:00 EST, Height/Length Dosing, 136, kg, 07/29/23 14:23:00 EST, Weight Dosing Start Date: 07/29/23 Status: Ordered Testosterone 100 mg/mL suspension (1 source) Start: 05-29-2024 Testosterone 1 00 mg/mL suspension Active MG IM May 29, 2024 12:00am testosterone cypionate 200 m g/mL IM Alley (6 sources) Start: 06-18-2024 testosterone c ypionate 200 mg/mL IM Alley 400 mg, IntraMuscular, q4wk, # 2 mL, Refills(s) 0, Pharmacy: [facility]/pharmacy #[id number], 178, cm, 05/20/24 15:25:00 EST, Height/Length Dosing, 147.2, kg, 05/20/24 15:25:00 EST, Weight Dosing Start Date: 06/18/24 Status: Ordered Start: 05-20-2024 testosterone c ypionate 200 mg/mL IM Alley 400 mg, IntraMuscular, q4wk, # 10 mL, Refills(s) 3, Pharmacy: [facility], 178, cm, 05/20/24 15:25:00 EST, Height/Length [...] a day; Note: Source Status: Not-TakingundefinedPRN; Provider: Jacobo Mendoza ( ) take 1 tablet by [...] day; Note: Source Status: Not-TakingundefinedPR N; Provider: Jacobo Mendoza ( ) take 1 tablet by mouth once yuval y Lovastatin 20 MG 1 tablet with the evening meal Orally Once a day Not-Taking tadalafil 20 mg oral tablet (11 sources) Phosphodiesterase 5 Inhibitor Start: 07-29-2023 take [...] Problem Date Documented Date Episodic/Chronic Abdominal hernia (14 sources) Umbilical hernia 06-01-2022 Episodic Acute bronchitis [...] hypofunction] Onset: 03-28-2023 Chronic Other endocrine disorders (10 sources) Male hypogonadism 03-28-2023 Chronic Other male genital disorders (5 sources) Erectile dysfunction co-occurrent and due to arterial insufficiency; Translations: [Erectile dysfunction due to arterial insufficiency] Chronic Other male genital disorders (6 sources) Erectile dysfunction due to arterial insufficiency; Translations: [ERECTILE DYSF D/T ART INSUFFICIENCY] Onset: 11-23-2022 Chronic Other male genital disorders (12 sources) Male erectile dysfunction, unspecified; Translations: [Erectile dysfunction] Onset: 07-29-2023 Chronic Other nutritional; endocrine; and metabolic disorders (15 sources) Body mass index 40+ - severely obese 11-17-2021 Chronic Other nutritional; endocrine; and metabolic disorders (17 sources) Morbid obesity; Translations: [Morbid (severe) obesity [...] [Sprain of left knee] 07-03-2024 Episodic Unclassified (9 sources) Patient encounter status 07-29-2023 Past or [...] AM EST With: Where: [facility] [address] [address]- Saturday 8:30 AM EDT With: Helio RYAN MD Where: [facility] [address] [address]- Medications What How Much When Instructions Unchanged [...] for choosing us for your care. Normal [facility] Ambulatory Visit Summaryon 0 07-17-2024 Ambulatory Visit Summary Ambulatory Visit Summary HENRI ARNEL A :1970 Visit Date:07/17/2024 Ambulatory Visit Instructions Your [...] for choosing us for your care. Normal [facility] XR Knee - left 3 [facility] Result: Bilateral standing PA, bilateral sunrise, and lateral of the affected knee were imaged today in the office. 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 [facility] [employer] Radiology Study observation (narrative) [facility] Urology Office/Clinic Noteon 05-20-2024 Urology Office/Clinic Note Urology Office/Clinic Note Chief Complaint 3 mth f/u w/ testosterone levels HPI Staff 3 month follow up w/T level Previous DX: ED, hypogonadism male, screening PSA Previous T level 142 done 7/27/24 *Androgel 3 pumps daily, Cialis 20mg PRN [...] 400 mg q4wks. SEs discussed. Sent to [facility]. -Pt understands T level has to be drawn exactly nursing home in between injections before 10 am. 2. ED (erectile dysfunction) (N52.9: Male erectile dysfunction, unspecified) Prior OV: Took Sildenafil per PCP. [place] this worked well but ran out of [...] [facility] [address], [place] [address]- Additional Instructions: 4 mos with T level [...] SARS-CoV-2 (COVID-19) Ad26 vaccine 11/19/2020 Recorded Normal [facility] Comment on above: Result Comment: Elec tronically Signed By: Helio RYAN MD\.br\Date and Time Signed: 05/20/24 16:13 EST\.br\Electronically Co-Signed By: Miranda Colorado\.br\Date and Time Co-Signed: 05/20/24 16:09 EST No Panel Informationon 05-16 Testosterone Level 104 ng/dL Abnormal 264-916 [facility] Comment on above: Adult male reference interval is based on a population ofhealthy nonobese males (BMI <30) between 19 and 39 yearsold. German, et.al. JCEM 2017,102;8056-5586. PMID:[id number].Performed at: [address] Director: Abner Geiger PhD, Phone: [phone] Ambulatory Visit Summaryon 0 02-17-2024 Ambulatory Visit Summary Ambulatory Visit Summary ARNEL PARR :1970 Visit Date:02/17/2024 Ambulatory Visit Instructions Your Diagnosis Hypogonadism male ED (erectile dysfunction) Screening PSA (prostate specific antigen) Your Care Team Attending Physician - JASSON Lockhart APRN, Paula Lopez Primary Care Physician - REJI CENTEON DO This Is Your Medications List Contact [...] Helio RYAN MD Where: [facility] [address] [address]- You Need to Schedule the Following Appointments Follow Up with JASSON Lockhart APRN, JAYJAY Dennison, JUAN ANTONIO When: Comments: pt to f/up with Dr. Ryan Where: Follow Up with Helio RYAN MD, URL When: Comments: 3mos w/testosterone level Where: [facility] [place] [address]- Medications What How Much When Instructions Unchanged [...] erection. The (more content not included)... Normal [facility] Urology Office/Clinic Noteon 02-17-2024 Urology Office/Clinic [...] erectile dysfunction, unspecified) Took Sildenafil per PCP. [place] this worked well but ran out of [...] Dr. Shelby RYAN MD, Helio Ambriz, URL [facility] [place] [address]- Additional Instructions: 3mos w/testosterone level Patient Education [...] Tobacco Former smoker (more content not included)... [facility] Comment on above: Result Comment: Elec tronically Signed By: JASSON Lockhart APRN, Paula X\.br\Date and Time Signed: 02/17/24 13:46 EDT\.br\Electronically Co-Signed By: Hood Cunningham\.br\Date and Time Co-Signed: 02/17/24 13:38 EDT\.br\Electronically Co-Signed By: Hood Cunningham\.br\Date and Time Co-Signed: 02/17/24 13:38 EDT Pre-Certification Formon Pre-Certification Form [id number] #[id number] [facility] TESTOSTERONE, TOTALon 2022 Testosterone [Mass/Vol] 208 ng/dL Critically low 264-916 [facility] Comment on above: Result Comment: Adul t male reference interval is based on a population of healthy nonobese males (BMI <30) between 19 and 39 years old. gabrielle Porter.al. JCEM 2017,102;8253-5013. PMID: [id number]. Performed By: #### T ESTTOT #### [facility] [address] [place] [address] Dr. Alla Martinez ECHOCARDIO M/2D COMPLETEon 0 3-06-2023 ECHOCARDIO M/2D COMPLETE Patient: ARNEL PARR Exam Date: 09/17/2022 : 1970 Gender:M Ordering : DR REJI CENTENO D.O. Admission #: [id number] Family : Order #: [id number] CLICK HERE TO VIEW EXAM ECHOCARDIOGRAM REPORT [...] Camara M.D. on 09/20/2022 at 09:22 Normal [facility] TESTOSTERONE, TOTALon 2022 Testosterone [Mass/Vol] 276 ng/dL Normal 264-916 [facility] Comment on above: Result Comment: Adul t male reference interval is based on a population of healthy nonobese males (BMI <30) between 19 and 39 years old. gabrielle Porter.al. JCEM 2017,102;4233-1423. PMID: [id number]. Performed By: #### T ESTTOT #### [facility] [address] [place] [address] Dr. Alla Martinez CBC AUTO DIFFon 09-06-2022 BASO # 0.1 103/ul Normal 0.0-0.1 [facility] Comment on above: Performed By: #### C BC #### [facility] [address] [address] [address] Alla Martinez Basophils/100 WBC (Bld) 1.6 % Normal 0.2-2.0 [facility] Comment on above: Performed By: #### C BC #### [facility] [address] [address] [address] Alla Martinez EO # 0.5 103/ul Normal 0.0-0.7 [facility] Comment on above: Performed By: #### C BC #### [facility] [address] [address] [address] Alla Martinez Eosinophils/100 WBC (Bld) 6.4 % Normal 0.9-7.0 [facility] Comment on above: Performed By: #### C BC #### [facility] [address] [place] [address] Dr. Alla Martinez Erythrocyte distribution width (RBC) [Ratio] 12.8 % Normal 11.0-15.0 [facility] Comment on above: Performed By: #### C BC #### [facility] [address] [place] [address] Dr. Alla Martinez Hematocrit (Bld) [Volume fraction] 40.1 % Critically low 42.0-54.0 [facility] Comment on above: Performed By: #### C BC #### [facility] [address] [place] [address] Dr. Alla Martinez Hemoglobin (Bld) [Mass/Vol] 13.0 g/dL Critically low 14.0-18.0 [facility] Comment on above: Performed By: #### C BC #### [facility] [address] [address] [address] Alla Martinez IG # 0.06 10e3/ul Critically high 0.00-0.03 [facility] Comment on above: Performed By: #### C BC #### [facility] [address] [place] [address] Dr. Alla Martinez IG % 0.8 % Critically high 0.0-0.5 [facility] Comment on above: Performed By: #### C BC #### [facility] [address] [place] [address] Dr. Alla Martinez LYMPH # 2.5 103/ul Normal 1.2-3.8 [facility] Comment on above: Performed By: #### C BC #### [facility] [address] [place] [address] Dr. Alla Martinez Lymphocytes/100 WBC (Bld) 33.2 % Normal 20.5-60.0 [facility] Comment on above: Performed By: #### C BC #### [facility] [address] [place] [address] Dr. Alla Martinez MANUAL DIFF REQ NO Normal [facility] Comment on above: Performed By: #### C BC #### [facility] [address] [place] [address] Dr. Alla Martinez MCH (RBC) [Entitic mass] 28.3 pg Normal 25.9-34.0 [facility] Comment on above: Performed By: #### C BC #### [facility] [address] [place] [address] Dr. Alla Martinez MCHC (RBC) [Mass/Vol] 32.4 g/dL Normal 29.9-35.2 [facility] Comment on above: Performed By: #### C BC #### [facility] [address] [place] [address] Dr. Alla Martinez MCV (RBC) [Entitic vol] 87.4 fL Normal 80.0-94.0 [facility] Comment on above: Performed By: #### C BC #### [facility] [address] [place] [address] Dr. Alla Martinez MONO # 0.6 103/ul Normal 0.3-0.8 [facility] Comment on above: Performed By: #### C BC #### [facility] [address] [place] [address] Dr. Alla Martinez Monocytes/100 WBC (Bld) 8.3 % Normal 1.7-12.0 [facility] Comment on above: Performed By: #### C BC #### [facility] [address] [place] [address] Dr. Alla Martinez NEUT # 3.8 103/ul Normal 1.4-6.5 [facility] Comment on above: Performed By: #### C BC #### [facility] [address] [place] [address] Dr. Alla Martinez Neutrophils/100 WBC (Bld) 49.7 % Normal 43.0-75.0 [facility] Comment on above: Performed By: #### C BC #### [facility] [address] [place] [address] Dr. Alla Martinez Platelet mean volume (Bld) [Entitic vol] 10.8 fL Normal 9.5-13.5 [facility] Comment on above: Performed By: #### C BC #### [facility] [address] [place] [address] Dr. Alla Martinez PLT 228 103/ul Normal 150-450 [facility] Comment on above: Performed By: #### C BC #### [facility] [address] [place] [address] Dr. Alla Martinez RBC 4.59 106/ul Critically low 4.70-6.10 [facility] Comment on above: Performed By: #### C BC #### [facility] [address] [place] [address] Dr. Alla Martinez WBC 7.6 103/ul Normal 4.0-11.0 [facility] Comment on above: Performed By: #### C BC #### [facility] [address] [place] [address] Dr. Alla Martinez Complete Blood Count and Dif uvaldo 09-06-2022 Anisocytosis Ql (Bld) [facility] [employer] Other Basophilic stippling LM Ql (Bld) [employer] Other RBC morphology finding Nom (Bld) [employer] Other Complete Blood Count and Diff [employer] Other Comprehensive Metabolic Pane maria 09-06-2022 Albumin [Mass/Vol] 3.048901 g/dL 3.4-5.0 g/dL [employer] Other Calcium [Mass/Vol] 8.2849348 mg/dL 8.5-10 .1 mg/dL [employer] Other CO2 [Moles/Vol] 27.24114179 mmol/L 21.0-3 2.0 mmol/L [employer] Other Creatinine [Mass/Vol] 0.54874186 mg/dL 0. 70-1.30 mg/dL [employer] Other Potassium [Moles/Vol] 4.95143648 mmol/L 3 .5-5.1 mmol/L [employer] Other Protein [Mass/Vol] 7.440268 g/dL 6.4-8.2 g/dL [employer] Other Urea nitrogen [Mass/Vol] 18.8359755 mg/dL 7.0-18.0 mg/dL [employer] Other Comprehensive Metabolic Panel see note [employer] Other Comprehensive Metabolic Panel 142 mmol/L 136-145 mmol/L [employer] Other Comprehensive Metabolic Panel 115 mg/dL Critically high 74-106 mg/dL [employer] Other Comprehensive Metabolic Panel >60 mL/min/1.73m2 >=60 mL/min/1.73m 2 [employer] Other Comprehensive Metabolic Panel 0.2 mg/dL 0.2-1.0 mg/dL [employer] Other Comprehensive Metabolic Panel 3.8 g/dL [employer] Other Albumin/Globulin [Mass ratio] 0.9 {ratio} Normal [employer] Other Comment on above: Performed By: #### C MP, LIPID #### [facility] [address] [address] [address] Alla Martinez ALP [Catalytic activity/Vol] 93 U/L Normal 46-116 [facility] [employer] Other Comment on above: Performed By: #### C MP, LIPID #### [facility] [address] [address] [address] Alla Martinez ALT [Catalytic activity/Vol] 37 U/L Normal 16-63 [facility] [employer] Other Comment on above: Performed By: #### C MP, LIPID #### [facility] [address] [place] [address] Dr. Alla Martinez Anion gap [Moles/Vol] 12.1 mmol/L Normal [facility] [employer] Other Comment on above: Performed By: #### C MP, LIPID #### [facility] [address] [place] [address] Dr. Alla Martinez AST [Catalytic activity/Vol] 21 U/L Normal 15-37 [facility] [employer] Other Comment on above: Performed By: #### C MP, LIPID #### [facility] [address] [place] [address] Dr. Alla Martinez Chloride [Moles/Vol] 107 mmol/L Normal 98-107 [facility] Other Comment on above: Performed By: #### C MP, LIPID #### [facility] [address] [place] [address] Dr. Alla Martinez Urea nitrogen/Creatinine [Mass ratio] 20.2 mg/mg Normal [facility] [employer] Other Comment on above: Performed By: #### C MP, LIPID #### [facility] [address] [place] [address] Dr. Alla Martinez LIPID PROFILEon 09-06-2022 CHOL-HDL RATIO NORM SEE BELOW Normal [facility] Comment on above: Result Comment: 3.3 - 4.4 LOW RISK 4.4 - 7.1 AVERAGE RISK 7.1 - 11.0 MODERATE RISK >11.0 HIGH RISK Performed By: #### C MP, LIPID #### [facility] [address] [place] [address] Dr. Alla Martinez Cholesterol in LDL [Mass/Vol] 89.2 mg/dL Normal [facility] Comment on above: Performed By: #### C MP, LIPID #### [facility] [address] [place] [address] Dr. Alla Martinez HDL NORMAL > or = 60 mg/dl - LOW CARDIOVASCULAR RISK <40 mg/dl - HIGH CARDIOVASCULAR RISK Normal [facility] Comment on above: Performed By: #### C MP, LIPID #### [facility] [address] [place] [address] Dr. Alla Martinez LDL CALC NORMAL SEE BELOW Normal [facility] Comment on above: Result Comment: <100 mg/dl OPTIMAL 100 - 129 mg/dl NEAR OR ABOVE OPTIMAL 130 - 159 mg/dl BORDERLINE HIGH 160 - 189 mg/dl HIGH >190 mg/dl VERY HIGH Performed By: #### C MP, LIPID #### [facility] [address] [place] [address] Dr. Alla Martinez VLDL CALC 35.8 mg/dL Normal [facility] Comment on above: Performed By: #### C MP, LIPID #### [facility] [address] [place] [address] Dr. Alla Martinez Lipid Panelon 09-06-2022 Lipid Panel > or = 60 mg/dl - LOW CARDIOVASCULAR RISK <40 mg/dl - HIGH CARDIOVASCULAR RISK [employer] Other Lipid Panel SEE BELOW [employer] Other Lipid Panel 89.2 mg/dL [employer] Other Lipid Panel 35.8 mg/dL [employer] Other Cholesterol [Mass/Vol] 158 mg/dL Normal <=200 [employer] Other Comment on above: Performed By: #### C MP, LIPID #### [facility] [address] [place] [address] Dr. Alla Martinez Cholesterol in HDL [Mass/Vol] 33 mg/dL Critically low 40-60 [employer] Other Comment on above: Performed By: #### C MP, LIPID #### [facility] [address] [place] [address] Dr. Alla Martinez Cholesterol.total/Cho lesterol in HDL [Mass ratio] 4.8 {ratio} Normal [employer] Other Comment on above: Performed By: #### C MP, LIPID #### [facility] [address] [address] [address] Alla Martinez Triglyceride [Mass/Vol] 179 mg/dL Critically high <=150 [employer] Other Comment on above: Performed By: #### C MP, LIPID #### [facility] [address] [place] [address] Dr. Alla Martinez PROF 14(COMP METB)on 023 Albumin [Mass/Vol] 3.5 g/dL Normal 3.4-5.0 [facility] Comment on above: Performed By: #### C MP, LIPID #### [facility] [address] [place] [address] Dr. Alla Martinez Bilirubin [Mass/Vol] 0.2 mg/dL Normal 0.2-1.0 [facility] Comment on above: Performed By: #### C MP, LIPID #### [facility] [address] [place] [address] Dr. Alla Martinez Calcium [Mass/Vol] 8.9 mg/dL Normal 8.5-10.1 [facility] Comment on above: Performed By: #### C MP, LIPID #### [facility] [address] [place] [address] Dr. Alla Martinez CO2 [Moles/Vol] 27.1 mmol/L Normal 21.0-32.0 [facility] Comment on above: Performed By: #### C MP, LIPID #### [facility] [address] [place] [address] Dr. Alla Martinez Creatinine [Mass/Vol] 0.89 mg/dL Normal 0.70-1.30 [facility] Comment on above: Performed By: #### C MP, LIPID #### [facility] [address] [place] [address] Dr. Alla Martinez EGFR-AF MACANESE >60 Normal >=60 [facility] Comment on above: Performed By: #### C MP, LIPID #### [facility] [address] [address] [address] Alla Martinez EGFR-NON AF MACANESE >60 Normal >=60 [facility] Comment on above: Performed By: #### C MP, LIPID #### [facility] [address] [place] [address] Dr. Alla Martinez Globulin (S) [Mass/Vol] 3.8 g/dL Normal [facility] Comment on above: Performed By: #### C MP, LIPID #### [facility] [address] [place] [address] Dr. Alla Martinez Glucose [Mass/Vol] 115 mg/dL Critically high 74-106 [facility] Comment on above: Performed By: #### C MP, LIPID #### [facility] [address] [place] [address] Dr. Alla Martinez Potassium [Moles/Vol] 4.2 mmol/L Normal 3.5-5.1 [facility] Comment on above: Performed By: #### C MP, LIPID #### [facility] [address] [place] [address] Dr. Alla Martinez Protein [Mass/Vol] 7.3 g/dL Normal 6.4-8.2 [facility] Comment on above: Performed By: #### C MP, LIPID #### [facility] [address] [place] [address] Dr. Alla Martinez Sodium [Moles/Vol] 142 mmol/L Normal 136-145 [facility] Comment on above: Performed By: #### C MP, LIPID #### [facility] [address] [place] [address] Dr. Alla Martinez Urea nitrogen [Mass/Vol] 18.0 mg/dL Normal 7.0-18.0 [facility] Comment on above: Performed By: #### C MP, LIPID #### [facility] [address] [address] [address] Alla Martinez TESTOSTERONE, TOTALon 2022 Testosterone [Mass/Vol] 276 ng/dL 264-916 ng/dL [employer] Other BLOOD BANKOrdered By: Harjeet Cartagena on 06-20-2022 ABO/Rh Interp Negative Invalid Interpretation Code [facility] [place] BB Subsection ABSC Gel Interp Negative (06/20/22 7:53 AM) Normal [facility] [place] BB Subsection BLOOD BANKOrdered By: Shanice Maxwell on 06-01-2022 ABO/Rh Retype Interp Negative Invalid Interpretation Code [facility] [place] BB Subsection CHEMISTRYOrdered By: SYSTEM SYSTEM on 06-01-2022 Anion gap [Moles/Vol] 15 mmol/L Normal 6 - 16 mEq/L F [facility] Remisol Chloride [Moles/Vol] 101 mmol/L Normal 101 - 1 11 mmol/L FT Remisol CO2 [Moles/Vol] 27 mmol/L Normal 21 - 31 mmol/L FT Remisol Creatinine [Mass/Vol] 1.0 mg/dL Normal 0.5 - 1.3 mg/dL FT Remisol GFR/1.73 sq M.predicted among blacks MDRD (S/P/Bld) [Vol rate/Area] mL/min/1.73 m2 Normal >=59mL/min/1 .73 m2 FT Chem S GFR/1.73 sq M.predicted among non-blacks MDRD (S/P/Bld) [Vol rate/Area] mL/min/1.73 m2 Normal >=59mL/min/1 .73 m2 [facility] [place] Chem S Glucose [Mass/Vol] 95 mg/dL Normal [...] PM) Normal Negative [facility] UA Auto SS [place].plasma/Lithiu m.RBC (Bld) [Mass ratio] 0-3 /HPF Normal [...] [facility] UA Auto SS Urobilinogen Qn (U) [id number] {Anushka'U}/dL Normal 0.0 - 1.0 EU/dL [facility] UA Auto SS WBC Auto Ql (U) Negative (06/01/22 4:13 PM) Normal Negative [facility] UA Auto SS WBC LM.HPF (Urine sed) [#/Area] 0-5 /HPF Normal 0-5/HPF [facility] UA Auto SS XR knee LT 2Von 01-25-2022 XR knee LT 2V [facility] [place] [address] XRay Report Signed Patient: Arnel Parr MR#: [id number] : 1970 Acct:[id number] Age/Sex: 51 / M ADM Date: 01/25/22 Loc: [facility] [place]: Type: [facility] Attending Dr: Anthony Knox MD Copies to: [...] PROCESS. Impression dictated by: Wiliam Pérez Jr., DDianeODiane01/25/2022 11:54 AM Dictation Location: [place] [address] Transcribed By: [facility] 01/25/22 1154 Dictated By: Wiliam Pérez Jr, DO 01/25/22 1153 Signed By: 01/25/22 1154 [facility] MRI KNEE LT WO CONon 022 MRI KNEE LT WO CON EXAMINATION: MRI KNEE LT WO CON HISTORY: Derangement of left knee COMPARISON: No relevant comparison available. TECHNIQUE: A complete multi-planar MRI was performed. FINDINGS: MEDIAL COMPARTMENT MEDIAL MENISCUS: Thinned extruded macerated medial meniscus with advi-xo-krzi articulation CARTILAGE: Severe chondromalacia with subchondral edema [...] OTHER: Negative. IMPRESSION: Severe tricompartmental osteoarthritis with bizp-ln-ebsz articulation of the medial compartment and a thinned extruded macerated medial meniscus Chronic anterior cruciate ligament tear Electronically authenticated by: DOLORES FITZGERALD Date: 2021-12-21 10:28 Normal [facility] XR FOREIGN BODY EYEon 2021 XR [...] by: DANG TAYLOR Date: 2021-12-21 08:43 Normal [facility] Vital Signs Date Time Vital Sign Value Performing Clinician Amber wells 07-03-2024 08:36-0500 Body height 175.[address] [facility] Work Phone: [facility] 07-03-2024 08:36-0500 Body mass index (BMI) [Ratio] 48.91 kg/m2 [facility] Work Phone: [facility] 07-03-2024 08:36-0500 Body weight 150.[address] [facility] Work Phone: [facility] 05-29-2024 09:12-0500 Body height 177.8 cm [facility] 05-29-2024 09:12-0500 Body mass index (BMI) [Ratio] 46.9 kg/m2 [facility] 05-29-2024 09:12-0500 Body weight 148.38 kg [facility] 05-29-2024 09:12-0500 Diastolic blood pressure 73 mm[Hg] [facility] 05-29-2024 09:12-0500 Heart rate 92 /min [facility] 05-29-2024 09:12-0500 Respiratory rate 12 /min [facility] 05-29-2024 09:12-0500 Systolic blood pressure 132 mm[Hg] [facility] 05-20-2024 15:19-0500 Diastolic blood pressure 98 mm[Hg] Helio RYAN [facility] 05-20-2024 15:19-0500 Heart rate 84 /min Helio RYAN [facility] 05-20-2024 15:19-0500 Systolic blood pressure 165 mm[Hg] Helio RYAN [facility] 02-17-2024 12:59-0400 Blood Pressure Location Paula Lockhart [facility] 02-17-2024 12:59-0400 Body temperature 96.8 [degF] Paula Orzech [facility] 02-17-2024 12:59-0400 Diastolic blood pressure 68 mm[Hg] Paula Orzech [facility] 02-17-2024 12:59-0400 Heart rate 66 /min Paula Orzech [facility] 02-17-2024 12:59-0400 Respiratory rate 18 /min Paula Orzech [facility] 02-17-2024 12:59-0400 Systolic blood pressure 128 mm[Hg] Paula Orzech [facility] 07-29-2023 14:16-0500 Blood Pressure Location Helio RYAN [facility] 07-29-2023 14:16-0500 Diastolic blood pressure 89 mm[Hg] Helio RYAN [facility] 07-29-2023 14:16-0500 Heart rate 80 /min Helio RYAN [facility] 07-29-2023 14:16-0500 Respiratory rate 16 /min Helio RYAN [facility] 07-29-2023 14:16-0500 Systolic blood pressure 132 mm[Hg] Helio RYAN [facility] 12-14-2022 14:00-0400 Body height 175.26 cm Reji Ball Other [employer] Other 12-14-2022 14:00-0400 Body mass index (BMI) [Ratio] 41.82 kg/m2 Reji Ball Other [employer] Other 12-14-2022 14:00-0400 Body weight 128.46 kg Reji Ball Other [employer] Other 12-14-2022 14:00-0400 Diastolic blood pressure 69 mm[Hg] Reji Ball Other [employer] Other 12-14-2022 14:00-0400 Respiratory rate 12 /min Reji Ball Other [employer] Other 12-14-2022 14:00-0400 Systolic blood pressure 112 mm[Hg] Reji Ball Other [employer] Other 09-05-2022 13:30-0500 Body height 175.26 cm Reji Ball Other [employer] Other 09-05-2022 13:30-0500 Body mass index (BMI) [Ratio] 45.18 kg/m2 Reji Ball Other [employer] Other 09-05-2022 13:30-0500 Body weight 138.8 kg Reji Ball Other [employer] Other 09-05-2022 13:30-0500 Diastolic blood pressure 72 mm[Hg] Reji Ball Other [employer] Other 09-05-2022 13:30-0500 SaO2% (BldA) [Mass fraction] 96 % Reji Ball Other [employer] Other 09-05-2022 13:30-0500 Systolic blood pressure 140 mm[Hg] Reji Ball Other [employer] Other 06-20-2022 16:50-0500 Blood Pressure Location Valeriano Francis [facility] 06-20-2022 16:50-0500 Body temperature 96.8 [degF] Valeriano Francis [facility] 06-20-2022 16:50-0500 Diastolic blood pressure 62 mm[Hg] Valeriano Francis [facility] 06-20-2022 16:50-0500 Heart rate 90 /min Valeriano Francis [facility] 06-20-2022 16:50-0500 Respiratory rate 16 /min Valeriano Francis [facility] 06-20-2022 16:50-0500 SaO2% (BldA) [Mass fraction] 97 % Valeriano Francis [facility] 06-20-2022 16:50-0500 Systolic blood pressure 145 mm[Hg] Valeriano Francis [facility] 06-20-2022 16:00-0500 Body temperature 97.16 [degF] Valeriano Francis [facility] 06-20-2022 16:00-0500 Diastolic blood pressure 80 mm[Hg] Valeriano Francis [facility] 06-20-2022 16:00-0500 Heart rate 82 /min Valeriano Francis [facility] 06-20-2022 16:00-0500 Systolic blood pressure 120 mm[Hg] Valeriano Francis [facility] 06-20-2022 14:38-0500 Blood Pressure Location Valeriano Francis [facility] 06-20-2022 14:38-0500 Body temperature 96.8 [degF] Valeriano Francis [facility] 06-20-2022 14:38-0500 Diastolic blood pressure 73 mm[Hg] Valeriano Francis [facility] 06-20-2022 14:38-0500 Heart rate 80 /min Valeriano Francis [facility] 06-20-2022 14:38-0500 Respiratory rate 14 /min Valeriano Francis [facility] 06-20-2022 14:38-0500 Systolic blood pressure 112 mm[Hg] Valeriano Francis [facility] 06-20-2022 13:40-0500 SaO2% (BldA) [Mass fraction] 97 % Valeriano Francis [facility] 06-20-2022 13:31-0500 Respiratory rate 11 /min Valeriano Francis [facility] 06-20-2022 13:20-0500 Respiratory rate 14 /min Valeriano Francis [facility] 06-20-2022 13:15-0500 Respiratory rate 15 /min Valeriano Francis [facility] 06-20-2022 07:35-0500 Body temperature 97.7 [degF] Valeriano Francis [facility] 06-20-2022 07:35-0500 Heart rate 70 /min Valeriano Francis [facility] 06-11-2022 14:42-0500 Diastolic blood pressure 84 mm[Hg] Дмитрий Santo [facility] 06-11-2022 14:42-0500 Mean blood pressure 106 mm[Hg] Дмитрий Santo [facility] 06-11-2022 14:42-0500 Systolic blood pressure 149 mm[Hg] Дмитрий Santo [facility] 06-11-2022 14:33-0500 Blood Pressure Location Дмитрий Santo [facility] 06-11-2022 14:33-0500 Diastolic blood pressure 87 mm[Hg] Дмитрий Santo [facility] 06-11-2022 14:33-0500 Heart rate 79 /min Дмитрий Santo [facility] 06-11-2022 14:33-0500 Respiratory rate 18 /min Дмитрий Santo [facility] 06-11-2022 14:33-0500 SaO2% (BldA) [Mass fraction] 98 % Дмитрий Santo [facility] 06-11-2022 14:33-0500 Systolic blood pressure 146 mm[Hg] Дмитрий Santo [facility] 06-01-2022 15:54-0500 Blood Pressure Location Valeriano Francis [facility] 06-01-2022 15:54-0500 Diastolic blood pressure 93 mm[Hg] Valeriano Francis [facility] 06-01-2022 15:54-0500 Heart rate 67 /min Valeriano Francis [facility] 06-01-2022 15:54-0500 Mean blood pressure 115 mm[Hg] Valeriano Francis [facility] 06-01-2022 15:54-0500 Systolic blood pressure 157 mm[Hg] Valeriano Francis [facility] 06-01-2022 15:53-0500 Blood Pressure Location Valeriano Francis [facility] 06-01-2022 15:53-0500 Body temperature 98.24 [degF] Valeriano Francis [facility] 06-01-2022 15:53-0500 Diastolic blood pressure 92 mm[Hg] Valeriano Francis [facility] 06-01-2022 15:53-0500 Heart rate 71 /min Valeriano Francis [facility] 06-01-2022 15:53-0500 Mean blood pressure 112 mm[Hg] Valeriano Francis [facility] 06-01-2022 15:53-0500 Respiratory rate 16 /min Valeriano Francis [facility] 06-01-2022 15:53-0500 SaO2% (BldA) [Mass fraction] 99 % Valeriano Francis [facility] 06-01-2022 15:53-0500 Systolic blood pressure 153 mm[Hg] Valeriano Francis [facility] 11-17-2021 14:26-0400 Blood Pressure Location Jasbir VASQUESL [facility] [place] 11-17-2021 14:26-0400 Diastolic blood pressure 86 mm[Hg] Jasbir NILL [facility] [place] 11-17-2021 14:26-0400 Heart rate 72 /min Jasbir NILL [facility] [place] 11-17-2021 14:26-0400 Respiratory rate 16 /min Jasbir NILL [facility] [place] 11-17-2021 14:26-0400 Systolic blood pressure 124 mm[Hg] Jasbir NILL [facility] [place] Encounters Encounter Date Encounter Type Care Provider Facility Start: 10-23-2024 ambulatory Helio Felipe ty:[facility] Start: 10-09-2024 ambulatory Helio RYAN Facili ty:[facility] [place] Start: 09-25-2024 ambulatory Helio RYAN Facili ty:[facility] [place] Start: 09-11-2024 End: 09-11-2024 ambulatory Helio RYAN Facility:[facility] [place] Start: 09-11-2024 End: 09-11-2024 Patient encounter procedure Helio RYAN [facility] [place] Start: 08-14-2024 End: 08-14-2024 ambulatory ALMA RYAN Facility:[facility] [place] Start: 08-14-2024 End: 08-14-2024 Patient encounter procedure ALMA RYAN [facility] [place] Start: 07-17-2024 End: 07-17-2024 ambulatory Helio RYAN Facility:[facility] Start: 07-17-2024 End: 07-17-2024 Patient encounter procedure Helio RYAN [facility] [place] Start: 07-03-2024 End: 07-03-2024 Patient encounter procedure Joe GONZALEZ Work Phone: [facility] Comment on above: History of left knee replacement (Primary Dx); Sprain of left knee, unspecified ligament, initial encounter Start: 07-03-2024 End: 07-03-2024 ambulatory JOE BENSON Not Available Start: 06-19-2024 End: 06-19-2024 ambulatory Helio RYAN Facility:[facility] [place] Start: 06-19-2024 End: 06-19-2024 Patient encounter procedure Helio RYAN [facility] [place] Start: 05-29-2024 End: 05-29-2024 ambulatory [facility] Work Phone: Start: 05-29-2024 End: 05-29-2024 Encounter for general adult medical examination without abnormal findings [facility] Start: 05-29-2024 End: 05-29-2024 Patient encounter procedure [facility] Work Phone: Start: 05-27-[address] [facility] Start: 05-22-2024 Non-patient / Non-visit [facility] Work Phone: Start: 05-22-2024 End: 05-22-2024 ambulatory Helio RYAN Facility:[facility] [place] Start: 05-22-2024 End: 05-22-2024 Patient encounter procedure Helio RYAN [facility] [place] Start: 05-20-2024 End: 05-20-2024 ambulatory Helio RYAN Facility:[facility] [place] Start: 05-20-2024 End: 05-20-2024 Patient encounter procedure Helio R RYAN [facility] [place] Start: 05-16-2024 Non-patient / Non-visit [facility] Work Phone: Start: 02-17-2024 End: 02-17-2024 ambulatory Paula X Orzech Facility:[facility] [place] Start: 02-17-2024 End: 02-17-2024 Patient encounter procedure Paula X Orzech [facility] [place] Start: 02-13-2024 End: 02-13-2024 ambulatory LEROY RAMIREZ Facility:[facility] [place] Start: 02-13-2024 End: 02-13-2024 Patient encounter procedure LEROY RAMIREZ [facility] [place] Start: 07-29-2023 End: 07-29-2023 Patient encounter procedure Helio RYAN [facility] [place] Start: 05-08-2023 End: 05-08-2023 ambulatory Reji Centeno Other [employer] Other Start: 05-08-2023 Telephone encounter Reji AKINS [facility] Start: 04-16-2023 End: 04-16-2023 ambulatory Reji Centeno Other [employer] Other Start: 04-16-2023 Telephone encounter Reji AKINS [facility] Start: 04-01-2023 End: 04-01-2023 Patient encounter procedure Helio Ambriz RYAN [facility] [place] Start: 12-14-2022 End: 12-14-2022 ambulatory Reji Centeno Other [employer] Other Start: 12-14-2022 Office outpatient visit 15 minutes Reji [facility] Start: 11-23-2022 End: 11-24-[address] REJI CENTENO Facility:[facility] Start: 09-17-2022 End: 09-18-[address] REJI CENTENO Facility:[facility] Start: 09-10-2022 Encounter for genera l adult medical examination without abnormal findings DR REJI CENTENO [facility] Start: 09-06-2022 Telephone encounter [facility] Start: 09-06-2022 End: 09-07-[address] REJI CENTENO [employer] Other Start: 09-06-2022 End: 09-07-2022 Encounter for general adult medical examination without abnormal findings DR REJI CENTENO Facility:[facility] Start: 09-05-2022 End: 09-05-2022 ambulatory Reji Centeno Other [employer] Other Start: 09-05-2022 Encounter for genera l adult medical examination without abnormal findings Reji Centeno [facility] Start: 09-05-2022 Periodic preventive med est patient 40-64yrs Reji Centeno [facility] Start: 07-15-2022 End: 08-11-2022 ambulatory VALERIANO FRANCIS Facility:[facility] Start: 07-12-2022 End: 07-14-2022 ambulatory VALERIANO FRANCIS Facility:[facility] Start: 06-20-2022 End: 06-20-2022 Admission to same day surgery center Valeriano Francis [facility] Start: 06-14-2022 End: 09-13-2022 Recurring Дмитрий Santo [facility] Start: 06-11-2022 End: 06-11-2022 Patient encounter procedure Дмитрий Santo [facility] Start: 06-01-2022 ambulatory Facility:1 [id number] Start: 06-01-2022 End: 06-01-2022 Patient encounter procedure Valeriano Francis [facility] Start: 01-25-2022 End: 01-25-2022 ambulatory Anthony Knox Other [employer] Other Start: 01-25-2022 Office outpatient ne w 30 minutes Anthony Knox [facility] Start: 01-25-2022 End: 01-25-2022 Patient encounter procedure MD Anthony Knox Work Phone: [facility] Start: 12-21-2021 End: 12-22-[address] REJI CENTENO Facility:[facility] Start: 11-17-2021 End: 11-17-2021 Patient encounter procedure Jasbir SAWANT [facility] Start: 07-10-2021 Adult health examination Reji Centeno Other [facility] Other Procedures Date Procedure Procedure Detail Performing Clinician Start: 07-03-2024 Radiologic examinati on knee 3 views Joe GONZALEZ Work Phone: Start: 09-06-[address] JESSICA VEGA JACOBO Comment on above: Performed By: #### P [facility] #### [facility] [address] [place] [address] Dr. Alla Martinez Start: 06-20-2022 Arthroplasty of knee Mike satish Francis Comment on above: Left Total Knee Arth roplsty, Robotic Assisted Start: 01-25-2022 X-ray of left knee MD Esperanza Knox Work Phone: Start: 11-27-2021 Colonoscopy Joe GONZALEZ Work Phone: Start: 11-27-2021 Colonoscopy Valeriano brandt Start: 08-30-2014 General examination of patient Reji Centeno Other Amputation of finger , except thumb Jasbir SAWANT Excision of lipoma Jsabir MARISCAL History of operative procedure on knee History of left knee replacement Joe GONZALEZ Work Phone: Tonsillectomy and adenoidectomy Jasbir SAWANT Plan of Treatment Date Care Activity Detail Author Start: 11-28-2031 Screening for malign ant neoplasm of colon [facility] Start: 03-15-2024 Influenza vaccination Influenz a Vaccine (#1) [facility] Start: 1970 Screening for malign ant neoplasm of colon [facility] Comprehensive metabo lic 2000 panel - Serum or Plasma [facility] Immunizations Immunization Date Immunization Notes Care Provider Fa cility 12-10-2020 COVID-19 Vaccine Pfi zer - Documentation Purposes Only Reji Centeno Other [facility] 12-10-2020 SARS-CoV-2 (COVID-19 ) Ad26 vaccine, recombinant Jasbir NILL [facility] [place] 11-19-2020 SARS-CoV-2 (COVID-19 ) Ad26 vaccine, recombinant Jasbir NILL [facility] [place] Payers Date Payer Category Payer Blue [place] [employer] [facility] BCBS [id number] 2019 Unknown [id number] 1972 Unknown [id number] 2.16.840.1.483521.3.579.2. 356 1972 Unknown [id number] 2.16.840.1.234258.3.579.2. 593 1972 Unknown [id number] 2.16.840.1.403040.3.579.2. 593 1972 Unknown [id number] 2.16.840.1.916299.3.579.2. 593 1972 Unknown [id number] 2.16.840.1.417665.3.579.2. 593 1972 Unknown [id number] 2.16.840.1.309654.3.579.2. 593 1972 Unknown [id number] 2.16.840.1.941808.3.579.2. 593 1972 Unknown [id number] 2.16.840.1.290265.3.579.2. 1259 1972 Unknown [id number] 2.16.840.1.265829.3.579.2. 1259 1972 Unknown [id number] 2.16.840.1.071263.3.579.2. 727 1972 Unknown [id number] 2.16.840.1.265362.3.579.2. 7 1972 Unknown [id number] 2.16.840.1.407512.3.579.2. 7 1972 Unknown [id number] 2.16.840.1.579223.3.579.2. 1972 Unknown [id number] 2.16.840.1.858603.3.579.2. 7 1972 Unknown [id number] 2.16.840.1.787747.3.579.2. 7 1972 Unknown [id number] 2.16.840.1.740741.3.579.2. 7 1972 Unknown [id number] 2.16.840.1.448935.3.579.2. 1972 Unknown [id number] 2.16.840.1.052073.3.579.2. 7 1972 Unknown [id number] 2.16.840.1.900645.3.579.2. 7 1972 Unknown [id number] 2.16.840.1.837343.3.579.2. 727 1957 [facility] [id number] 2.16.840.1.829129.19 Self-pay Self Pay [id number] Social History Date Type Detail Facility Start: 11-17-2021 End: 05-20-2024 Tobacco smoking status Ex-smoker (finding) [facility] Tobacco smoking status Smokeless tobacco user within last 30 days [facility] Start: 06-19-2023 End: 07-03-2024 Sex Assigned At Male [facility] Start: 1970 Sex [address] Male [facility] Tobacco smoking stat us NHIS Unknown if ever smoked [facility] Work Phone: Start: 05-29-2024 Sex Male (finding) [facility] History of tobacco use Current smoker [...] Healthcare Start: 06-13-2023 Sexual orientation Heterosexual (finding) [facility] Medical Equipment Procedure Code Equipment Code Equipment Origin al Text Equipment Identifier Dates KNEE TOTAL ROBOT ARTHROPLASTY Valeriano Francis DO A 06/20/22 Unknown Knee L FDA Start: 06-20-2022 KNEE TOTAL ROBOT ARTHROPLASTY Mike Francis DOson A 06/20/22 Unknown Knee L FDA Start: 06-20-2022 KNEE TOTAL ROBOT ARTHROPLASTY Valeriano Francis DO A 06/20/22 Unknown Knee L FDA Start: 06-20-2022 KNEE TOTAL ROBOT ARTHROPLASTY Valeriano Francis DO A 06/20/22 Unknown Knee L FDA Start: 06-20-2022 KNEE TOTAL ROBOT ARTHROPLASTY Valeriano Francis DO A 06/20/22 Unknown Knee L FDA Start: 06-20-2022 KNEE TOTAL ROBOT ARTHROPLASTY Valeriano Francis DO A 06/20/22 Unknown Knee L FDA Start: [...] FDA Start: 06-20-2022 KNEE TOTAL ROBOT ARTHROPLASTY Tiot DO, Valeriano A 06/20/22 Unknown Knee L [...] Facility 05-20-2024 Functional Status N/A [facility] 02-17-2024 Functional Status N/A [facility] 07-29-2023 Functional Status N/A [facility] 06-11-2022 Functional Status N/A [facility] 06-01-2022 Functional Status No [facility] Clinical Notes 01-25-2022 to 07-03-2024 LISA Vasquez - 07/03/2024 8:30 [...] did have difficulty climbing stairs during his [employer] libertarian as the fist time having discomfort. PAST MEDICAL HISTORY: Past Medical History: Diagnosis Date Arthritis HTN (hypertension) (CMS/HCC) PAST SURGICAL HISTORY: Past Surgical History: Procedure [...] joint. LISA Vasquez documented in this encounter [facility] 07-03-2024 Instructions LISA Vasquez - 07/03/2024 8:30 AM EST Follow up with Dr Alejandra Farncis as scheduled next year, If soreness returns [...] an artificial joint. documented in this encounter [facility] 05-20-2024 Hospital Discharge instructions Patient Education 05/20/2024 [...] therapy. Follow these instructions at home: Take fmtz-eue-gbuplyg and prescription medicines only as told by [...] provider. Document Revised: 03/02/2021 Document Reviewed: 03/02/2021 [employer] Patient Education 2023 sourceasy. Follow Up Care 02/17/2024 13:37:01 With:SHELBY FALCON, Helio Ambriz, URL Address: [facility] [address] , [place] [address]- When: Unknown [facility] 05-20-2024 Note Patient Education Urology Hypogonadism, Male [...] Follow these instructions at home: ??? Take nxiv-iru-jxhllph and prescription medicines only as told by [...] you discuss any (more content not included)... [facility] 02-17-2024 Hospital Discharge instructions Patient Education 02/17/2024 [...] Follow these instructions at home: Medicines Take uwml-vdk-jvcykne and prescription medicines only as told by [...] provider. Document Revised: 09/27/2021 Document Reviewed: 09/27/2021 [employer] Patient Education 2022 [employer] 02/17/2024 13:19:08 Hypogonadism, Male Hypogonadism, Male [...] therapy. Follow these instructions at home: Take srza-rma-znzbawt and prescription medicines only as told by [...] provider. Document Revised: 03/02/2021 Document Reviewed: 03/02/2021 [employer] Patient Education 2022 sourceasy. Follow Up Care 02/12/2024 15:29:23 With:JASSON Lockhart APRN, Paula Lopez, JAYJAY, URL Address: When: Unknown Comments:pt to f/up with Dr. Ryan With:SHELBY FALCON, Helio Ambriz, URL Address: [address] [place] [id number]- When: Unknown Comments:3mos w/testosterone level [facility] 02-17[facility]2024 Note Patient Education Urology Erectile Dysfunction [...] these instructions at home: Medicines ? Take vzba-eal-lgfxzpv and prescription medicines only as told by [...] or tobacco. These (more content not included)... [facility] 07-29-2023 Hospital Discharge instructions Follow Up Care 07/29/2023 15:19:19 With:SHELBY FALCON, Helio Ambriz, URL Address: [facility] [address] [place] [address]- [phone] When: Unknown [facility] [place] 07-29-2023 Hospital Discharge instructions Patient Education 07/29/2023 [...] therapy. Follow these instructions at home: Take mxwh-bsa-hiemrqa and prescription medicines only as told by [...] provider. Document Revised: 03/02/2021 Document Reviewed: 03/02/2021 [employer] Patient Education 2022 sourceasy. Follow Up Care 04/16/2023 11:59:27 With:Helio RYAN MD, URL Address: [facility] [address] , [place] [address]- [phone] When: Unknown Comments:3 mos w/ T level [facility] 05-08-2023 Evaluation note Encounter Date Diagnosis Assessment Notes Apr, COVID (ICD-10 - U07.1) [employer] Other 06-26-2023 Hospital Discharge instructions Follow Up Care 01/07/2023 10:27:30 With:Helio RYAN MD, URL Address: [facility] [address] , [place] [address]- [phone] When: Unknown [facility] 06-02-2023 Evaluation note* Encounter Date Diagnosis [...] low testosterone, which may result improved function [employer] Other 02-23-2023 Evaluation note* Encounter Date Diagnosis Assessment Notes Treatment Notes Treatment Clinical Notes Aug, Abnormal EKG (ICD-10 - R94.31) Aug, Abnormal nuclear stress test (ICD-10 - R94.39) [employer] Other 02-22-2023 Evaluation note* Encounter Date Diagnosis Assessment Notes Treatment Notes Treatment Clinical Notes Aug, Wellness examination (ICD-10 - Z00.00) Healthy diet and exercise. Reviewed age-appropriate preventive testing recommended. Aug, Primary hypertension (ICD-10 - I10) Aug, Obstructive sleep apnea (ICD-10 - G47.33) This patient is aware of the benefits associated with ANAHY: With continued use, the patient reduces the risk for MT, CVA, HTN, cardiac dysrhythmias and sudden cardiac [...] (ICD-10 - Z12.5) Yearly PSA and GUERDA [employer] Other 12-07-2022 Hospital Discharge instructions Patient Education 06/20/2022 14:01:04 Knee Cryocuff Patient Instructions - FT (CUSTOM) 06/20/2022 14:00:47 Post Op Patient Instructions - FT (CUSTOM) 06/20/2022 10:21:15 Alejandra Francis - Total Knee Arthroplasty (Custom) [place]ent, [place] [facility] DISCHARGE INSTRUCTIONS: TOTAL KNEE [...] will continue at home, possibly with the real estate legal assistant of [facility] or [...] too soon, 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 It is therefore advised not to drive until after yourfirst office visit following surgery. FOLLOW-UP OFFICE VISIT: Valeriano Francis DO [facility] [address] [place] [address] Reviewed: Follow Up Care 05/25/2022 08:46:50 With:Valeriano Francis Address: [address] [place] [address] Business (1) When: Unknown [facility]12-07-2022 Evaluation + Plan noteExtracted from: Title:ASHELY POSTOP Author:Anthony Marin DO Date: 06/20/22 Plan Transfer/ Discharge: Patient can be discharged from PACU when criteria met. Condition good. Extracted from: Title:ASHELY PREOP Author:Anthony Marin DO Date:08/21/21 Plan [place] [employer]hesi[employer] (ASA) physical status classification: [...] discussed. Pt aware and desires to proceed. [facility]07-14-2022 Evaluation note* Encounter Date Diagnosis Assessment [...] to consider total knee arthroplasty in future [facility] Other Evaluation + Plan note Future Appointments Appointment Date:11/27/2021 09:30:00 AM Scheduled Provider: Location:[facility] Appointment Type:Surgery FT [facility] [place] Evaluation + Plan note Future Appointments Appointment Date:06/20/2022 08:30:00 AM Scheduled Provider: Location:[facility] App[facility]ments Appointment Date:06/20/2022 08:30:00 AM Scheduled Provider: Location:[facility] Appointment Type:Surgery FT Future Scheduled Tests Radiology* NM Myocardial Spect Rest/Stress 2 Day [facility] App[facility]ments Appointment Date:10/28/2023 02:45:00 PM Scheduled Provider:Helio RYAN MD Location:[facility] Appointment Type:URO Office Visit Diagnostic Tests Pending * Testosterone Level Total 07/29/23 [facility] evaluation + Plan note Future Appointments Appointment Date:02/17/2024 01:00:00 PM Scheduled Provider:JASSON Lockhart APRN, [place] Location:[facility] Appointment Type:URO Office Visit [facility] evaluation + Plan note Future Appointments Appointment Date:05/20/2024 03:15:00 PM Scheduled Provider:Helio RYAN MD Location:[facility] Appointment Type:URO Office Visit Diagnostic Tests Pending * Testosterone Level Total 02/17/24 [facility] Evaluation + Plan note Future Appointments Appointment Date:05/22/2024 08:30:00 AM Scheduled Provider: Location:[facility] [place] Appointment Type:URO Nurse Visit Diagnostic Tests Pending * Testosterone Level Total 05/20/24 [facility] [place] Evaluation + Plan note Future Appointments Appointment Date:06/19/2024 08:00:00 AM Scheduled Provider: Location:[facility] [place] Appointment Type:URO Nurse Visit [facility] evaluation + Plan note Future Appointments Appointment Date:07/17/2024 08:30:00 AM Scheduled Provider: Location:[facility] [place] Appointment Type:URO Nurse Visit [facility] evaluation + Plan note Future Appointments Appointment Date:08/14/2024 08:30:00 AM Scheduled Provider: Location:[facility] [place] Appointment Type:URO Nurse Visit Appointment Date:09/11/2024 08:30:00 AM Scheduled Provider: Location:[facility] [place] Appointment Type:URO Nurse Visit Appointment Date:10/09/2024 08:30:00 AM Scheduled Provider:Helio RYAN MD Location:[facility] [place] Appointment Type:URO Office Visit [facility] [place] Evaluation + Plan note Future Appointments Appointment Date:09/11/2024 08:30:00 AM Scheduled Provider: Location:[facility] [place] Appointment Type:URO Nurse Visit Appointment Date:10/09/2024 08:30:00 AM Scheduled Provider:Helio RYAN MD Location:[facility] [place] Appointment Type:URO Office Visit [facility] evaluation + Plan note Future Appointments Appointment Date:09/25/2024 08:00:00 AM Scheduled Provider: Location:[facility] [place] Appointment Type:URO Nurse Visit Appointment Date:10/09/2024 08:30:00 AM Scheduled Provider: Location:[facility] [place] Appointment Type:URO Nurse Visit Appointment Date:10/23/2024 10:30:00 AM Scheduled Provider:Helio RYAN MD Location:[facility] Appointment Type:URO Office [facility] noteNo assessment information available [facility] Work Phone: Evaluation noteNo InformationNort [employer] Other Evaluation note* Diagnosis Onset Date Resolution Status Admit Date Hypertension acute May 9:08am Primary osteoarthritis of knee acute May 29, 2024 9:08am Screening PSA (prostate specific antigen) acute May 29, 2024 9:08am Wellness examination acute Nove mb2023 9:08am [facility] Work Phone: Evaluation note* Diagnosis History of left knee replacement- Primary Sprain of left knee, unspecified ligament, initial encounter documented in this encounter [facility] N[facility] - Reported* Type Description Date Medical History high blood pressure [employer] Other History general Narrative - Reported* Type [...] KNEE ARTHROPLASTY 022 Surgical History COLONOSCOPY 11/28/2021 [employer] Other History general Narrative - Reported* Type [...] COLONOSCOPY 11/28/2021 Hospitalization History SEE SURGICAL HX [employer] Other Hospital course Narrative No data available for this section [facility] Discharge instructions No data available for this section [facility] [place] note No data available for this section [facility] for referral (narrative)* Reason Referral for low ludy tosterone Diagnosis 1 Low testosterone in male (R79.89) Referral Organization [facility] w[facility] Referring Provider First Name Reji Referring Provider Last Name Jacobo Referring Provider Specialty Internal Me dicine Referred Organization [facility] Referred Provider Helio Ryan Referred Address [address] [place], [place],[address] Referred Provider Specialty Urology Referral Priority Routine General Notes Arnel presented w/ complaints of fatigue, decreased libido and ED. His initial testosterone level was low normal but his repeat level, after waiting 3 months, was low. He is being referred to be counseled on hormone replacement therapy and if appropriate, to initiate treatment Clinical Notes Include labs from [email or web address] Other Summary Purpose Family History No Family [...] Care Provider Active Start: May 22, 2024 Mireille Pinto , RMA Attending Provider Active St art: May 22, 2024 Team Status: Inactive Member Role Status Dates PHYSICIAN NO FAMILY Primary Care Provider Active Start: May 29, 2024 End: May 29, 2024 Reji Centeno DO Attending Provider Active Sta rt: May 29, 2024 End: May 29, 2024 [employer] Relationship Specialty Start Date End Date Reji Centeno MD [address] [place] [id number] PCP - General Internal Medicine 06/20/23 Goals (unrecognized section and content) Goals may be documented in a n alternate section (unrecognized sect ion and content) No Status Records FoundNo Status Records FoundNo Status Records FoundNo Status Records FoundNo Status Records Found INFORMATION SOURCE (unrecogn ized section and content) DATE CREATED AUTHOR 02/04/2022 [facility] DATE CREATED AUTHOR AUTHOR'S ORGANIZ ATION 07/12/2022 [facility] DATE CREATED AUTHOR AUTHOR'S ORGANIZ ATION [facility]/20[facility] DATE CREATED AUTHOR AUTHOR'S ORGANIZ ATION 07/06/2024 [facility] DATE CREATED AUTHOR AUTHOR'S ORGANIZ ATION 09/13/2024 [facility] FOR RECORDS PERTAINING TO PATIENTS WHO [...] BE BASED ON THE PRIMARY CLINICAL RECORDS. [employer] provides no warranty or guarantee of the accuracy or completeness of information in this document.
[2024-09-26 08:15] LABS: Testosterone 588 ng/dL (264-916)
== END 2024-09-25 08:26 | disposition home or self-care (01) ==
LOC: LAB 08:27
PROVIDERS: PCP Internal Medicine; Visit Provider Urology
DX: E29.1 Testicular hypofunction (principal)
CPT/HCPCS: 36415; 84403

== ENCOUNTER 2025-04-09 07:59 | Outpatient (OUT) | payer BC, SELFPAY ==
--- OUTSIDE RECORDS SUMMARY | 2025-04-09 08:04 | XMS_ITS | CCD ---
Author Organization [facility] Care Team Providers Care Agent Based Modeler Name Role Phone REJI CENTENO Primary Care Physician Anthony Knox MD Anthony Knox Attending Provider Lucy Sparks Unavailable Unavailable Dk, Reji Unavailable DK, DR MENDOZA Admitting Unavailable BALL, [...] VISHNU, VALERIANO Arroyo Attending Unavailable BALL, DR MENDOZA [...] Primary Care Provider JOE BENSON Referring Unavailable MARCELINO, JOE Salazar Attending Unavailable JOE BENSON Referring Unavailable RYAN, Helio R Attending Unavailable RYAN, Helio R Attending Unavailable RYAN, Helio R Attending Unavailable RYAN, Helio R Attending Unavailable RYAN, Helio R Attending Unavailable RYAN, Helio R Attending Unavailable RYAN, Helio Ambriz Attending Unavailable JAMES, LEROY Bardales Attending Unavailable JAMES, LEROY Bardales Attending Unavailable JAMES, LEROY Bardales Attending Unavailable RYAN, Helio Ambriz Attending Unavailable RYAN, Helio Ambriz Attending Unavailable RYANALMA Attending Unavailable RYAN, Helio Ambriz Attending Unavailable RYAN, Helio Ambriz Attending Unavailable RYAN, Helio R Attending Unavailable RYAN, Helio R Attending Unavailable Allergies Allergy Classification Reported Allergen(s) Allergy Type Date of Onset Reaction(s) Facility (2 sources) patient allergy list reviewed by nurse or physicia Propensity to adverse reactions 5 Comment:[facility] Other (1 source) No Known Medication Allergies; Translations: [No Known Medication Allergies] Propensity to adverse reactions (disorder) [facility] Repository Medications Current Medications Medication Drug [...] day(s), # 60 tab(s), Refills(s) 0, Pharmacy: [facility]/pharmacy #[id number], 179, cm, 06/11/22 14:36:00 EST, Height/Length [...] pain, # 60 cap(s), Refills(s) 0, Pharmacy: [facility]/pharmacy #[id number], 179, cm, 06/11/22 14:36:00 EST, Height/Length Dosing, 137, kg, 06/11/22 14:36:00 EST, Weight Dosing Start Date: 06/20/22 Status: Ordered Centrum Silver oral tablet (18 sources) Start: 06-01-2022 take 1 tablet by mouth once daily Centrum Silver oral tablet 1 tab(s), Oral, Daily, Prophylaxis Start Date: 06/01/22 Status: Ordered Repeat number: 1 Start: 06-01-2022 take 1 tablet by elizabeth th once daily Centrum Silver oral tablet 1 tab(s), Oral, Daily, Prophylaxis Start Date: 06/01/22 Status: Ordered cephalexin 500 mg oral capsule (1 source) Cephalosporin Antibacterial Start: 06-20-2022 End: 06-27-2022 take 1 capsule by mouth every eight hours Keflex 500 mg Cap 500 mg = 1 cap(s), Oral, q8hr, X 7 day(s), # 21 cap(s), Refills(s) 0, Pharmacy: [facility]/pharmacy #[id number], 179, cm, 06/11/22 14:36:00 EST, Height/Length Dosing, 137, kg, 06/11/22 14:36:00 EST, Weight Dosing Start Date: 06/20/22 Stop Date: 06/27/22 Status: Ordered 12 hr cetirizine hydrochloride 5 mg / pseudoephedrine hydrochloride 120 mg extended release oral tablet (18 sources) alpha-Adrenergic Agonist, Histamine-1 Receptor Antagonist Start: 06-01-2022 take 1 tablet by mouth twice daily Zyrtec-D oral tablet, extended release 1 tab(s), Oral, BID, Allergy symptoms Start Date: 06/01/22 Status: Ordered Repeat number: 1 Chondroitin Sulfates / Glucosamine (5 sources) Start: [...] constipation, # 20 cap(s), Refills(s) 0, Pharmacy: [facility]/pharmacy #[id number], 179, cm, 06/11/22 14:36:00 EST, Height/Length [...] blood pressure Start Date: 07/20/21 Status: Ordered Repeat number: 1 take 1 tablet by elizabeth th every [...] morning. Active Multivitamin tablet (1 source) Start: 024 take 1 tablet by mouth once daily Multivitamin tablet Active 1 TAB PO Daily May 29, 2024 12:00am Osteo Bi-Flex Adv Joint Shield (5 sources) Osteo Bi-Flex Ad v Joint Shield Active sildenafil 100 mg oral tablet (8 sources) Phosphodiesterase 5 Inhibitor Start: 023 take 1 tablet by mouth once daily as needed Sildenafil 100 mg tablet Active MG PO May 29, 2024 12:00am [employer] tablet Orally Once a day as needed for ED; Note: Source Status: Taking; Refills: 5; Provider: Dk Bardales tadalafil 20 mg oral tablet (15 sources) Phosphodiesterase 5 Inhibitor Start: Cialis 20 mg Tab 20 mg = 1 tab(s), Oral, As Directed, Take one to two hours prior to sexual activity. Do NOT exceed 20 mg (1 tab) in 24 hours., # 30 tab(s), Refills(s) 3, Pharmacy: [facility], 178, cm, 10/23/24 10:50:00 EDT, Height/Length Dosing, 153.4, kg, 10/23/24 10:50:00 EDT, Weight Dosing Start Date: 10/23/24 Status: Ordered Quantity: 30.0 Unit: tab(s) Repeat number: 4 Start: 07-29-2023 take 1 tablet by elizabeth th every hour as needed Cialis 20 mg Tab 20 mg = 1 tab(s), Oral, As Directed, PRN sexual activity, Take one tab 1 hr prior to sexual activity., # 30 tab(s), Refills(s) 3, Pharmacy: [facility], 178, cm, 07/29/23 14:23:00 EST, Height/Length Dosing, 136, kg, 07/29/23 14:23:00 EST, Weight Dosing Start Date: 07/29/23 Status: Ordered testosterone cypionate 200 mg/ml injectable solution (9 sources) Androgen Start: 02-24-2025 Depo-Testoster one 200 mg/mL intramuscular solution 400 mg, IntraMuscular, q4wk, Inject 400mg/2ml IM q 4 weeks, # 2 mL, Refills(s) 2, Pharmacy: [facility], 178, cm, 10/23/24 10:50:00 EDT, Height/Length Dosing, 153.4, kg, 10/23/24 10:50:00 EDT, Weight Dosing Start Date: 02/24/25 Status: Ordered Quantity: 2.0 Unit: mL Repeat number: 3 Start: 11-06-2024 Depo-Testoster one 200 mg/mL intramuscular solution 400 mg, IntraMuscular, q4wk, Inject 400mg/2ml IM q 4 weeks, # 2 mL, Refills(s) 2, Pharmacy: [facility], 178, cm, 10/23/24 10:50:00 EDT, Height/Length Dosing, 153.4, kg, 10/23/24 10:50:00 EDT, Weight Dosing Start Date: 11/06/24 Status: Ordered Quantity: 2.0 Unit: mL Repeat number: 3 Start: 06-18-2024 testosterone c ypionate (Depo-Testosterone) 200 MG/ML injection 06/18/2024 Active Start: 01-28-2024 AndroGel Pump 20.25 mg/1.25 g (1.62%) transdermal gel = 2 pump, Topical, qAM, apply to clean, dry, intact skin wash hands thoroughly after application, # 75 gram, Refills(s) 3, Pharmacy: [facility], 178, cm, 07/29/23 14:23:00 EST, Height/Length Dosing, 136, kg, 07/29/23 14:23:00 EST, Weight Dosing Start Date: 01/28/24 Status: Ordered Start: 07-29-2023 AndroGel Pump 20.25 mg/1.25 g (1.62%) transdermal gel = 2 pump, Topical, qAM, apply to clean, dry, intact skin wash hands thoroughly after application, # 75 gram, Refills(s) 3, Pharmacy: [facility], 178, cm, 07/29/23 14:23:00 EST, Height/Length Dosing, 136, kg, 07/29/23 14:23:00 EST, Weight Dosing Start Date: 07/29/23 Status: Ordered Testosterone 100 mg/mL suspension (1 source) Start: 05-29-2024 Testosterone 1 00 mg/mL suspension Active MG IM May 29, 2024 12:00am testosterone cypionate 200 m g/mL IM Alley (8 sources) Start: 06-18-2024 testosterone c ypionate 200 mg/mL IM Alley 400 mg, IntraMuscular, q4wk, # 2 mL, Refills(s) 0, Pharmacy: [facility]/pharmacy #[id number], 178, cm, 05/20/24 15:25:00 EST, Height/Length Dosing, 147.2, kg, 05/20/24 15:25:00 EST, Weight Dosing Start Date: 06/18/24 Status: Ordered Quantity: 2.0 Unit: mL Repeat number: 1 Start: 06-18-2024 testosterone c ypionate 200 mg/mL IM Alley 400 mg, IntraMuscular, q4wk, # 2 mL, Refills(s) 0, Pharmacy: [facility]/pharmacy #[id number], 178, cm, 05/20/24 15:25:00 EST, Height/Length Dosing, 147.2, kg, 05/20/24 15:25:00 EST, Weight Dosing Start Date: 06/18/24 Status: Ordered Start: 05-20-2024 testosterone c ypionate 200 mg/mL IM Alley 400 mg, IntraMuscular, q4wk, # 10 mL, Refills(s) 3, Pharmacy: [facility], 178, cm, 05/20/24 15:25:00 EST, Height/Length [...] evening meal Orally Once a day Not-Taking Problems Active Problems Problem Classification Problem Date Documented Date Episodic/Chronic Abdominal hernia (18 sources) Umbilical hernia 06-01-2022 Episodic Acute bronchitis [...] hypofunction] Onset: 03-28-2023 Chronic Other endocrine disorders (14 sources) Male hypogonadism 03-28-2023 Chronic Other male genital disorders (5 sources) Erectile dysfunction co-occurrent and due to arterial insufficiency; Translations: [Erectile dysfunction due to arterial insufficiency] Chronic Other male genital disorders (6 sources) Erectile dysfunction due to arterial insufficiency; Translations: [ERECTILE DYSF D/T ART INSUFFICIENCY] Onset: 11-23-2022 Chronic Other male genital disorders (16 sources) Male erectile dysfunction, unspecified; Translations: [Erectile dysfunction] Onset: 07-29-2023 Chronic Other nutritional; endocrine; and metabolic disorders (19 sources) Body mass index 40+ - severely obese 11-17-2021 Chronic Other nutritional; endocrine; and metabolic disorders (20 sources) Morbid obesity; Translations: [Morbid (severe) obesity [...] [Sprain of left knee] 07-03-2024 Episodic Unclassified (13 sources) Patient encounter status 07-29-2023 Past or Other Problems Problem Classification Problem Date Documented Da te Episodic/Chronic Other non-traumatic joint disorders (1 source) Pain in left knee Onset: 01-25-2022 Resolved: 01-25-2022 Episodic Viral infection (1 source) COVID-19 Results Test Name Value Interpretation Reference Range Facility Ambulatory Visit Summaryon 0 03-26-2025 Ambulatory Visit Summary Ambulatory Visit Summary ARNEL PARR :1970 Visit Date:03/26/2025 Ambulatory Visit Instructions Your Diagnosis Hypogonadism male Your Care Team Attending Physician - MARTINA FALCON, Helio Ambriz Primary Care Physician - REJI CENTENO DO This Is Your Medications List cetirizine-pseudoeph edrine (Zyrtec-D oral tablet, extended release) lisinopril (lisinopril 20 mg Tab) multivitamin with minerals (Centrum Silver oral tablet) tadalafil (Cialis 20 mg Tab) testosterone (Depo-Testosterone 200 mg/mL intramuscular solution) Procedures Performed Arthroplasty of knee (06/20/2022), Colonoscopy (11/27/2021), Amputation of finger, Excision of lipoma, Tonsillectomy and adenoidectomy. What to do next Scheduled Follow-Up Appointments 2024 9:00 AM EDT With: Where: [facility] [address] [address]- Saturday 10:45 AM EDT With: MARTINA FALCON, Helio Ambriz Where: [facility] [address] [address]- Medications What How Much When Instructions Unchanged cetirizine-pseudoeph edrine (Zyrtec-D oral tablet, extended release) 1 Tablets By Mouth 2 times a day Unchanged lisinopril (lisinopril 20 mg Tab) 1 Tablets By Mouth Every day Unchanged multivitamin with minerals (Centrum Silver oral tablet) 1 Tablets By Mouth Every day Unchanged tadalafil (Cialis 20 mg Tab) 1 Tablets By Mouth As Directed Take one to two hours prior to sexual activity. Do NOT exceed 20 mg (1 tab) in 24 hours. Unchanged testosterone (Depo-Testosterone 200 mg/ mL intramuscular solution) 400 Milligram Intramuscular Every 4 weeks Inject 400mg/ 2ml IM q 4 weeks Medications and Immunizations Administered Given [...] you for choosing us for your care. Patient Portal You may access all of your results and other medical record information on our secure patient portal. If you are not signed up for this yet, please contact [employer] at [phone] to get signed up today. Language Information Language assistance services are available as needed. Normal [facility] Ambulatory Visit Summaryon 0 01-29-2025 Ambulatory Visit Summary Ambulatory Visit Summary ARNEL PARR :1970 Visit Date:01/29/2025 Ambulatory Visit Instructions Your Care Team Attending Physician - LEROY RAMIREZ PA-C Primary Care Physician - REJI CENTENO DO This Is Your Medications List cetirizine-pseudoeph edrine (Zyrtec-D oral tablet, extended release) lisinopril (lisinopril 20 mg Tab) multivitamin with minerals (Centrum Silver oral tablet) tadalafil (Cialis 20 mg Tab) testosterone (Depo-Testosterone 200 mg/mL intramuscular solution) testosterone (testosterone cypionate 200 mg/mL IM Alley) Procedures Performed Arthroplasty of knee (06/20/2022), Colonoscopy (11/27/2021), Amputation of finger, Excision of lipoma, Tonsillectomy and adenoidectomy. What to do next Scheduled Follow-Up Appointments Saturday 8:00 AM EDT With: Where: [facility] [address] [id number]- Saturday 10:45 AM EDT With: Helio RYAN MD Where: [facility] [address] [id number]- Medications What How Much When Instructions Unchanged cetirizine-pseudoeph edrine (Zyrtec-D oral tablet, extended release) 1 Tablets By Mouth 2 times a day Unchanged lisinopril (lisinopril 20 mg Tab) 1 Tablets By Mouth Every day Unchanged multivitamin with minerals (Centrum Silver oral tablet) 1 Tablets By Mouth Every day Unchanged tadalafil (Cialis 20 mg Tab) 1 Tablets By Mouth As Directed Take one to two hours prior to sexual activity. Do NOT exceed 20 mg (1 tab) in 24 hours. Unchanged testosterone (Depo-Testosterone 200 mg/ mL intramuscular solution) 400 Milligram Intramuscular Every 4 weeks Inject 400mg/ 2ml IM q 4 weeks Unchanged testosterone (testosterone cypionate 200 mg/ mL IM Alley) 400 Milligram Intramuscular Every 4 weeks Medications and Immunizations Administered Given Depo-Testosterone 200 mg/mL intramuscular solution, 400 mg, IntraMuscular Allergies No Known Medication Allergies Problems Ongoing [...] you for choosing us for your care. Patient Portal You may access all of your results and other medical record information on our secure patient portal. If you are not signed up for this yet, please contact [employer] at [phone] to get signed up today. Language Information Language assistance services are available as needed. [facility] Ambulatory Visit Summaryon 0 01-01-2025 Ambulatory Visit Summary Ambulatory Visit Summary HENRI ARNEL Dina :1970 Visit Date:01/01/2025 Ambulatory Visit Instructions Your Care Team Attending Physician - LEROY RAMIREZ PA-C Primary Care Physician - REJI CENTENO DO This Is Your Medications List cetirizine-pseudoeph edrine (Zyrtec-D oral tablet, extended release) lisinopril (lisinopril 20 mg Tab) multivitamin with minerals (Centrum Silver oral tablet) tadalafil (Cialis 20 mg Tab) testosterone (Depo-Testosterone 200 mg/mL intramuscular solution) testosterone (testosterone cypionate 200 mg/mL IM Alley) Procedures Performed Arthroplasty of knee (06/20/2022), Colonoscopy (11/27/2021), Amputation of finger, Excision of lipoma, Tonsillectomy and adenoidectomy. What to do next Scheduled Follow-Up Appointments Saturday 8:15 AM EDT With: MARTINA FALCON, Helio Ambriz Where: [facility] [address] [address]- Medications What How Much When Instructions Unchanged cetirizine-pseudoeph edrine (Zyrtec-D oral tablet, extended release) 1 Tablets By Mouth 2 times a day Unchanged lisinopril (lisinopril 20 mg Tab) 1 Tablets By Mouth Every day Unchanged multivitamin with minerals (Centrum Silver oral tablet) 1 Tablets By Mouth Every day Unchanged tadalafil (Cialis 20 mg Tab) 1 Tablets By Mouth As Directed Take one to two hours prior to sexual activity. Do NOT exceed 20 mg (1 tab) in 24 hours. Unchanged testosterone (Depo-Testosterone 200 mg/ mL intramuscular solution) 400 Milligram Intramuscular Every 4 weeks Inject 400mg/ 2ml IM q 4 weeks Unchanged testosterone (testosterone cypionate 200 mg/ mL [...] for choosing us for your care. Normal [facility] Ambulatory Visit Summaryon 0 12-04-2024 Ambulatory Visit Summary Ambulatory Visit Summary ARNEL PARR :1970 Visit Date:12/04/2024 Ambulatory Visit Instructions Your Care Team Attending Physician - LEROY RAMIREZ PA-C Primary Care Physician - REJI CENTENO DO This Is Your Medications List cetirizine-pseudoeph edrine (Zyrtec-D oral tablet, extended release) lisinopril (lisinopril 20 mg Tab) multivitamin with minerals (Centrum Silver oral tablet) tadalafil (Cialis 20 mg Tab) testosterone (Depo-Testosterone 200 mg/mL intramuscular solution) testosterone (testosterone cypionate 200 mg/mL IM Alley) Procedures Performed Arthroplasty of knee (06/20/2022), Colonoscopy (11/27/2021), Amputation of finger, Excision of lipoma, Tonsillectomy and adenoidectomy. What to do next Scheduled Follow-Up Appointments Saturday 8:15 AM EDT With: Helio RYAN MD Where: [facility] [address] [address]- Medications What How Much When Instructions Unchanged cetirizine-pseudoeph edrine (Zyrtec-D oral tablet, extended release) 1 Tablets By Mouth 2 times a day Unchanged lisinopril (lisinopril 20 mg Tab) 1 Tablets By Mouth Every day Unchanged multivitamin with minerals (Centrum Silver oral tablet) 1 Tablets By Mouth Every day Unchanged tadalafil (Cialis 20 mg Tab) 1 Tablets By Mouth As Directed Take one to two hours prior to sexual activity. Do NOT exceed 20 mg (1 tab) in 24 hours. Unchanged testosterone (Depo-Testosterone 200 mg/ mL intramuscular solution) 400 Milligram Intramuscular Every 4 weeks Inject 400mg/ 2ml IM q 4 weeks Unchanged testosterone (testosterone cypionate 200 mg/ mL [...] for choosing us for your care. Normal [facility] Ambulatory Visit Summaryon 0 11-06-2024 Ambulatory Visit Summary Ambulatory Visit Summary ARNEL PARR :1970 Visit Date:11/06/2024 Ambulatory Visit Instructions Your Care Team Attending [...] to do next Scheduled Follow-Up Appointments Saturday 8:00 AM EDT With: Where: [facility] [place] [address] [facility] [place] [address]- Saturday 8:15 AM EDT With: Helio RYAN MD Where: [facility] [address] [place] [address]- Medications What How Much When Instructions Unchanged cetirizine-pseudoeph edrine (Zyrtec-D oral tablet, extended release) 1 Tablets By Mouth 2 times a day Unchanged lisinopril (lisinopril 20 mg Tab) 1 Tablets By Mouth Every day Unchanged multivitamin with minerals (Centrum Silver oral tablet) 1 Tablets By Mouth Every day Unchanged tadalafil (Cialis 20 mg Tab) 1 Tablets By Mouth As Directed Take one to two hours prior to sexual activity. Do NOT exceed 20 mg (1 tab) in 24 hours. Unchanged testosterone (testosterone cypionate 200 mg/ mL [...] for choosing us for your care. Normal [facility] Ambulatory Visit Summaryon 0 10-23-2024 Ambulatory Visit Summary Ambulatory Visit Summary ARNEL PARR :1970 Visit Date:10/23/2024 Ambulatory Visit Instructions Your Diagnosis Hypogonadism male ED (erectile dysfunction) Screening PSA (prostate specific antigen) Your Care Team Attending Physician - Helio RYAN MD Primary Care Physician - REJI CENTENO DO This Is Your Medications List tadalafil (Cialis 20 mg Tab) testosterone (testosterone cypionate 200 mg/mL IM Alley) Contact prescribing physician if questions or concerns cetirizine-pseudoeph edrine (Zyrtec-D oral tablet, extended release) lisinopril (lisinopril 20 mg Tab) multivitamin with minerals (Centrum Silver oral tablet) Procedures Performed Arthroplasty of knee (06/20/2022), Colonoscopy (11/27/2021), Amputation of finger, Excision of lipoma, Tonsillectomy and adenoidectomy. Discharge Vitals Temperature (Temporal Artery) 37 ???C Heart Rate (Peripheral) 92 Respiratory Rate 19 Blood Pressure 139/88 Height 178 cm Height 70 in Weight 153.4 kg Weight 338.189 lb BMI 48.42 What to do next Scheduled Follow-Up Appointments Saturday 8:30 AM EDT With: Where: [facility] [address] [address]- Saturday 8:15 AM EDT With: Helio RYAN MD Where: [facility] [address] [address]- You Need to Schedule the Following Appointments Follow Up with Helio RYAN MD, URL When: Where: [facility] [address] [place] [address] Medications What How Much When Instructions Changed tadalafil (Cialis 20 mg Tab) 1 Tablets By Mouth As Directed Take one to two hours prior to sexual activity. Do NOT exceed 20 mg (1 tab) in 24 hours. Pickup at [facility] Unchanged testosterone (testosterone cypionate 200 mg/ mL IM Alley) 400 Milligram Intramuscular Every 4 weeks Unchanged cetirizine-pseudoeph edrine (Zyrtec-D oral tablet, extended release) 1 Tablets By Mouth 2 times a day Contact prescribing physician if questions or concerns Unchanged lisinopril (lisinopril 20 mg Tab) 1 Tablets By Mouth Every day Contact prescribing physician if questions or concerns Unchanged multivitamin with minerals (Centrum Silver oral tablet) 1 Tablets By Mouth Every day Contact prescribing physician if questions or concerns Pharmacy Information [facility]: [address] [place], [place] [id number] [phone] Allergies No Known Medication Allergies Problems Ongoing [...] choosing us for your care. Education Materials Hypogonadism, Male Male hypogonadism is a condition [...] blood sugar, cholesterol, and belly fat. ? (more content not included)... Normal [facility] Urology Office/Clinic Noteon 10-23-2024 Urology Office/Clinic Note Urology Office/Clinic Note Chief Complaint 6 month with testosterone HPI Staff 5 month follow up w/T level. T level: 09/25/24 - 588 Previous DX: ED, hypogonadism male, screening PSA *T IM 400 mg q4wks, Cialis 20mg PRN pt denies any urinary issues today and unable to urinate at this time Denies any urinary issues at this time. History of Present Illness Tests reviewed: UA, T level, Hgb, Hct I have reviewed the previous health record [...] HPI. Physical Exam Vitals & Measurements T: 37 ???C(Temporal Artery) HR: 92(Peripheral) RR: 19 BP: 139/88 HT: 70 in HT: 178 cm WT: 338.189 lb WT: 153.4 kg BMI: 48.42 General Appearance: alert, no distress, well nourished, well developed male. Assessment/Plan 1. Hypogonadism male (E29.1: Testicular hypofunction) Testosterone Levels (ref range 264 - 916): 09/06/22 - 276 11/23/22 - 208 08/03/23 - 180 05/30/24 - Hgb 13.7 L, Hct 41.9 L 02/17/24 - 191 02/08/24 - 142 05/16/24 - 104 *same lab as prior 05/20/24 - stopped Androgel 3 pumps qAM and started T IM 400 mg q4wks 08/29/24 - Hgb 14.3, Hct 44.4 09/25/24 - 588 10/09/24 - last injection Receiving Testosterone IM 400 mg q4wks. T level is acceptable for his age. He does notice improvement but perhaps sx improvement isn't as satisfactory as he thought it would be, comparing his sx to when he was younger. Has developed spontaneous erections with sleep now and sex drive is a little better. Erections have improved as well too. Hgb and Hct both improved too after switching to T IM. Was anemic for 5-6 yrs. Follow up 6 mos with T level AM and CBC (external) or sooner if needed. Pt understands and agrees with plan. -Cont Testosterone IM 400 mg q4wks -Nurse visit 11/06/24 for next inj 2. ED (erectile dysfunction) (N52.9: Male erectile dysfunction, unspecified) Tadalafil 20 mg PRN. Satisfied with erectile function with TRT and tadalafil. 3. Screening PSA (prostate specific antigen) (Z12.5: Encounter for screening for malignant neoplasm of prostate) PSA: 09/06/22 - 0.42 05/30/24 - 0.60 low No known fam hx of prostate ca. -Cont PSA monitoring with PCP Follow-up With When Contact Information MARTINA FALCON, Helio Ambriz, URL [facility] [address] [place] [address]- Additional Instructions: 6 mos with T level AM and CBC (external) Patient Education Hypogonadism, Male I, Miranda Colorado, personally scribed for Dr. Ryan on 10/23/2024 11:14:29. . Documentation recorded by the scribe, Miranda Colorado, accurately reflects the services(s) I performed and decisions made by me. Authenticated by Dr. Ryan on 10/23/2024 11:16:40. Problem List/Past Medical History Ongoing Anemia BMI [...] Tab, 20 mg= 1 tab(s), Oral, Daily testosterone cypionate 200 mg/mL IM Alley, 400 mg, IntraMuscular, q4wk Zyrtec-D oral tablet, extended release, 1 tab(s), Oral, BID Allergies No Known Medication Allergies Social History Alcohol Current. Beer. 1-2 times per week., 05/20/2024 Substance Abuse - Denies Substance Abuse, 11/17/2021 Never., 05/20/2024 Tobacco Former smoker, quit more than 30 days ago Tobacco Use:. Never Smokeless Tobacco Use:. Cigarettes, Yes, 10/23/2024 Family History Asthma: Mother. Hypertension: Mother. Primary malignant neoplasm of bladder: Father. Renal cell carcinoma: Father. Immunizations Vaccine Date Status SARS-CoV-2 (COVID-19) Ad26 vaccine 12/10/2020 Recorded SARS-CoV-2 (COVID-19) Ad26 vaccine 11/19/2020 Recorded Normal [facility] Comment on above: Result Comment: Elec tronically Signed By: Helio RYAN MD\.br\Date and Time Signed: 10/23/24 11:16 EDT\.br\Electronically Co-Signed By: Miranda Colorado\.br\Date and Time Co-Signed: 10/23/24 11:14 EDT Ambulatory Visit Summaryon 0 08-14-2024 Ambulatory Visit Summary Ambulatory Visit Summary HENRIARNEL APARICIO Dina :1970 Visit Date:08/14/2024 Ambulatory Visit Instructions Your [...] AM EST With: Where: [facility] [address] [address]- Saturday 8:30 AM EDT With: MARTINA FALCON, Helio Ambriz Where: [facility] [address] [address]- Medications What How Much When Instructions Unchanged [...] for choosing us for your care. Normal [facility] Ambulatory Visit Summaryon 0 07-17-2024 Ambulatory Visit Summary Ambulatory Visit Summary ARNEL PARR :1970 Visit Date:07/17/2024 Ambulatory Visit Instructions Your Care Team Attending Physician - MARTINA FALCON, Helio Ambriz Primary Care Physician - REJI CENTENO DO [...] for choosing us for your care. Normal [facility] XR Knee - left 3 [facility] Result: Bilateral standing PA, bilateral sunrise, and lateral of the affected knee were imaged today in the office. 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 [facility]ecar e Radiology Study observation (narrative) [facility] Urology Office/Clinic Noteon 05-20-2024 Urology Office/Clinic Note [...] 400 mg q4wks. SEs discussed. Sent to [facility]. -Pt understands T level has to be drawn exactly nursing home in between injections before 10 am. 2. ED (erectile dysfunction) (N52.9: Male erectile dysfunction, unspecified) Prior OV: Took Sildenafil per PCP. [place] this worked well but ran out of [...] URL [facility] [address], [place] [address]- Additional Instructions: 4 mos with T level [...] SARS-CoV-2 (COVID-19) Ad26 vaccine 11/19/2020 Recorded Normal [facility] Comment on above: Result Comment: Elec tronically Signed By: Helio RYAN MD\.br\Date and Time Signed: 05/20/24 16:13 EST\.br\Electronically Co-Signed By: Miranda Colorado\.br\Date and Time Co-Signed: 05/20/24 16:09 EST No Panel Informationon 05-16 Testosterone Level 104 ng/dL Abnormal 264-916 [facility] Comment on above: Adult male reference interval is based on a population ofhealthy nonobese males (BMI <30) between 19 and 39 yearsold. German, et.al. JCEM 2017,102;2417-4731. PMID:[id number].Performed at: [facility] [id number] Director: Abner Geiger PhD, Phone: [phone] TESTOSTERONE, TOTALon 2022 Testosterone [Mass/Vol] 208 ng/dL Critically low 264-916 [facility] Comment on above: Result Comment: Adul t male reference interval is based on a population of healthy nonobese males (BMI <30) between 19 and 39 years old. German, et.al. JCEM 2017,102;6777-9754. PMID: [id number]. Performed By: #### T ESTTOT #### [facility] [address] [address] [address] Alla Martinez ECHOCARDIO M/2D COMPLETEon 0 09-17-2022 ECHOCARDIO M/2D COMPLETE Patient: ARNEL PARR Exam Date: 09/17/2022 : 1970 Gender:M Ordering : DR REJI CENTENO D.O. Admission #: [id number] Family : Order #: [id number] CLICK HERE TO VIEW EXAM ECHOCARDIOGRAM REPORT [...] Camara M.D. on 09/20/2022 at 09:22 Normal [facility] TESTOSTERONE, TOTALon 2022 Testosterone [Mass/Vol] 276 ng/dL Normal 264-916 [facility] Comment on above: Result Comment: Adul t male reference interval is based on a population of healthy nonobese males (BMI <30) between 19 and 39 years old. gabrielle Porter.al. JCEM 2017,102;6243-0151. PMID: [id number]. Performed By: #### T ESTTOT #### [facility] [address] [address] [address] Alla Martinez CBC AUTO DIFFon 09-06-2022 BASO # 0.1 103/ul Normal 0.0-0.1 [facility] Comment on above: Performed By: #### C BC #### [facility] [address] [address] [address] Alla Martinez Basophils/100 WBC (Bld) 1.6 % Normal 0.2-2.0 [facility] Comment on above: Performed By: #### C BC #### [facility] [address] [address] [address] Alla Martinez EO # 0.5 103/ul Normal 0.0-0.7 [facility] Comment on above: Performed By: #### C BC #### [facility] [address] [address] [address] Alla Martinez Eosinophils/100 WBC (Bld) 6.4 % Normal 0.9-7.0 [facility] Comment on above: Performed By: #### C BC #### [facility] [address] [address] [address] Alla Martinez Erythrocyte distribution width (RBC) [Ratio] 12.8 % Normal 11.0-15.0 [facility] Comment on above: Performed By: #### C BC #### [facility] [address] [address] [address] Alla Martinez Hematocrit (Bld) [Volume fraction] 40.1 % Critically low 42.0-54.0 [facility] Comment on above: Performed By: #### C BC #### [facility] [address] [place] [address] Dr. Alla Martinez Hemoglobin (Bld) [Mass/Vol] 13.0 g/dL Critically low 14.0-18.0 [facility] Comment on above: Performed By: #### C BC #### [facility] [address] [place] [address] Dr. Alla Martinez IG # 0.06 10e3/ul Critically high 0.00-0.03 [facility] Comment on above: Performed By: #### C BC #### [facility] [address] [place] [address] Dr. Alla Martinez IG % 0.8 % Critically high 0.0-0.5 [facility] Comment on above: Performed By: #### C BC #### [facility] [address] [place] [address] Dr. Alla Martinez LYMPH # 2.5 103/ul Normal 1.2-3.8 [facility] Comment on above: Performed By: #### C BC #### [facility] [address] [place] [address] Dr. Alla Martinez Lymphocytes/100 WBC (Bld) 33.2 % Normal 20.5-60.0 [facility] Comment on above: Performed By: #### C BC #### [facility] [address] [place] [address] Dr. Alla Martinez MANUAL DIFF REQ NO Normal [facility] Comment on above: Performed By: #### C BC #### [facility] [address] [place] [address] Dr. Alla Martinez MCH (RBC) [Entitic mass] 28.3 pg Normal 25.9-34.0 [facility] Comment on above: Performed By: #### C BC #### [facility] [address] [place] [address] Dr. Alla Martinez MCHC (RBC) [Mass/Vol] 32.4 g/dL Normal 29.9-35.2 [facility] Comment on above: Performed By: #### C BC #### [facility] [address] [place] [address] Dr. Alla Martinez MCV (RBC) [Entitic vol] 87.4 fL Normal 80.0-94.0 [facility] Comment on above: Performed By: #### C BC #### [facility] [address] [address] [address] Alla Martinez MONO # 0.6 103/ul Normal 0.3-0.8 [facility] Comment on above: Performed By: #### C BC #### [facility] [address] [address] [address] Alla Martinez Monocytes/100 WBC (Bld) 8.3 % Normal 1.7-12.0 [facility] Comment on above: Performed By: #### C BC #### [facility] [address] [address] [address] Alla Martinez NEUT # 3.8 103/ul Normal 1.4-6.5 [facility] Comment on above: Performed By: #### C BC #### [facility] [address] [address] [address] Alla Martinez Neutrophils/100 WBC (Bld) 49.7 % Normal 43.0-75.0 [facility] Comment on above: Performed By: #### C BC #### [facility] [address] [address] [address] Alla Martinez Platelet mean volume (Bld) [Entitic vol] 10.8 fL Normal 9.5-13.5 [facility] Comment on above: Performed By: #### C BC #### [facility] [address] [address] [address] Alla Martinez PLT 228 103/ul Normal 150-450 [facility] Comment on above: Performed By: #### C BC #### [facility] [address] [address] [address] Alla Martinez RBC 4.59 106/ul Critically low 4.70-6.10 [facility] Comment on above: Performed By: #### C BC #### [facility] [address] [address] [address] Alla Martinez WBC 7.6 103/ul Normal 4.0-11.0 [facility] Comment on above: Performed By: #### C BC #### [facility] [address] [address] [address] Alla Martinez Complete Blood Count and Dif uvaldo 09-06-2022 Anisocytosis Ql (Bld) [facility] Other Basophilic stippling LM Ql (Bld) [place] [facility] Other RBC morphology finding Nom (Bld) [facility] Other Complete Blood Count and Diff [facility] Other Comprehensive Metabolic Pane maria 09-06-2022 Albumin [Mass/Vol] 3.830107 g/dL 3.4-5.0 g/dL N [employer] Other Calcium [Mass/Vol] 8.1871984 mg/dL 8.5-10 .1 mg/dL [facility] Other CO2 [Moles/Vol] 27.66261955 mmol/L 21.0-3 2.0 mmol/L [facility] Other Creatinine [Mass/Vol] 0.88335878 mg/dL 0. 70-1.30 mg/dL [facility] Other Potassium [Moles/Vol] 4.11948985 mmol/L 3 .5-5.1 mmol/L [facility] Other Protein [Mass/Vol] 7.557986 g/dL 6.4-8.2 g/dL N [employer] Other Urea nitrogen [Mass/Vol] 18.8777160 mg/dL 7.0-18.0 mg/dL [facility] Other Comprehensive Metabolic Panel see note [facility] Other Comprehensive Metabolic Panel 142 mmol/L 136-145 mmol/L [facility] Other Comprehensive Metabolic Panel 115 mg/dL Critically high 74-106 mg/dL [facility] Other Comprehensive Metabolic Panel >60 mL/min/1.73m2 >=60 mL/min/1.73m 2 [employer] Other Comprehensive Metabolic Panel 0.2 mg/dL 0.2-1.0 mg/dL [facility] [employer] Other Comprehensive Metabolic Panel 3.8 g/dL [facility] [employer] Other Albumin/Globulin [Mass ratio] 0.9 {ratio} Normal [facility] [employer] Other Comment on above: Performed By: #### C MP, LIPID #### [facility] [address] [address] [address] Alla Martinez ALP [Catalytic activity/Vol] 93 U/L Normal 46-116 [facility] [employer] Other Comment on above: Performed By: #### C MP, LIPID #### [facility] [address] [address] [address] Alla Martinez ALT [Catalytic activity/Vol] 37 U/L Normal 16-63 [facility] [employer] Other Comment on above: Performed By: #### C MP, LIPID #### [facility] [address] [address] [address] Alla Martinez Anion gap [Moles/Vol] 12.1 mmol/L Normal [facility] Other Comment on above: Performed By: #### C MP, LIPID #### [facility] [address] [address] [address] Alla Martinez AST [Catalytic activity/Vol] 21 U/L Normal 15-37 [facility] [employer] Other Comment on above: Performed By: #### C MP, LIPID #### [facility] [address] [address] [address] Alla Martinez Chloride [Moles/Vol] 107 mmol/L Normal 98-107 [facility] [employer] Other Comment on above: Performed By: #### C MP, LIPID #### [facility] [address] [address] [address] Alla Martinez Urea nitrogen/Creatinine [Mass ratio] 20.2 mg/mg Normal [facility] Other Comment on above: Performed By: #### C MP, LIPID #### [facility] [address] [place] [address] Dr. Alla Martinez LIPID PROFILEon 09-06-2022 CHOL-HDL RATIO NORM SEE BELOW Normal [facility] Comment on above: Result Comment: 3.3 - 4.4 LOW RISK 4.4 - 7.1 AVERAGE RISK 7.1 - 11.0 MODERATE RISK >11.0 HIGH RISK Performed By: #### C MP, LIPID #### [facility] [address] [address] [address] Alla Martinez Cholesterol in LDL [Mass/Vol] 89.2 mg/dL Normal [facility] Comment on above: Performed By: #### C MP, LIPID #### [facility] [address] [place] [address] Dr. Alla Martinez HDL NORMAL > or = 60 mg/dl - LOW CARDIOVASCULAR RISK <40 mg/dl - HIGH CARDIOVASCULAR RISK [facility] Comment on above: Performed By: #### C MP, LIPID #### [facility] [address] [place] [address] Dr. Alla Martinez LDL CALC NORMAL SEE BELOW Normal [facility] Comment on above: Result Comment: <100 mg/dl OPTIMAL 100 - 129 mg/dl NEAR OR ABOVE OPTIMAL 130 - 159 mg/dl BORDERLINE HIGH 160 - 189 mg/dl HIGH >190 mg/dl VERY HIGH Performed By: #### C MP, LIPID #### [facility] [address] [address] [address] Alla Martinez VLDL CALC 35.8 mg/dL Normal [facility] Comment on above: Performed By: #### C MP, LIPID #### [facility] [address] [place] [address] Dr. Alla Martinez Lipid Panelon 09-06-2022 Lipid Panel > or = 60 mg/dl - LOW CARDIOVASCULAR RISK <40 mg/dl - HIGH CARDIOVASCULAR RISK [facility] Other Lipid Panel SEE BELOW [facility] Other Lipid Panel 89.2 mg/dL [facility] Other Lipid Panel 35.8 mg/dL [facility] Other Cholesterol [Mass/Vol] 158 mg/dL Normal <=200 [facility] Other Comment on above: Performed By: #### C MP, LIPID #### [facility] [address] [address] [address] Alla Martinez Cholesterol in HDL [Mass/Vol] 33 mg/dL Critically low 40-60 [facility] Other Comment on above: Performed By: #### C MP, LIPID #### [facility] [address] [address] [address] Alla Martinez Cholesterol.total/Cho lesterol in HDL [Mass ratio] 4.8 {ratio} Normal [facility] Other Comment on above: Performed By: #### C MP, LIPID #### [facility] [address] [address] [address] Alla Martienz Triglyceride [Mass/Vol] 179 mg/dL Critically high <=150 [facility] Other Comment on above: Performed By: #### C MP, LIPID #### [facility] [address] [place] [address] Dr. Alla Martinez PROF 14(COMP METB)on 023 Albumin [Mass/Vol] 3.5 g/dL Normal 3.4-5.0 [facility] Comment on above: Performed By: #### C MP, LIPID #### [facility] [address] [place] [address] Dr. Alla Martinez Bilirubin [Mass/Vol] 0.2 mg/dL Normal 0.2-1.0 [facility] Comment on above: Performed By: #### C MP, LIPID #### [facility] [address] [place] [address] Dr. Alla Martinez Calcium [Mass/Vol] 8.9 mg/dL Normal 8.5-10.1 [facility] Comment on above: Performed By: #### C MP, LIPID #### [facility] [address] [address] [address] Alla Martinez CO2 [Moles/Vol] 27.1 mmol/L Normal 21.0-32.0 [facility] Comment on above: Performed By: #### C MP, LIPID #### [facility] [address] [address] [address] Alla Martinez Creatinine [Mass/Vol] 0.89 mg/dL Normal 0.70-1.30 [facility] Comment on above: Performed By: #### C MP, LIPID #### [facility] [address] [place] [address] Dr. Alla Martinez EGFR-AF BELARUSIAN >60 Normal >=60 [facility] Comment on above: Performed By: #### C MP, LIPID #### [facility] [address] [place] [address] Dr. Alla Martinez EGFR-NON AF BELARUSIAN >60 Normal >=60 [facility] Comment on above: Performed By: #### C MP, LIPID #### [facility] [address] [place] [address] Dr. Alla Martinez Globulin (S) [Mass/Vol] 3.8 g/dL Normal [facility] Comment on above: Performed By: #### C MP, LIPID #### [facility] [address] [place] [address] Dr. Alla Martinez Glucose [Mass/Vol] 115 mg/dL Critically high 74-106 [facility] Comment on above: Performed By: #### C MP, LIPID #### [facility] [address] [place] [address] Dr. Alla Martinez Potassium [Moles/Vol] 4.2 mmol/L Normal 3.5-5.1 [facility] Comment on above: Performed By: #### C MP, LIPID #### [facility] [address] [place] [address] Dr. Alla Martinez Protein [Mass/Vol] 7.3 g/dL Normal 6.4-8.2 [facility] Comment on above: Performed By: #### C MP, LIPID #### [facility] [address] [place], [place] [address] Dr. Alla Martinez Sodium [Moles/Vol] 142 mmol/L Normal 136-145 [facility] Comment on above: Performed By: #### C MP, LIPID #### [facility] [address] [place], [place] [address] Dr. Alla Martinez Urea nitrogen [Mass/Vol] 18.0 mg/dL Normal 7.0-18.0 [facility] Comment on above: Performed By: #### C MP, LIPID #### [facility] [address] [place], [place] [address] Dr. Alla Martinez TESTOSTERONE, TOTALon 2022 Testosterone [Mass/Vol] 276 ng/dL 264-916 ng/dL [facility] Other BLOOD BANKOrdered By: Harjeet Cartagena on 06-20-2022 ABO/Rh Interp Negative Invalid Interpretation Code [facility] [place] Subsection ABSC Gel Interp Negative (06/20/22 7:53 AM) Normal [facility] [place] Subsection BLOOD BANKOrdered By: Shanice Maxwell on 06-01-2022 ABO/Rh Retype Interp Negative Invalid Interpretation Code [facility] [place] Subsection CHEMISTRYOrdered By: SYSTEM SYSTEM on 06-01-2022 Anion gap [Moles/Vol] 15 mmol/L Normal 6 - 16 mEq/L [facility] Remisol Chloride [Moles/Vol] 101 mmol/L Normal 101 - 1 11 mmol/L [facility] [place] [place] Remisol CO2 [Moles/Vol] 27 mmol/L Normal 21 - 31 mmol/L [facility] [place] [place] Remisol Creatinine [Mass/Vol] 1.0 mg/dL Normal 0.5 - 1.3 mg/dL [facility] [place] [place] Remisol GFR/1.73 sq M.predicted among blacks MDRD (S/P/Bld) [Vol rate/Area] mL/min/1.73 m2 Normal >=59mL/min/1 .73 m2 [facility] [place] Chem S GFR/1.73 sq M.predicted among non-blacks MDRD (S/P/Bld) [Vol rate/Area] mL/min/1.73 m2 Normal >=59mL/min/1 .73 m2 [facility] [place] Chem S Glucose [Mass/Vol] 95 mg/dL Normal 55 - 199 mg/dL [facility] Remisol Potassium [Moles/Vol] 4.0 mmol/L Normal 3.5 - 5.3 mmol/L [facility] Remisol Sodium [Moles/Vol] 139 mmol/L Normal 135 [...] PM) Normal Negative [facility] UA Auto SS Weleetka.plasma/Lithiu m.RBC (Bld) [Mass ratio] 0-3 /HPF Normal [...] [facility] UA Auto SS Urobilinogen Qn (U) 0.0648489 {Anushka'U}/dL Normal 0.0 - 1.0 EU/dL [facility] UA Auto SS WBC Auto Ql (U) Negative (06/01/22 4:13 PM) Normal Negative [facility] UA Auto SS WBC LM.HPF (Urine sed) [#/Area] 0-5 /HPF Normal 0-5/HPF [facility] UA Auto SS XR knee LT 2Von 01-25-2022 XR knee LT 2V [facility] [place] [address] XRay Report Signed Patient: Arnel Parr MR#: [id number] : 1970 Acct:[id number] Age/Sex: 51 / M ADM Date: 01/25/22 Loc: [facility] Room: Type: [facility] CLI Attending Dr: Anthony Knox MD Copies to: [...] PROCESS. Impression dictated by: Wiliam Pérez Jr., D.ODiane01/25/2022 11:54 AM Dictation Location: [place] [address] Transcribed By: [facility] 01/25/22 1154 Dictated By: Wiliam Pérez Jr, DO 01/25/22 1153 Signed By: 01/25/22 1154 [facility] MRI KNEE LT WO CONon 022 MRI KNEE LT WO CON EXAMINATION: MRI KNEE LT WO CON HISTORY: Derangement of left knee COMPARISON: No relevant comparison available. TECHNIQUE: A complete multi-planar MRI was performed. FINDINGS: MEDIAL COMPARTMENT MEDIAL MENISCUS: Thinned extruded macerated medial meniscus with cgkc-[id number]-cbsn articulation CARTILAGE: Severe chondromalacia with subchondral edema [...] OTHER: Negative. IMPRESSION: Severe tricompartmental osteoarthritis with [id number]-pn-bymy articulation of the medial compartment and a thinned extruded macerated medial meniscus Chronic anterior cruciate ligament tear Electronically authenticated by: DOLORES FITZGERALD Date: 2021-12-21 10:28 Normal [facility] XR FOREIGN BODY EYEon 2021 XR [...] by: DANG TAYLOR Date: 2021-12-21 08:43 Normal [facility] Vital Signs Date Time Vital Sign Value Performing Clinician Amber wells 07-03-2024 08:36-0500 Body height 175.3 cm [facility] Work Phone: [facility] 07-03-2024 08:36-0500 Body mass index (BMI) [Ratio] 48.91 kg/m2 [facility] Work Phone: [facility] 07-03-2024 08:36-0500 Body weight 150.23 kg [facility] Work Phone: [facility] 05-29-2024 09:12-0500 Body height 177.8 cm [facility] 05-29-2024 09:12-0500 Body mass index (BMI) [Ratio] 46.9 kg/m2 [facility] 05-29-2024 09:12-0500 Body weight 148.38 kg [facility] 05-29-2024 09:12-0500 Diastolic blood pressure 73 mm[Hg] [facility] 05-29-2024 09:12-0500 Heart rate 92 /min [facility] 05-29-2024 09:12-0500 Respiratory rate 12 /min [facility] 05-29-2024 09:12-0500 Systolic blood pressure 132 mm[Hg] [facility] 05-20-2024 15:19-0500 Diastolic blood pressure 98 mm[Hg] Helio RYAN [facility] 05-20-2024 15:19-0500 Heart rate 84 /min Helio RYAN [facility] 05-20-2024 15:19-0500 Systolic blood pressure 165 mm[Hg] Helio RYAN [facility] 02-17-2024 12:59-0400 Blood Pressure Location Paula Orzech [facility] 02-17-2024 12:59-0400 Body temperature 96.8 [degF] Paula Orzech [facility] 02-17-2024 12:59-0400 Diastolic blood pressure 68 mm[Hg] Paula Orzech [facility] 02-17-2024 12:59-0400 Heart rate 66 /min Paula Orzech [facility] 02-17-2024 12:59-0400 Respiratory rate 18 /min Paula Orzech [facility] 02-17-2024 12:59-0400 Systolic blood pressure 128 mm[Hg] Paula Orzech [facility] 07-29-2023 14:16-0500 Blood Pressure Location Helio RYAN [facility] 07-29-2023 14:16-0500 Diastolic blood pressure 89 mm[Hg] Helio RYAN [facility] 07-29-2023 14:16-0500 Heart rate 80 /min Helio RYAN [facility] 07-29-2023 14:16-0500 Respiratory rate 16 /min Helio RYAN [facility] 07-29-2023 14:16-0500 Systolic blood pressure 132 mm[Hg] Helio RYAN [facility] 12-14-2022 14:00-0400 Body height 175.26 cm Reji Ball Other [facility] Other 12-14-2022 14:00-0400 Body mass index (BMI) [Ratio] 41.82 kg/m2 Reji Ball Other [facility] Other 12-14-2022 14:00-0400 Body weight 128.46 kg Reji Ball Other [facility] Other 12-14-2022 14:00-0400 Diastolic blood pressure 69 mm[Hg] Reji Ball Other [facility] Other 12-14-2022 14:00-0400 Respiratory rate 12 /min Reji Ball Other [facility] Other 12-14-2022 14:00-0400 Systolic blood pressure 112 mm[Hg] Reji Ball Other [facility] Other 09-05-2022 13:30-0500 Body height 175.26 cm Reji Ball Other [facility] Other 09-05-2022 13:30-0500 Body mass index (BMI) [Ratio] 45.18 kg/m2 Reji Ball Other [facility] Other 09-05-2022 13:30-0500 Body weight 138.8 kg Reji Ball Other [facility] Other 09-05-2022 13:30-0500 Diastolic blood pressure 72 mm[Hg] Reji Ball Other [facility] Other 09-05-2022 13:30-0500 SaO2% (BldA) [Mass fraction] 96 % Reji Ball Other [facility] Other 09-05-2022 13:30-0500 Systolic blood pressure 140 mm[Hg] Reji Ball Other [facility] Other 06-20-2022 16:50-0500 Blood Pressure Location Valeriano [email or web address] 06-20-2022 16:50-0500 Body temperature 96.8 [degF] Valeriano [email or web address] [facility] 06-20-2022 16:50-0500 Diastolic blood pressure 62 mm[Hg] Valeriano [email or web address] [facility] 06-20-2022 16:50-0500 Heart rate 90 /min Valeriano [email or web address] [facility] 06-20-2022 16:50-0500 Respiratory rate 16 /min Valeriano [email or web address] [facility] 06-20-2022 16:50-0500 SaO2% (BldA) [Mass fraction] 97 % Valeriano [email or web address] [facility] 06-20-2022 16:50-0500 Systolic blood pressure 145 mm[Hg] Valeriano [email or web address] [facility] 06-20-2022 16:00-0500 Body temperature 97.16 [degF] Valeriano [email or web address] [facility] 06-20-2022 16:00-0500 Diastolic blood pressure 80 mm[Hg] Valeriano [email or web address] [facility] 06-20-2022 16:00-0500 Heart rate 82 /min Valeriano [email or web address] [facility] 06-20-2022 16:00-0500 Systolic blood pressure 120 mm[Hg] Valeriano Francis [facility] 06-20-2022 14:38-0500 Blood Pressure Location Valeriano Francis [facility] 06-20-2022 14:38-0500 Body temperature 96.8 [degF] Valeriano Francis [facility] 06-20-2022 14:38-0500 Diastolic blood pressure 73 mm[Hg] Valeriano Francis [facility] 06-20-2022 14:38-0500 Heart rate 80 /min Valeriano Francis [facility] 06-20-2022 14:38-0500 Respiratory rate 14 /min Valeriano Francis [facility] 06-20-2022 14:38-0500 Systolic blood pressure 112 mm[Hg] Valeriano Francis [facility] 06-20-2022 13:40-0500 SaO2% (BldA) [Mass fraction] 97 % Valeriano Francis [facility] 06-20-2022 13:31-0500 Respiratory rate 11 /min Valeriano Francis [facility] 06-20-2022 13:20-0500 Respiratory rate 14 /min Valeriano Francis [facility] 06-20-2022 13:15-0500 Respiratory rate 15 /min Valeriano Francis [facility] 06-20-2022 07:35-0500 Body temperature 97.7 [degF] Valeriano Francis [facility] 06-20-2022 07:35-0500 Heart rate 70 /min Valeriano Francis [facility] 06-11-2022 14:42-0500 Diastolic blood pressure 84 mm[Hg] Дмитрий Santo [facility] 06-11-2022 14:42-0500 Mean blood pressure 106 mm[Hg] Дмитрий Christofferson [facility] 06-11-2022 14:42-0500 Systolic blood pressure 149 mm[Hg] Дмитрий Christofferson [facility] 06-11-2022 14:33-0500 Blood Pressure Location Дмитрий Christofferson [facility] 06-11-2022 14:33-0500 Diastolic blood pressure 87 mm[Hg] Дмитрий Christofferson [facility] 06-11-2022 14:33-0500 Heart rate 79 /min Дмитрий Christofferson [facility] 06-11-2022 14:33-0500 Respiratory rate 18 /min Дмитрий Christofferson [facility] 06-11-2022 14:33-0500 SaO2% (BldA) [Mass fraction] 98 % Дмитрий Christofferson [facility] 06-11-2022 14:33-0500 Systolic blood pressure 146 mm[Hg] Дмитрий Christofferson [facility] 06-01-2022 15:54-0500 Blood Pressure Location Valerianosatish Francis [facility] 06-01-2022 15:54-0500 Diastolic blood pressure 93 mm[Hg] Valeriano Brown [facility] 06-01-2022 15:54-0500 Heart rate 67 /min Valerianosatish Francis [facility] 06-01-2022 15:54-0500 Mean blood pressure 115 mm[Hg] Valeriano Brown [facility] 06-01-2022 15:54-0500 Systolic blood pressure 157 mm[Hg] Valeriano Brown [facility] 06-01-2022 15:53-0500 Blood Pressure Location Valeriano Francis [facility] 06-01-2022 15:53-0500 Body temperature 98.24 [degF] Valeriano Francis [facility] 06-01-2022 15:53-0500 Diastolic blood pressure 92 mm[Hg] Valeriano Francis [facility] 06-01-2022 15:53-0500 Heart rate 71 /min Valeriano Francis [facility] 06-01-2022 15:53-0500 Mean blood pressure 112 mm[Hg] Valeriano Francis [facility] 06-01-2022 15:53-0500 Respiratory rate 16 /min Valeriano Francis [facility] 06-01-2022 15:53-0500 SaO2% (BldA) [Mass fraction] 99 % Valeriano Francis [facility] 06-01-2022 15:53-0500 Systolic blood pressure 153 mm[Hg] Valeriano Francis [facility] 11-17-2021 14:26-0400 Blood Pressure Location Jasbir VASQUESL [facility] [place] 11-17-2021 14:26-0400 Diastolic blood pressure 86 mm[Hg] Jasbir NILL [facility] [place] 11-17-2021 14:26-0400 Heart rate 72 /min Jasbir NILL [facility] [place] 11-17-2021 14:26-0400 Respiratory rate 16 /min Jasbir NILL [facility] [place] 11-17-2021 14:26-0400 Systolic blood pressure 124 mm[Hg] Jasbir LAYOMago [facility] [place] Encounters Encounter Date Encounter Type Care Provider Facility Start: 04-23-2025 ambulatory Helio RYAN Facili ty:[facility] [place] Start: 04-22-2025 ambulatory Helio RYAN Facili ty:[facility] [place] Start: 03-26-2025 End: 03-26-2025 ambulatory Helio Pb RYAN Facility[facility] Start: 03-26-2025 End: 03-26-2025 Patient encounter procedure Helio RYAN [facility] [place] Start: 02-26-2025 End: 02-26-2025 ambulatory Helio Pb MARTINA Facility[facility] Start: 02-26-2025 End: 02-26-2025 Patient encounter procedure Helio R MARTINA [facility] Start: 01-29-2025 End: 01-29-2025 ambulatory LEROY Jeffy JAMES Facility[facility] Start: 01-29-2025 End: 01-29-2025 Patient encounter procedure LEROY E JAMES [facility] [place] Start: 01-01-2025 End: 01-01-2025 ambulatory LEROY E JAMES Facility[facility] Start: 01-01-2025 End: 01-01-2025 Patient encounter procedure LEROY E JAMES [facility] Start: 12-04-2024 End: 12-04-2024 ambulatory LEROY E JAMES Facility[facility] Start: 11-06-2024 End: 11-06-2024 ambulatory Helio RYAN Facility:[facility] [place] Start: 10-23-2024 End: 10-23-2024 ambulatory Helio R RYAN Facility:[facility] [place] Start: 10-09-2024 End: 10-09-2024 ambulatory Heliotiffany RYAN Facility:[facility] [place] Start: 09-25-2024 End: 09-25-2024 ambulatory Helio R MARTINA Facility:[facility] [place] Start: 09-11-2024 End: 09-11-2024 ambulatory Heliotiffany RYAN Facility:[facility] [place] Start: 09-11-2024 End: 09-11-2024 Patient encounter procedure Helio RYAN [facility] Start: 08-14-2024 End: 08-14-2024 ambulatory ALMA RYAN Facility:[facility] [place] Start: 08-14-2024 End: 08-14-2024 Patient encounter procedure ALMA RYAN [facility] Start: 07-17-2024 End: 07-17-2024 ambulatory Helio RYAN Facility:[facility] Start: 07-17-2024 End: 07-17-2024 Patient encounter procedure Helio RYAN [facility] Start: 07-03-2024 End: 07-03-2024 Patient encounter procedure Joe GONZALEZ Work Phone: [facility] Comment on above: History of left knee replacement (Primary Dx); Sprain of left knee, unspecified ligament, initial encounter Start: 07-03-2024 End: 07-03-2024 ambulatory JOE BENSON Not Available Start: 06-19-2024 End: 06-19-2024 ambulatory Helio RYAN Facility:[facility] [place] Start: 06-19-2024 End: 06-19-2024 Patient encounter procedure Helio RYAN [facility] Start: 05-29-2024 End: 05-29-[address] [facility] Work Phone: Start: 05-29-2024 End: 05-29-2024 Encounter for general adult medical examination without abnormal findings [facility] Start: 05-29-2024 End: 05-29-2024 Patient encounter procedure Count Includes [facility] Work Phone: Start: 05-27-2024 Patient encounter status [facility] Start: 05-22-2024 Non-patient / Non-visit Count Includes [facility] Work Phone: Start: 05-22-2024 End: 05-22-2024 ambulatory Helio RYAN Facility:[facility] [place] Start: 05-22-2024 End: 05-22-2024 Patient encounter procedure Helio RYAN [facility] Start: 05-20-2024 End: 05-20-2024 ambulatory Helio RYAN Facility:[facility] Start: 05-20-2024 End: 05-20-2024 Patient encounter procedure Helio RYAN [facility] Start: 05-16-2024 Non-patient / Non-visit Count Includes [facility] Work Phone: Start: 02-17-2024 End: 02-17-2024 Patient encounter procedure Paula X Richy [facility] Start: 02-13-2024 End: 02-13-2024 Patient encounter procedure LEROY RAMIREZ [facility] Start: 07-29-2023 End: 07-29-2023 Patient encounter procedure Helio Ambriz RYAN [facility] Start: 05-08-2023 End: 05-08-2023 ambulatory Reji Centeno Other [facility] Other Start: 05-08-2023 Telephone encounter Reji AKINS [facility] Start: 04-16-2023 End: 04-16-2023 ambulatory Reji Centeno Other [facility] Other Start: 04-16-2023 Telephone encounter Reji AKINS [facility] Start: 04-01-2023 End: 04-01-2023 Patient encounter procedure Helio Ambriz RYAN [facility] Start: 12-14-2022 End: 12-14-2022 ambulatory Reji Centeno Other [facility] Other Start: 12-14-2022 Office outpatient visit 15 minutes Reji [facility] Start: 11-23-2022 End: 11-24-[address] REJI CENTENO Facility:[facility] Start: 09-17-2022 End: 09-18-[address] REJI CENTENO Facility:[facility] Start: 09-10-2022 Encounter for genera l adult medical examination without abnormal findings DR REJI CENTENO [facility] Start: 09-06-2022 Telephone encounter [facility]ji [facility] Start: 09-06-2022 End: 09-07-[address] REJI CENTENO [facility] Other Start: 09-06-2022 End: 09-07-2022 Encounter for general adult medical examination without abnormal findings DR REJI CENTENO Facility:[facility] Start: 09-05-2022 End: 09-05-2022 ambulatory Reji Centeno Other [facility] Other Start: 09-05-2022 Encounter for genera l adult medical examination without abnormal findings Reji Centeno [facility] Start: 09-05-2022 Periodic preventive med est patient 40-64yrs Reji Centeno [facility] Start: 07-15-2022 End: 08-11-2022 ambulatory VALERIANO FRANCIS Facility:[facility] Start: 07-12-2022 End: 07-14-2022 ambulatory VALERIANO FRANCIS Facility:[facility] Start: 06-20-2022 End: 06-20-2022 Admission to same day surgery center Valeriano Francis [facility] Start: 06-14-2022 End: 09-13-2022 Recurring Дмитрий Santo [facility] Start: 06-11-2022 End: 06-11-2022 Patient encounter procedure Дмитрий Santo [facility] Start: 06-01-2022 ambulatory Facility:1 [id number] Start: 06-01-2022 End: 06-01-2022 Patient encounter procedure Valeriano Francis [facility] Start: 01-25-2022 End: 01-25-2022 ambulatory Anthony Knox Other [facility] Other Start: 01-25-2022 Office outpatient ne w 30 minutes Anthony Knox [facility] Start: 01-25-2022 End: 01-25-2022 Patient encounter procedure MD Anthony Knox Work Phone: [facility] Start: 12-21-2021 End: 12-22-[address] REJI CENTENO Facility:[facility] Start: 11-17-2021 End: 11-17-2021 Patient encounter procedure Jasbir SAWANT [facility] [place] Start: 07-10-2021 Adult health examination Reji Centeno Other [facility] [employer] Other Procedures Date Procedure Procedure Detail Performing Clinician Start: 07-03-2024 Radiologic examinati on knee 3 views Joe GONZALEZ Work Phone: Start: 09-06-[address] LOPEZ [facility] Comment on above: Performed By: #### P [facility] #### [facility] [address] [place] [address] Dr. Alla Martinez Start: 06-20-2022 Arthroplasty of [...] Screening for malign ant neoplasm of colon [facility] Start: 03-15-2024 Influenza vaccination Influenz a Vaccine (#1) [facility] Start: 1970 Screening for malign ant neoplasm of colon [facility] Comprehensive metabo lic 2000 panel - Serum or Plasma [facility] Immunizations Immunization Date Immunization Notes Care Provider Fa cility 12-10-2020 COVID-19 Vaccine Pfi zer - Documentation Purposes Only Reji Centeno Other [facility] 12-10-2020 SARS-CoV-2 (COVID-19 ) Ad26 vaccine, recombinant Jasbir NILL [facility] [place] 11-19-2020 SARS-CoV-2 (COVID-19 ) Ad26 vaccine, recombinant Jasbir VASQUESL [facility] [place] Payers Date Payer Category Payer Private Health Insurance [id number] 2020 [facility] [id number] 2019 Unknown [id number] 2.16.840.1.527497.19 1972 Unknown [id number] 2..840.1.386364.3.579.2. 356 1972 Unknown [id number] 2..840.1.592123.3.579.2. 593 1972 Unknown [id number] 2.16.840.1.427507.3.579.2. 593 1972 Unknown [id number] 2.16.840.1.636844.3.579.2. 593 1972 Unknown [id number] 2.16.840.1.767382.3.579.2. 593 1972 Unknown [id number] 2.16.840.1.407656.3.579.2. 593 1972 Unknown [id number] 2.16.840.1.984060.3.579.2. 593 1972 Unknown [id number] 2.16.840.1.598761.3.579.2. 9 1972 Unknown [id number] 2.16.840.1.808829.3.579.2. 1259 1972 Unknown [id number] 2.16.840.1.096613.3.579.2. 1972 Unknown [id number] 2.16.840.1.567113.3.579.2. 1972 Unknown [id number] 2.16.840.1.155796.3.579.2. 1972 Unknown [id number] 2.16.840.1.149582.3.579.2 1972 Unknown [id number] 2.16.840.1.147556.3.579.2. 1972 Unknown [id number] 2.16.840.1.412675.3.579.2 1972 Unknown [id number] 2.16.840.1.697926.3.579.2. 1972 Unknown [id number] 2.16.840.1.652106.3.579.2. 1972 Unknown [id number] 2.16.840.1.710289.3.579.2. 1972 Unknown [id number] 2.16.840.1.791592.3.579.2. 1972 Unknown [id number] 2.16.840.1.608740.3.579.2. 1972 Unknown [id number] 2.16.840.1.464901.3.579.2. 1972 Unknown [id number] 2.16.840.1.751698.3.579.2. 1972 Unknown [id number] 2.16.840.1.563379.3.579.2. 727 1972 Unknown [id number] 2.16.840.1.223921.3.579.2. 727 1972 Unknown [id number] 2.16.840.1.076131.3.579.2. 727 1972 Unknown [id number] 2.16.840.1.250836.3.579.2. 727 1959 [facility] [id number] 2.16.840.1.077860.19 Self-pay Self Pay [id number] Social History Date Type Detail Facility Start: 11-17-2021 End: 10-23-2024 Tobacco smoking status Ex-smoker (finding) [facility] Tobacco smoking status Smokeless tobacco user within last 30 days [facility] [place] Start: 06-19-2023 End: 07-03-2024 Sex Assigned At Male [facility] Start: 1970 Sex Assigned At Male [facility] Tobacco smoking stat [facility] Unknown if ever smoked [facility] Work Phone: Start: 05-20-2015 End: 05-29-2024 Sex Male (finding) [facility] History of tobacco use Current smoker NOM [...] Healthcare Start: 06-13-2023 Sexual orientation Heterosexual (finding) [facility] Healthcare Sexual Orientation [facility] Medical Equipment Procedure Code Equipment Code Equipment [...] Facility 05-20-2024 Functional Status N/A [facility] 02-17-2024 Functional Status N/A [facility] 07-29-2023 Functional Status N/A [facility] 06-11-2022 Functional Status N/A [facility] 06-01-2022 Functional Status No [facility] Clinical Notes 01-25-2022 to 10-23-2024 LISA Vasquez - 07/03/2024 8:30 AM ESTPatient Instructions Note Date & Type Note Facility 10-23-2024 Note Patient Education Urology Hypogonadism, Male Male [...] Follow these instructions at home: ??? Take vvpq-kgl-rlxjhss and prescription medicines only as told by [...] you discuss any (more content not included)... [facility] 07-03-2024 History of Present illness Narrative GENERAL HISTORY AND PHYSICAL: NAME: Arnel Parr : 1970 HISTORY OF PRESENT ILLNESS: Arnel Parr is an 53 y.o. male is here for orthopedic evaluation Left total knee pain that developed a couple weeks ago and have been waxing and waning with no specific injury. He did have difficulty climbing stairs during his [employer] green party as the fist time having discomfort. PAST MEDICAL HISTORY: Past Medical History: Diagnosis Date Arthritis HTN (hypertension) (CMS/[facility]) PAST SURGICAL HISTORY: Past Surgical History: Procedure [...] joint. LISA Vasquez documented in this encounter [facility] 07-03-2024 Instructions LISA Vasquez - 07/03/2024 8:30 [...] an artificial joint. documented in this encounter [facility] 05-20-2024 Hospital Discharge instructions Patient Education 05/20/2024 [...] therapy. Follow these instructions at home: Take zcjw-ejt-kflajhc and prescription medicines only as told by [...] provider. Document Revised: 03/02/2021 Document Reviewed: 03/02/2021 [facility] Patient Education 2023 [employer]. Follow Up Care 02/17/2024 13:37:01 With:MARTINA FALCON, Helio Ambriz, URL Address: [facility] [address], [place] [address]- When: Unknown [facility] 05-20-2024 Note Patient Education Urology Hypogonadism, Male [...] Follow these instructions at home: ??? Take mksd-uqb-zexbngc and prescription medicines only as told by [...] you discuss any (more content not included)... [facility] 02-17-2024 Hospital Discharge instructions Patient Education [...] Follow these instructions at home: Medicines Take hkoh-jrd-bajtvki and prescription medicines only as told by [...] provider. Document Revised: 09/27/2021 Document Reviewed: 09/27/2021 [facility] Patient Education 2022 [employer]. 02/17/2024 13:19:08 Hypogonadism, Male Hypogonadism, Male Male [...] therapy. Follow these instructions at home: Take mska-qac-yswvxpz and prescription medicines only as told by [...] provider. Document Revised: 03/02/2021 Document Reviewed: 03/02/2021 [facility] Patient Education 2022 [employer]. Follow Up Care 02/12/2024 15:29:23 With:JASSON Lockhart APRN, JAYJAY Dennison, URL Address: When: Unknown Comments:pt to f/up with Dr. Ryan With:MARTINA FALCON, Helio Ambriz, URL Address: [address] [place] [id number] When: Unknown Comments:3mos w/testosterone level [facility] 07-29-2023 Hospital Discharge instructions Follow Up Care 07/29/2023 15:19:19 With:Helio RYAN MD, URL Address: [facility] [address] [place] [address]- [phone] When: Unknown [facility] 07-29-2023 Hospital Discharge instructions Patient Education [...] therapy. Follow these instructions at home: Take rhkg-hkc-vzujiyq and prescription medicines only as told by [...] provider. Document Revised: 03/02/2021 Document Reviewed: 03/02/2021 [facility] Patient Education 2022 [employer]. Follow Up Care 04/16/2023 11:59:27 With:Helio RYAN MD, URL Address: [facility] [address] [place] [address] [phone] When: Unknown Comments:3 mos w/ T level [facility] 05-08-2023 Evaluation note Encounter Date Diagnosis Assessment Notes Apr, COVID (ICD-10 - U07.1) [facility] Other 06-26-2023 Hospital Discharge instructions Follow Up Care 01/07/2023 10:27:30 With:Helio RYAN MD, URL Address: [facility] [address], [place] [address]- [phone] When: Unknown [facility] 06-02-2023 Evaluation note* Encounter Date Diagnosis [...] low testosterone, which may result improved function [facility] Other 02-23-2023 Evaluation note* Encounter Date Diagnosis Assessment Notes Treatment Notes Treatment Clinical Notes Aug, Abnormal EKG (ICD-10 - R94.31) Aug, Abnormal nuclear stress test (ICD-10 - R94.39) [facility] Other 02-22-2023 Evaluation note* Encounter Date Diagnosis Assessment Notes Treatment Notes Treatment Clinical Notes Aug, Wellness examination (ICD-10 - Z00.00) Healthy diet and exercise. Reviewed age-appropriate preventive testing recommended. Aug, Primary hypertension (ICD-10 - I10) Aug, Obstructive sleep apnea (ICD-10 - G47.33) This patient is aware of the benefits associated with ANAHY: With continued use, the patient reduces the risk for LA, CVA, HTN, cardiac dysrhythmias and sudden cardiac [...] (ICD-10 - Z12.5) Yearly PSA and GUERDA [facility] Other [id number] Hospital Discharge instructions Patient Education 06/20/2022 14:01:04 Knee Cryocuff Patient Instructions - FT (CUSTOM) 06/20/2022 14:00:47 Post Op Patient Instructions - FT (CUSTOM) 06/20/2022 10:21:15 Alejandra Francis - Total Knee Arthroplasty (Custom) [place], [place] [facility] DISCHARGE INSTRUCTIONS: TOTAL KNEE [...] will continue at home, possibly with the fiscal assistant of Home Health Physical Therapy or [...] Driving too soon, 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 It is therefore advised not to drive until after yourfirst office visit following surgery. FOLLOW-UP OFFICE VISIT: Valeriano Francis DO [facility] [address] [place] [address] Reviewed: Follow Up Care 05/25/2022 08:46:50 With:Valeriano Francis Address: [address] [place] [address] Business (1) When: Unknown [facility]12-07-2022 Evaluation + Plan noteExtracted from: Title:ASHELY POSTOP Author:Anthony Marin DO Date: 06/20/22 Plan Transfer/ Discharge: Patient can be discharged from PACU when criteria met. Condition good. Extracted from: Title:ASHELY PREOP Author:Anthony Marin DO Date:08/21/21 Plan [place] [employer] (ASA) physical status classification: [...] discussed. Pt aware and desires to proceed. [facility]07-14-2022 Evaluation note* Encounter Date Diagnosis Assessment Notes [...] to consider total knee arthroplasty in future [facility] [employer] Other Evaluation + Plan note Future Appointments Appointment Date:11/27/2021 09:30:00 AM Scheduled Provider: Location:[facility] Appointment Type:Surgery FT General Surgery [employer] Evaluation + Plan note Future Appointments Appointment Date:06/20/2022 08:30:00 AM Scheduled Provider: Location:[facility] Appointments Appointment Date:06/20/2022 08:30:00 AM Scheduled Provider: Location:[facility] Appointment Type:Surgery FT Future Scheduled Tests Radiology* NM Myocardial Spect Rest/Stress 2 Day [facility]12/22 [facility]ments Appointment Date:10/28/2023 02:45:00 PM Scheduled Provider:Helio RYAN MD Location:[facility] Appointment Type:URO Office Visit Diagnostic Tests Pending * Testosterone Level Total 07/29/23 [facility] evaluation + Plan note Future Appointments Appointment Date:02/17/2024 01:00:00 PM Scheduled Provider:JASSON Lockhart APRN, [place] [facility] Location:[facility] Appointment Type:URO Office Visit [facility] evaluation + Plan note Future Appointments Appointment Date:05/20/2024 03:15:00 PM Scheduled Provider:Helio RYAN MD Location:[facility] Appointment Type:URO Office Visit Diagnostic Tests Pending * Testosterone Level Total 02/17/24 [facility] evaluation + Plan note Future Appointments Appointment Date:05/22/2024 08:30:00 AM Scheduled Provider: Location:[facility] Appointment Type:URO Nurse Visit Diagnostic Tests Pending * Testosterone Level Total 05/20/24 [facility] evaluation + Plan note Future Appointments Appointment Date:06/19/2024 08:00:00 AM Scheduled Provider: Location:[facility] Appointment Type:URO Nurse Visit [facility] evaluation + Plan note Future Appointments Appointment Date:07/17/2024 08:30:00 AM Scheduled Provider: [facility] Appointment Type:URO Nurse Visit [facility] evaluation + Plan note Future Appointments Appointment Date:08/14/2024 08:30:00 AM Scheduled Provider: [facility] Appoint[facility] Type:URO Nurse Visit Appointment Date:09/11/2024 08:30:00 AM Scheduled Provider: Location:[facility] Appointment Type:URO Nurse Visit Appointment Date:10/09/2024 08:30:00 AM Scheduled Provider:Helio RYAN MD Location:[facility] Appointment Type:URO Office Visit [facility] Evaluation + Plan note Future Appointments Appointment Date:09/11/2024 08:30:00 AM Scheduled Provider: Location:[facility] Appointment Type:URO Nurse Visit Appointment Date:10/09/2024 08:30:00 AM Scheduled Provider:Helio RYAN MD [facility] Appointment Type:URO Office Visit [facility] evaluation + Plan note Future Appointments Appointment Date:09/25/2024 08:00:00 AM Scheduled Provider: [facility] Appointment Type:URO Nurse Visit Appointment Date:10/09/2024 08:30:00 AM Scheduled Provider: Location:[facility] Appointment Type:URO Nurse Visit Appointment Date:10/23/2024 10:30:00 AM Scheduled Provider:Helio RYAN MD Location:[facility] Appointment Type:URO Office Visit [facility] evaluation + Plan note Future Appointments Appointment Date:01/29/2025 08:00:00 AM Scheduled Provider: [facility] Appointment Type:URO Nurse Visit Appointment Date:04/16/2025 08:15:00 AM Scheduled Provider:Helio RYAN MD [facility] Appointment Type:URO Office Visit [facility] evaluation + Plan note Future Appointments Appointment Date:02/26/2025 08:00:00 AM Scheduled Provider: [facility] Appointment Type:URO Nurse Visit Appointment Date:04/30/2025 10:45:00 AM Scheduled Provider:Helio RYAN MD [facility] Appointment Type:URO Office Visit [facility] evaluation + Plan note Future Appointments Appointment Date:03/26/2025 08:00:00 AM Scheduled Provider: Location:[facility] Appointment Type:URO Nurse Visit Appointment Date:04/30/2025 10:45:00 AM Scheduled Provider:Helio RYAN MD Location:[facility] Appointment Type:URO Office Visit [facility] evaluation + Plan note Future Appointments Appointment Date:04/23/2025 10:15:00 AM Scheduled Provider:Helio RYAN MD Location:[facility] Appointment Type:URO Office Visit Diagnostic Tests Pending * CBC w/ Auto Diff 03/26/25 * Testosterone Level Total 03/26/25 [facility] evalihaygd noteNo assessment information available [facility] Work Phone: evaluation noteNo InformationNort Audemat Other Evaluation note* Diagnosis Onset Date Resolution Status Admit Date Hypertension acute May 9:08am Primary osteoarthritis of knee acute May 29, 2024 9:08am Screening PSA (prostate specific antigen) acute May 29, 2024 9:08am Wellness examination acute Nov mb2023 9:08am [facility] Work Phone: Evalumofne note* Diagnosis History of left knee replacement- Primary Sprain of left knee, unspecified ligament, initial encounter documented in this encounter [facility] HealthcareHistory general Narrative - Reported* Type Description Date Medical History high blood pressure [facility] Other History general Narrative - Reported* Type [...] KNEE ARTHROPLASTY 022 Surgical History COLONOSCOPY 11/28/2021 [facility] Other History general Narrative - Reported* Type [...] COLONOSCOPY 11/28/2021 Hospitalization History SEE SURGICAL HX [facility] Other Hospital course Narrative No data available for this section General Surgery [facility] Discharge instructions No data available for this section [facility] note No data available for this section [facility] FoundationReason for referral (narrative)* Reason Referral for low ludy tosterone Diagnosis 1 Low testosterone in male (R79.89) Referral Organization [facility] Referring Provider First Name Reji Referring Provider Last Name Dk Referring Provider Specialty Internal Me dicine Referred Organization [facility] Referred Provider Helio Ryan Referred Address [address], [place],[address] Referred Provider Specialty Urology Referral Priority Routine General Notes Arnel presented w/ complaints of fatigue, decreased libido and ED. His initial testosterone level was low normal but his repeat level, after waiting 3 months, was low. He is being referred to be counseled on hormone replacement therapy and if appropriate, to initiate treatment Clinical Notes Include labs from [facility] Other Summary Purpose Family History No Family [...] May 29, 2024 End: May 29, 2024 Agent Based Modeler Relationship Specialty Start Date End Date Reji Centeno MD [address] [place] [address] PCP - General Internal Medicine [...] DATE CREATED AUTHOR AUTHOR'S ORGANIZ ATION 07/12/2022 [facility] DATE CREATED AUTHOR AUTHOR'S ORGANIZ ATION 11/26/2022 [facility] DATE CREATED AUTHOR AUTHOR'S ORGANIZ ATION 07/06/2024 [facility] DATE CREATED AUTHOR AUTHOR'S ORGANIZ ATION 03/28/2025 [facility] FOR RECORDS PERTAINING TO PATIENTS WHO [...] BE BASED ON THE PRIMARY CLINICAL RECORDS. [employer] [facility]. provides no warranty or guarantee of the accuracy or completeness of information in this document.
[2025-04-09 08:20] LABS: Hematocrit 45.1 % (42.0-54.0); Hemoglobin 15.0 g/dL (14.0-18.0); Immature Granulocytes Abs Auto 0.12 10^3/uL (0.00-0.03); Immature Granulocytes Pct Auto 1.4 % (0.0-0.5); Lymphocytes Absolute Auto 2.3 10^3/uL (1.2-3.8); Mean Corpuscular HGB Conc 33.3 g/dL (29.9-35.2); Mean Corpuscular Hemoglobin 29.8 pg (25.9-34.0); Mean Corpuscular Volume 89.5 fL (80.0-94.0); Platelet Count 219 10^3/uL (150-450); Red Blood Count 5.04 10^6/uL (4.70-6.10); White Blood Count 8.8 10^3/uL (4.0-11.0)
== END 2025-04-09 08:00 | disposition home or self-care (01) ==
LOC: LAB 08:00
PROVIDERS: PCP Internal Medicine; Visit Provider Urology
DX: E29.1 Testicular hypofunction (principal)
CPT/HCPCS: 36415; 84403; 85025